=== PATIENT | male | born 1960 | race Caucasian/White ===

== ENCOUNTER → 2018-03-19 | Outpatient (REF) | payer OTHER ==
[2018-03-22 00:07] LABS: CYCLIC CITRULLINATED PEPTIDE > 250 units (0-19)
== END ==
LOC: M LAB REF 17:20
DX: J90 Pleural effusion, not elsewhere classified (principal)

== ENCOUNTER → 2018-04-17 | Outpatient (CLI) | payer BC | LOC: M SMT 13:36 | DX: J90 Pleural effusion, not elsewhere classified (principal); M05.1 Rheumatoid lung disease with rheumatoid arthritis | CPT/HCPCS: 71046 ==

== ENCOUNTER → 2018-04-18 | Outpatient (CLI) | payer BC | LOC: M RAD 10:51 | DX: M79.662 Pain in left lower leg (principal); M79.661 Pain in right lower leg; R60.0 Localized edema | CPT/HCPCS: 93970 ==

== ENCOUNTER → 2018-06-17 | Outpatient (CLI) | payer BC | LOC: M LRY 12:26 | DX: M05.79 Rheumatoid arthritis with rheumatoid factor of multiple sites without organ or systems involvement (principal) | CPT/HCPCS: 73070 ==

== ENCOUNTER → 2018-06-17 | Outpatient (REF) | payer BC ==
[2018-06-17 17:24] LABS: ALBUMIN 3.4 GM/DL (3.2-5.2); ALKALINE PHOSPHATASE 56 U/L (45-117); ALT/SGPT 37 U/L (12-78); ANION GAP 10 MEQ/L (8-16); AST/SGOT 17 U/L (7-37); BILIRUBIN,TOTAL 0.7 MG/DL (0.2-1.0); BLOOD UREA NITROGEN 20 MG/DL (7-18); C REACTIVE PROTEIN QUANTITATIV 3.04 MG/DL (0.00-0.30); CALCIUM LEVEL 8.9 MG/DL (8.5-10.1); CARBON DIOXIDE LEVEL 25 MEQ/L (21-32); CHLORIDE LEVEL 103 MEQ/L (98-107); CREATININE FOR GFR 0.92 MG/DL (0.70-1.30); GLOMERULAR FILTRATION RATE > 60.0 (>56); GLUCOSE, FASTING 96 MG/DL (70-100); POTASSIUM SERUM 4.6 MEQ/L (3.5-5.1); SODIUM LEVEL 138 MEQ/L (136-145); TOTAL PROTEIN 6.8 GM/DL (6.4-8.2); URIC ACID 5.5 MG/DL (3.5-7.2)
[2018-06-17 17:27] LABS: TOTAL 25(OH) VITAMIN D 21.4 NG/ML (30.0-100.0)
[2018-06-17 17:39] LABS: BASO % 0.3 % (0.0-1.0); EOS % 0.3 % (0.0-3.0); HEMATOCRIT 45.7 % (42.0-52.0); HEMOGLOBIN 15.1 g/dl (13.5-17.5); IMMATURE GRANULOCYTE % 0.7 % (0-3.0); LYMPH # 0.5 10^3/uL (1.5-4.5); LYMPH % 5.3 % (24.0-44.0); MEAN CORPUSCULAR HEMOGLOBIN 32.3 pg (27.0-33.0); MEAN CORPUSCULAR VOLUME 97.9 fl (80.0-96.0); MONO # 0.3 10^3/uL (0.0-0.8); MONO % 3.4 % (0.0-5.0); NEUTROPHILS # 8.7 10^3/uL (1.8-7.7); PLATELET COUNT, AUTOMATED 139 10^3/uL (150-450); RED BLOOD COUNT 4.67 10^6/uL (4.30-6.10); RED CELL DISTRIBUTION WIDTH 16.6 % (11.5-14.5); WHITE BLOOD COUNT 9.6 10^3/uL (4.0-10.0)
[2018-06-17 19:23] LABS: ERYTHROCYTE SEDIMENTATION RATE 32 mm/hr (0-20)
[2018-06-18 09:58] LABS: HEPATITIS B SURFACE ANTIBODY NEGATIVE (POSITIVE)
[2018-06-18 10:09] LABS: HEPATITIS B SURFACE ANTIGEN NEGATIVE (NEGATIVE)
[2018-06-18 10:37] LABS: HEPATITIS C VIRUS ABY INDEX 0.1 INDEX (<0.8)
[2018-06-21 00:29] LABS: ANA (HEP2) Negative (.); ANTI DOUBLE STRAND-DNA AB 1 IU/mL (0-9); G6PD2 4.58 x10E6/uL (4.14-5.80); G6PD3 295 (146-376); HEPATITIS B CORE ANTIBODY IGG Negative (Negative); QuantiFERON-TB Gold Plus Negative (Negative); RNP ANTIBODY < 0.2 AI (0.0-0.9); SMITHS ANTIBODY < 0.2 AI (0.0-0.9); SSA SJOGRENS A <0.2 AI (0.0-0.9); SSB SJOGRENS B <0.2 AI (0.0-0.9)
== END ==
LOC: M SFHCLERA 12:05
DX: M05.79 Rheumatoid arthritis with rheumatoid factor of multiple sites without organ or systems involvement (principal)
CPT/HCPCS: 84550

== ENCOUNTER → 2018-07-22 | Outpatient (REF) | payer BC ==
[2018-07-22 13:19] LABS: BASO % 0.2 % (0.0-1.0); EOS # 0.1 10^3/uL (0.0-0.50); EOS % 1.5 % (0.0-3.0); HEMATOCRIT 40.7 % (42.0-52.0); HEMOGLOBIN 13.5 g/dl (13.5-17.5); LYMPH # 0.9 10^3/uL (1.5-4.5); LYMPH % 9.8 % (24.0-44.0); MEAN CORPUSCULAR HEMOGLOBIN 32.8 pg (27.0-33.0); MEAN CORPUSCULAR HGB CONC 33.2 g/dl (32.0-36.5); MEAN CORPUSCULAR VOLUME 98.8 fl (80.0-96.0); MONO # 0.7 10^3/uL (0.0-0.8); NEUTROPHILS # 7.3 10^3/uL (1.8-7.7); NEUTROPHILS % 80.1 % (36.0-66.0); PLATELET COUNT, AUTOMATED 181 10^3/uL (150-450); RED BLOOD COUNT 4.12 10^6/uL (4.30-6.10); WHITE BLOOD COUNT 9.1 10^3/uL (4.0-10.0)
[2018-07-22 14:02] LABS: ALBUMIN 3.4 GM/DL (3.2-5.2); ALT/SGPT 24 U/L (12-78); BILIRUBIN,TOTAL 0.5 MG/DL (0.2-1.0); BLOOD UREA NITROGEN 20 MG/DL (7-18); CALCIUM LEVEL 8.5 MG/DL (8.5-10.1); CARBON DIOXIDE LEVEL 30 MEQ/L (21-32); CHLORIDE LEVEL 104 MEQ/L (98-107); GLOMERULAR FILTRATION RATE > 60.0 (>56); GLUCOSE, FASTING 101 MG/DL (70-100); POTASSIUM SERUM 4.2 MEQ/L (3.5-5.1); SODIUM LEVEL 140 MEQ/L (136-145); TOTAL PROTEIN 6.5 GM/DL (6.4-8.2); URIC ACID 6.3 MG/DL (3.5-7.2)
[2018-07-22 14:05] LABS: ERYTHROCYTE SEDIMENTATION RATE 51 mm/hr (0-20)
== END ==
LOC: M SFHCPLAZ 11:44
PROVIDERS: ATTEND Internal Medicine Rheumatology
DX: M05.79 Rheumatoid arthritis with rheumatoid factor of multiple sites without organ or systems involvement (principal)

== ENCOUNTER → 2018-08-26 | Outpatient (REF) | payer BC ==
[2018-08-26 18:27] LABS: ALBUMIN 3.6 GM/DL (3.2-5.2); ALT/SGPT 44 U/L (12-78); BILIRUBIN,TOTAL 0.3 MG/DL (0.2-1.0); BLOOD UREA NITROGEN 17 MG/DL (7-18); C REACTIVE PROTEIN QUANTITATIV < 0.30 MG/DL (0.00-0.30); CALCIUM LEVEL 9.1 MG/DL (8.5-10.1); CARBON DIOXIDE LEVEL 29 MEQ/L (21-32); CHLORIDE LEVEL 103 MEQ/L (98-107); GLOMERULAR FILTRATION RATE > 60.0 (>56); GLUCOSE, FASTING 85 MG/DL (70-100); POTASSIUM SERUM 5.1 MEQ/L (3.5-5.1); SODIUM LEVEL 138 MEQ/L (136-145); TOTAL PROTEIN 6.8 GM/DL (6.4-8.2)
[2018-08-26 18:40] LABS: BASO % 0.2 % (0.0-1.0); EOS # 0.1 10^3/uL (0.0-0.50); EOS % 1.1 % (0.0-3.0); HEMATOCRIT 44.7 % (42.0-52.0); HEMOGLOBIN 14.8 g/dl (13.5-17.5); LYMPH # 1.7 10^3/uL (1.5-4.5); LYMPH % 17.8 % (24.0-44.0); MEAN CORPUSCULAR HEMOGLOBIN 34.4 pg (27.0-33.0); MEAN CORPUSCULAR HGB CONC 33.1 g/dl (32.0-36.5); MONO # 0.9 10^3/uL (0.0-0.8); NEUTROPHILS # 6.6 10^3/uL (1.8-7.7); NEUTROPHILS % 70.2 % (36.0-66.0); PLATELET COUNT, AUTOMATED 197 10^3/uL (150-450); WHITE BLOOD COUNT 9.4 10^3/uL (4.0-10.0)
[2018-08-26 19:20] LABS: ERYTHROCYTE SEDIMENTATION RATE 10 mm/hr (0-20)
== END ==
LOC: M SFHCPLAZ 14:29
PROVIDERS: ATTEND Internal Medicine Rheumatology
DX: M05.10 Rheumatoid lung disease with rheumatoid arthritis of unspecified site (principal)

== ENCOUNTER → 2018-09-26 | Outpatient (REF) | payer BC ==
[2018-09-26 14:22] LABS: BASO % 0.2 % (0.0-1.0); EOS # 0.1 10^3/uL (0.0-0.50); EOS % 1.5 % (0.0-3.0); HEMATOCRIT 45.6 % (42.0-52.0); HEMOGLOBIN 15.1 g/dl (13.5-17.5); LYMPH # 0.9 10^3/uL (1.5-4.5); LYMPH % 10.3 % (24.0-44.0); MEAN CORPUSCULAR HEMOGLOBIN 34.1 pg (27.0-33.0); MEAN CORPUSCULAR HGB CONC 33.1 g/dl (32.0-36.5); MEAN CORPUSCULAR VOLUME 102.9 fl (80.0-96.0); MONO # 0.7 10^3/uL (0.0-0.8); NEUTROPHILS # 7.3 10^3/uL (1.8-7.7); NEUTROPHILS % 79.7 % (36.0-66.0); PLATELET COUNT, AUTOMATED 201 10^3/uL (150-450); RED BLOOD COUNT 4.43 10^6/uL (4.30-6.10); WHITE BLOOD COUNT 9.1 10^3/uL (4.0-10.0)
[2018-09-26 14:41] LABS: ALBUMIN 3.8 GM/DL (3.2-5.2); ALT/SGPT 26 U/L (12-78); BILIRUBIN,TOTAL 0.6 MG/DL (0.2-1.0); BLOOD UREA NITROGEN 12 MG/DL (7-18); C REACTIVE PROTEIN QUANTITATIV 0.57 MG/DL (0.00-0.30); CALCIUM LEVEL 8.5 MG/DL (8.5-10.1); CARBON DIOXIDE LEVEL 28 MEQ/L (21-32); CHLORIDE LEVEL 102 MEQ/L (98-107); CREATININE FOR GFR 0.88 MG/DL (0.70-1.30); GLOMERULAR FILTRATION RATE > 60.0 (>56); GLUCOSE, FASTING 77 MG/DL (70-100); NT-PRO BNP 105 PG/ML (<125); POTASSIUM SERUM 4.7 MEQ/L (3.5-5.1); SODIUM LEVEL 138 MEQ/L (136-145); URIC ACID 5.1 MG/DL (3.5-7.2)
[2018-09-26 14:47] LABS: ERYTHROCYTE SEDIMENTATION RATE 16 mm/hr (0-20)
== END ==
LOC: M SFHCPLAZ 11:17
PROVIDERS: ATTEND Internal Medicine Rheumatology
DX: M05.79 Rheumatoid arthritis with rheumatoid factor of multiple sites without organ or systems involvement (principal); M05.10 Rheumatoid lung disease with rheumatoid arthritis of unspecified site

== ENCOUNTER → 2018-10-13 | Outpatient (CLI) | payer BC ==
--- NOTE | 2018-10-14 20:36 | ECHO ---
DATE OF PROCEDURE: 10/13/2018 Date of : 1960 REFERRING PHYSICIAN: Dr. Sloane Arias INDICATION: Dyspnea. Hypertension. MEASUREMENTS: 2D measurements: RV: 4.1 cm LV: 4.4 cm Septum: 1.1 cm Posterior wall: 1.1 cm Aortic root: 3.3 cm LA: 3.2 cm LVEF: 65% Doppler measurements: AV: 1.3 m/s LVOT: 1.2 m/s LVOT diameter: 2.2 cm MV-E: 54, A: 66, EA ratio: 0.8 Early mitral deceleration time: 225 ms E prime: 7.2, A prime: 9.8, E/E prime ratio: 7.6 PV: 0.8 m/s Pulmonary artery acceleration time: 127 ms RVSP: 32 mmHg IVC: 1.7 cm COMMENTS: Normal sinus rhythm without intraventricular conduction disturbance. M-mode and two-dimensional echocardiography was performed with pulsed, continuous wave, color flow and tissue Doppler studies. Normal left ventricular size, wall thickness and wall motion. Normal left atrial size with Doppler evidence of an impairment of left ventricular (LV) diastolic function, yet currently normal estimated mean left atrial pressure. Right heart chamber sizes were upper limits of normal with normal wall motion and Doppler evidence of borderline pulmonary hypertension. Normal inferior vena cava (IVC) size and collapse against an elevated central venous pressure. Normal appearing and functioning valvular structures. Normal aortic root size. No apparent intracardiac mass or pericardial effusion.
== END ==
LOC: M CARPUL 10:08
PROVIDERS: ATTEND Internal Medicine Pulmonary Disease
DX: R06.00 Dyspnea, unspecified (principal)

== ENCOUNTER → 2018-10-13 | Outpatient (CLI) | payer BC ==
[~2018-10-13] MED LIST: ISOVUE-370 76% 100ML VIAL (Q9967) As Ordered ONE
--- NOTE | 2018-10-13 09:19 | REP ---
CT CHEST WITHOUT AND WITH CONTRAST: 10/13/2018 CLINICAL HISTORY: 2 cm low density nodule anterior-superior mediastinum. Patient with rheumatoid arthritis. COMPARISON: Noncontrast CT 08/12/[address] [facility]. TECHNIQUE: Noncontrast scanning through the chest followed by a bolus of 75 mL Isovue 370 with rescanning through the chest in both coronal and sagittal reconstructions provided. FINDINGS: The anterior-superior mediastinum again shows a 2.2 x 2 x 1.9 cm low density lesion is well-circumscribed. It has CT attenuation values on precontrast images in the low to mid teens and on postcontrast images in the range of 6-8 international units. This implies a low-density or fluid-containing lesion. There is a partially fatty lesion. There is certainly no enhancement with contrast. Within the mediastinum, there are no enlarged mediastinal nodes. An 8.5 mm node in the AP window is noted and there are smaller nodes in the prevascular space, AP window, precarinal, right paratracheal and subcarinal regions. I do not see any pathologic sized hilar adenopathy. The aorta is without aneurysm or dissection and has some calcifications at the arch. The main, right and left pulmonary arteries are without a filling defect. Tracheal airway is grossly intact. I see no evidence of cylindrical bronchiectasis. There is no pleural thickening, pleural effusion, calcified pleural plaque, pleural-based mass, parenchymal mass nor any significant pulmonary nodules visible. I do not see any significant interstitial lung disease, blebs, ground-glass opacities, infiltrates or other acute findings. Sternum, manubrium, clavicles, AC joints, visualized portions of the humeral heads, scapulae and ribs are without fracture or destructive lesion. There is some minor degenerative changes at the shoulders. The spine shows small marginal osteophytes but no destructive lesion or compression deformity. That portion of the liver and spleen included are unremarkable. Gallbladder without calcified stone. Pancreas, adrenal glands and upper poles of kidneys unremarkable. Visualized bowel loops intact. I do not see a hiatal hernia. IMPRESSION: 1. There is a 2.2 x 2 x 1.9 cm low density lesion anterior superior mediastinum with fairly sharply lobulated margins and without calcification. It showed no enhancement and was a low attenuation and near fluid density. This may reflect a thymic cyst or other similar nonaggressive finding. A followup CT in 4-6 months may be helpful. 2. There is no pathologic sized mediastinal or hilar adenopathy. 3. I do not see any interstitial lung disease, pulmonary nodules, cylindrical bronchiectasis or other acute finding. Electronically Signed by Chevy Bull MD 10/13/2018 07:38 P
== END ==
LOC: M RAD 07:51
PROVIDERS: ATTEND Internal Medicine Pulmonary Disease
DX: M05.1 Rheumatoid lung disease with rheumatoid arthritis (principal); D15.2 Benign neoplasm of mediastinum
CPT/HCPCS: 71270; Q9967

== ENCOUNTER → 2018-11-03 | Outpatient (REF) | payer BC ==
[2018-11-03 16:34] LABS: BASO % 0.9 % (0.0-1.0); EOS # 0.2 10^3/uL (0.0-0.50); EOS % 3.8 % (0.0-3.0); HEMATOCRIT 43.3 % (42.0-52.0); HEMOGLOBIN 14.2 g/dl (13.5-17.5); LYMPH # 0.7 10^3/uL (1.5-4.5); LYMPH % 16.7 % (24.0-44.0); MEAN CORPUSCULAR HEMOGLOBIN 33.6 pg (27.0-33.0); MEAN CORPUSCULAR HGB CONC 32.8 g/dl (32.0-36.5); MEAN CORPUSCULAR VOLUME 102.4 fl (80.0-96.0); MONO # 0.7 10^3/uL (0.0-0.8); MONO % 16.5 % (0.0-5.0); NEUTROPHILS # 2.7 10^3/uL (1.8-7.7); NEUTROPHILS % 61.9 % (36.0-66.0); PLATELET COUNT, AUTOMATED 210 10^3/uL (150-450); RED BLOOD COUNT 4.23 10^6/uL (4.30-6.10); WHITE BLOOD COUNT 4.4 10^3/uL (4.0-10.0)
[2018-11-03 16:41] LABS: ALBUMIN 3.3 GM/DL (3.2-5.2); ALT/SGPT 31 U/L (12-78); BILIRUBIN,TOTAL 0.5 MG/DL (0.2-1.0); BLOOD UREA NITROGEN 15 MG/DL (7-18); C REACTIVE PROTEIN QUANTITATIV 2.44 MG/DL (0.00-0.30); CALCIUM LEVEL 8.5 MG/DL (8.5-10.1); CARBON DIOXIDE LEVEL 29 MEQ/L (21-32); CHLORIDE LEVEL 101 MEQ/L (98-107); CREATININE FOR GFR 1.08 MG/DL (0.70-1.30); GLOMERULAR FILTRATION RATE > 60.0 (>56); GLUCOSE, FASTING 105 MG/DL (70-100); POTASSIUM SERUM 4.2 MEQ/L (3.5-5.1); SODIUM LEVEL 136 MEQ/L (136-145); TOTAL PROTEIN 6.6 GM/DL (6.4-8.2)
[2018-11-03 18:05] LABS: ERYTHROCYTE SEDIMENTATION RATE 43 mm/hr (0-20)
== END ==
LOC: M SFHCPLAZ 14:05
PROVIDERS: ATTEND Internal Medicine Rheumatology
DX: M05.79 Rheumatoid arthritis with rheumatoid factor of multiple sites without organ or systems involvement (principal)

== ENCOUNTER → 2018-12-08 | Outpatient (CLI) | payer BC ==
--- NOTE | 2018-12-09 06:54 | REP ---
Clinical: Rheumatoid lung disease Technique: Axial noncontrast images from the thoracic inlet to the upper abdomen with coronal and sagittal re-formations. Comparison: 10/13/2018, 08/22/2018, 03/25/2018 . Findings: Current examination demonstrates moderate scattered small patchy ground-glass opacities primarily noted in the left and right upper lobe is along with scattered mild elements of interstitial prominence and mild perihilar bronchiectasis. Small areas of consolidation in the right middle lobe measure up to 2.1 cm diameter. Associated mild reactive mediastinal and hilar adenopathy is appreciated with pretracheal lymph nodes measuring up to 15 mm. No effusion. No pneumothorax. Further evaluation of the mediastinum demonstrates stable relatively normal appearance of the vasculature and heart/pericardium including mild atherosclerotic changes to the thoracic aorta and coronary arteries. Anterior mediastinal lesion measuring approximately 2.3 cm maximal diameter remains unchanged and may represent residual thymic tissue or thymic cyst. Musculoskeletal structures demonstrate age-related degenerative changes which remain stable. Limited upper abdomen is grossly unremarkable. Impression: 1. Patchy scattered bilateral lesions acute ground-glass infiltrates and small areas of suspected consolidation in the right middle lobe along with mild bronchiectasis and interstitial prominence suggest acute on chronic pneumonitis possibly related to rheumatoid lung disease. 2. Reactive mediastinal and hilar adenopathy. 3. Somewhat triangular shaped low density lesion within the anterior mediastinum remains stable. Differential diagnosis includes but is not limited to thymic cyst and residual thymic tissue. Electronically Signed by Adam Tejada MD 12/09/2018 06:45 A
== END ==
LOC: M RAD 14:41
PROVIDERS: ATTEND Internal Medicine Pulmonary Disease
DX: M05.1 Rheumatoid lung disease with rheumatoid arthritis (principal)

== ENCOUNTER → 2018-12-16 | Outpatient (REF) | payer BC | LOC: M LAB REF 17:21 | PROVIDERS: ATTEND Internal Medicine Pulmonary Disease | DX: M05.1 Rheumatoid lung disease with rheumatoid arthritis (principal) ==

== ENCOUNTER → 2019-01-05 | Outpatient (REF) | payer BC ==
[2019-01-05 15:58] LABS: BASO % 0.7 % (0.0-1.0); EOS # 0.3 10^3/uL (0.0-0.50); EOS % 5.2 % (0.0-3.0); HEMATOCRIT 44.5 % (42.0-52.0); HEMOGLOBIN 14.9 g/dl (13.5-17.5); LYMPH # 1.4 10^3/uL (1.5-4.5); LYMPH % 25.2 % (24.0-44.0); MEAN CORPUSCULAR HEMOGLOBIN 34.3 pg (27.0-33.0); MEAN CORPUSCULAR HGB CONC 33.5 g/dl (32.0-36.5); MEAN CORPUSCULAR VOLUME 102.3 fl (80.0-96.0); MONO # 0.8 10^3/uL (0.0-0.8); MONO % 13.5 % (0.0-5.0); NEUTROPHILS % 54.9 % (36.0-66.0); PLATELET COUNT, AUTOMATED 301 10^3/uL (150-450); RED BLOOD COUNT 4.35 10^6/uL (4.30-6.10); WHITE BLOOD COUNT 5.6 10^3/uL (4.0-10.0)
[2019-01-05 16:24] LABS: ALBUMIN 3.1 GM/DL (3.2-5.2); ALT/SGPT 51 U/L (12-78); BILIRUBIN,TOTAL 0.4 MG/DL (0.2-1.0); BLOOD UREA NITROGEN 17 MG/DL (7-18); CALCIUM LEVEL 8.7 MG/DL (8.5-10.1); CARBON DIOXIDE LEVEL 31 MEQ/L (21-32); CHLORIDE LEVEL 101 MEQ/L (98-107); CREATININE FOR GFR 1.08 MG/DL (0.70-1.30); GLOMERULAR FILTRATION RATE > 60.0 (>56); GLUCOSE, FASTING 96 MG/DL (70-100); POTASSIUM SERUM 4.5 MEQ/L (3.5-5.1); SODIUM LEVEL 138 MEQ/L (136-145); TOTAL PROTEIN 6.8 GM/DL (6.4-8.2)
[2019-01-05 18:31] LABS: ERYTHROCYTE SEDIMENTATION RATE 20 mm/hr (0-20)
== END ==
LOC: M SFHCPLAZ 14:23
PROVIDERS: ATTEND Internal Medicine Rheumatology
DX: M05.79 Rheumatoid arthritis with rheumatoid factor of multiple sites without organ or systems involvement (principal)

== ENCOUNTER → 2019-01-21 | Outpatient (REF) | payer BC ==
[2019-01-21 15:46] LABS: ALBUMIN 3.5 GM/DL (3.2-5.2); ALT/SGPT 52 U/L (12-78); BILIRUBIN,TOTAL 0.3 MG/DL (0.2-1.0); BLOOD UREA NITROGEN 17 MG/DL (7-18); CALCIUM LEVEL 9.2 MG/DL (8.5-10.1); CARBON DIOXIDE LEVEL 31 MEQ/L (21-32); CHLORIDE LEVEL 104 MEQ/L (98-107); CREATININE FOR GFR 1.07 MG/DL (0.70-1.30); GLOMERULAR FILTRATION RATE > 60.0 (>56); GLUCOSE, FASTING 89 MG/DL (70-100); POTASSIUM SERUM 4.1 MEQ/L (3.5-5.1); SODIUM LEVEL 139 MEQ/L (136-145); TOTAL PROTEIN 7.2 GM/DL (6.4-8.2)
[2019-01-21 15:48] LABS: BASO % 0.2 % (0.0-1.0); EOS # 0.3 10^3/uL (0.0-0.50); EOS % 3.7 % (0.0-3.0); HEMATOCRIT 45.2 % (42.0-52.0); HEMOGLOBIN 15.2 g/dl (13.5-17.5); LYMPH # 1.3 10^3/uL (1.5-4.5); LYMPH % 15.5 % (24.0-44.0); MEAN CORPUSCULAR HEMOGLOBIN 34.2 pg (27.0-33.0); MEAN CORPUSCULAR HGB CONC 33.6 g/dl (32.0-36.5); MEAN CORPUSCULAR VOLUME 101.8 fl (80.0-96.0); MONO # 0.9 10^3/uL (0.0-0.8); MONO % 11.2 % (0.0-5.0); NEUTROPHILS # 5.8 10^3/uL (1.8-7.7); NEUTROPHILS % 69.2 % (36.0-66.0); PLATELET COUNT, AUTOMATED 295 10^3/uL (150-450); RED BLOOD COUNT 4.44 10^6/uL (4.30-6.10); WHITE BLOOD COUNT 8.3 10^3/uL (4.0-10.0)
[2019-01-21 17:36] LABS: ERYTHROCYTE SEDIMENTATION RATE 19 mm/hr (0-20)
== END ==
LOC: M SFHCPLAZ 14:14
PROVIDERS: ATTEND Internal Medicine Rheumatology
DX: M05.10 Rheumatoid lung disease with rheumatoid arthritis of unspecified site (principal)

== ENCOUNTER → 2019-02-02 | Outpatient (CLI) | payer BC ==
--- NOTE | 2019-02-02 14:20 | REP ---
REASON: History of rheumatoid lung disease. COMPARISON: Multiple, the latest 12/08/2018. The lack of intravenous contrast decreases the sensitivity of the examination. There is anterior mediastinal lymphadenopathy status quo. Small and borderline sized left hilar lymph nodes are also noted status quo. There are no pleural or pericardial effusions. There is no change in the imaged upper abdomen or imaged osseous structures. Evaluation of the lung fernandez shows previously present scattered ground glass opacities to have significantly improved. A few areas have completely resolved. There are no new abnormal nodules, masses, or opacities. IMPRESSION: 1. Improved lung field findings as described above. 2. Other findings as described above. Electronically Signed by Eriberto Armenta DO 02/02/2019 03:28 P
== END ==
LOC: M RAD 13:49
PROVIDERS: ATTEND Internal Medicine Pulmonary Disease
DX: M05.1 Rheumatoid lung disease with rheumatoid arthritis (principal); R59.1 Generalized enlarged lymph nodes; R91.8 Other nonspecific abnormal finding of lung field

== ENCOUNTER → 2019-04-08 | Outpatient (CLI) | payer BC ==
[2019-04-08 13:25] LABS: BASO % 0.4 % (0.0-1.0); EOS # 0.3 10^3/uL (0.0-0.5); EOS % 5.6 % (0.0-3.0); HEMATOCRIT 47.6 % (42.0-52.0); HEMOGLOBIN 15.7 g/dl (13.5-17.5); LYMPH # 1.6 10^3/uL (1.5-5.0); LYMPH % 32.5 % (24.0-44.0); MEAN CORPUSCULAR HEMOGLOBIN 32.4 pg (27.0-33.0); MEAN CORPUSCULAR VOLUME 98.1 fl (80.0-96.0); MONO # 0.7 10^3/uL (0.0-0.8); MONO % 12.9 % (0.0-5.0); NEUTROPHILS # 2.4 10^3/uL (1.5-8.5); NEUTROPHILS % 48.4 % (36.0-66.0); PLATELET COUNT, AUTOMATED 183 10^3/uL (150-450); RED BLOOD COUNT 4.85 10^6/uL (4.30-6.10)
[2019-04-08 13:41] LABS: ALBUMIN 3.5 GM/DL (3.2-5.2); ALT/SGPT 39 U/L (12-78); BILIRUBIN,TOTAL 0.3 MG/DL (0.2-1.0); BLOOD UREA NITROGEN 17 MG/DL (7-18); C REACTIVE PROTEIN QUANTITATIV < 0.30 MG/DL (0.00-0.30); CALCIUM LEVEL 9.6 MG/DL (8.5-10.1); CARBON DIOXIDE LEVEL 28 MEQ/L (21-32); CHLORIDE LEVEL 107 MEQ/L (98-107); CREATININE FOR GFR 0.84 MG/DL (0.70-1.30); GLOMERULAR FILTRATION RATE > 60.0 (>56); GLUCOSE, FASTING 98 MG/DL (70-100); POTASSIUM SERUM 4.4 MEQ/L (3.5-5.1); SODIUM LEVEL 140 MEQ/L (136-145); TOTAL PROTEIN 6.8 GM/DL (6.4-8.2)
[2019-04-08 14:50] LABS: ERYTHROCYTE SEDIMENTATION RATE 6 mm/hr (0-20)
== END ==
LOC: M LAB 11:54
PROVIDERS: ATTEND Internal Medicine Rheumatology
DX: M05.79 Rheumatoid arthritis with rheumatoid factor of multiple sites without organ or systems involvement (principal)

== ENCOUNTER → 2019-04-26 | Outpatient (CLI) | payer BC ==
--- NOTE | 2019-04-29 14:03 | SLEEPCENT ---
DATE OF PROCEDURE: 04/26/2019 ORDERED BY: Dr. Arias Nocturnal polysomnography was performed for the titration of pressure therapy in this patient with obstructive sleep apnea syndrome. For testing a ResVeeker AirFit F20 full-face mask of medium size was used; 5 cm of water pressure was applied to the circuit and the lights were extinguished. 7 hours and 27 minutes of data were reviewed. There were 338 minutes of sleep identified. Sleep latency was short at 7.5 minutes. Rapid eye movement (REM) latency was short at 46 minutes. Sleep architecture was good with 4 REM cycles appreciated. Overall sleep efficiency was 76.4%. The patient's electrocardiogram showed a sinus rhythm with an average heart rate of 65 beats per minute. Electroencephalogram (EEG) showed normal waveforms for awake and sleep. Respiratory events were best palliated with CPAP at a pressure of +9. Remaining measures of sleep physiology were reasonably normal. IMPRESSION: Obstructive sleep apnea syndrome (G47.33). RECOMMENDATIONS: Nightly use of pressure therapy 9 cm of water.
== END ==
LOC: M SLEEP 20:00
PROVIDERS: ATTEND Internal Medicine Pulmonary Disease
DX: G47.33 Obstructive sleep apnea (adult) (pediatric) (principal)

== ENCOUNTER → 2019-08-19 | Outpatient (CLI) | payer BC ==
--- NOTE | 2019-08-20 04:31 | REP ---
Clinical: Rheumatoid lung disease. Comparison: 02/02/2019, 12/08/2018 Technique: Axial noncontrast images from the thoracic inlet to the upper abdomen with coronal and sagittal re-formations. Findings: The bilateral lung fernandez are well-aerated, relatively symmetric and essentially clear. Previously noted scattered non solid ground-glass opacities have resolved. Only minimal scarring is identified in the right middle lobe and right base. No acute consolidation, nodule or mass lesion. No pleural effusion. No pneumothorax. Mediastinal and hilar lymph nodes are nonspecific and stable. Impression: 1. Improved aeration with essentially complete resolution to the previously noted opacities. Stable nonspecific mediastinal lymph nodes. 2. No acute mediastinal or pleuroparenchymal process. Electronically Signed by Adam Tejada MD 08/20/2019 04:22 A
== END ==
LOC: M RAD 13:43
PROVIDERS: ATTEND Internal Medicine Pulmonary Disease
DX: M05.1 Rheumatoid lung disease with rheumatoid arthritis (principal)

== ENCOUNTER → 2019-10-16 | Outpatient (REF) | payer BC ==
[2019-10-16 16:57] LABS: BASO % 0.3 % (0.0-1.0); EOS # 0.4 10^3/uL (0.0-0.5); EOS % 5.8 % (0.0-3.0); HEMOGLOBIN 16.3 g/dl (13.5-17.5); LYMPH % 32.6 % (24.0-44.0); MEAN CORPUSCULAR HEMOGLOBIN 33.7 pg (27.0-33.0); MEAN CORPUSCULAR HGB CONC 34.7 g/dl (32.0-36.5); MEAN CORPUSCULAR VOLUME 97.1 fl (80.0-96.0); MONO # 0.7 10^3/uL (0.0-0.8); MONO % 11.4 % (0.0-5.0); NEUTROPHILS # 3.1 10^3/uL (1.5-8.5); NEUTROPHILS % 49.6 % (36.0-66.0); PLATELET COUNT, AUTOMATED 175 10^3/uL (150-450); RED BLOOD COUNT 4.84 10^6/uL (4.30-6.10); WHITE BLOOD COUNT 6.2 10^3/uL (4.0-10.0)
[2019-10-16 17:05] LABS: ALBUMIN 3.8 GM/DL (3.2-5.2); ALT/SGPT 33 U/L (12-78); BILIRUBIN,TOTAL 0.5 MG/DL (0.2-1.0); BLOOD UREA NITROGEN 19 MG/DL (7-18); C REACTIVE PROTEIN QUANTITATIV < 0.30 MG/DL (0.00-0.30); CALCIUM LEVEL 9.1 MG/DL (8.5-10.1); CARBON DIOXIDE LEVEL 28 MEQ/L (21-32); CHLORIDE LEVEL 107 MEQ/L (98-107); CREATININE FOR GFR 0.82 MG/DL (0.70-1.30); GLOMERULAR FILTRATION RATE > 60.0 (>56); GLUCOSE, FASTING 91 MG/DL (70-100); POTASSIUM SERUM 4.1 MEQ/L (3.5-5.1); SODIUM LEVEL 139 MEQ/L (136-145); TOTAL PROTEIN 7.2 GM/DL (6.4-8.2)
[2019-10-16 18:41] LABS: ERYTHROCYTE SEDIMENTATION RATE 5 mm/hr (0-20)
== END ==
LOC: M SFHCRHEU 15:19
PROVIDERS: ATTEND Internal Medicine
DX: M05.79 Rheumatoid arthritis with rheumatoid factor of multiple sites without organ or systems involvement (principal)

== ENCOUNTER → 2020-02-18 | Outpatient (REF) | payer BC ==
[~2020-02-18] MED LIST changes: +CELL250C PO; +CELL500T PO; +CLOB5CR TOP; +COZA50TA PO; +CYCL1CAP4 PO; +CYCL1CAP5 PO; +CYCL25CA PO; +CYCL25CA5 PO; +DIPHCR TOP; +DOXY100C; +DOXY100T PO; +HYDR-3363 PO; +HYDR-643; +HYDR-643 PO; -ISOVUE-370 76% 100ML VIAL (Q9967) As Ordered ONE; +LOSA50TA88; +LOSA50TA88 PO; +MAG400TA PO; +MYCO500T PO; +PANT40TA29 PO; +PRED10TA2 PO; +PRED20TA; +PRED20TA PO; +SENN-52 PO; +SILD50TA8 PO; +TRIA1CR80; +TRIA1CR80 TOP; +VALA1TAB5; +VALA1TAB5 PO; +VITMTA PO; +[UNRECOGNIZED DRUG - CODE] PO
== END ==
LOC: M LAB REF 09:16
PROVIDERS: ATTEND Dermatology
DX: R21 Rash and other nonspecific skin eruption (principal)

== ENCOUNTER → 2020-04-20 | Outpatient (CLI) | payer BC ==
[2020-04-20 12:44] LABS: BASO % 0.4 % (0.0-1.0); EOS % 12.6 % (0.0-3.0); HEMATOCRIT 48.3 % (42.0-52.0); HEMOGLOBIN 15.9 g/dl (13.5-17.5); LYMPH # 1.3 10^3/uL (1.5-5.0); LYMPH % 16.2 % (24.0-44.0); MEAN CORPUSCULAR HEMOGLOBIN 33.3 pg (27.0-33.0); MEAN CORPUSCULAR HGB CONC 32.9 g/dl (32.0-36.5); MONO # 1.1 10^3/uL (0.0-0.8); MONO % 14.3 % (0.0-5.0); NEUTROPHILS # 4.4 10^3/uL (1.5-8.5); NEUTROPHILS % 55.6 % (36.0-66.0); PLATELET COUNT, AUTOMATED 291 10^3/uL (150-450); RED BLOOD COUNT 4.78 10^6/uL (4.30-6.10); WHITE BLOOD COUNT 7.8 10^3/uL (4.0-10.0)
[2020-04-20 13:08] LABS: ALBUMIN 3.5 GM/DL (3.2-5.2); ALT/SGPT 52 U/L (12-78); BILIRUBIN,TOTAL 0.3 MG/DL (0.2-1.0); BLOOD UREA NITROGEN 20 MG/DL (7-18); CALCIUM LEVEL 10.3 MG/DL (8.5-10.1); CARBON DIOXIDE LEVEL 31 MEQ/L (21-32); CHLORIDE LEVEL 106 MEQ/L (98-107); CREATININE FOR GFR 0.95 MG/DL (0.70-1.30); ERYTHROCYTE SEDIMENTATION RATE 7 mm/hr (0-20); GLOMERULAR FILTRATION RATE > 60.0 (>56); GLUCOSE, FASTING 85 MG/DL (70-100); POTASSIUM SERUM 4.5 MEQ/L (3.5-5.1); SODIUM LEVEL 139 MEQ/L (136-145); TOTAL PROTEIN 7.1 GM/DL (6.4-8.2)
== END ==
LOC: M LAB 12:02
PROVIDERS: ATTEND Internal Medicine
DX: M05.79 Rheumatoid arthritis with rheumatoid factor of multiple sites without organ or systems involvement (principal)

== ENCOUNTER → 2020-04-20 | Outpatient (REF) | payer BC | LOC: M LAB REF 17:32 | PROVIDERS: ATTEND Dermatology | DX: L30.9 Dermatitis, unspecified (principal) ==

== ENCOUNTER → 2020-04-20 | Outpatient (CLI) | payer BC ==
[2020-04-20 12:43] LABS: BASO % 0.4 % (0.0-1.0); EOS % 12.8 % (0.0-3.0); HEMATOCRIT 43.1 % (42.0-52.0); HEMOGLOBIN 14.3 g/dl (13.5-17.5); LYMPH # 1.3 10^3/uL (1.5-5.0); LYMPH % 16.9 % (24.0-44.0); MEAN CORPUSCULAR HEMOGLOBIN 33.6 pg (27.0-33.0); MEAN CORPUSCULAR HGB CONC 33.2 g/dl (32.0-36.5); MEAN CORPUSCULAR VOLUME 101.2 fl (80.0-96.0); MONO # 1.1 10^3/uL (0.0-0.8); MONO % 13.7 % (0.0-5.0); NEUTROPHILS # 4.4 10^3/uL (1.5-8.5); NEUTROPHILS % 55.7 % (36.0-66.0); PLATELET COUNT, AUTOMATED 256 10^3/uL (150-450); RED BLOOD COUNT 4.26 10^6/uL (4.30-6.10); WHITE BLOOD COUNT 7.8 10^3/uL (4.0-10.0)
[2020-04-20 12:49] LABS: APPEARANCE, URINE HAZY (CLEAR); BACTERIA, URINE AUTO NEGATIVE (NEGATIVE); BILIRUBIN, URINE AUTO NEGATIVE (NEGATIVE); BLOOD, URINE BLOOD NEGATIVE (NEGATIVE); COLOR, URINE YELLOW (YELLOW); GLUCOSE, URINE (UA) AUTO NEGATIVE (NEGATIVE); KETONE, URINE AUTO NEGATIVE (NEGATIVE); LEUKOCYTE ESTERASE, URINE AUTO NEGATIVE (NEGATIVE); MUCUS, URINE SMALL (NEGATIVE); NITRITE, URINE AUTO NEGATIVE (NEGATIVE); PROTEIN, URINE AUTO NEGATIVE (NEGATIVE); RBC, URINE AUTO 2 /HPF (0-3); SPECIFIC GRAVITY URINE AUTO 1.023 (1.002-1.035); SQUAMOUS EPITHELIAL CELL UR AU 0 /HPF (0-6); UROBILINOGEN, URINE AUTO 0.2 mg/dL (0.0-2.0); WBC, URINE AUTO 1 /HPF (0-3)
[2020-04-20 13:09] LABS: ALBUMIN 3.5 GM/DL (3.2-5.2); BILIRUBIN,DIRECT 0.1 MG/DL (0.0-0.2); BILIRUBIN,TOTAL 0.3 MG/DL (0.2-1.0); TOTAL PROTEIN 6.8 GM/DL (6.4-8.2)
== END ==
LOC: M LAB 12:06
PROVIDERS: ATTEND Dermatology
DX: L30.9 Dermatitis, unspecified (principal)

== ENCOUNTER → 2020-04-22 | Outpatient (CLI) | payer BC | LOC: M LAB 16:19 | PROVIDERS: ATTEND Dermatology | DX: L13.9 Bullous disorder, unspecified (principal) ==

== ENCOUNTER 2020-04-26 19:17 | Inpatient (IN) | payer BC ==
[~2020-04-26] VITALS: Ht 170.2 cm; Wt 95.1 kg
[2020-04-26] MEDS ORDERED: LOSA50TA88 (19:33)
[2020-04-26] MEDS ORDERED: HYDR-643 (19:33)
[2020-04-26] MEDS ORDERED: DOXY100C (19:33)
[2020-04-26] MEDS ORDERED: TRIA1CR80 (19:33)
[2020-04-26] MEDS ORDERED: PRED20TA (19:33)
[2020-04-26] MEDS ORDERED: VALA1TAB5 (19:33)
[2020-04-26] MEDS ORDERED: diphenhydrAMINE 50MG/ML VIAL (J1200) IV ONE (20:30)
[2020-04-26 21:13] LABS: BASO % 0.3 % (0.0-1.0); EOS # 1.2 10^3/uL (0.0-0.5); EOS % 11.3 % (0.0-3.0); HEMATOCRIT 46.6 % (42.0-52.0); HEMOGLOBIN 15.2 g/dl (13.5-17.5); LYMPH # 1.4 10^3/uL (1.5-5.0); LYMPH % 12.9 % (24.0-44.0); MEAN CORPUSCULAR HEMOGLOBIN 33.5 pg (27.0-33.0); MEAN CORPUSCULAR HGB CONC 32.6 g/dl (32.0-36.5); MEAN CORPUSCULAR VOLUME 102.6 fl (80.0-96.0); MONO # 1.1 10^3/uL (0.0-0.8); MONO % 10.1 % (0.0-5.0); NEUTROPHILS % 63.9 % (36.0-66.0); PLATELET COUNT, AUTOMATED 300 10^3/uL (150-450); RED BLOOD COUNT 4.54 10^6/uL (4.30-6.10); WHITE BLOOD COUNT 10.9 10^3/uL (4.0-10.0)
[2020-04-26 21:24] LABS: INR 1.02; PROTHROMBIN TIME 13.6 SECONDS (12.5-14.3)
[2020-04-26 21:25] LABS: PARTIAL THROMBOPLASTIN TIME 21.1 SECONDS (24.2-38.5)
[2020-04-26 21:33] LABS: ALBUMIN 3.3 GM/DL (3.2-5.2); ALT/SGPT 67 U/L (12-78); BILIRUBIN,DIRECT < 0.1 MG/DL (0.0-0.2); BILIRUBIN,TOTAL 0.2 MG/DL (0.2-1.0); BLOOD UREA NITROGEN 32 MG/DL (7-18); CALCIUM LEVEL 9.2 MG/DL (8.5-10.1); CARBON DIOXIDE LEVEL 28 MEQ/L (21-32); CHLORIDE LEVEL 106 MEQ/L (98-107); CK-MB VALUE MASS 2.7 NG/ML (<3.6); CPK CREATINE PHOSPHOKINASE 84 U/L (39-308); CREATININE FOR GFR 0.99 MG/DL (0.70-1.30); ERYTHROCYTE SEDIMENTATION RATE 3 mm/hr (0-20); GLOMERULAR FILTRATION RATE > 60.0 (>56); GLUCOSE, FASTING 143 MG/DL (70-100); MB/CK RELATIVE INDEX 3.21 (< OR =4); NT-PRO BNP 38 PG/ML (<125); POTASSIUM SERUM 4.2 MEQ/L (3.5-5.1); SODIUM LEVEL 139 MEQ/L (136-145); TOTAL PROTEIN 6.8 GM/DL (6.4-8.2); TROPONIN I < 0.02 NG/ML (< 0.10)
[2020-04-26] MEDS ORDERED: CLINDAMYCIN 300 MG in IV 1 EA IV ONE (21:45)
[2020-04-26] MEDS ORDERED: FUROSEMIDE 40MG/4ML VIAL (J1940) IV ONE (22:00)
[2020-04-26] MEDS ORDERED: VITMTA PO (22:51)
[2020-04-26] MEDS ORDERED: VALA1TAB5 PO (22:51)
[2020-04-26] MEDS ORDERED: TRIA1CR80 TOP (22:51)
[2020-04-26] MEDS ORDERED: LOSA50TA88 PO (22:51)
[2020-04-26] MEDS ORDERED: DOXY100T PO (22:51)
[2020-04-26] MEDS ORDERED: SILD50TA8 PO (22:51)
[2020-04-26] MEDS ORDERED: PRED20TA PO (22:51)
--- NOTE | 2020-04-26 22:52 | HPEPDOC ---
[facility] Medical History & Physical Date of Admission Apr 26, 2020 Date of Service: Apr 26, 2020 Other Provider Kandice Mahajan Attending Physician: MEAGAN GENAO MD History and Physical TIME OF SERVICE 1120PM CHIEF COMPLAINT: rash HISTORY OF PRESENT ILLNESS: This 59 yr old M reports being under a lot of stress over the last 5 years; shortly after his divorce was finalized in October he noticed that the skin on his abdomen and thighs was itchy and he subsequently developed a rash. Prior to occurrence of the rash he denied having new medications added to his regimen, denied changing his laundry detergent, denied using new skin care products and denied eating any new foods. In January he was started on hydroxyzine and benadryl by his PCP?. In February he was referred to who performed a biopsy and prescribed betamethasone, fluconazole, & terbinafine; the results of the biopsy are pending. Despite discontinuing Humira and MTX discontinued, over the last few weeks the rash has spread to cover his arms, chest, abdomen, back and groin area; in some areas (upper arms) the rash is raised and flat in other areas (upper arms, groin area) the rash is red and covered with weeping blisters. Today he was sent by to the ER for further evaluation. In addition to the rash he reports having shortness of breath, occasional chest pain, and diffuse swelling all over his body and especially his knees. As a result of the knee swelling he has difficulties bending his knees. He denies having oral ulcers, fevers, chills or weight loss. He has gained 10 lbs over the last 3 days. He was started on IV Clindamycin in the ER for possible skin/soft tissue infection. 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 HOME MEDICATIONS: Please see below. PHYSICAL EXAMINATION: Vital Signs Date Time Temp Pulse Resp B/P (MAP) Pulse Ox O2 Delivery O2 Flow Rate FiO2 04/26/20 19:18 97.7 104 18 167/91 (116) 97 Room Air GENERAL APPEARANCE: well nourished/ well developed / NAD HEENT: no conjunctival injection, no mucosal erythema or ulcers. CARDIOVASCULAR: RRR/NMRG LUNGS: CTBA on RA ABDOMEN: distended MUSCULOSKELETAL: ROM limited by swelling at the knees EXTREMITIES: flat raised diffuse coalescing erythematous macules on lower arms, neck, chest back and abdomen / vesicles and bullae on posterior part of upper arms, lower abdomen and mid upper thighs, NEUROLOGICAL: CN 2-12 intact / speech not dysarthric PSYCHIATRIC: A&Ox 3 /able to understand and follow all commands LABORATORY DATA: 04/26/20 20:50 04/26/20 20:28: Lactic Acid Level 1.1 04/26/20 20:50: Immature Granulocyte % (Auto) 1.5, Neutrophils (%) (Auto) 63.9, Lymphocytes (%) (Auto) 12.9L, Monocytes (%) (Auto) 10.1H, Eosinophils (%) (Auto) 11.3H, Basoph ils (%) (Auto) 0.3, Neutrophils # (Auto) 7.0, Lymphocytes # (Auto) 1.4L, Monocytes # (Auto) 1.1H, Eosinophils # (Auto) 1.2H, Basophils # (Auto) 0.0, Nucleated Red Blood Cells % (auto) 0.0, Erythrocyte Sedimentation Rate 3, Prothrombin Time 13.6, Prothromb Time International Ratio 1.02, Activated Par tial Thromboplast Time 21.1L, Urine Color YELLOW, Urine Appearance CLEAR, Urine pH 5.0, Urine Specific [place] 1.032, Urine Protein NEGATIVE, Urine Glucose (UA) NEGATIVE, Urine Ketones NEGATIVE, Urine Blood NEGATIVE, Urine Nitrite NEGATIVE, Urine Bilirubin NEGATIVE, Urine Urobilinogen 0.2, Urine Leukocyte Esterase NEGATIVE, Urine WBC (Auto) 1, Urine RBC (Auto) 3, Urine Hyaline Casts (Auto) 0, Urine Bacteria (Auto) NEGATIVE, Urine Squamous Epithelial Cells 0, Urine Calcium Oxalate Cryst (Auto) SMALL, Urine Mucus (Auto) SMALL, Urine Sperm (Auto) , Anion Gap 5L, Glomerular Filtration Rate > 60.0, Calcium Level 9.2, Total Bilirubin 0.2, Direct Bilirubin < 0.1, Aspartate Amino Transf (AST/SGOT) 23, Alanine Aminotransferase (ALT/SGPT) 67, Alkaline Phosphatase 59, Total Creatine Kinase 84, Creatine Kinase MB 2.7, Creatine Kinase MB Relative Index 3.21, Troponin I < 0.02, C-Reactive Protein, Quantitative 0.30, RC-Baj-A-Type Natriuretic Peptide 38, Total Protein 6.8, Albumin 3.3, Albumin/Globulin Ratio 0.9 MICROBIOLOGY: 04/26/20 Blood Culture, Received Pending 04/26/20 Blood Culture, Received Pending ASSESSMENT: Mr. Nava is a 59 yr old M w a hx of RA complicated by RA lung dz, Chronic HTN, LISA and Obesity who will be admitted for evaluation of a rash of unclear cause. PLAN: 1 Diffuse Rash SJS/TENs like rash vs Other cause TBD He has leukocytosis with eosinophilia but doesnt meet SIRS criteria. His ESR and CRP are wnl. Plan: admit to medical floor / f/u ZAHRA, TSH, Hep B, C, C3,C4, C1q/ will hold home meds & ask the day time team to f/u w prior to resuming meds & f/u w Path on the biopsy results / the day time team may consider discussing HIV testing with the patient 2 Possible Skin/Soft Tissue Infection Plan: will ask day time team to follow up with Derm prior to resuming abx 3 Bilateral Knee Swelling Plan: f/u xrays to r/o effusion 4 RA Plan: Prednisone 40mg PO daily 5 Chronic HTN Plan: hold home meds for now 6 Obesity w BMI of 33.4 complicates care Plan: f/u A1C DVT Px w SCDS Dispo: home after more than 2 midnights stay Home Medications Scheduled Doxycycline Hyclate (Doxycycline Hyclate) 100 Mg Tablet, 100 MG PO BID STARTED 04/22/2020 Losartan Potassium (Losartan Potassium) 50 Mg Tablet, 50 MG PO DAILY Multivitamins (Thera M Plus Tablet) 1 Each Tablet, 1 TAB PO DAILY Prednisone (Prednisone) 20 Mg Tablet, 80 MG PO DAILY WAS TAKING 60MG FOR A WEEK BUT WAS UPPED TO 80MG TODAY STARTING THE DOSE FOR 04/27/2020 Triamcinolone Acet (Triamcinolone Acetonide 0.1% Crm) 80 Gm Cream..g., 1 DOSE TOP BID APPLIES TO ENTIRE BODY Valacyclovir HCl (Valacyclovir) 1,000 Mg Tablet, 1 GM PO Q8H STARTED 04/22/2020: 0700, 1500, 2300 Scheduled PRN Sildenafil Citrate (Sildenafil Citrate) 50 Mg Tablet, 50 MG PO ASDIRECTED PRN for ERECTILE DYSFUNCTION Allergies Coded Allergies: No Known Allergies (Unverified , 04/26/20) A-FIB/CHADSVASC A-FIB History Current/History of A-Fib/PAF?: No Current PO Anticoag Therapy: No MEAGAN GENAO MD Apr 26, 2020 22:52
--- NOTE | 2020-04-26 23:21 | ECGEPIP ---
[facility] - ED Test Date: 2020-04-26 Pat Name: KATHRYN CASTILLO Department: Room: - Gender: Male Clerk Carrier: AUDRA : 1960 Requested By: SERENE PIEDRA PA-C Order Number: [id number] Reading MD: Polo Myles Measurements Intervals [place] Rate: 83 P: 58 LA: 187 QRS: 27 QRSD: 97 T: 30 QT: 342 QTc: 404 Interpretive Statements SINUS RHYTHM NO PRIORS FOR COMPARISON Electronically Signed on 04-26-2020 23:21:07 EDT by Polo Myles
[2020-04-26 23:40] VITALS: BP 167/89
[2020-04-27] MEDS: ACETAMINOPHEN TAB 650MG DOSE (2X325MG) PO PRN ×2 (00:23→05:07)
[2020-04-27 06:00] VITALS: BP 162/89
[2020-04-27 06:39] LABS: HEMOGLOBIN 15.1 g/dl (13.5-17.5); MEAN CORPUSCULAR HEMOGLOBIN 33.6 pg (27.0-33.0); MEAN CORPUSCULAR HGB CONC 32.8 g/dl (32.0-36.5); MEAN CORPUSCULAR VOLUME 102.2 fl (80.0-96.0); PLATELET COUNT, AUTOMATED 319 10^3/uL (150-450); WHITE BLOOD COUNT 11.8 10^3/uL (4.0-10.0)
[2020-04-27 07:07] LABS: HEMOGLOBIN A1c 5.7 %
[2020-04-27 07:10] LABS: BLOOD UREA NITROGEN 30 MG/DL (7-18); CALCIUM LEVEL 8.8 MG/DL (8.5-10.1); CARBON DIOXIDE LEVEL 25 MEQ/L (21-32); CHLORIDE LEVEL 109 MEQ/L (98-107); CREATININE FOR GFR 1.01 MG/DL (0.70-1.30); GLOMERULAR FILTRATION RATE > 60.0 (>56); GLUCOSE, FASTING 96 MG/DL (70-100); POTASSIUM SERUM 4.1 MEQ/L (3.5-5.1); SODIUM LEVEL 138 MEQ/L (136-145)
[2020-04-27 07:14] LABS: COMPLEMENT C3 108 MG/DL (90-180); COMPLEMENT C4 19 MG/DL (10-40)
[2020-04-27] MEDS ORDERED: predniSONE 20 MG TAB PO SCH (09:00)
[2020-04-27] MEDS ORDERED: methylPREDNISolone 40MG 1ML VIAL IV ONE (09:15)
[2020-04-27 09:29] LABS: HEPATITIS B SURFACE ANTIGEN NEGATIVE (NEGATIVE)
[2020-04-27 09:57] LABS: HEPATITIS B CORE ANTIBODY IGM NEGATIVE (NEGATIVE); HEPATITIS C VIRUS ABY INDEX 0.1 INDEX (<0.8)
--- NOTE | 2020-04-27 09:57 | REPVR ---
PROCEDURE INFORMATION: Exam: CT Chest Without Contrast Exam date and time: 04/27/2020 9:30 AM Age: 59 years old Clinical indication: Shortness of breath; Additional info: SOB, R/O progression of ra lung TECHNIQUE: Imaging protocol: Computed tomography of the chest without contrast. 3D rendering (Not supervised by radiologist): MIP and/or 3D reconstructed images were created by the technologist. Radiation optimization: All CT scans at this facility use at least one of these dose optimization techniques: automated exposure control; mA and/or kV adjustment per patient size (includes targeted exams where dose is matched to clinical indication); or iterative reconstruction. COMPARISON: CT Chest without contrast 08/19/2019 1:59 PM FINDINGS: Lungs: Lateral segment right middle lobe mild pulmonary subsegmental atelectasis/scarring, stable. Pleural space: No pneumothorax. No pleural effusion. Heart: Proximal LAD coronary artery calcifications. Aorta: Mild aortic arch, branch, and descending thoracic aortic atherosclerotic calcification without ectasia. Lymph nodes: No enlarged lymph nodes. Gallbladder and bile ducts: The gallbladder is partially contracted. Bones/joints: Thoracic spine vertebral body marginal osteophytes are noted at multiple levels. Degenerative disk disease is present at a mid-thoracic spine disk level. Soft tissues: Unremarkable. IMPRESSION: 1. No specific findings pulmonary interstitial disease at the current time. 2. Coronary atherosclerosis. Electronically signed by: Sid Quinones On 04/27/2020 09:56:46 AM
[2020-04-27 09:59] LABS: HEPATITIS A ANTIBODY IGM NEGATIVE (NEGATIVE)
[2020-04-27] MEDS: methylPREDNISolone 40MG 1ML VIAL IV SCH ×3 (09:59→21:43)
[2020-04-27] MEDS: DOXYCYCLINE HYCLATE 100 MG in D5W MINI-BAG PLUS 100 ML IV SCH ×2 (10:00→21:43)
[2020-04-27] MEDS: PERCOCET 5MG/325MG TAB PO PRN ×3 (10:36→21:44)
[2020-04-27] MEDS: diphenhydrAMINE 50MG/ML VIAL (J1200) IV PRN ×2 (11:50→21:43)
[2020-04-27] MEDS: ACYCLOVIR 1,000 MG in D5W 250 ML IV SCH ×2 (11:51→17:55)
--- NOTE | 2020-04-27 12:40 | CR.PDOC ---
General Date of Consultation: Apr 27, 2020 Consultation CHIEF COMPLAINT: rash HISTORY OF PRESENT ILLNESS: Patient is a 59yo male with rheumatoid disease (followed by rheumatology-Dr Bermudez) previously managed on methotrexate and Humira-both meds were discontinued 04/22/20 due to dermatitis ?secondary to treatment. He was transitioned to Prednisone 1mg/kg (80mg). Previous biopsy showed spongiosis. 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 Bacterial (+for staph aureus, responsive to tetracyclines) and viral cultures (pending) were obtained. Repeat H&E and DIF punch biopsies performed-results are pending. BPAG 1&2 pending. In the dermatology clinic, patient noted increased work breathing and a 9lb weight gain in one week with extensive fluid on his legs. He was sent to the ER for consideration of rheumatologic lung dise ase (which he has had previously) and possible pericarditis. It was recommended he be placed on IV steroids as there is concern he may not be absorbing the PO Prednisone due to gut swelling. He was given Doxycycline (+culture, sensitive to TCN) and Valtrex (to minimize risk of kaposi's varicelliform eruption). He was started on IV Clindamycin last night in the ER for possible skin/soft tissue infection, before being admitted to the floor. Patient is currently on IV solumedrol (started this am), IV acyclovir, and PO Doxycycline. CT scan of the lungs shows no evidence of interstitial disease, echocardiogram is pending. 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 HOME MEDICATIONS: Please see below. PHYSICAL EXAMINATION: Vital Signs Date Time Temp Pulse Resp B/P (MAP) Pulse Ox O2 Delivery O2 Flow Rate FiO2 04/26/20 19:18 97.7 104 18 167/91 (116) 97 Room Air GENERAL APPEARANCE: well nourished/ well developed / NAD HEENT: no conjunctival injection, no mucosal erythema or ulcers. ABDOMEN: distended MUSCULOSKELETAL: ROM limited by swelling at the knees EXTREMITIES: erythematous edematous coalescing papules, tense bullae and edema noted on the chest, abdomen, back, arms, and legs. PSYCHIATRIC: A&Ox 3 /able to understand and follow all commands LABORATORY DATA: 04/26/20 20:50 04/26/20 20:28: Lactic Acid Level 1.1 04/26/20 20:50: Immature Granulocyte % (Auto) 1.5, Neutrophils (%) (Auto) 63.9, Lymphocytes (%) (Auto) 12.9L, Monocytes (%) (Auto) 10.1H, Eosinophils (%) (Auto) 11.3H, Basophils (%) (Auto) 0.3, Neutrophils # (Auto) 7.0, Lymphocytes # (Auto) 1.4L, Monocytes # (Auto) 1.1H, Eosinophils # (Auto) 1.2H, Basophils # (Auto) 0.0, Nucleated Red Blood Cells % (auto) 0.0, Erythrocyte Sedimentation Rate 3, Prothrombin Time 13.6, Prothromb Time International Ratio 1.02, Activated Partial Thromboplast Time 21.1L, Urine Color YELLOW, Urine Appearance CLEAR, Urine pH 5.0, Urine Specific [place] 1.032, Urine Protein NEGATIVE, Urine Glucose (UA) NEGATIVE, Urine Ketones NEGATIVE, Urine Blood NEGATIVE, Urine Nitrite NEGATIVE, Urine Bilirubin NEGATIVE, Urine Urobilinogen 0.2, Urine Leukocyte Esterase NEGATIVE, Urine WBC (Auto) 1, Urine RBC (Auto) 3, Urine Hyaline Casts (Auto) 0, Urine Bacteria (Auto) NEGATIVE, Urine Squamous Epithelial Cells 0, Urine Calcium Oxalate Cryst (Auto) SMALL, Urine Mucus (Auto) SMALL, Urine Sperm (Auto) , Anion Gap 5L, Glomerular Filtration Rate > 60.0, Calcium Level 9.2, Total Bilirubin 0.2, Direct Bilirubin < 0.1, Aspartate Amino Transf (AST/SGOT) 23, Alanine Aminotransferase (ALT/SGPT) 67, Alkaline Phosphatase 59, Total Creatine Kinase 84, Creatine Kinase MB 2.7, Creatine Kinase MB Relative Index 3.21, Troponin I < 0.02, C-Reactive Protein, Quantitative 0.30, BO-Uiw-B-Type Natriuretic Peptide 38, Total Protein 6.8, Albumin 3.3, Albumin/Globulin Ratio 0.9 ASSESSMENT: Mr. Nava is a 59 yr old M w a hx of RA complicated by RA lung dz presenting with a bullous rash of uncertain etiology, awaiting pathology results. PLAN: 1 Diffuse Bullous Dermatitis Continue IV solumedrol Continue IV Acyclovir Awaiting pathology (H&E and DIF) results 2 Possible Skin/Soft Tissue Infection Continue Doxycycline Home Medications Scheduled Doxycycline Hyclate (Doxycycline Hyclate) 100 Mg Tablet, 100 MG PO BID STARTED 04/22/2020 Losartan Potassium (Losartan Potassium) 50 Mg Tablet, 50 MG PO DAILY Multivitamins (Thera M Plus Tablet) 1 Each Tablet, 1 TAB PO DAILY Prednisone (Prednisone) 20 Mg Tablet, 80 MG PO DAILY WAS TAKING 60MG FOR A WEEK BUT WAS UPPED TO 80MG TODAY STARTING THE DOSE FOR 04/27/2020 Triamcinolone Acet (Triamcinolone Acetonide 0.1% Crm) 80 Gm Cream..g., 1 DOSE TOP BID APPLIES TO ENTIRE BODY Valacyclovir HCl (Valacyclovir) 1,000 Mg Tablet, 1 GM PO Q8H STARTED 04/22/2020: 0700, 1500, 2300 Scheduled PRN Sildenafil Citrate (Sildenafil Citrate) 50 Mg Tablet, 50 MG PO ASDIRECTED PRN for ERECTILE DYSFUNCTION Allergies Coded Allergies: No Known Allergies (Unverified , 04/26/20) Vital Signs/I&O Vital Signs Date Time Temp Pulse Resp B/P (MAP) Pulse Ox O2 Delivery O2 Flow Rate FiO2 04/27/20 11:58 18 Room Air 04/27/20 06:00 97.5 74 162/89 (113) 99 I&O- Last 24 Hours up to 6 AM 04/27/20 06:00 Intake Total 400 ml Output Total 200 ml Balance 200 ml Laboratory Data Labs 24H Laboratory Tests 2 04/26/20 20:28: Lactic Acid Level 1.1 04/26/20 20:50: Immature Granulocyte % (Auto) 1.5, Neutrophils (%) (Auto) 63.9, Lymphocytes (%) (Auto) 12.9L, Monocytes (%) (Auto) 10.1H, Eosinophils (%) (Auto) 11.3H, Basophils (%) (Auto) 0.3, Neutrophils # (Auto) 7.0, Lymphocytes # (Auto) 1.4L, Monocytes # (Auto) 1.1H, Eosinophils # (Auto) 1.2H, Basophils # (Auto) 0.0, Nucleated Red Blood Cells % (auto) 0.0, Erythrocyte Sedimentation Rate 3, Prothrombin Time 13.6, Prothromb Time International Ratio 1.02, Activated Partial Thromboplast Time 21.1L, Urine Color YELLOW, Urine Appearance CLEAR, Urine pH 5.0, Urine Specific Belden 1.032, Urine Protein NEGATIVE, Urine Glucose (UA) NEGATIVE, Urine Ketones NEGATIVE, Urine Blood NEGATIVE, Urine Nitrite NEGATIVE, Urine Bilirubin NEGATIVE, Urine Urobilinogen 0.2, Urine Leukocyte Esterase NEGATIVE, Urine WBC (Auto) 1, Urine RBC (Auto) 3, Urine Hyaline Casts (Auto) 0, Urine Bacteria (Auto) NEGATIVE, Urine Squamous Epithelial Cells 0, Urine Calcium Oxalate Cryst (Auto) SMALL, Urine Mucus (Auto) SMALL, Urine Sperm (Auto) , Anion Gap 5L, Glomerular Filtration Rate > 60.0, Calcium Level 9.2, Total Bilirubin 0.2, Direct Bilirubin < 0.1, Aspartate Amino Transf (AST/SGOT) 23, Alanine Aminotransferase (ALT/SGPT) 67, Alkaline Phosphatase 59, Total Creatine Kinase 84, Creatine Kinase MB 2.7, Creatine Kinase MB Relative Index 3.21, Troponin I < 0.02, C-Reactive Protein, Quantitative 0.30, JA-Nok-R-Type Natriuretic Peptide 38, Total Protein 6.8, Albumin 3.3, Albumin/Globulin Ratio 0.9 04/27/20 06:11: Nucleated Red Blood Cells % (auto) 0.0, Anion Gap 4L, Glomerular Filtration Rate > 60.0, Calcium Level 8.8, Estimated Mean Plasma Glucose 117H, Hemoglobin A1c 5.7, Thyroid Stimulating Hormone (TSH) 2.670, Complement C3 108, Complement C4 1 9, Hepatitis A IgM Antibody NEGATIVE, Hepatitis B Surface Antigen NEGATIVE, Hepatitis B Core IgM Antibody NEGATIVE, Hepatitis C Antibody Index 0.1 CBC/BMP Laboratory Tests 04/26/20 20:50 04/27/20 06:11 Microbiology Microbiology 04/26/20 Blood Culture, Received Pending 04/26/20 Blood Culture, Received Pending Allergies Coded Allergies: No Known Allergies (Unverified , 04/26/20) Home Medications Scheduled Doxycycline Hyclate (Doxycycline Hyclate) 100 Mg Tablet, 100 MG PO BID for 14 Days, (Reported) STARTED 04/22/2020 Losartan Potassium (Losartan Potassium) 50 Mg Tablet, 50 MG PO DAILY, (Reported) Multivitamins (Thera M Plus Tablet) 1 Each Tablet, 1 TAB PO DAILY, (Reported) Prednisone (Prednisone) 20 Mg Tablet, 80 MG PO DAILY, (Reported) WAS TAKING 60MG FOR A WEEK BUT WAS UPPED TO 80MG TODAY STARTING THE DOSE FOR 04/27/2020 Triamcinolone Acet (Triamcinolone Acetonide 0.1% Crm) 80 Gm Cream..g., 1 DOSE TOP BID, (Reported) APPLIES TO ENTIRE BODY Valacyclovir HCl (Valacyclovir) 1,000 Mg Tablet, 1 GM PO Q8H for 14 Days, (Reported) STARTED 04/22/2020: 0700, 1500, 2300 Scheduled PRN Sildenafil Citrate (Sildenafil Citrate) 50 Mg Tablet, 50 MG PO ASDIRECTED PRN for ERECTILE DYSFUNCTION, (Reported) Carolin Riggs PA-C Apr 27, 2020 12:40
[2020-04-27 14:00] VITALS: BP 190/91
[2020-04-27 14:27] VITALS: BP 160/78
--- NOTE | 2020-04-27 15:13 | IPNPDOC ---
Date Seen The patient was seen on 04/27/20. Progress Note SUBJECTIVE: Complains of occasional SOB with activity, CT chest neg for acute findings. Rash, per patient, is much more extensive even from last evening with blisterin/bullae appearing in the underarms, anterior abdomen. Discussed case with dermatology and changes in medications made. Patient has lower ext swelling, so with history of RA, echocardiogram ordered. Patient has pain that is not controlled, pain regimen added. Given total of 80 mg IV methylprednisolone this AM. He denies chest pain, n/v/d, abdominal pain, lightheadedness, dizziness. OBJECTIVE: VITAL SIGNS: Please see below PHYSICAL EXAM: GENERAL APPEARANCE: NAD resting in bed. HEENT: no conjunctival injection, no mucosal erythema or ulcers. CARDIOVASCULAR: RRR/NMRG LUNGS: CTBA on RA, no W/R/R ABDOMEN: obese, soft, nondistended, BS + in 4 quadrant MUSCULOSKELETAL: ROM limited by swelling at the knees EXTREMITIES: +1 pitting edema in b/l lower ext, warm to touch, pulses + in all extremities, no cyanosis INTEGUMENTARY: diffuse flat raised diffuse coalescing erythematous macules/papules on lower arms, legs, neck, chest, back and abdomen. blistering/bullae on posterior part of upper arms, lower abdomen and mid upper thighs, tender to touch in some places. Edema noted in all areas mentioned above NEUROLOGICAL: CN 2-12 intact, no focal deficits PSYCHIATRIC: mood and affect appropriate MICROBIOLOGY/PATHOLOGY: 04/26/20 Blood Culture- pending 04/26/20 Blood Culture- pending 04/20/20 Wound culture from left thigh wound: Staph aureus, staph coag negative. 04/20/20 Viral culture from left thigh wound: Pending H&E and DIF results from recent punch biopsy pending/awaiting results ASSESSMENT: Patient is a 59 yr old M with PMH of RA complicated by RA lung dz, Chronic HTN, LISA and Obesity who was evaluated for worsening rash possibly 2/2 to diffuse bullous dermatitis with secondary Staphylococcus skin/soft tissue infection. PLAN: 1. Diffuse bullous dermatitis possibly medication induced ? (Humira, methotrexate-discontinued 04/12/20). Also cannot r/o bullous pemphigoid, other cause -Extensive and worsened since admission according to patient -S/p 80 mg methylprednisolone this AM -Started on 40 mg IV Q6H methylprednisolone, valtrex prophylactically to prevent kaposi's varicelliform eruption per derm -F/u punch biopsy results, BPAG 1&2. Previous biopsy showed spongiosis -Pain control with tramadol, oxycodone-acetaminophen. Benadryl for itching. - Dr. Villa (dermatology) knows this patient well, follows him as o/p and is consulted 2. Secondary Staphylococcus (Staph Aureus, Staph coag neg) Skin/Soft Tissue Infection -Culture of left groin wound above, sensitivities in system -Area of culture still appears slightly purulent, no fouls smell -Started on IV doxycycline BID per derm 3. Lower extremities edema, r/o cardiac involvement of RA, pericarditis -No new murmur or rubbing on exam, + 9 lb wt gain o/p reported by dermatology -F/u echocardiogram, BNP -No pulmonary vascular congestion on CT chest -Consider diuretic, low dose 4. Bilateral Knee Swelling - F/u official results of xrays to r/o effusion 5. Rheumatoid arthritis with history of involvement of lung -Followed by rheumatology (Dr Bermudez) -CT chest: No acute concerns -Previously managed on methotrexate and Humira-both meds were discontinued 04/22/20 due to dermatitis ?secondary to treatment. -C/w methylprednisolone 6. Chronic HTN -BP systolic as high as 190's systolic -Restarted ARB 7. Obesity -BMI 33.4 8. LISA -STable 9. DVT -SCDs DISPOSITION: Admitted as acute inpatient. Plan is discharge home when medically improved. VS, I&O, 24H, [place] Vital Signs/I&O Vital Signs Date Time Temp Pulse Resp B/P (MAP) Pulse Ox O2 Delivery O2 Flow Rate FiO2 04/27/20 14:27 160/78 (105) 04/27/20 14:00 98.0 106 18 97 Room Air I&O- Last 24 Hours up to 6 AM 04/27/20 06:00 Intake Total 400 ml Output Total 200 ml Balance 200 ml Laboratory Data 24H LABS Laboratory Tests 2 04/26/20 20:28: Lactic Acid Level 1.1 04/26/20 20:50: Immature Granulocyte % (Auto) 1.5, Neutrophils (%) (Auto) 63.9, Lymphocytes (%) (Auto) 12.9L, Monocytes (%) (Auto) 10.1H, Eosinophils (%) (Auto) 11.3H, Basophils (%) (Auto) 0.3, Neutrophils # (Auto) 7.0, Lymphocytes # (Auto) 1.4L, Monocytes # (Auto) 1.1H, Eosinophils # (Auto) 1.2H, Basophils # (Auto) 0.0, Nucleated Red Blood Cells % (auto) 0.0, Erythrocyte Sedimentation Rate 3, Prothrombin Time 13.6, Prothromb Time International Ratio 1.02, Activated Partia l Thromboplast Time 21.1L, Urine Color YELLOW, Urine Appearance CLEAR, Urine pH 5.0, Urine Specific Roby 1.032, Urine Protein NEGATIVE, Urine Glucose (UA) NEGATIVE, Urine Ketones NEGATIVE, Urine Blood NEGATIVE, Urine Nitrite NEGATIVE, Urine Bilirubin NEGATIVE, Urine Urobilinogen 0.2, Urine Leukocyte Esterase NEGATIVE, Urine WBC (Auto) 1, Urine RBC (Auto) 3, Urine Hyaline Casts (Auto) 0, Urine Bacteria (Auto) NEGATIVE, Urine Squamous Epithelial Cells 0, Urine Calcium Oxalate Cryst (Auto) SMALL, Urine Mucus (Auto) SMALL, Urine Sperm (Auto) , Anion Gap 5L, Glomerular Filtration Rate > 60.0, Calcium Level 9.2, Total Bilirubin 0.2, Direct Bilirubin < 0.1, Aspartate Amino Transf (AST/SGOT) 23, Alanine Aminotransferase (ALT/SGPT) 67, Alkaline Phosphatase 59, Total Creatine Kinase 84, Creatine Kinase MB 2.7, Creatine Kinase MB Relative Index 3.21, Troponin I < 0.02, C-Reactive Protein, Quantitative 0.30, DC-Hyr-H-Type Natriuretic Peptide 38, Total Protein 6.8, Albumin 3.3, Albumin/Globulin Ratio 0.9 04/27/20 06:11: Nucleated Red Blood Cells % (auto) 0.0, Anion Gap 4L, Glomerular Filtration Rate > 60.0, Calcium Level 8.8, Estimated Mean Plasma Glucose 117H, Hemoglobin A1c 5.7, Thyroid Stimulating Hormone (TSH) 2.670, Complement C3 108, Complement C4 19, Hepatitis A IgM Antibody NEGATIVE, Hepatitis B Surface Antigen NEGATIVE, Hepatitis B Core IgM Antibody NEGATIVE, Hepatitis C Antibody Index 0.1 CBC/BMP Laboratory Tests 04/26/20 20:50 04/27/20 06:11 Microbiology Microbiology 04/26/20 Blood Culture, Received Pending 04/26/20 Blood Culture, Received Pending Current Medications Current Medications Medications (Trade) Dose Ordered Sig/Clarke Route PRN Reason Start Time Stop Time Status Last Admin Dose Admin Acetaminophen (Tylenol Tab) 650 mg Q4H PRN PO PAIN OR FEVER 04/26/20 22:00 04/27/20 05:07 Acyclovir 1000 mg/ Dextrose 270 ml @ 270 mls/hr Q8H IV 04/27/20 11:00 04/27/20 11:51 Diphenhydramine HCl (Benadryl) 25 mg Q8HP PRN IV ITCHING 04/27/20 09:15 04/27/20 11:50 Doxycycline Hyclate 100 mg/ Dextrose 100 ml @ 100 mls/hr Q12H IV 04/27/20 09:00 04/27/20 10:00 Home Med (Med Rec Complete!) ASDIRECTED XX 04/26/20 23:00 04/26/20 22:54 DC Methylprednisolone (SOLU medrol) 40 mg Q6H IV 04/27/20 09:00 04/27/20 09:59 Oxycodone/ Acetaminophen (Percocet 5mg/ 325mg Tablet) 1 tab Q4HP PRN PO SEVERE PAIN (PS 8-10) 04/27/20 09:15 04/27/20 10:36 Prednisone (Deltasone) 40 mg DAILY PO 04/27/20 09:00 04/27/20 08:27 DC Tramadol HCl (Ultram) 50 mg Q6HP PRN PO MODERATE PAIN (PS 5-7) 04/27/20 09:15 Allergies Coded Allergies: No Known Allergies (Unverified , 04/26/20) Anayeli Woods MD Apr 27, 2020 15:13
[2020-04-27] MEDS: LOSARTAN 50MG TABLET PO SCH (16:14)
[2020-04-27 22:00] VITALS: BP 115/75
[2020-04-28] MEDS: ACYCLOVIR 1,000 MG in D5W 250 ML IV SCH ×3 (03:39→17:55)
[2020-04-28] MEDS: methylPREDNISolone 40MG 1ML VIAL IV SCH ×4 (03:39→20:47)
[2020-04-28 06:00] VITALS: BP 125/81
[2020-04-28] MEDS ORDERED: FUROSEMIDE 40MG/4ML VIAL (J1940) IV SCH (09:00)
[2020-04-28] MEDS: LOSARTAN 50MG TABLET PO SCH (09:49)
[2020-04-28] MEDS: MULTIVITAMINS/MINERALS THERAP 1 TAB PO SCH (09:49)
[2020-04-28] MEDS: DOXYCYCLINE HYCLATE 100 MG in D5W MINI-BAG PLUS 100 ML IV SCH ×2 (09:50→20:47)
[2020-04-28 14:00] VITALS: BP 125/76
--- NOTE | 2020-04-28 15:33 | ECHO ---
DATE OF PROCEDURE: 04/27/2020 Age: 59 Gender: Male Height: 67 inches Weight: 211 pounds Body surface area: 2.07 m2 PATIENT LOCATION: Inpatient [address] [place] [address], Room 5143. REFERRING PHYSICIAN: Anayeli Woods MD. INDICATION: Edema. MEASUREMENTS: 2D Measurements: RV 2.9 cm LV 4.9 cm Septum 1.1 cm Posterior wall 1.1 cm Aortic Root 3.2 cm LA 3.6 cm LVEF 65% Doppler Measurements: AV 1.39 m/s LVOT 0.94 m/s LVOT diameter 1.9 cm MV-E 71, A 85, E/A ratio 0.8 Early mitral deceleration time 190 m/s E prime medial 6.9, A prime medial 9.8, E prime lateral 8.4 Average E/E prime ratio 9.3/PCWP 13.4 mmHg PV 0.89 m/s Pulmonary artery acceleration time 122 m/s RVSP 28 mmHg IVC 1.5 cm COMMENTS: Normal sinus rhythm without intraventricular conduction disturbance. Somewhat technically challenging study in light of the patients body habitus; however, useful diagnostic information was still obtained. Normal left ventricular size, wall thickness, and wall motion. Normal left atrial size with grade 1 left ventricular (LV) diastolic dysfunction, but currently normal estimated mean left atrial pressure. Normal right heart chamber sizes and wall motion and estimated pulmonary arterial pressure. Normal inferior vena cava (IVC) size and collapse against an elevated central venous pressure. Normal aortic dimensions. Normal appearing and functioning aortic valve. Normal appearing and functioning mitral valve. Normal appearing and functioning tricuspid valve. No apparent intracardiac mass or pericardial effusion. MTDD
[2020-04-28] MEDS: traMADol 50 MG TAB PO PRN (16:19)
--- NOTE | 2020-04-28 18:37 | IPNPDOC ---
Date Seen The patient was seen on 04/28/20. Progress Note SUBJECTIVE: Increased lower ext swelling, started lasix daily. Echo results normal, see below . Increased amount of bullae on abdomen, increased oozing of blisters/bullae on bilateral anterior thighs. Pain still present. He denies chest pain, n/v/d, abdominal pain, lightheadedness, dizziness. OBJECTIVE: VITAL SIGNS: Please see below PHYSICAL EXAM: GENERAL APPEARANCE: NAD resting in bed. HEENT: no conjunctival injection, no mucosal erythema or ulcers. CARDIOVASCULAR: RRR/NMRG LUNGS: CTBA on RA, no W/R/R ABDOMEN: obese, soft, nondistended, BS + in 4 quadrant MUSCULOSKELETAL: ROM limited by swelling at the knees EXTREMITIES: +1-2 pitting edema in b/l lower ext- slightly worsened, warm to touch, pulses + in all extremities, no cyanosis INTEGUMENTARY: diffuse flat raised diffuse coalescing erythematous macules/papules on lower arms, legs, neck, chest, back and abdomen. increased blistering/bullae on anterior abdomen, anterior thighs, under arms. tender to touch in some places. Edema noted in all areas mentioned above NEUROLOGICAL: CN 2-12 intact, no focal deficits PSYCHIATRIC: mood and affect appropriate MICROBIOLOGY/PATHOLOGY: 04/26/20 Blood Culture- NG 04/26/20 Blood Culture- NG 04/20/20 Wound culture from left thigh wound: Staph aureus, staph coag negative. 04/20/20 Viral culture from left thigh wound: Pending H&E and DIF results from recent punch biopsy pending/awaiting results IMAGING: Echocardiogram: Normal sinus rhythm without intraventricular conduction disturbance. Somewhat technically challenging study in light of the patients body habitus; however, useful diagnostic information was still obtained. Normal left ventricular size, wall thickness, and wall motion. Normal left atrial size with grade 1 left ventricular (LV) diastolic dysfunction, but currently normal estimated mean left atrial pressure. Normal right heart chamber sizes and wall motion and estimated pulmonary arterial pressure. Normal inferior vena cava (IVC) size and collapse against an elevated central venous pressure. Normal aortic dimensions. Normal appearing and functioning aortic valve. Normal appearing and functioning mitral valve. Normal appearing and functioning tricuspid valve. No apparent intracardiac mass or pericardial effusion. ASSESSMENT: Patient is a 59 yr old M with PMH of RA complicated by RA lung dz, Chronic HTN, LISA and Obesity who was evaluated for worsening rash possibly 2/2 to diffuse bullous dermatitis with secondary Staphylococcus skin/soft tissue infection. PLAN: 1. Diffuse bullous dermatitis possibly medication induced ? (Humira, methotrexate-discontinued 04/12/20). Also cannot r/o bullous pemphigoid, other cause -Extensive and bullae, weeping on abd/thighs/under arms worsened since admission slightly -C/w 40 mg IV Q6H methylprednisolone, valtrex prophylactically to prevent kaposi's varicelliform eruption per derm -F/u punch biopsy results, BPAG 1&2. Previous biopsy showed spongiosis -Pain control with tramadol, oxycodone-acetaminophen. Benadryl for itching. - Dr. Villa (dermatology) following 2. Lower extremities edema, unlikely cardiac in etiology, possibly lymphedema? -+ 9 lb wt gain o/p reported by dermatology, slightly worsened compared to 04/27/20 -BNP and echo normal, No pulmonary vascular congestion on CT chest -Started on 60 mg IV lasix daily, monitor daily wt 3. Secondary Staphylococcus (Staph Aureus, Staph coag neg) Skin/Soft Tissue Infection -Culture of left groin wound above, sensitivities in system -Area of culture still appears slightly purulent, no fouls smell -C/w IV doxycycline BID per derm 4. Rheumatoid arthritis with history of involvement of lung -Followed by rheumatology (Dr Bermudez) -CT chest: No acute concerns -Previously managed on methotrexate and Humira-both meds were discontinued 04/22/20 due to dermatitis ?secondary to treatment. -C/w methylprednisolone for now 5. Chronic HTN -BP systolic as high as 190's systolic -Restarted ARB 6. Obesity -BMI 33.4 7. LISA -STable 8. DVT -SCDs DISPOSITION: Admitted as acute inpatient. Plan is discharge home when medically improved. VS, I&O, 24H, [place] Vital Signs/I&O Vital Signs Date Time Temp Pulse Resp B/P (MAP) Pulse Ox O2 Delivery O2 Flow Rate FiO2 04/28/20 17:00 18 Room Air 04/28/20 14:00 97.6 107 125/76 (92) 100 I&O- Last 24 Hours up to 6 AM 04/28/20 06:00 Intake Total 2780 ml Output Total 1125 ml Balance 1655 ml Laboratory Data Microbiology Microbiology 04/26/20 Blood Culture - Preliminary, Resulted No growth after 24 hours . All specim... 04/26/20 Blood Culture - Preliminary, Resulted No growth after 24 hours . All specim... Current Medications Current Medications Medications (Trade) Dose Ordered Sig/Clarke Route PRN Reason Start Time Stop Time Status Last Admin Dose Admin Acetaminophen (Tylenol Tab) 650 mg Q4H PRN PO PAIN OR FEVER 04/26/20 22:00 04/27/20 05:07 Acyclovir 1000 mg/ Dextrose 270 ml @ 270 mls/hr Q8H IV 04/27/20 11:00 04/28/20 17:55 Diphenhydramine HCl (Benadryl) 25 mg Q8HP PRN IV ITCHING 04/27/20 09:15 04/27/20 21:43 Doxycycline Hyclate 100 mg/ Dextrose 100 ml @ 100 mls/hr Q12H IV 04/27/20 09:00 04/28/20 09:50 Furosemide (LASIX injection) 40 mg DAILY IV 04/28/20 09:00 04/28/20 09:48 Home Med (Med Rec Complete!) ASDIRECTED XX 04/26/20 23:00 04/26/20 22:54 DC Losartan Potassium (Cozaar) 50 mg DAILY PO 04/27/20 16:00 04/28/20 09:49 Methylprednisolone (SOLU medrol) 40 mg Q6H IV 04/27/20 09:00 04/28/20 16:17 Multivitamins (Theragram-M) 1 tab DAILY PO 04/28/20 09:00 04/28/20 09:49 Oxycodone/ Acetaminophen (Percocet 5mg/ 325mg Tablet) 1 tab Q4HP PRN PO SEVERE PAIN (PS 8-10) 04/27/20 09:15 04/27/20 21:44 Prednisone (Deltasone) 40 mg DAILY PO 04/27/20 09:00 04/27/20 08:27 DC Tramadol HCl (Ultram) 50 mg Q6HP PRN PO MODERATE PAIN (PS 5-7) 04/27/20 09:15 04/28/20 16:19 Allergies Coded Allergies: No Known Allergies (Unverified , 04/26/20) Anayeli Woods MD Apr 28, 2020 18:37
[2020-04-28] MEDS: diphenhydrAMINE 50MG/ML VIAL (J1200) IV PRN (20:48)
[2020-04-28] MEDS: PERCOCET 5MG/325MG TAB PO PRN (20:48)
[2020-04-28 22:00] VITALS: BP 138/79
[2020-04-29] MEDS: ACYCLOVIR 1,000 MG in D5W 250 ML IV SCH ×3 (02:37→18:10)
[2020-04-29] MEDS: hydrOXYzine 25 MG TAB PO SCH ×4 (02:37→18:10)
[2020-04-29] MEDS: diphenhydrAMINE CREAM 30GM TOP PRN ×2 (02:37→20:43)
[2020-04-29] MEDS: methylPREDNISolone 40MG 1ML VIAL IV SCH ×4 (02:37→20:25)
[2020-04-29 05:10] VITALS: BP 138/91
[2020-04-29 08:19] LABS: HEMATOCRIT 42.8 % (42.0-52.0); HEMOGLOBIN 14.3 g/dl (13.5-17.5); MEAN CORPUSCULAR HEMOGLOBIN 33.6 pg (27.0-33.0); MEAN CORPUSCULAR HGB CONC 33.4 g/dl (32.0-36.5); MEAN CORPUSCULAR VOLUME 100.7 fl (80.0-96.0); PLATELET COUNT, AUTOMATED 304 10^3/uL (150-450); RED BLOOD COUNT 4.25 10^6/uL (4.30-6.10); WHITE BLOOD COUNT 14.7 10^3/uL (4.0-10.0)
[2020-04-29 08:49] LABS: ALBUMIN 2.9 GM/DL (3.2-5.2); ALT/SGPT 57 U/L (12-78); BILIRUBIN,TOTAL 0.4 MG/DL (0.2-1.0); BLOOD UREA NITROGEN 34 MG/DL (7-18); CALCIUM LEVEL 9.1 MG/DL (8.5-10.1); CARBON DIOXIDE LEVEL 27 MEQ/L (21-32); CHLORIDE LEVEL 105 MEQ/L (98-107); CREATININE FOR GFR 1.01 MG/DL (0.70-1.30); GLOMERULAR FILTRATION RATE > 60.0 (>56); GLUCOSE, FASTING 117 MG/DL (70-100); POTASSIUM SERUM 4.5 MEQ/L (3.5-5.1); SODIUM LEVEL 140 MEQ/L (136-145); TOTAL PROTEIN 5.9 GM/DL (6.4-8.2)
[2020-04-29] MEDS ORDERED: FUROSEMIDE 40MG/4ML VIAL (J1940) IV SCH (09:00)
[2020-04-29] MEDS: FUROSEMIDE 40MG/4ML VIAL (J1940) IV SCH ×2 (09:59→20:26)
[2020-04-29] MEDS: MULTIVITAMINS/MINERALS THERAP 1 TAB PO SCH (09:59)
[2020-04-29] MEDS: DOXYCYCLINE HYCLATE 100 MG in D5W MINI-BAG PLUS 100 ML IV SCH ×2 (10:00→20:25)
[2020-04-29] MEDS: LOSARTAN 50MG TABLET PO SCH (10:02)
[2020-04-29] MEDS: diphenhydrAMINE 50MG/ML VIAL (J1200) IV PRN ×2 (10:26→20:26)
[2020-04-29] MEDS: PERCOCET 5MG/325MG TAB PO PRN (10:27)
--- NOTE | 2020-04-29 12:02 | IPNPDOC ---
Date Seen The patient was seen on 04/29/20. Progress Note SUBJECTIVE: Lower ext swelling persists, incr lasix to BID. Small increase in amount of bullae on abdomen. Itching/pain still present. He denies chest pain, n/v/d, abdominal pain, lightheadedness, dizziness. OBJECTIVE: VITAL SIGNS: Please see below PHYSICAL EXAM: VS: please see below GENERAL APPEARANCE: NAD resting in bed. HEENT: no conjunctival injection, no mucosal erythema or ulcers. CARDIOVASCULAR: RRR/NMRG LUNGS: CTBA on RA, no W/R/R ABDOMEN: obese, soft, nondistended, BS + in 4 quadrant MUSCULOSKELETAL: ROM limited by swelling at the knees EXTREMITIES: +2 pitting edema in b/l lower ext, warm to touch, pulses + in all extremities, no cyanosis INTEGUMENTARY: diffuse flat raised diffuse coalescing erythematous macules/papules on lower arms, legs, neck, chest, back and abdomen. increased blistering/bullae on anterior abdomen, anterior thighs, under arms. tender to touch in some places. Edema noted in all areas mentioned above NEUROLOGICAL: CN 2-12 intact, no focal deficits PSYCHIATRIC: mood and affect appropriate MICROBIOLOGY/PATHOLOGY: 04/26/20 Blood Culture- NG 04/26/20 Blood Culture- NG 04/20/20 Wound culture from left thigh wound: Staph aureus, staph coag negative with sensitivities known . 04/20/20 Viral culture from left thigh wound: Pending H&E and DIF results from recent punch biopsy pending/awaiting results- sent to [facility] Dermpathology lab BPAG 1&2 (testing for bullous pemphigoid) still pending IMAGING: Echocardiogram: Normal sinus rhythm without intraventricular conduction disturbance. Somewhat technically challenging study in light of the patients body habitus; however, useful diagnostic information was still obtained. Normal left ventricular size, wall thickness, and wall motion. Normal left atrial size with grade 1 left ventricular (LV) diastolic dysfunction, but currently normal estimated mean left atrial pressure. Normal right heart chamber sizes and wall motion and estimated pulmonary arterial pressure. Normal inferior vena cava (IVC) size and collapse against an elevated central venous pressure. Normal aortic dimensions. Normal appearing and functioning aortic valve. Normal appearing and functioning mitral valve. Normal appearing and functioning tricuspid valve. No apparent intracardiac mass or pericardial effusion. ASSESSMENT: Patient is a 59 yr old M with PMH of RA complicated by RA lung dz, Chronic HTN, LISA and Obesity who was evaluated for worsening rash possibly 2/2 to diffuse bullous dermatitis with secondary Staphylococcus skin/soft tissue infection. PLAN: 1. Diffuse bullous dermatitis possibly medication induced ? (Humira, methotrexate-discontinued 04/12/20). Also cannot r/o bullous pemphigoid, other cause -Extensive and bullae, weeping on abd/thighs/under arms- some mild increase in blistering/bullae formation on flanks b/l, abd and under arms -C/w 40 mg IV Q6H methylprednisolone, valtrex prophylactically to prevent kaposi's varicelliform eruption per derm -F/u punch biopsy results, BPAG 1&2. Previous biopsy showed spongiosis -Pain control with tramadol, oxycodone-acetaminophen. Benadryl for itching. - Dr. Villa (dermatology) following 2. Lower extremities edema, unlikely cardiac in etiology, possibly lymphedema? -+ 3 lb wt gain since admission -BNP and echo normal, no pulmonary vascular congestion on CT chest -Mildly neg fluid balance over 24 hours. -Increased lasix to 40 mg IV BID, fluid restriction 1800 cc/24 hr, monitor daily wt and daily labs 3. Secondary Staphylococcus (Staph Aureus, Staph coag neg) Skin/Soft Tissue Infection -Culture of left groin wound above, sensitivities in system -Area of culture still appears slightly purulent, no fouls smell -C/w IV doxycycline BID per derm (Day 3) 4. Rheumatoid arthritis with history of involvement of lung -Followed by rheumatology (Dr Bermudez) -CT chest: No acute concerns -Previously managed on methotrexate and Humira-both meds were discontinued 04/22/20 due to dermatitis ?secondary to treatment. -C/w methylprednisolone for now 5. Chronic HTN -BP controlled. -C/w ARB, lasix BID 6. Obesity -BMI 33.4 7. LISA -STable 8. DVT -SCDs DISPOSITION: Admitted as acute inpatient. Plan is discharge home when medically improved. Would appreciate dermatology following while inpatient to offer further suggestions. VS, I&O, 24H, Fishbone Vital Signs/I&O Vital Signs Date Time Temp Pulse Resp B/P (MAP) Pulse Ox O2 Delivery O2 Flow Rate FiO2 04/29/20 11:20 18 04/29/20 10:02 143/91 04/29/20 05:10 97.7 96 98 Room Air I&O- Last 24 Hours up to 6 AM 04/29/20 06:00 Intake Total 2660 ml Output Total 2650 ml Balance 10 ml Laboratory Data 24H LABS Laboratory Tests 2 04/29/20 07:56: Nucleated Red Blood Cells % (auto) 0.0, Anion Gap 8, Glomerular Filtration Rate > 60.0, Calcium Level 9.1, Total Bilirubin 0.4#, Aspartate Amino Transf (AST/SGOT) 18, Alanine Aminotransferase (ALT/SGPT) 57, Alkaline Phosphatase 45, Total Protein 5.9L, Albumin 2.9L, Albumin/Globulin Ratio 1.0 CBC/BMP Laboratory Tests 04/29/20 07:56 Microbiology Microbiology 04/26/20 Blood Culture - Preliminary, Resulted No Growth after 48 hours. All Specime... 04/26/20 Blood Culture - Preliminary, Resulted No Growth after 48 hours. All Specime... Current Medications Current Medications Medications (Trade) Dose Ordered Sig/Clarke Route PRN Reason Start Time Stop Time Status Last Admin Dose Admin Acetaminophen (Tylenol Tab) 650 mg Q4H PRN PO PAIN OR FEVER 04/26/20 22:00 04/27/20 05:07 Acyclovir 1000 mg/ Dextrose 270 ml @ 270 mls/hr Q8H IV 04/27/20 11:00 04/29/20 02:37 Diphenhydramine HCl (Benadryl Cream) APPLY TO AFFECTED AREAS TIDP PRN TOP ITCHING 04/29/20 01:45 04/29/20 02:37 Diphenhydramine HCl (Benadryl) 25 mg Q8HP PRN IV ITCHING 04/27/20 09:15 04/29/20 10:26 Doxycycline Hyclate 100 mg/ Dextrose 100 ml @ 100 mls/hr Q12H IV 04/27/20 09:00 04/29/20 10:00 Furosemide (LASIX injection) 40 mg BID IV 04/29/20 09:00 04/29/20 09:59 Furosemide (LASIX injection) 40 mg DAILY IV 04/28/20 09:00 04/28/20 18:35 DC 04/28/20 09:48 Furosemide (LASIX injection) 60 mg DAILY IV 04/29/20 09:00 04/29/20 08:32 DC Home Med (Med Rec Complete!) ASDIRECTED XX 04/26/20 23:00 04/26/20 22:54 DC Hydroxyzine HCl (Atarax) 25 mg Q6H PO 04/29/20 00:00 04/29/20 11:37 Losartan Potassium (Cozaar) 50 mg DAILY PO 04/27/20 16:00 04/29/20 10:02 Methylprednisolone (SOLU medrol) 40 mg Q6H IV 04/27/20 09:00 04/29/20 09:59 Multivitamins (Theragram-M) 1 tab DAILY PO 04/28/20 09:00 04/29/20 09:59 Oxycodone/ Acetaminophen (Percocet 5mg/ 325mg Tablet) 1 tab Q4HP PRN PO SEVERE PAIN (PS 8-10) 04/27/20 09:15 04/29/20 10:27 Prednisone (Deltasone) 40 mg DAILY PO 04/27/20 09:00 04/27/20 08:27 DC Tramadol HCl (Ultram) 50 mg Q6HP PRN PO MODERATE PAIN (PS 5-7) 04/27/20 09:15 04/28/20 16:19 Allergies Coded Allergies: No Known Allergies (Unverified , 04/26/20) Anayeli Woods MD Apr 29, 2020 12:02
--- NOTE | 2020-04-29 12:12 | CR.PDOC ---
General Date of Consultation: Apr 29, 2020 Consultation S: Patient is a 59yo male with rheumatoid disease (followed by rheumatology-Dr Bermudez) previously managed on methotrexate and Humira-both meds were discontinued 04/22/20 due to dermatitis ?secondary to treatment. He was transitioned to Prednisone 1mg/kg (80mg). Previous biopsy showed spongiosis. 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 Bacterial (+for staph aureus, responsive to tetracyclines) and viral cultures (pending) were obtained. Repeat H&E and DIF punch biopsies performed-results are pending. BPAG 1&2 pending. In the dermatology clinic, patient noted increased work breathing and a 9lb weight gain in one week with extensive fluid on his legs. He was sent to the ER for consideration of rheumatologic lung disease (which he has had previously) and possible pericarditis. It was recommended he be placed on IV steroids as there is concern he may not be absorb ing the PO Prednisone due to gut swelling. He was given Doxycycline (+culture, sensitive to TCN) and Valtrex (to minimize risk of kaposi's varicelliform eruption). He was started on IV Clindamycin last night in the ER for possible skin/soft tissue infection, before being admitted to the floor. Patient is currently on IV solumedrol (started this am), IV acyclovir, and PO Doxycycline. CT scan of the lungs shows no evidence of interstitial disease, echocardiogram was negative for cardiac disease. He notes that he has not seen any improvement with the IV solumedrol. O: Skin exam reveals coalescing erythematous papules on the arms, legs, chest, abdomen and back, tense bullae most prominently on the abdomen, axillae, popliteal, and 3+ pitting edema on the lower extremities. A: Bullous Dermatitis, nonresponsive to IV solumedrol P: Recommend the addition of CYCLOSPORINE 2.5mg/kg (125mg twice daily), check blood pressure and kidney function daily-if creatinine increases, decrease cycl osporin dose by 50%. Add Magnesium 400mg PO once daily. Add topical Triamcinolone 0.1% cream twice daily to all areas of rash. As his skin symptoms have been recalcitrant to treatment, consider CT of the abdomen and pelvis to rule out a paraneoplastic process. The addition of Remicade infusion may be considered if rheumatology is in agreement. Vital Signs/I&O Vital Signs Date Time Temp Pulse Resp B/P (MAP) Pulse Ox O2 Delivery O2 Flow Rate FiO2 04/29/20 11:20 18 04/29/20 10:02 143/91 04/29/20 05:10 97.7 96 98 Room Air I&O- Last 24 Hours up to 6 AM 04/29/20 06:00 Intake Total 2660 ml Output Total 2650 ml Balance 10 ml Laboratory Data Labs 24H Laboratory Tests 2 04/29/20 07:56: Nucleated Red Blood Cells % (auto) 0.0, Anion Gap 8, Glomerular Filtration Rate > 60.0, Calcium Level 9.1, Total Bilirubin 0.4#, Aspartate Amino Transf (AST/SGOT) 18, Alanine Aminotransferase (ALT/SGPT) 57, Alkaline Phosphatase 45, Total Protein 5.9L, Albumin 2.9L, Albumin/Globulin Ratio 1.0 CBC/BMP Laboratory Tests 04/29/20 07:56 Microbiology Microbiology 04/26/20 Blood Culture - Preliminary, Resulted No Growth after 48 hours. All Specime... 04/26/20 Blood Culture - Preliminary, Resulted No Growth after 48 hours. All Specime... Allergies Coded Allergies: No Known Allergies (Unverified , 04/26/20) Home Medications Scheduled Doxycycline Hyclate (Doxycycline Hyclate) 100 Mg Tablet, 100 MG PO BID for 14 Days, (Reported) STARTED 04/22/2020 Losartan Potassium (Losartan Potassium) 50 Mg Tablet, 50 MG PO DAILY, (Reported) Multivitamins (Thera M Plus Tablet) 1 Each Tablet, 1 TAB PO DAILY, (Reported) Prednisone (Prednisone) 20 Mg Tablet, 80 MG PO DAILY, (Reported) WAS TAKING 60MG FOR A WEEK BUT WAS UPPED TO 80MG TODAY STARTING THE DOSE FOR 04/27/2020 Triamcinolone Acet (Triamcinolone Acetonide 0.1% Crm) 80 Gm Cream..g., 1 DOSE TOP BID, (Reported) APPLIES TO ENTIRE BODY Valacyclovir HCl (Valacyclovir) 1,000 Mg Tablet, 1 GM PO Q8H for 14 Days, (Reported) STARTED 04/22/2020: 0700, 1500, 2300 Scheduled PRN Sildenafil Citrate (Sildenafil Citrate) 50 Mg Tablet, 50 MG PO ASDIRECTED PRN for ERECTILE DYSFUNCTION, (Reported) Carolin Riggs PA-C Apr 29, 2020 12:11
[2020-04-29 14:00] VITALS: BP 141/88
[2020-04-29 22:00] VITALS: BP 164/83
[2020-04-29 23:00] VITALS: BP 136/77
[2020-04-30] MEDS: hydrOXYzine 25 MG TAB PO SCH ×4 (00:02→18:37)
[2020-04-30] MEDS: PERCOCET 5MG/325MG TAB PO PRN (00:02)
[2020-04-30] MEDS: ACYCLOVIR 1,000 MG in D5W 250 ML IV SCH ×3 (03:00→18:37)
[2020-04-30] MEDS: methylPREDNISolone 40MG 1ML VIAL IV SCH ×4 (03:01→20:40)
[2020-04-30 06:00] VITALS: BP 154/88
[2020-04-30 06:22] LABS: HEMATOCRIT 40.4 % (42.0-52.0); HEMOGLOBIN 13.3 g/dl (13.5-17.5); MEAN CORPUSCULAR HEMOGLOBIN 33.7 pg (27.0-33.0); MEAN CORPUSCULAR HGB CONC 32.9 g/dl (32.0-36.5); MEAN CORPUSCULAR VOLUME 102.3 fl (80.0-96.0); PLATELET COUNT, AUTOMATED 274 10^3/uL (150-450); RED BLOOD COUNT 3.95 10^6/uL (4.30-6.10); WHITE BLOOD COUNT 12.1 10^3/uL (4.0-10.0)
[2020-04-30 06:51] LABS: ALBUMIN 2.6 GM/DL (3.2-5.2); ALT/SGPT 50 U/L (12-78); BILIRUBIN,TOTAL 0.2 MG/DL (0.2-1.0); BLOOD UREA NITROGEN 41 MG/DL (7-18); CALCIUM LEVEL 8.7 MG/DL (8.5-10.1); CARBON DIOXIDE LEVEL 31 MEQ/L (21-32); CHLORIDE LEVEL 105 MEQ/L (98-107); CREATININE FOR GFR 1.07 MG/DL (0.70-1.30); GLOMERULAR FILTRATION RATE > 60.0 (>56); GLUCOSE, FASTING 133 MG/DL (70-100); POTASSIUM SERUM 4.2 MEQ/L (3.5-5.1); SODIUM LEVEL 140 MEQ/L (136-145); TOTAL PROTEIN 5.7 GM/DL (6.4-8.2)
[2020-04-30] MEDS: FUROSEMIDE 40MG/4ML VIAL (J1940) IV SCH ×2 (09:08→20:40)
[2020-04-30] MEDS: MAGNESIUM OXIDE 400 MG TAB (MAG-OX) PO SCH (09:08)
[2020-04-30] MEDS: MULTIVITAMINS/MINERALS THERAP 1 TAB PO SCH (09:08)
[2020-04-30] MEDS: DOXYCYCLINE HYCLATE 100 MG in D5W MINI-BAG PLUS 100 ML IV SCH ×2 (09:08→20:41)
[2020-04-30] MEDS: LOSARTAN 50MG TABLET PO SCH (09:20)
[2020-04-30] MEDS: SandIMMUNE 100 MG CAP (J7502) PO SCH ×2 (10:41→20:40)
[2020-04-30] MEDS: SandIMMUNE 25 MG CAP (cycloSPORINE) (J7515) PO SCH ×2 (10:41→20:40)
[2020-04-30] MEDS: diphenhydrAMINE CREAM 30GM TOP PRN (12:25)
[2020-04-30] MEDS: diphenhydrAMINE 50MG/ML VIAL (J1200) IV PRN ×2 (12:41→20:44)
[2020-04-30 14:00] VITALS: BP 179/85
[2020-04-30 14:05] VITALS: BP 142/92
[2020-04-30] MEDS: traMADol 50 MG TAB PO PRN (14:23)
--- NOTE | 2020-04-30 15:47 | IPNPDOC ---
Date Seen The patient was seen on 04/30/20. Progress Note SUBJECTIVE: NEg 1.6 L/24 hrs, lower ext swelling persists but not worsened. Blistering/bullae appear ruptured and drying out a good bit. No new areas of concern or extension of prior rash. Cyclosporin added per dermatology's recommendation. Itching/pain still present. He denies chest pain, n/v/d, abdominal pain, lightheadedness, dizziness. OBJECTIVE: VITAL SIGNS: Please see below PHYSICAL EXAM: VS: please see below GENERAL APPEARANCE: NAD resting in bed. HEENT: no conjunctival injection, no mucosal erythema or ulcers. CARDIOVASCULAR: RRR/NMRG LUNGS: CTBA on RA, no W/R/R ABDOMEN: obese, soft, nondistended, BS + in 4 quadrant MUSCULOSKELETAL: ROM limited by swelling at the knees EXTREMITIES: +2 pitting edema in b/l lower ext, warm to touch, pulses + in all extremities, no cyanosis INTEGUMENTARY: diffuse flat raised diffuse coalescing erythematous macules/papules on lower arms, legs, neck, chest, back and abdomen. blistering/bullae on anterior abdomen, anterior thighs, under arms seem to be rupturing/drying out. Tender to touch in some places. Edema noted in all areas m entioned above NEUROLOGICAL: CN 2-12 intact, no focal deficits PSYCHIATRIC: mood and affect appropriate MICROBIOLOGY/PATHOLOGY: 04/26/20 Blood Culture- NG 04/26/20 Blood Culture- NG 04/20/20 Wound culture from left thigh wound: Staph aureus, staph coag negative with sensitivities known . 04/20/20 Viral culture from left thigh wound: Pending H&E and DIF results from recent punch biopsy pending/awaiting results- sent to [facility] Dermpathology lab BPAG 1&2 (testing for bullous pemphigoid) still pending IMAGING: Echocardiogram: Normal sinus rhythm without intraventricular conduction disturbance. Somewhat technically challenging study in light of the patients body habitus; however, useful diagnostic information was still obtained. Normal left ventricular size, wall thickness, and wall motion. Normal left atrial size with grade 1 left ventricular (LV) diastolic dysfunction, but currently normal estimated mean left atrial pressure. Normal right heart chamber sizes and wall motion and estimated pulmonary arterial pressure. Normal inferior vena cava (IVC) size and collapse against an elevated central venous pressure. Normal aortic dimensions. Normal appearing and functioning aortic valve. Normal appearing and functioning mitral valve. Normal appearing and functioning tricuspid valve. No apparent intracardiac mass or pericardial effusion. ASSESSMENT: Patient is a 59 yr old M with PMH of RA complicated by RA lung dz, Chronic HTN, LISA and Obesity who was evaluated for worsening rash possibly 2/2 to diffuse bullous dermatitis with secondary Staphylococcus skin/soft tissue infection. PLAN: 1. Diffuse bullous dermatitis possibly medication induced ? (Humira, methotr exate-discontinued 04/12/20). Also cannot r/o bullous pemphigoid, other cause -Extensive and bullae, weeping on abd/thighs/under arms- improving in some places, drying out with less formation. -Added cyclosporine, magnesium per dermatology -C/w 40 mg IV Q6H methylprednisolone, valtrex prophylactically to prevent kaposi's varicelliform eruption per derm -F/u punch biopsy results, BPAG 1&2. -Pain control with tramadol, oxycodone-acetaminophen. Benadryl for itching. -Dr. Villa (dermatology) following and has been in close contact with Rheumatology. If Cyclosporine and IV steroid do not help, plan is to consider mycophenolate mofetil (cellCept). 2. Lower extremities edema possibly 2/2 to spongiosis (identified on previous biopsy) 2/2 to dermatitis described above -Neg fluid balance with lasix, slightly less tense, less edema -BNP and echo normal, no pulmonary vascular congestion on CT chest -C/w lasix to 40 mg IV BID, fluid restriction 1800 cc/24 hr, monitor daily wt and daily labs -Note: Caution with lasix BID and high dose cyclosporine BID treatment. Monitoring daily CMP 3. Secondary Staphylococcus (Staph Aureus, Staph coag neg) Skin/Soft Tissue Infection -Culture of left groin wound above, sensitivities in system -Area of culture still appears slightly purulent, no fouls smell -C/w IV doxycycline BID per derm (Day 3) - to complete 7 total days 4. Rheumatoid arthritis with history of involvement of lung -Followed by rheumatology (Dr Bermudez) -CT chest: No acute concerns -Previously managed on methotrexate and Humira-both meds were discontinued 04/22/20 due to dermatitis ?secondary to treatment. -C/w methylprednisolone for now 5. Chronic HTN -BP controlled. -C/w ARB, lasix BID 6. Obesity -BMI 33.4 7. LISA -STable 8. DVT -SCDs DISPOSITION: Admitted as acute inpatient. Plan is discharge home when medically improved. Dermatology (Dr. Villa) following closely- they are in close consultation with rheumatology (Dr. Bermudez) o/p. VS, I&O, 24H, Fishbone Vital Signs/I&O Vital Signs Date Time Temp Pulse Resp B/P (MAP) Pulse Ox O2 Delivery O2 Flow Rate FiO2 04/30/20 14:23 18 04/30/20 14:05 142/92 (109) 04/30/20 14:00 97.2 128 95 Room Air I&O- Last 24 Hours up to 6 AM 04/30/20 06:00 Intake Total 1930 ml Output Total 4025 ml Balance -2095 ml Laboratory Data 24H LABS Laboratory Tests 2 04/30/20 06:07: Nucleated Red Blood Cells % (auto) 0.0, Anion Gap 4L, Glomerular Filtration Rate > 60.0, Calcium Level 8.7, Total Bilirubin 0.2, Aspartate Amino Transf (AST/SGOT ) 15, Alanine Aminotransferase (ALT/SGPT) 50, Alkaline Phosphatase 41L, Total Protein 5.7L, Albumin 2.6L, Albumin/Globulin Ratio 0.8 CBC/BMP Laboratory Tests 04/30/20 06:07 Microbiology Microbiology 04/26/20 Blood Culture - Preliminary, Resulted No Growth after 72 hours. All specime... 04/26/20 Blood Culture - Preliminary, Resulted No Growth after 72 hours. All specime... Current Medications Current Medications Medications (Trade) Dose Ordered Sig/Clarke Route PRN Reason Start Time Stop Time Status Last Admin Dose Admin Acetaminophen (Tylenol Tab) 650 mg Q4H PRN PO PAIN OR FEVER 04/26/20 22:00 04/27/20 05:07 Acyclovir 1000 mg/ Dextrose 270 ml @ 270 mls/hr Q8H IV 04/27/20 11:00 04/30/20 10:39 Cyclosporine (SandIMMUNE) 25 mg BID PO 04/30/20 09:00 04/30/20 10:41 Cyclosporine (SandIMMUNE) 100 mg BID PO 04/30/20 09:00 04/30/20 10:41 Diphenhydramine HCl (Benadryl Cream) APPLY TO AFFECTED AREAS TIDP PRN TOP ITCHING 04/29/20 01:45 04/30/20 12:25 Diphenhydramine HCl (Benadryl) 25 mg Q8HP PRN IV ITCHING 04/27/20 09:15 04/30/20 12:41 Doxycycline Hyclate 100 mg/ Dextrose 100 ml @ 100 mls/hr Q12H IV 04/27/20 09:00 04/30/20 09:08 Furosemide (LASIX injection) 40 mg BID IV 04/29/20 09:00 04/30/20 09:08 Furosemide (LASIX injection) 40 mg DAILY IV 04/28/20 09:00 04/28/20 18:35 DC 04/28/20 09:48 Furosemide (LASIX injection) 60 mg DAILY IV 04/29/20 09:00 04/29/20 08:32 DC Home Med (Med Rec Complete!) ASDIRECTED XX 04/26/20 23:00 04/26/20 22:54 DC Hydroxyzine HCl (Atarax) 25 mg Q6H PO 04/29/20 00:00 04/30/20 12:24 Losartan Potassium (Cozaar) 50 mg DAILY PO 04/27/20 16:00 04/30/20 09:20 Magnesium Oxide (Mag-Ox) 400 mg DAILY PO 04/30/20 09:00 04/30/20 09:08 Methylprednisolone (SOLU medrol) 40 mg Q6H IV 04/27/20 09:00 04/30/20 14:22 Multivitamins (Theragram-M) 1 tab DAILY PO 04/28/20 09:00 04/30/20 09:08 Oxycodone/ Acetaminophen (Percocet 5mg/ 325mg Tablet) 1 tab Q4HP PRN PO SEVERE PAIN (PS 8-10) 04/27/20 09:15 04/30/20 00:02 Prednisone (Deltasone) 40 mg DAILY PO 04/27/20 09:00 04/27/20 08:27 DC Tramadol HCl (Ultram) 50 mg Q6HP PRN PO MODERATE PAIN (PS 5-7) 04/27/20 09:15 04/30/20 14:23 Allergies Coded Allergies: No Known Allergies (Unverified , 04/26/20) Anayeli Woods MD Apr 30, 2020 15:47
[2020-04-30] MEDS: TRIAMCINOLONE ACET 0.1% CREAM 15 GM TOP SCH (20:41)
[2020-04-30 22:00] VITALS: BP 157/85
[2020-05-01] MEDS: hydrOXYzine 25 MG TAB PO SCH ×4 (00:39→17:26)
[2020-05-01] MEDS: PERCOCET 5MG/325MG TAB PO PRN (00:39)
[2020-05-01] MEDS: methylPREDNISolone 40MG 1ML VIAL IV SCH ×4 (04:14→21:04)
[2020-05-01] MEDS: ACYCLOVIR 1,000 MG in D5W 250 ML IV SCH ×3 (04:14→18:03)
[2020-05-01 06:00] VITALS: BP 161/88
[2020-05-01 07:00] LABS: HEMATOCRIT 41.5 % (42.0-52.0); HEMOGLOBIN 13.5 g/dl (13.5-17.5); MEAN CORPUSCULAR HEMOGLOBIN 33.3 pg (27.0-33.0); MEAN CORPUSCULAR HGB CONC 32.5 g/dl (32.0-36.5); MEAN CORPUSCULAR VOLUME 102.2 fl (80.0-96.0); PLATELET COUNT, AUTOMATED 289 10^3/uL (150-450); RED BLOOD COUNT 4.06 10^6/uL (4.30-6.10); WHITE BLOOD COUNT 11.2 10^3/uL (4.0-10.0)
[2020-05-01 07:19] LABS: ALBUMIN 2.7 GM/DL (3.2-5.2); ALT/SGPT 47 U/L (12-78); BILIRUBIN,TOTAL 0.3 MG/DL (0.2-1.0); BLOOD UREA NITROGEN 45 MG/DL (7-18); CALCIUM LEVEL 8.7 MG/DL (8.5-10.1); CARBON DIOXIDE LEVEL 35 MEQ/L (21-32); CHLORIDE LEVEL 103 MEQ/L (98-107); CREATININE FOR GFR 1.14 MG/DL (0.70-1.30); GLOMERULAR FILTRATION RATE > 60.0 (>56); GLUCOSE, FASTING 137 MG/DL (70-100); POTASSIUM SERUM 4.2 MEQ/L (3.5-5.1); SODIUM LEVEL 140 MEQ/L (136-145)
[2020-05-01] MEDS: FUROSEMIDE 40MG/4ML VIAL (J1940) IV SCH (09:24)
[2020-05-01] MEDS: SandIMMUNE 25 MG CAP (cycloSPORINE) (J7515) PO SCH ×2 (09:25→21:05)
[2020-05-01] MEDS: SandIMMUNE 100 MG CAP (J7502) PO SCH ×2 (09:25→21:05)
[2020-05-01] MEDS: MAGNESIUM OXIDE 400 MG TAB (MAG-OX) PO SCH (09:25)
[2020-05-01] MEDS: DOXYCYCLINE HYCLATE 100 MG in D5W MINI-BAG PLUS 100 ML IV SCH ×2 (09:26→21:04)
[2020-05-01] MEDS: LOSARTAN 50MG TABLET PO SCH (09:26)
[2020-05-01] MEDS: MULTIVITAMINS/MINERALS THERAP 1 TAB PO SCH (09:26)
[2020-05-01] MEDS: TRIAMCINOLONE ACET 0.1% CREAM 15 GM TOP SCH ×2 (09:27→21:05)
[2020-05-01] MEDS: diphenhydrAMINE 50MG/ML VIAL (J1200) IV PRN ×2 (09:42→22:32)
--- NOTE | 2020-05-01 13:47 | IPNPDOC ---
Date Seen The patient was seen on 05/01/20. Progress Note SUBJECTIVE: Neg 3.3 lbs since admission, Neg 1.8 L/24 hrs. Lower ext swelling persists but improving. Blistering/bullae appear healing, drying out with no new bullae or blistering seen. Diffuse redness markedly improved even over 24 hours, s/p 2 doses of Cyclosporin thus far. Mild incr in Cr so decreased frequency of lasix. He denies chest pain, n/v/d, abdominal pain, lightheadedness, dizziness. OBJECTIVE: VITAL SIGNS: Please see below PHYSICAL EXAM: VS: please see below GENERAL APPEARANCE: NAD resting in bed. HEENT: no conjunctival injection, no mucosal erythema or ulcers. CARDIOVASCULAR: RRR, No M/R/G LUNGS: CTAB on RA, no W/R/R ABDOMEN: obese, soft, nondistended, BS + in 4 quadrant MUSCULOSKELETAL: ROM wnl, no atrophy EXTREMITIES: +2 pitting edema in b/l lower ext persists, pulses + in all extremities, no cyanosis INTEGUMENTARY: diffuse flat raised diffuse coalescing erythematous macules/papules on lower arms, legs, neck, chest, back and abdomen appear paler in color in some places, less raised. blistering/bullae on anterior abdomen, anterior thighs, under arms seem to be rupturing/drying out further today. Tender to touch in some places. Edema diffusely decreasing. NEUROLOGICAL: CN 2-12 intact, no focal deficits PSYCHIATRIC: mood and affect appropriate MICROBIOLOGY/PATHOLOGY: 04/26/20 Blood Culture- NG 04/26/20 Blood Culture- NG 04/20/20 Wound culture from left thigh wound: Staph aureus, staph coag negative with sensitivities known . 04/20/20 Viral culture from left thigh wound: Pending H&E and DIF results from recent punch biopsy pending/awaiting results- sent to [facility] Dermpathology lab BPAG 1&2 (testing for bullous pemphigoid) still pending IMAGING: Echocardiogram: Normal sinus rhythm without intraventricular conduction disturbance. Somewhat technically challenging study in light of the patients body habitus; however, useful diagnostic information was still obtained. Normal left ventricular size, wall thickness, and wall motion. Normal left atrial size with grade 1 left ventricular (LV) diastolic dysfunction, but currently normal estimated mean left atrial pressure. Normal right heart chamber sizes and wall motion and estimated pulmonary arterial pressure. Normal inferior vena cava (IVC) size and collapse against an elevated central venous pressure. Normal aortic dimensions. Normal appearing and functioning aortic valve. Normal appearing and functioning mitral valve. Normal appearing and functioning tricuspid valve. No apparent intracardiac mass or pericardial effusion. ASSESSMENT: Patient is a 59 yr old M with PMH of RA complicated by RA lung dz, Chronic HTN, LISA and Obesity who was evaluated for worsening rash possibly 2/2 to diffuse bullous dermatitis with secondary Staphylococcus skin/soft tissue infection. PLAN: 1. Diffuse bullous dermatitis possibly medication induced ? (Humira, methotrexate-discontinued 04/12/20). Also cannot r/o bullous pemphigoid, other cause -Extensive and bullae, weeping on abd/thighs/under arms- improving in some places, drying out with less formation. -C/w cyclosporine BID, magnesium, 40 mg IV Q6H methylprednisolone, valtrex prophylactically to prevent kaposi's varicelliform eruption per derm -F/u punch biopsy results, BPAG 1&2. -Pain control with tramadol, oxycodone-acetaminophen. Benadryl for itching. -Dr. Villa (dermatology) following and has been in close contact with Rheumatology. If Cyclosporine and IV steroid do not help, plan is to consider mycophenolate mofetil (cellCept). 2. 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 Monitoring daily CMP 3. Secondary Staphylococcus (Staph Aureus, Staph coag neg) Skin/Soft Tissue Infection -Culture of left groin wound above, sensitivities in system -Area of culture still appears slightly purulent, no foul smell -Doxycycline BID started by derm 04/22/20, wanted patient to be on 14 day course (stop date 05/06/20) -Doxy BID IV due to concerns about absorption PO 4. Rheumatoid arthritis with history of involvement of lung -Followed by rheumatology (Dr Bermudez) -CT chest: No acute concerns -Previously managed on methotrexate and Humira-both meds were discontinued 04/22/20 due to dermatitis ?secondary to treatment. -C/w methylprednisolone 5. Chronic HTN -BP controlled. -C/w ARB, lasix BID 6. Obesity -BMI 33.4 7. LISA -STable 8. DVT -SCDs DISPOSITION: Admitted as acute inpatient. Plan is discharge home when medically improved. Dermatology (Dr. Villa) following closely- they are in close consultation with rheumatology (Dr. Bermudez) o/p. VS, I&O, 24H, [place] Vital Signs/I&O Vital Signs Date Time Temp Pulse Resp B/P (MAP) Pulse Ox O2 Delivery O2 Flow Rate FiO2 05/01/20 09:26 156/97 05/01/20 06:00 97.7 75 18 95 Room Air I&O- Last 24 Hours up to 6 AM 05/01/20 06:00 Intake Total 1410 ml Output Total 3925 ml Balance -2515 ml Laboratory Data 24H LABS Laboratory Tests 2 05/01/20 06:31: Nucleated Red Blood Cells % (auto) 0.0, Anion Gap 2L, Glomerular Filtration Rate > 60.0, Calcium Level 8.7, Total Bilirubin 0.3, Aspartate Amino Transf (AST/SGOT) 17, Alanine Aminotransferase (ALT/SGPT) 47, Alkaline Phosphatase 43L, Total Protein 6.0L, Albumin 2.7L, Albumin/Globulin Ratio 0.8 CBC/BMP Laboratory Tests 05/01/20 06:31 Microbiology Microbiology 04/26/20 Blood Culture - Preliminary, Resulted No Growth after 72 hours. All specime... 04/26/20 Blood Culture - Preliminary, Resulted No Growth after 72 hours. All specime... Current Medications Current Medications Medications (Trade) Dose Ordered Sig/Clarke Route PRN Reason Start Time Stop Time Status Last Admin Dose Admin Acetaminophen (Tylenol Tab) 650 mg Q4H PRN PO PAIN OR FEVER 04/26/20 22:00 04/27/20 05:07 Acyclovir 1000 mg/ Dextrose 270 ml @ 270 mls/hr Q8H IV 04/27/20 11:00 05/01/20 11:06 Cyclosporine (SandIMMUNE) 25 mg BID PO 04/30/20 09:00 05/01/20 09:25 Cyclosporine (SandIMMUNE) 100 mg BID PO 04/30/20 09:00 05/01/20 09:25 Diphenhydramine HCl (Benadryl Cream) APPLY TO AFFECTED AREAS TIDP PRN TOP ITCHING 04/29/20 01:45 04/30/20 12:25 Diphenhydramine HCl (Benadryl) 25 mg Q8HP PRN IV ITCHING 04/27/20 09:15 05/01/20 09:42 Doxycycline Hyclate 100 mg/ Dextrose 100 ml @ 100 mls/hr Q12H IV 04/27/20 09:00 05/01/20 09:26 Furosemide (LASIX injection) 40 mg BID IV 04/29/20 09:00 05/01/20 08:19 DC 04/30/20 20:40 Furosemide (LASIX injection) 40 mg DAILY IV 04/28/20 09:00 04/28/20 18:35 DC 04/28/20 09:48 Furosemide (LASIX injection) 60 mg DAILY IV 04/29/20 09:00 04/29/20 08:32 DC Furosemide (LASIX injection) 60 mg DAILY IV 05/01/20 09:00 05/01/20 09:24 Home Med (Med Rec Complete!) ASDIRECTED XX 04/26/20 23:00 04/26/20 22:54 DC Hydroxyzine HCl (Atarax) 25 mg Q6H PO 04/29/20 00:00 05/01/20 11:06 Losartan Potassium (Cozaar) 50 mg DAILY PO 04/27/20 16:00 05/01/20 09:26 Magnesium Oxide (Mag-Ox) 400 mg DAILY PO 04/30/20 09:00 05/01/20 09:25 Methylprednisolone (SOLU medrol) 40 mg Q6H IV 04/27/20 09:00 05/01/20 09:23 Multivitamins (Theragram-M) 1 tab DAILY PO 04/28/20 09:00 05/01/20 09:26 Oxycodone/ Acetaminophen (Percocet 5mg/ 325mg Tablet) 1 tab Q4HP PRN PO SEVERE PAIN (PS 8-10) 04/27/20 09:15 05/01/20 00:39 Prednisone (Deltasone) 40 mg DAILY PO 04/27/20 09:00 04/27/20 08:27 DC Tramadol HCl (Ultram) 50 mg Q6HP PRN PO MODERATE PAIN (PS 5-7) 04/27/20 09:15 04/30/20 14:23 Triamcinolone Acetonide (Kenalog 0.1% Cream) 1 dose BID TOP 04/30/20 21:00 05/01/20 09:27 Allergies Coded Allergies: No Known Allergies (Unverified , 04/26/20) Anayeli Woods MD May 01, 2020 13:47
[2020-05-01 14:00] VITALS: BP 134/95
[2020-05-01] MEDS: traMADol 50 MG TAB PO PRN (14:59)
[2020-05-01 22:00] VITALS: BP 143/87
[2020-05-02] MEDS: hydrOXYzine 25 MG TAB PO SCH ×4 (00:57→18:19)
[2020-05-02] MEDS: methylPREDNISolone 40MG 1ML VIAL IV SCH ×3 (03:36→20:21)
[2020-05-02] MEDS: ACYCLOVIR 1,000 MG in D5W 250 ML IV SCH ×2 (03:36→12:20)
[2020-05-02 06:00] VITALS: BP 153/82
--- NOTE | 2020-05-02 07:12 | CR.PDOC ---
General Date of Consultation: May 02, 2020 Consultation S: Patient is a 59yo male with rheumatoid disease (followed by rheumatology-Dr Bermudez) previously managed on methotrexate and Humira-both meds were discontinued 04/22/20 due to dermatitis ?secondary to treatment. He was transitioned to Prednisone 1mg/kg (80mg). Previous biopsy showed spongiosis. 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 Bacterial (+for staph aureus, responsive to tetracyclines) and viral cultures (pending) were obtained. Repeat H&E and DIF punch biopsies performed-results are pending. BPAG 1&2 pending. In the dermatology clinic, patient noted increased work breathing and a 9lb weight gain in one week with extensive fluid on his legs. He was sent to the ER for consideration of rheumatologic lung disease (which he has had previously) and possible pericarditis. It was recommended he be placed on IV steroids as there is concern he may not be absorb ing the PO Prednisone due to gut swelling. He was given Doxycycline (+culture, sensitive to TCN) and Valtrex (to minimize risk of kaposi's varicelliform eruption). He was started on IV Clindamycin last night in the ER for possible skin/soft tissue infection, before being admitted to the floor. Patient is currently on IV solumedrol (started this am), IV acyclovir, and PO Doxycycline. CT scan of the lungs shows no evidence of interstitial disease, echocardiogram was negative for cardiac disease. He did not show response to IV solumedrol and cyclosporine 150mg BID PO was added on 04/30/20. His creatinine and GFR have remained within normal limits, his BP is elevated at 153/82. He is showing significant improvement today-decreased swelling, no active bullae, and decreased erythema. He notes he was given triamcinolone 0.1 cream to use, but the tubes are very small so he is using sparingly. He is not using any other topicals at this time. O: skin exam reveals decreased erythema and edema, no active bullae, areas of denuded skin, 1+ pitting edema of the bilateral feet. Sutures on the R upper back are intact with no evidence of infection. A: Bullous dermatitis, improved on Cyclopsorine P: continue Cyclosporine, ADD CeraVe moisturizing cream twice daily to all skin. Suture removal planned for tomorrow, still waiting on H&E and DIF results. Vital Signs/I&O Vital Signs Date Time Temp Pulse Resp B/P (MAP) Pulse Ox O2 Delivery O2 Flow Rate FiO2 05/02/20 06:00 97.5 78 18 153/82 (105) 96 Room Air I&O- Last 24 Hours up to 6 AM 05/02/20 06:00 Intake Total 1986 ml Output Total 2825 ml Balance -839 ml Laboratory Data Labs 24H Laboratory Tests 2 05/01/20 06:31: Nucleated Red Blood Cells % (auto) 0.0, Anion Gap 2L, Glomerular Filtration Rate > 60.0, Calcium Level 8.7, Total Bilirubin 0.3, Aspartate Amino Transf (AST/SGOT) 17, Alanine Aminotransferase (ALT/SGPT) 47, Alkaline Phosphatase 43L, Total Protein 6.0L, Albumin 2.7L, Albumin/Globulin Ratio 0.8 CBC/BMP Laboratory Tests 05/01/20 06:31 Microbiology Microbiology 04/26/20 Blood Culture - Final, Complete NO GROWTH AFTER 5 DAYS 04/26/20 Blood Culture - Final, Complete NO GROWTH AFTER 5 DAYS Allergies Coded Allergies: No Known Allergies (Unverified , 04/26/20) Home Medications Scheduled Doxycycline Hyclate (Doxycycline Hyclate) 100 Mg Tablet, 100 MG PO BID for 14 Days, (Reported) STARTED 04/22/2020 Losartan Potassium (Losartan Potassium) 50 Mg Tablet, 50 MG PO DAILY, (Reported) Multivitamins (Thera M Plus Tablet) 1 Each Tablet, 1 TAB PO DAILY, (Reported) Prednisone (Prednisone) 20 Mg Tablet, 80 MG PO DAILY, (Reported) WAS TAKING 60MG FOR A WEEK BUT WAS UPPED TO 80MG TODAY STARTING THE DOSE FOR 04/27/2020 Triamcinolone Acet (Triamcinolone Acetonide 0.1% Crm) 80 Gm Cream..g., 1 DOSE TO P BID, (Reported) APPLIES TO ENTIRE BODY Valacyclovir HCl (Valacyclovir) 1,000 Mg Tablet, 1 GM PO Q8H for 14 Days, (Reported) STARTED 04/22/2020: 0700, 1500, 2300 Scheduled PRN Sildenafil Citrate (Sildenafil Citrate) 50 Mg Tablet, 50 MG PO ASDIRECTED PRN for ERECTILE DYSFUNCTION, (Reported) Carolin Riggs PA-C May 02, 2020 07:13
[2020-05-02 07:19] LABS: HEMATOCRIT 42.2 % (42.0-52.0); HEMOGLOBIN 13.7 g/dl (13.5-17.5); MEAN CORPUSCULAR HEMOGLOBIN 33.4 pg (27.0-33.0); MEAN CORPUSCULAR HGB CONC 32.5 g/dl (32.0-36.5); MEAN CORPUSCULAR VOLUME 102.9 fl (80.0-96.0); PLATELET COUNT, AUTOMATED 289 10^3/uL (150-450); WHITE BLOOD COUNT 11.6 10^3/uL (4.0-10.0)
[2020-05-02 07:40] LABS: ALBUMIN 2.7 GM/DL (3.2-5.2); ALT/SGPT 47 U/L (12-78); BILIRUBIN,TOTAL 0.4 MG/DL (0.2-1.0); BLOOD UREA NITROGEN 44 MG/DL (7-18); CALCIUM LEVEL 8.8 MG/DL (8.5-10.1); CARBON DIOXIDE LEVEL 32 MEQ/L (21-32); CHLORIDE LEVEL 104 MEQ/L (98-107); GLOMERULAR FILTRATION RATE > 60.0 (>56); GLUCOSE, FASTING 136 MG/DL (70-100); POTASSIUM SERUM 4.6 MEQ/L (3.5-5.1); SODIUM LEVEL 139 MEQ/L (136-145); TOTAL PROTEIN 5.7 GM/DL (6.4-8.2)
[2020-05-02] MEDS: DOXYCYCLINE HYCLATE 100 MG in D5W MINI-BAG PLUS 100 ML IV SCH (09:07)
[2020-05-02] MEDS: SandIMMUNE 25 MG CAP (cycloSPORINE) (J7515) PO SCH ×2 (09:08→20:20)
[2020-05-02] MEDS: FUROSEMIDE 40MG/4ML VIAL (J1940) IV SCH (09:08)
[2020-05-02] MEDS: MAGNESIUM OXIDE 400 MG TAB (MAG-OX) PO SCH (09:08)
[2020-05-02] MEDS: SandIMMUNE 100 MG CAP (J7502) PO SCH ×2 (09:08→20:20)
[2020-05-02] MEDS: LOSARTAN 50MG TABLET PO SCH (09:09)
[2020-05-02] MEDS: MULTIVITAMINS/MINERALS THERAP 1 TAB PO SCH (09:09)
[2020-05-02] MEDS: TRIAMCINOLONE ACET 0.1% CREAM 15 GM TOP SCH ×2 (09:10→20:22)
[2020-05-02 14:00] VITALS: BP 135/94
--- NOTE | 2020-05-02 15:18 | IPNPDOC ---
Date Seen The patient was seen on 05/02/20. Progress Note SUBJECTIVE: Neg fluid balance over 24 hours, decreased lower ext swelling even more than 05/01/20. Cr stable. Transitioning to PO for valtrex, doxycycline. Decreasing to 40 mg BID IV methylprednisone, c/w lasix 60 mg IV. Discussed plan further with dermatology who is considering CellCept. Patient denies chest pain, n/v/d, abdominal pain, lightheadedness, dizziness. OBJECTIVE: VITAL SIGNS: Please see below PHYSICAL EXAM: VS: please see below GENERAL APPEARANCE: NAD resting in bed. HEENT: no conjunctival injection, no mucosal erythema or ulcers. CARDIOVASCULAR: RRR, No M/R/G LUNGS: CTAB on RA, no W/R/R ABDOMEN: obese, soft, nondistended, BS + in 4 quadrant MUSCULOSKELETAL: ROM wnl, no atrophy EXTREMITIES: +2 pitting edema in b/l lower ext persists, pulses + in all extremities, no cyanosis INTEGUMENTARY: diffuse flat raised diffuse coalescing erythematous macules/papules on lower arms, legs, neck, chest, back and abdomen appear paler in color in some places, less raised. blistering/bullae on anterior abdomen, anterior thighs, under arms seem to be rupturing/drying out further today. Tender to touch in some places. Edema diffusely decreasing. NEUROLOGICAL: CN 2-12 intact, no focal deficits PSYCHIATRIC: mood and affect appropriate MICROBIOLOGY/PATHOLOGY: 04/26/20 Blood Culture- NG 04/26/20 Blood Culture- NG 04/20/20 Wound culture from left thigh wound: Staph aureus, staph coag negative with sensitivities known . 04/20/20 Viral culture from left thigh wound: Pending H&E and DIF results from recent punch biopsy pending/awaiting results- sent to [facility] Dermpathology lab BPAG 1&2 (testing for bullous pemphigoid) still pending IMAGING: Echocardiogram: Normal sinus rhythm without intraventricular conduction disturbance. Somewhat technically challenging study in light of the patients body habitus; however, useful diagnostic information was still obtained. Normal left ventricular size, wall thickness, and wall motion. Normal left atrial size with grade 1 left ventricular (LV) diastolic dysfunction, but currently normal estimated mean left atrial pressure. Normal right heart chamber sizes and wall motion and estimated pulmonary arterial pressure. Normal inferior vena cava (IVC) size and collapse against an elevated central venous pressure. Normal aortic dimensions. Normal appearing and functioning aortic valve. Normal appearing and functioning mitral valve. Normal appearing and functioning tricuspid valve. No apparent intracardiac mass or pericardial effusion. ASSESSMENT: Patient is a 59 yr old M with PMH of RA complicated by RA lung dz, Chronic HTN, LISA and Obesity who was evaluated for worsening rash possibly 2/2 to diffuse bul lous dermatitis with secondary Staphylococcus skin/soft tissue infection. PLAN: 1. Diffuse bullous dermatitis possibly medication induced ? (Humira, methotrexate-discontinued 04/12/20). Also cannot r/o bullous pemphigoid, other cause -Extensive and bullae, weeping on abd/thighs/under arms- further improved, drying out with no new areas of formation. -C/w cyclosporine BID, magnesium, 40 mg IV BID methylprednisolone, valtrex prophylactically to prevent kaposi's varicelliform eruption per derm -F/u punch biopsy results, BPAG 1&2. -Pain control with tramadol, oxycodone-acetaminophen. Benadryl for itching. -Dr. Villa (dermatology) following and has been in close contact with Rheumatology. Plan is possible introduction of mycophenolate mofetil (cellCept). Discussed with Carolin Riggs PA-C. 2. 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 Monitoring daily CMP 3. Secondary Staphylococcus (Staph Aureus, Staph coag neg) Skin/Soft Tissue Infection -Culture of left groin wound above, sensitivities in system -Area of culture still appears improved with no purulence, no foul smell -Doxycycline PO BID started by derm 04/22/20, wanted patient to be on 14 day course (stop date 05/06/20) 4. Rheumatoid arthritis with history of involvement of lung -Followed by rheumatology (Dr Bermudez) -CT chest: No acute concerns -Previously managed on methotrexate and Humira-both meds were discontinued 04/22/20 due to dermatitis -C/w methylprednisolone 5. Chronic HTN -BP controlled. -C/w ARB, lasix daily 6. Obesity -BMI 33.4 7. LISA -STable 8. DVT -SCDs DISPOSITION: Admitted as acute inpatient. Plan is discharge home when medically improved- possibly in next 24-48 hours. Dermatology (Dr. Villa) following closely- they are in close consultation with rheumatology (Dr. Bermudez) o/p. VS, I&O, 24H, [place] Vital Signs/I&O Vital Signs Date Time Temp Pulse Resp B/P (MAP) Pulse Ox O2 Delivery O2 Flow Rate FiO2 05/02/20 06:00 97.5 78 18 153/82 (105) 96 Room Air I&O- Last 24 Hours up to 6 AM 05/02/20 06:00 Intake Total 1986 ml Output Total 2825 ml Balance -839 ml Laboratory Data 24H LABS Laboratory Tests 2 05/02/20 06:33: Nucleated Red Blood Cells % (auto) 0.2H, Anion Gap 3L, Glomerular Filtration Rate > 60.0, Calcium Level 8.8, Total Bilirubin 0.4, Aspartate Amino Transf (AST/SGOT) 15, Alanine Aminotransferase (ALT/SGPT) 47, Alkaline Phosphatase 45, Total Protein 5.7L, Albumin 2.7L, Albumin/Globulin Ratio 0.9 CBC/BMP Laboratory Tests 05/02/20 06:33 Microbiology Microbiology 04/26/20 Blood Culture - Final, Complete NO GROWTH AFTER 5 DAYS 04/26/20 Blood Culture - Final, Complete NO GROWTH AFTER 5 DAYS Current Medications Current Medications Medications (Trade) Dose Ordered Sig/Clarke Route PRN Reason Start Time Stop Time Status Last Admin Dose Admin Acetaminophen (Tylenol Tab) 650 mg Q4H PRN PO PAIN OR FEVER 04/26/20 22:00 04/27/20 05:07 Acyclovir 1000 mg/ Dextrose 270 ml @ 270 mls/hr Q8H IV 04/27/20 11:00 05/02/20 12:20 Cyclosporine (SandIMMUNE) 25 mg BID PO 04/30/20 09:00 05/02/20 09:08 Cyclosporine (SandIMMUNE) 100 mg BID PO 04/30/20 09:00 05/02/20 09:08 Diphenhydramine HCl (Benadryl Cream) APPLY TO AFFECTED AREAS TIDP PRN TOP ITCHING 04/29/20 01:45 04/30/20 12:25 Diphenhydramine HCl (Benadryl) 25 mg Q8HP PRN IV ITCHING 04/27/20 09:15 05/01/20 22:32 Doxycycline Hyclate 100 mg/ Dextrose 100 ml @ 100 mls/hr Q12H IV 04/27/20 09:00 05/02/20 09:07 Furosemide (LASIX injection) 40 mg BID IV 04/29/20 09:00 05/01/20 08:19 DC 04/30/20 20:40 Furosemide (LASIX injection) 40 mg DAILY IV 04/28/20 09:00 04/28/20 18:35 DC 04/28/20 09:48 Furosemide (LASIX injection) 60 mg DAILY IV 04/29/20 09:00 04/29/20 08:32 DC Furosemide (LASIX injection) 60 mg DAILY IV 05/01/20 09:00 05/02/20 09:08 Home Med (Med Rec Complete!) ASDIRECTED XX 04/26/20 23:00 04/26/20 22:54 DC Hydroxyzine HCl (Atarax) 25 mg Q6H PO 04/29/20 00:00 05/02/20 11:56 Losartan Potassium (Cozaar) 50 mg DAILY PO 04/27/20 16:00 05/02/20 09:09 Magnesium Oxide (Mag-Ox) 400 mg DAILY PO 04/30/20 09:00 05/02/20 09:08 Methylprednisolone (SOLU medrol) 40 mg Q6H IV 04/27/20 09:00 05/02/20 09:07 Multivitamins (Theragram-M) 1 tab DAILY PO 04/28/20 09:00 05/02/20 09:09 Oxycodone/ Acetaminophen (Percocet 5mg/ 325mg Tablet) 1 tab Q4HP PRN PO SEVERE PAIN (PS 8-10) 04/27/20 09:15 05/01/20 00:39 Prednisone (Deltasone) 40 mg DAILY PO 04/27/20 09:00 04/27/20 08:27 DC Tramadol HCl (Ultram) 50 mg Q6HP PRN PO MODERATE PAIN (PS 5-7) 04/27/20 09:15 05/01/20 14:59 Triamcinolone Acetonide (Kenalog 0.1% Cream) 1 dose BID TOP 04/30/20 21:00 05/02/20 09:10 Allergies Coded Allergies: No Known Allergies (Unverified , 04/26/20) Anayeli Woods MD May 02, 2020 15:18
[2020-05-02] MEDS: DOXYCYCLINE HYCLATE 100MG TABLET PO SCH (20:20)
[2020-05-02] MEDS: diphenhydrAMINE CREAM 30GM TOP PRN (20:21)
[2020-05-02 22:00] VITALS: BP 140/95
[2020-05-02] MEDS: valACYclovir HCL 500 MG TAB PO SCH (22:39)
[2020-05-03] MEDS: hydrOXYzine 25 MG TAB PO SCH ×5 (00:53→23:27)
[2020-05-03 05:56] LABS: HEMATOCRIT 42.8 % (42.0-52.0); HEMOGLOBIN 13.9 g/dl (13.5-17.5); MEAN CORPUSCULAR HEMOGLOBIN 33.3 pg (27.0-33.0); MEAN CORPUSCULAR HGB CONC 32.5 g/dl (32.0-36.5); MEAN CORPUSCULAR VOLUME 102.6 fl (80.0-96.0); PLATELET COUNT, AUTOMATED 271 10^3/uL (150-450); RED BLOOD COUNT 4.17 10^6/uL (4.30-6.10); WHITE BLOOD COUNT 12.4 10^3/uL (4.0-10.0)
[2020-05-03 06:00] VITALS: BP 147/98
[2020-05-03 06:18] LABS: ALBUMIN 2.5 GM/DL (3.2-5.2); ALT/SGPT 52 U/L (12-78); BILIRUBIN,TOTAL 0.4 MG/DL (0.2-1.0); BLOOD UREA NITROGEN 39 MG/DL (7-18); CALCIUM LEVEL 8.8 MG/DL (8.5-10.1); CARBON DIOXIDE LEVEL 30 MEQ/L (21-32); CHLORIDE LEVEL 106 MEQ/L (98-107); CREATININE FOR GFR 0.88 MG/DL (0.70-1.30); GLOMERULAR FILTRATION RATE > 60.0 (>56); GLUCOSE, FASTING 131 MG/DL (70-100); POTASSIUM SERUM 4.8 MEQ/L (3.5-5.1); SODIUM LEVEL 142 MEQ/L (136-145); TOTAL PROTEIN 5.5 GM/DL (6.4-8.2)
[2020-05-03] MEDS: valACYclovir HCL 500 MG TAB PO SCH ×3 (06:22→21:05)
[2020-05-03 08:21] LABS: FERRITIN 99 NG/ML (26-388); IRON (FE) 147 UG/DL (65-175); PERCENT SATURATION 42.6 % (19.7-50.0); TOTAL IRON BINDING CAPACITY 345 UG/DL (250-450)
[2020-05-03] MEDS: LOSARTAN 50MG TABLET PO SCH (08:36)
[2020-05-03] MEDS: MULTIVITAMINS/MINERALS THERAP 1 TAB PO SCH (08:36)
[2020-05-03] MEDS: methylPREDNISolone 40MG 1ML VIAL IV SCH ×2 (08:36→21:05)
[2020-05-03] MEDS: MAGNESIUM OXIDE 400 MG TAB (MAG-OX) PO SCH (08:36)
[2020-05-03] MEDS: SandIMMUNE 25 MG CAP (cycloSPORINE) (J7515) PO SCH ×2 (08:37→21:05)
[2020-05-03] MEDS: FUROSEMIDE 20 MG TAB PO SCH (08:37)
[2020-05-03] MEDS: SandIMMUNE 100 MG CAP (J7502) PO SCH ×2 (08:37→21:05)
[2020-05-03] MEDS: DOXYCYCLINE HYCLATE 100MG TABLET PO SCH ×2 (08:37→21:05)
[2020-05-03] MEDS ORDERED: FOLIC ACID 1 MG TAB PO SCH (09:00)
[2020-05-03] MEDS: TRIAMCINOLONE ACET 0.1% CREAM 15 GM TOP SCH (10:16)
--- NOTE | 2020-05-03 10:51 | IPNPDOC ---
Text Note Date of Service The patient was seen on 05/03/20. NOTE SUBJECTIVE: No acute events overnight OBJECTIVE: VITAL SIGNS: Please see below GENERAL APPEARANCE: NAD HEENT: no conjunctival injection, no mucosal erythema or ulcers. CARDIOVASCULAR: RRR, No M/R/G LUNGS: CTAB on RA, no W/R/R ABDOMEN: obese, soft, nondistended, BS + in 4 quadrant MUSCULOSKELETAL: ROM wnl, no atrophy EXTREMITIES: +2 pitting edema in b/l lower ext, pulses 2+ in all extremities, no cyanosis INTEGUMENTARY: diffuse raised diffuse coalescing erythematous papules. Crusted over bullae on anterior abdomen, anterior thighs, under arms. NEUROLOGICAL: CN 2-12 intact, no focal deficits PSYCHIATRIC: mood and affect appropriate MICROBIOLOGY/PATHOLOGY: 04/26/20 Blood Culture- NG 04/26/20 Blood Culture- NG 04/20/20 Wound culture from left thigh wound: Staph aureus, staph coag negative with sensitivities known . 04/20/20 Viral culture from left thigh wound: Pending H&E and DIF results from recent punch biopsy pending/awaiting results- sent to [facility] Dermpathology lab BPAG 1&2 (testing for bullous pemphigoid) still pending IMAGING: Echocardiogram: Normal sinus rhythm without intraventricular conduction disturbance. Somewhat technically challenging study in light of the patients body habitus; however, useful diagnostic information was still obtained. Normal left ventricular size, wall thickness, and wall motion. Normal left atrial size with grade 1 left ventricular (LV) diastolic dysfunction, but currently normal estimated mean left atrial pressure. Normal right heart chamber sizes and wall motion and estimated pulmonary arterial pressure. Normal inferior vena cava (IVC) size and collapse against an elevated central venous pressure. Normal aortic dimensions. Normal appearing and functioning aortic valve. Normal appearing and functioning mitral valve. Normal appearing and functioning tricuspid valve. No apparent intracardiac mass or pericardial effusion. ASSESSMENT: Patient is a 59 yr old M with PMH of RA complicated by RA lung dz, Chronic HTN, LISA and Obesity who was evaluated for worsening rash possibly 2/2 to diffuse bullous dermatitis with secondary Staphylococcus skin/soft tissue infection. PLAN: 1. Diffuse bullous dermatitis possibly medication induced (Humira, methotrexate- discontinued 04/12/20) -Extensive and bullae, weeping on abd/thighs/under arms - improving. No new lesions noted -C/w cyclosporine BID, magnesium, 40 mg IV BID methylprednisolone, valtrex 1gQ8H -F/u punch biopsy results, BPAG 1&2. -Pain control with tramadol, oxycodone-acetaminophen. Benadryl for itching. -Dr. Villa (dermatology) following and has been in close contact with Rheumatology. -Plan is possible introduction of mycophenolate mofetil (cellCept) 2. 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 Secondary Staphylococcus (Staph Aureus, Staph coag neg) Skin/Soft Tissue Inf ection -Culture of left groin wound above -Area of culture appears improved with no purulence -Doxycycline PO BID started by derm 04/22/20, wanted patient to be on 14 day course (stop date 05/06/20) 4. Rheumatoid arthritis with history of involvement of lung -Followed by rheumatology (Dr Bermudez) -CT chest: No acute concerns -Previously managed on methotrexate and Humira-both meds were discontinued 04/22/20 due to dermatitis -C/w methylprednisolone 5. Chronic HTN -BP controlled. -C/w ARB, lasix daily 6. Obesity -BMI 33.4 7. LISA -STable 8. DVT -SCDs 9. Macrocytic anemia, likely 2/2 folate deficiency having recently been on methotrexate -will check folate, B12, iron, ferritin and retic count -in the mean time, will place on folate DISPOSITION: Admitted as acute inpatient. Plan is discharge home when medically improved. Dermatology (Dr. Villa) following closely- they are in close consultation with rheumatology (Dr. Bermudez) o/p. VS,Fishbone, I+O VS, Fishbone, I+O Laboratory Tests 05/03/20 05:38 Vital Signs Date Time Temp Pulse Resp B/P (MAP) Pulse Ox O2 Delivery O2 Flow Rate FiO2 05/03/20 06:00 97.4 71 18 147/98 (114) 96 Room Air I&O- Last 24 Hours up to 6 AM 05/03/20 06:00 Intake Total 2080 ml Output Total 3150 ml Balance -1070 ml KUPAKUWANA-VICKY,ELENA V. MD May 03, 2020 07:59
[2020-05-03 12:54] LABS: FOLATE 11.9 NG/ML (>5.4)
--- NOTE | 2020-05-03 13:31 | CR.PDOC ---
General Date of Consultation: May 03, 2020 Consultation S: Patient is a 59yo male with rheumatoid disease (followed by rheumatology-Dr Bermudez) previously managed on methotrexate and Humira-both meds were discontinued 04/22/20 due to dermatitis ?secondary to treatment. He was transitioned to Prednisone 1mg/kg (80mg). Previous biopsy showed spongiosis. 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 Bacterial (+for staph aureus, responsive to tetracyclines) and viral cultures (pending) were obtained. Repeat H&E and DIF punch biopsies performed-results are pending. BPAG 1&2 pending. In the dermatology clinic, patient noted increased work breathing and a 9lb weight gain in one week with extensive fluid on his legs. He was sent to the ER for consideration of rheumatologic lung disease (which he has had previously) and possible pericarditis. It was recommended he be placed on IV steroids as there is concern he may not be absorb ing the PO Prednisone due to gut swelling. He was given Doxycycline (+culture, sensitive to TCN) and Valtrex (to minimize risk of kaposi's varicelliform eruption). He was started on IV Clindamycin last night in the ER for possible skin/soft tissue infection, before being admitted to the floor. Patient is currently on IV solumedrol (started this am), IV acyclovir, and PO Doxycycline. CT scan of the lungs shows no evidence of interstitial disease, echocardiogram was negative for cardiac disease. He did not show response to IV solumedrol and cyclosporine 150mg BID PO was added on 04/30/20. His creatinine and GFR have remained within normal limits, his BP is elevated at 147/98. Patient continues to improve with no active bullae and decreased erythema and scale. Lower extremity edema remains stable from yesterday. He continues to apply triamcinolone 0.1% cream sparingly (due to small tube sizes) twice daily. No other topicals are being used at this time. O: Skin exam reveals decreased erythema and scale, and no active bullae. +2 pitting edema of the right foot and +1 pitting edema noted on the left foot. Sutures on the right upper back are intact with no evidence of infection. A: Bullous dermatitis, improving P: -Sutures removed from the two biopsy sites on right upper back without difficulty. Areas healing well, no signs of infection. White petrolatum and bandages applied, which may be removed prior to next shower. -[facility] dermatopathology was contacted today, results are pending. -D/C valacyclovir, and finish course of doxycycline (05/06/20) -Continue with cyclosporine 150mg BID (Monitor renal function and blood pressure) -Add Cellcept 500mg BID (Monitor for GI upset, diarrhea, CBC daily, CMP daily) -If doing well (no lab abnormalities, no issues with addition of Cellcept), will consider discharge with follow up in the Dermatology Clinic Saturday with Dr. Douglass at 14:00. Vital Signs/I&O Vital Signs Date Time Temp Pulse Resp B/P (MAP) Pulse Ox O2 Delivery O2 Flow Rate FiO2 05/03/20 08:36 147/98 05/03/20 06:00 97.4 71 18 96 Room Air I&O- Last 24 Hours up to 6 AM 05/03/20 06:00 Intake Total 2080 ml Output Total 3150 ml Balance -1070 ml Laboratory Data Labs 24H Laboratory Tests 2 05/03/20 05:38: Reticulocyte # (auto) 69.0, Nucleated Red Blood Cells % (auto) 0.2H, Percent Reticulocyte Count 1.7H, Reticulocyte Hemoglobin Equivalent 41.0H, Anion Gap 6L, Glomerular Filtration Rate > 60.0, Calcium Level 8.8, Iron Level 147, Total Iron Binding Capacity 345, Transferrin % Saturation 42.6, Ferritin 99, Total Bilirubin 0.4, Aspartate Amino Transf (AST/SGOT) 18, Alanine Aminotransferase (ALT/SGPT) 52, Alkaline Phosphatase 41L, Total Protein 5.5L, Albumin 2.5L, Albumin/Globulin Ratio 0.8, Folate 11.9 CBC/BMP Laboratory Tests 05/03/20 05:38 Microbiology Microbiology 04/26/20 Blood Culture - Final, Complete NO GROWTH AFTER 5 DAYS 04/26/20 Blood Culture - Final, Complete NO GROWTH AFTER 5 DAYS Allergies Coded Allergies: No Known Allergies (Unverified , 04/26/20) Home Medications Scheduled Doxycycline Hyclate (Doxycycline Hyclate) 100 Mg Tablet, 100 MG PO BID for 14 Days, (Reported) STARTED 04/22/2020 Losartan Potassium (Losartan Potassium) 50 Mg Tablet, 50 MG PO DAILY, (Reported) Multivitamins (Thera M Plus Tablet) 1 Each Tablet, 1 TAB PO DAILY, (Reported) Prednisone (Prednisone) 20 Mg Tablet, 80 MG PO DAILY, (Reported) WAS TAKING 60MG FOR A WEEK BUT WAS UPPED TO 80MG TODAY STARTING THE DOSE FOR 04/27/2020 Triamcinolone Acet (Triamcinolone Acetonide 0.1% Crm) 80 Gm Cream..g., 1 DOSE TOP BID, (Reported) APPLIES TO ENTIRE BODY Valacyclovir HCl (Valacyclovir) 1,000 Mg Tablet, 1 GM PO Q8H for 14 Days, (Reported) STARTED 04/22/2020: 0700, 1500, 2300 Scheduled PRN Sildenafil Citrate (Sildenafil Citrate) 50 Mg Tablet, 50 MG PO ASDIRECTED PRN for ERECTILE DYSFUNCTION, (Reported) Iris Khan PA-C May 03, 2020 13:01
[2020-05-03 14:00] VITALS: BP 137/83
[2020-05-03 17:07] LABS: ANTINUCLEAR ANTIBODIES DIRECT Negative (Negative); C1q BINDING IMMUNE COMPLEX 10.9 ug Eq/mL (.)
[2020-05-03] MEDS ORDERED: TRIAMCINOLONE ACET 0.1% OINTMENT 80 GM TOP SCH (21:00)
[2020-05-03] MEDS: TRIAMCINOLONE ACET 0.1% CREAM 80 GM TOP SCH (21:05)
[2020-05-03 22:00] VITALS: BP 135/85
[2020-05-04] MEDS: hydrOXYzine 25 MG TAB PO SCH ×3 (05:44→17:46)
[2020-05-04] MEDS: valACYclovir HCL 500 MG TAB PO SCH (05:45)
[2020-05-04 06:00] VITALS: BP 144/90
[2020-05-04 07:05] LABS: HEMATOCRIT 43.6 % (42.0-52.0); MEAN CORPUSCULAR HGB CONC 32.1 g/dl (32.0-36.5); MEAN CORPUSCULAR VOLUME 102.8 fl (80.0-96.0); PLATELET COUNT, AUTOMATED 281 10^3/uL (150-450); RED BLOOD COUNT 4.24 10^6/uL (4.30-6.10); WHITE BLOOD COUNT 10.3 10^3/uL (4.0-10.0)
[2020-05-04 07:30] LABS: ALBUMIN 2.5 GM/DL (3.2-5.2); ALT/SGPT 53 U/L (12-78); BILIRUBIN,TOTAL 0.4 MG/DL (0.2-1.0); BLOOD UREA NITROGEN 38 MG/DL (7-18); CALCIUM LEVEL 8.7 MG/DL (8.5-10.1); CARBON DIOXIDE LEVEL 30 MEQ/L (21-32); CHLORIDE LEVEL 105 MEQ/L (98-107); CREATININE FOR GFR 0.93 MG/DL (0.70-1.30); GLOMERULAR FILTRATION RATE > 60.0 (>56); GLUCOSE, FASTING 123 MG/DL (70-100); POTASSIUM SERUM 4.9 MEQ/L (3.5-5.1); SODIUM LEVEL 138 MEQ/L (136-145); TOTAL PROTEIN 5.6 GM/DL (6.4-8.2)
[2020-05-04] MEDS: methylPREDNISolone 40MG 1ML VIAL IV SCH ×2 (11:02→20:24)
[2020-05-04] MEDS: SandIMMUNE 25 MG CAP (cycloSPORINE) (J7515) PO SCH ×2 (11:03→20:26)
[2020-05-04] MEDS: SandIMMUNE 100 MG CAP (J7502) PO SCH ×2 (11:05→20:57)
[2020-05-04] MEDS: MAGNESIUM OXIDE 400 MG TAB (MAG-OX) PO SCH (11:05)
[2020-05-04] MEDS: MYCOPHENOLATE MOFETIL 250 MG CAP (J7517) PO SCH ×2 (11:06→20:27)
[2020-05-04] MEDS: FUROSEMIDE 20 MG TAB PO SCH (11:07)
[2020-05-04] MEDS: DOXYCYCLINE HYCLATE 100MG TABLET PO SCH ×2 (11:07→20:26)
[2020-05-04] MEDS: MULTIVITAMINS/MINERALS THERAP 1 TAB PO SCH (11:07)
[2020-05-04] MEDS: TRIAMCINOLONE ACET 0.1% CREAM 80 GM TOP SCH ×2 (11:08→20:26)
[2020-05-04] MEDS: LOSARTAN 50MG TABLET PO SCH (11:15)
--- NOTE | 2020-05-04 11:35 | IPNPDOC ---
Text Note Date of Service The patient was seen on 05/04/20. NOTE SUBJECTIVE: No acute events overnight OBJECTIVE: VITAL SIGNS: Please see below GENERAL: NAD HEENT: no conjunctival injection, no mucosal erythema or ulcers. CARDIOVASCULAR: RRR, No M/R/G LUNGS: CTAB on RA, no W/R/R ABDOMEN: obese, soft, nondistended, BS + in 4 quadrant MUSCULOSKELETAL: ROM wnl, no atrophy EXTREMITIES: +2 pitting edema in b/l lower ext, pulses 2+ in all extremities, no cyanosis INTEGUMENTARY: diffuse raised diffuse coalescing erythematous papules. Crusted over resolving bullae on anterior abdomen, anterior thighs, under arms. NEUROLOGICAL: CN 2-12 intact, no focal deficits PSYCHIATRIC: mood and affect appropriate MICROBIOLOGY/PATHOLOGY: 04/26/20 Blood Culture- NG 04/26/20 Blood Culture- NG 04/20/20 Wound culture from left thigh wound: Staph aureus, staph coag negative with sensitivities known . 04/20/20 Viral culture from left thigh wound: Pending H&E and DIF results from recent punch biopsy pending/awaiting results- sent to [facility] Dermpathology lab BPAG 1&2 (testing for bullous pemphigoid) still pending IMAGING: Echocardiogram: Normal sinus rhythm without intraventricular conduction disturbance. Somewhat technically challenging study in light of the patients body habitus; however, useful diagnostic information was still obtained. Normal left ventricular size, wall thickness, and wall motion. Normal left atrial size with grade 1 left ventricular (LV) diastolic dysfunction, but currently normal estimated mean left atrial pressure. Normal right heart chamber sizes and wall motion and estimated pulmonary arterial pressure. Normal inferior vena cava (IVC) size and collapse against an elevated central venous pressure. Normal aortic dimensions. Normal appearing and functioning aortic valve. Normal appearing and functioning mitral valve. Normal appearing and functioning tricuspid valve. No apparent intracardiac mass or pericardial effusion. ASSESSMENT: Patient is a 59 yr old M with PMH of RA complicated by RA lung dz, Chronic HTN, LISA and Obesity who was evaluated for worsening rash possibly 2/2 to diffuse bullous dermatitis with secondary Staphylococcus skin/soft tissue infection. PLAN: 1. Diffuse bullous dermatitis possibly medication induced (Humira, methotrexate- discontinued 04/12/20) -Extensive papular rash with weeping bullae, now crusted and resolving -C/w cyclosporine 150mg BID, 40 mg IV BID methylprednisolone, discontinue empiric valtrex 1gQ8H, and start cellcept 500mg BID --> per recommendation of dermatology -F/u punch biopsy results, BPAG 1&2. -Pain control with tramadol, oxycodone-acetaminophen. Benadryl for itching. -Dr. Villa (dermatology) following and has been in close contact with Rheumatology. 2. 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 Secondary Staphylococcus (Staph Aureus, Staph coag neg) Skin/Soft Tissue Infection -Culture of left groin wound above -Area of culture appears improved with no purulence -Doxycycline PO BID started by derm 04/22/20, wanted patient to be on 14 day course (stop date 05/06/20) 4. Rheumatoid arthritis with history of involvement of lung -Followed by rheumatology (Dr Bermudez) -CT chest: No acute concerns -Previously managed on methotrexate and Humira-both meds were discontinued 04/22/20 due to dermatitis -C/w methylprednisolone 5. Chronic HTN -BP controlled. -C/w ARB, lasix daily 6. Obesity -BMI 33.4 7. LISA -Stable 8. DVT -SCDs 9. Macrocytic anemia -f/u B12 -Folate, iron, ferritin were wnl -d/c folate replacement DISPOSITION: Admitted as acute inpatient. Plan is discharge home when medically improved, possibly saturday if tolerating new meds per derm with stable labs. Dermatology (Dr. Villa) following closely- they are in close consultation with rheumatology (Dr. Bermudez) o/p. VS,Fishbone, I+O VS, Fishbone, I+O Laboratory Tests 05/04/20 06:31 Vital Signs Date Time Temp Pulse Resp B/P (MAP) Pulse Ox O2 Delivery O2 Flow Rate FiO2 05/04/20 06:00 97.6 70 18 144/90 (108) 96 Room Air I&O- Last 24 Hours up to 6 AM 05/04/20 06:00 Intake Total 1020 ml Output Total 3125 ml Balance -2105 ml ELENA TORRES V. MD May 04, 2020 08:20
[2020-05-04] MEDS: diphenhydrAMINE CREAM 30GM TOP PRN (12:20)
[2020-05-04 14:00] VITALS: BP 154/108
[2020-05-04 22:00] VITALS: BP 149/98
[2020-05-05] MEDS: hydrOXYzine 25 MG TAB PO SCH ×3 (00:16→12:14)
[2020-05-05 06:00] VITALS: BP 154/98
--- NOTE | 2020-05-05 07:31 | CR.PDOC ---
General Date of Consultation: May 05, 2020 Consultation S: Patient is a 59yo male with rheumatoid disease (followed by rheumatology-Dr Bermudez) previously managed on methotrexate and Humira-both meds were discontinued 04/22/20 due to dermatitis ?secondary to treatment. He was transitioned to Prednisone 1mg/kg (80mg). Previous biopsy showed spongiosis. 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 Bacterial (+for staph aureus, responsive to tetracyclines) and viral cultures (p ending) were obtained. Repeat H&E and DIF punch biopsies performed-results are pending. BPAG 1&2 pending. In the dermatology clinic, patient noted increased work breathing and a 9lb weight gain in one week with extensive fluid on his legs. He was sent to the ER for consideration of rheumatologic lung disease (which he has had previously) and possible pericarditis. It was recommended he be placed on IV steroids as there is concern he may not be absorbing the PO Prednisone due to gut swelling. He was given Doxycycline (+culture, sensitive to TCN) and Valtrex (to minimize risk of kaposi's varicelliform eruption). He was started on IV Clindamycin in the ER for possible skin/soft tissue infection, before being admitted to the floor. Patient is currently on IV methylprednisolone , PO Doxycycline, PO cyclosporine, and PO Cellcept. Patient denies any side effects with the addition of Cellcept (including GI upset or diarrhea). Patient received a larger tube of triamcinolone and is applying it generously to all active areas. His condition continues to improve with significant reduction in erythema and scale. No active bullae, and crusting from previous bullae is resolving. Lower extremity edema also has continued to improve. O: Skin exam reveals decreased erythema and scale. No active bullae, and crusting from previous bullae is resolving. Generalized desquamation has also significantly improved. 1+ pitting edema bilaterally. A: Bullous dermatitis, improved with cyclosporine and cellcept. P: -Pathology pending -Continue cyclosporine at 150mg BID -Continue cellcept 500mg BID -Finish course of Doxycycline (which ends tomorrow 05/06) -If medically cleared patient may be discharged today. He has been scheduled an appointment with Dr. Douglass on Saturday05/06/20 at 1:45pm Vital Signs/I&O Vital Signs Date Time Temp Pulse Resp B/P (MAP) Pulse Ox O2 Delivery O2 Flow Rate FiO2 05/05/20 06:00 98.6 76 17 154/98 (116) 97 Room Air I&O- Last 24 Hours up to 6 AM 05/05/20 05:59 Intake Total 1020 ml Output Total 4075 ml Balance -3055 ml Laboratory Data Microbiology Microbiology 04/26/20 Blood Culture - Final, Complete NO GROWTH AFTER 5 DAYS 04/26/20 Blood Culture - Final, Complete NO GROWTH AFTER 5 DAYS Allergies Coded Allergies: No Known Allergies (Unverified , 04/26/20) Home Medications Scheduled Doxycycline Hyclate (Doxycycline Hyclate) 100 Mg Tablet, 100 MG PO BID for 14 Days, (Reported) STARTED 04/22/2020 Losartan Potassium (Losartan Potassium) 50 Mg Tablet, 50 MG PO DAILY, (Reported) Multivitamins (Thera M Plus Tablet) 1 Each Tablet, 1 TAB PO DAILY, (Reported) Prednisone (Prednisone) 20 Mg Tablet, 80 MG PO DAILY, (Reported) WAS TAKING 60MG FOR A WEEK BUT WAS UPPED TO 80MG TODAY STARTING THE DOSE FOR 04/27/2020 Triamcinolone Acet (Triamcinolone Acetonide 0.1% Crm) 80 Gm Cream..g., 1 DOSE TOP BID, (Reported) APPLIES TO ENTIRE BODY Valacyclovir HCl (Valacyclovir) 1,000 Mg Tablet, 1 GM PO Q8H for 14 Days, (Reported) STARTED 04/22/2020: 0700, 1500, 2300 Scheduled PRN Sildenafil Citrate (Sildenafil Citrate) 50 Mg Tablet, 50 MG PO ASDIRECTED PRN for ERECTILE DYSFUNCTION, (Reported) Iris Khan PA-C May 05, 2020 07:31
[2020-05-05 08:27] LABS: HEMATOCRIT 45.4 % (42.0-52.0); HEMOGLOBIN 15.1 g/dl (13.5-17.5); MEAN CORPUSCULAR HEMOGLOBIN 33.7 pg (27.0-33.0); MEAN CORPUSCULAR HGB CONC 33.3 g/dl (32.0-36.5); MEAN CORPUSCULAR VOLUME 101.3 fl (80.0-96.0); PLATELET COUNT, AUTOMATED 286 10^3/uL (150-450); RED BLOOD COUNT 4.48 10^6/uL (4.30-6.10); WHITE BLOOD COUNT 13.7 10^3/uL (4.0-10.0)
[2020-05-05] MEDS ORDERED: DIPHCR TOP (08:31)
[2020-05-05] MEDS ORDERED: CELL250C PO (08:31)
[2020-05-05] MEDS ORDERED: PRED20TA PO (08:31)
[2020-05-05] MEDS ORDERED: HYDR-3363 PO (08:31)
[2020-05-05] MEDS ORDERED: [UNRECOGNIZED DRUG - CODE] PO (08:31)
[2020-05-05] MEDS ORDERED: DOXY100T PO (08:31)
[2020-05-05] MEDS ORDERED: CYCL25CA PO (08:31)
[2020-05-05 08:50] LABS: ALBUMIN 2.7 GM/DL (3.2-5.2); ALT/SGPT 66 U/L (12-78); BILIRUBIN,TOTAL 0.5 MG/DL (0.2-1.0); BLOOD UREA NITROGEN 39 MG/DL (7-18); CALCIUM LEVEL 9.3 MG/DL (8.5-10.1); CARBON DIOXIDE LEVEL 31 MEQ/L (21-32); CHLORIDE LEVEL 105 MEQ/L (98-107); GLOMERULAR FILTRATION RATE > 60.0 (>56); GLUCOSE, FASTING 107 MG/DL (70-100); POTASSIUM SERUM 4.7 MEQ/L (3.5-5.1); SODIUM LEVEL 141 MEQ/L (136-145)
[2020-05-05] MEDS: FUROSEMIDE 20 MG TAB PO SCH (09:30)
[2020-05-05] MEDS: SandIMMUNE 100 MG CAP (J7502) PO SCH (09:30)
[2020-05-05] MEDS: MAGNESIUM OXIDE 400 MG TAB (MAG-OX) PO SCH (09:31)
[2020-05-05] MEDS: DOXYCYCLINE HYCLATE 100MG TABLET PO SCH (09:31)
[2020-05-05] MEDS: methylPREDNISolone 40MG 1ML VIAL IV SCH (09:31)
[2020-05-05] MEDS: SandIMMUNE 25 MG CAP (cycloSPORINE) (J7515) PO SCH (09:31)
[2020-05-05] MEDS: MYCOPHENOLATE MOFETIL 250 MG CAP (J7517) PO SCH (09:31)
[2020-05-05] MEDS: MULTIVITAMINS/MINERALS THERAP 1 TAB PO SCH (09:31)
[2020-05-05 09:32] VITALS: BP 148/83
[2020-05-05] MEDS: diphenhydrAMINE CREAM 30GM TOP PRN (09:32)
[2020-05-05] MEDS: LOSARTAN 50MG TABLET PO SCH (09:32)
[2020-05-05] MEDS: TRIAMCINOLONE ACET 0.1% CREAM 80 GM TOP SCH (09:39)
--- NOTE | 2020-05-05 10:12 | DS.PDOC ---
Discharge Summary General Date of Admission Apr 26, 2020 at 21:51 Date of Discharge 05/05/2020 Attending Physician: ELENA TORRES MD Discharge Summary PROCEDURES PERFORMED DURING STAY: None ADMITTING DIAGNOSES: 1. Rash And Nonspecific Skin Eruption. DISCHARGE DIAGNOSES: Diffuse bullous dermatitis secondary to medication RF + RA complicated by RA lung dz Chronic HTN Obesity COMPLICATIONS/CHIEF COMPLAINT: Rash And Nonspecific Skin Eruption. HISTORY OF PRESENT ILLNESS: 59yo M with rheumatoid disease (followed by rheumatology-Dr Bermudez) previously managed on methotrexate and adalimumab that were discontinued on 04/22/20 due to dermatitis secondary to treatment and he was transitioned to Prednisone 1mg/kg (80mg) in the outpatient setting, with a prior punch biopsy that showed spongiosis. He presented to dermatology clinic on 04/26/20 where he was noted to have extensive blistering/tense bullae, thought 2/2 extensive spongiosis and cultures showed staph aureus, responsive to tetracyclines and was begun on dox ycycline. At that time he had a repeat H&E and DIF punch biopsies performed and BPAG 1&2. However, while in the dermatology clinic, he was noted to have increased work of breathing and also had a 9lb weight gain in one week with extensive fluid on his legs and was recommended to present to the ED for evaluation with c/f rheumatologic lung disease and possible pericarditis with a recommendation for IV steroids as there was concern he may have not been absorbing the PO Prednisone due to gut swelling. HOSPITAL COURSE: In the ED, He was given clindamycin, started on IV solumedrol and dermatology was consulted. Ultimately dermatology recommended switching him to doxycycline for a course to be completed on 05/06/2020 and empiric valcyclovir while viral culture was pending to minimize risk of kaposi's varicelliform eruption. Dermatology eventually recommended PO cyclosporine, and PO Cellcept with a very slow prednisone taper. He was also placed on lasix for the peripheral edema that was deemed not cardiac with an unremarkable TTE and no history of heart failure. The edema improved, bullae crusted over and lesions started to resolve while the confluent papular erythematous rash also started to improve. He is now being discharged home on prednisone 80mg QD with slow taper that I defer final optimization to dermatology at this time as he has an appointment with Dr. Douglass on 05/06/2020 who will longitudinally follow his course, cyclosporine, cellcept BID, 1 more day of doxycycline and topical triamcinolone cream. DISCHARGE MEDICATIONS: Please see below. ALLERGIES: Please see below. PHYSICAL EXAMINATION ON DISCHARGE: VITAL SIGNS: Please see below. GENERAL: NAD HEENT: no conjunctival injection, no mucosal erythema or ulcers. CARDIOVASCULAR: RRR, No M/R/G LUNGS: CTAB on RA, no W/R/R ABDOMEN: obese, soft, nondistended, BS + in 4 quadrant MUSCULOSKELETAL: ROM wnl, no atrophy EXTREMITIES: +2 pitting edema in b/l lower ext, pulses 2+ in all extremities, no cyanosis INTEGUMENTARY: diffuse raised diffuse coalescing erythematous papules much improved. Crusted over resolving bullae on anterior abdomen, anterior thighs, under arms. NEUROLOGICAL: CN 2-12 intact, no focal deficits PSYCHIATRIC: mood and affect appropriate LABORATORY DATA: Please see below. IMAGING: TTE: Normal sinus rhythm without intraventricular conduction disturbance. Somewhat technically challenging study in light of the patients body habitus; however, useful diagnostic information was still obtained. Normal left ventricular size, wall thickness, and wall motion. Normal left atrial size with grade 1 left ventricular (LV) diastolic dysfunction, but currently normal estimated mean left atrial pressure. Normal right heart chamber sizes and wall motion and estimated pulmonary arterial pressure. Normal inferior vena cava (IVC) size and collapse against an elevated central venous pressure. Normal aortic dimensions. Normal appearing and functioning aortic valve. Normal appearing and functioning mitral valve. Normal appearing and functioning tricuspid valve. No apparent intracardiac mass or pericardial effusion. PROGNOSIS: Good ACTIVITY: As tolerated DIET: 2g sodium DISCHARGE PLAN: Home with 1 more day of doxycycline, prednisone 40 BID, cyclosporine, cellcept with dermatology appt on 05/06 DISPOSITION: home DISCHARGE INSTRUCTIONS: 1. Home with 1 more day of doxycycline, prednisone 40 BID, cyclosporine, cellcept with dermatology appt on 05/06 ITEMS TO FOLLOWUP ON ON OUTPATIENT: 1. Rash and skin eruption DISCHARGE CONDITION: Stable TIME SPENT ON DISCHARGE: 53 minutes. Vital Signs/I&Os Vital Signs Date Time Temp Pulse Resp B/P (MAP) Pulse Ox O2 Delivery O2 Flow Rate FiO2 05/05/20 06:00 98.6 76 17 154/98 (116) 97 Room Air I&O- Last 24 Hours up to 6 AM 05/05/20 06:00 Intake Total 1020 ml Output Total 4325 ml Balance -3305 ml Microbiology Microbiology 04/26/20 Blood Culture - Final, Complete NO GROWTH AFTER 5 DAYS 04/26/20 Blood Culture - Final, Complete NO GROWTH AFTER 5 DAYS Discharge Medications Scheduled Cyclosporine (Sandimmune) 25 Mg Capsule, 50 MG PO BID Cyclosporine (Sandimmune) 100 Mg Capsule, 100 MG PO BID Doxycycline Hyclate (Doxycycline Hyclate) 100 Mg Tablet, 100 MG PO BID STARTED 04/22/2020 Hydroxyzine HCl (Hydroxyzine HCl) 25 Mg Tablet, 25 MG PO Q6H Losartan Potassium (Losartan Potassium) 50 Mg Tablet, 50 MG PO DAILY, (Reported) Multivitamins (Thera M Plus Tablet) 1 Each Tablet, 1 TAB PO DAILY, (Reported) Mycophenolate Mofetil (Cellcept) 250 Mg Capsule, 500 MG PO BID Prednisone (Prednisone) 20 Mg Tablet, 80 MG PO DAILY 4 tabs daily for 7d. Then 3tabs daily for 7d. Then 2tabs daily for 7d. Then 1 tab daily for 7d. Then 1/2 tab daily for 7d. Triamcinolone Acet (Triamcinolone Acetonide 0.1% Crm) 80 Gm Cream..g., 1 DOSE TOP BID, (Reported) APPLIES TO ENTIRE BODY Scheduled PRN Diphenhydramine HCl (Itch Relief Cream) 28 Gm Cream..g., 1 DOSE TOP TIDP PRN for ITCHING Sildenafil Citrate (Sildenafil Citrate) 50 Mg Tablet, 50 MG PO ASDIRECTED PRN for ERECTILE DYSFUNCTION, (Reported) Allergies Coded Allergies: No Known Allergies (Unverified , 04/26/20) ELENA TORRES MD May 05, 2020 08:11
--- NOTE | 2020-05-06 10:05 | REP ---
AP VIEW BOTH KNEES: SINGLE VIEW HISTORY: Knee swelling. FINDINGS: Standing AP view of both knees is presented. Joint spaces are preserved. Alignment is normal. Periarticular soft tissues are unremarkable. IMPRESSION: No abnormality noted. MTDD
== END 2020-05-05 13:35 | disposition home or self-care (01) | DRG 381 ==
LOC: M ED 19:17 → M ED INP 21:51 → M MS5PR 23:41
PROVIDERS: ADMIT Internal Medicine; ATTEND Internal Medicine
DX: L13.8 Other specified bullous disorders (principal); L08.9 Local infection of the skin and subcutaneous tissue, unspecified; E66.9 Obesity, unspecified; Z68.33 Body mass index [BMI] 33.0-33.9, adult; M05.10 Rheumatoid lung disease with rheumatoid arthritis of unspecified site; I10 Essential (primary) hypertension; Z79.899 Other long term (current) drug therapy; B95.61 Methicillin susceptible Staphylococcus aureus infection as the cause of diseases classified elsewhere; G47.33 Obstructive sleep apnea (adult) (pediatric)

== ENCOUNTER → 2020-04-26 | Outpatient (CLI) | payer BC ==
--- NOTE | 2020-05-06 10:04 | REP ---
CHEST X-RAY COMPARISON: 04/17/2018 CLINICAL: Rheumatoid lung disease. TECHNIQUE: PA and lateral. FINDINGS: Mediastinum and cardiac silhouette are normal/stable. Large left-sided pericardial fat pad is again noted. The lung fernandez are clear and without consolidation, effusion, or pneumothorax. No obvious fibrosis or interstitial changes are appreciated. Skeletal structures are intact. IMPRESSION: Normal stable chest x-ray. No acute cardiopulmonary process or focal consolidation. MTDD
== END ==
LOC: M RAD 14:36
PROVIDERS: ATTEND Dermatology
DX: R06.09 Other forms of dyspnea (principal); M79.89 Other specified soft tissue disorders

== ENCOUNTER → 2020-04-26 | Outpatient (REF) | payer BC | LOC: M LAB REF 18:40 | PROVIDERS: ATTEND Dermatology | DX: L30.9 Dermatitis, unspecified (principal) ==

== ENCOUNTER → 2020-05-19 | Outpatient (REF) | payer BC ==
[2020-05-19 18:49] LABS: HEPATITIS B SURFACE ANTIGEN NEGATIVE (NEGATIVE); HEPATITIS C VIRUS ABY INDEX 0.1 INDEX (<0.8)
== END ==
LOC: M SFHCRHEU 14:38
PROVIDERS: ATTEND Internal Medicine
DX: M05.79 Rheumatoid arthritis with rheumatoid factor of multiple sites without organ or systems involvement (principal)

== ENCOUNTER 2020-05-24 06:41 | Outpatient (CLI) | payer BC ==
[2020-05-24] VITALS (9 sets, daily range): BP systolic 116–166; BP diastolic 55–92
[~2020-05-24] VITALS: Ht 170.2 cm; Wt 95.1 kg
[~2020-05-24 06:41] MED LIST changes: -CELL500T PO; -CLOB5CR TOP; -COZA50TA PO; -CYCL1CAP4 PO; -CYCL1CAP5 PO; -CYCL25CA5 PO; -HYDR-643 PO; -MAG400TA PO; -MYCO500T PO; -PANT40TA29 PO; -PRED10TA2 PO; -SENN-52 PO
[2020-05-24] MEDS ORDERED: diphenhydrAMINE 50MG/ML VIAL (J1200) IV PRN (07:00)
[2020-05-24] MEDS ORDERED: methylPREDNISolone 125MG 2ML VIAL IV PRN (07:00)
[2020-05-24] MEDS ORDERED: diphenhydrAMINE 25 MG IV IV ONE (07:00)
[2020-05-24] MEDS ORDERED: ACETAMINOPHEN TAB 650MG DOSE (2X325MG) As Ordered ONE (07:00)
[2020-05-24] MEDS ORDERED: EPINEPHrine INJ 1 MG/ML 1ML AMP IM PRN (07:00)
[2020-05-24] MEDS ORDERED: ONDANSETRON 4MG/2ML VIAL IV ONE (07:00)
[2020-05-24] MEDS ORDERED: ALBUTEROL SULFATE 2.5 MG/0.5 ML INH NEB SOLN INH PRN (07:00)
[2020-05-24] MEDS ORDERED: diphenhydrAMINE 50MG/ML VIAL (J1200) As Ordered ONE (07:01)
[2020-05-24] MEDS ORDERED: methylPREDNISolone 125MG 2ML VIAL As Ordered ONE (07:02)
[2020-05-24] MEDS ORDERED: ONDANSETRON 4MG/2ML VIAL As Ordered ONE (07:02)
[2020-05-24] MEDS ORDERED: ACETAMINOPHEN TAB 650MG DOSE (2X325MG) PO ONE (07:15)
[2020-05-24] MEDS ORDERED: methylPREDNISolone 125MG 2ML VIAL IV ONE (07:15)
[2020-05-24] MEDS ORDERED: ACETAMINOPHEN 325 MG TAB PO ONE (07:15)
[2020-05-24] MEDS ORDERED: riTUXimab (INITIAL INFUSION) IV ONE ×2 (07:30)
== END 2020-05-24 13:10 | disposition home or self-care (01) ==
LOC: M INFU 06:41
PROVIDERS: ATTEND Internal Medicine
DX: M05.79 Rheumatoid arthritis with rheumatoid factor of multiple sites without organ or systems involvement (principal)
CPT/HCPCS: 36592; 86480; 96375; 96413; 96415; J1200; J2405; J2930; J9312

== ENCOUNTER 2020-05-28 13:39 | Inpatient (IN) | payer BC ==
[~2020-05-28] VITALS: Ht 170.2 cm; Wt 97.4 kg
[2020-05-28] MEDS ORDERED: diphenhydrAMINE 50MG/ML VIAL (J1200) IV STA (14:31)
[2020-05-28] MEDS ORDERED: VANCOMYCIN HCL 1,000 MG, VIAL MATE ADAPTER 1 EACH in D5W 250 ML IV ONE (14:45)
[2020-05-28] MEDS ORDERED: dexameTHASONE 20MG/5ML VIAL (J1100 PER 1MG) IV ONE (14:45)
[2020-05-28 15:04] LABS: BASO % 0.3 % (0.0-1.0); EOS # 0.3 10^3/uL (0.0-0.5); EOS % 2.7 % (0.0-3.0); HEMATOCRIT 43.3 % (42.0-52.0); HEMOGLOBIN 14.1 g/dl (13.5-17.5); LYMPH # 0.4 10^3/uL (1.5-5.0); LYMPH % 2.9 % (24.0-44.0); MEAN CORPUSCULAR HEMOGLOBIN 32.9 pg (27.0-33.0); MEAN CORPUSCULAR HGB CONC 32.6 g/dl (32.0-36.5); MEAN CORPUSCULAR VOLUME 100.9 fl (80.0-96.0); MONO # 1.4 10^3/uL (0.0-0.8); MONO % 10.9 % (0.0-5.0); NEUTROPHILS # 10.2 10^3/uL (1.5-8.5); NEUTROPHILS % 82.1 % (36.0-66.0); PLATELET COUNT, AUTOMATED 212 10^3/uL (150-450); RED BLOOD COUNT 4.29 10^6/uL (4.30-6.10); WHITE BLOOD COUNT 12.4 10^3/uL (4.0-10.0)
[2020-05-28 15:26] LABS: ERYTHROCYTE SEDIMENTATION RATE 11 mm/hr (0-20)
[2020-05-28] MEDS ORDERED: CELL500T PO (15:37)
[2020-05-28] MEDS ORDERED: PRED20TA PO (15:37)
[2020-05-28] MEDS ORDERED: DIPHCR TOP (15:37)
[2020-05-28 15:41] LABS: ALBUMIN 2.8 GM/DL (3.2-5.2); ALT/SGPT 42 U/L (12-78); BILIRUBIN,TOTAL 0.7 MG/DL (0.2-1.0); BLOOD UREA NITROGEN 23 MG/DL (7-18); C REACTIVE PROTEIN QUANTITATIV 7.86 MG/DL (0.00-0.30); CALCIUM LEVEL 8.1 MG/DL (8.5-10.1); CARBON DIOXIDE LEVEL 27 MEQ/L (21-32); CHLORIDE LEVEL 103 MEQ/L (98-107); CREATININE FOR GFR 1.04 MG/DL (0.70-1.30); GLOMERULAR FILTRATION RATE > 60.0 (>56); GLUCOSE, FASTING 156 MG/DL (70-100); POTASSIUM SERUM 4.4 MEQ/L (3.5-5.1); SODIUM LEVEL 135 MEQ/L (136-145); TOTAL PROTEIN 5.7 GM/DL (6.4-8.2)
[2020-05-28 17:45] VITALS: BP 137/84
--- NOTE | 2020-05-28 17:52 | HPEPDOC ---
General Date of Admission May 28, 2020 at 16:37 Date of Service: May 28, 2020 Chief Complaint The patient is a 59-year-old male admitted with a reason for visit of Acute Skin Eruption Of Discolortion,Elevations,Bli. Source: Patient, RN/MD History of Present Illness 59-year-old male diagnosed with seropositive rheumatoid arthritis in 2018 has been battling with a skin rash from earlier part of this year was in the hospital from April 26 to May 06 for the skin rash which at that time was diagnosed at as a spongiotic dermatitis. 3 weeks ago final biopsy results came back from [facility] pathology as Bullous pemphigoid. Patient was started on rituximab on the May 24, which would cover both his RA and as well as Bullous pemphigoid. He went for a follow-up with his compensation analyst, Dr. Frey on May 26 then a few blisters were noted to be appearing on his overall erythematous maculupapular skin rash and his prednisone was bumped up from 60-80 mg again. He was continued on his CellCept. His cyclosporine was discontinued earlier in the month. He notes since last night he has noticed increased blisters and this morning the blisters were appearing over his abdomen outer aspect of arms, sole of the left foot, dorsum of feet, thighs and some of this blisters were filled with whitish pus like material, so he called his compensation analyst and he was instructed to come back to the ED for a evaluation and admission. Some areas of the rash are itchy. It involves the whole body except the palms and face. Home Medications Scheduled Losartan Potassium (Losartan Potassium) 50 Mg Tablet, 50 MG PO DAILY, (Reported) Multivitamins (Thera M Plus Tablet) 1 Each Tablet, 1 TAB PO DAILY, (Reported) Mycophenolate Mofetil (Cellcept) 500 Mg Tablet, 500 MG PO BID, (Reported) Prednisone (Prednisone) 20 Mg Tablet, 80 MG PO DAILY, (Reported) Triamcinolone Acet (Triamcinolone Acetonide 0.1% Crm) 80 Gm Cream..g., 1 DOSE TOP BID, (Reported) APPLIES TO ENTIRE BODY Scheduled PRN Diphenhydramine HCl (Itch Relief Cream) 28 Gm Cream..g., 1 APPLIC TOP BID PRN fo r ITCHING, (Reported) APPLY TO AFFECTED AREAS Sildenafil Citrate (Sildenafil Citrate) 50 Mg Tablet, 50 MG PO ASDIRECTED PRN for ERECTILE DYSFUNCTION, (Reported) Allergies Coded Allergies: No Known Allergies (Unverified , 05/28/20) Past Medical History Medical History RHEUMATOID ARTHRITIS INVOLVING MULTIPLE SITES WITH POSITIVE RHEUMATOID FACTOR since 2018 On going skin rash now diagnosed as Bullous pemphigoid Obesity LISA on CPAP Hypertension tinea pedis. ED Surgical History none Family History Significant Family History: Other (RA in mother) Social History * Smoker: Denies Alcohol: occationally Drugs: denies A-FIB/CHADSVASC A-FIB History Current/History of A-Fib/PAF?: No Review of Systems Constitutional: Denies: Chills, Fever, Night Sweats Eyes: Denies: Pain, Vision change ENT: Denies: Head Aches, Ear Pain, Dysphagia Skin: Reports: Rash, Lesions, Itching, Dry Pulmonary: Denies: Dyspnea, Cough Cardiovascular: Denies: Chest Pain, Palpitations, Orthopnea Gastrointestinal: Denies: Nausea, Vomiting, Abdominal Pain, Diarrhea Genitourinary: Denies: Dysuria, Frequency, Incontinence, Retention Hematologic: Denies: Bruising, Bleeding Excessively Musculoskeletal: Reports: Joint Pain (both knees and foot) Physical Examination General Exam: Positive: Alert, Cooperative, No Acute Distress Eye Exam: Positive: PERRLA, Conjunctiva & lids normal, EOMI; Negative: Sclera icteric ENT Exam: Positive: Atraumatic, Mucous membr. moist/pink, Pharynx Normal Neck Exam: Positive: Supple; Negative: JVD, thyromegaly Chest Exam: Positive: Clear to auscultation, Normal air movement Heart Exam: Positive: Rate Normal, Regular Rhythm, Normal S1, Normal S2; Negative: Murmurs, Rubs Abdomen Exam: Positive: Normal bowel sounds, Soft; Negative: Tenderness, Hepatospenomegaly Extremity Exam: Positive: Edema (bilateral trace edema. ), Normal pulses; Negative: Clubbing, Cyanosis Skin Exam: Positive: Rash (erythematous maculo papular confluent rash on the torso with blistering, erythematous discrete maculo palular rash on the legs with blisters) Neuro Exam: Positive: Normal Speech, Strength at 5/5 X4 ext, Normal Tone, C ranial Nerves 3-12 NL, Reflexes 2+ Vital Signs Vital Signs Date Time Temp Pulse Resp B/P (MAP) Pulse Ox O2 Delivery O2 Flow Rate FiO2 05/28/20 14:00 05/28/20 13:40 97.9 122 26 97 Room Air Laboratory Data Labs 24H Laboratory Tests 2 05/28/20 14:51: Immature Granulocyte % (Auto) 1.1, Neutrophils (%) (Auto) 82.1H, Lymphocytes (%) (Auto) 2.9L, Monocytes (%) (Auto) 10.9H, Eosinophils (%) (Auto) 2.7, Basophils (%) (Auto) 0.3, Neutrophils # (Auto) 10.2H, Lymphocytes # (Auto) 0.4L, Monocytes # (Auto) 1.4H, Eosinophils # (Auto) 0.3, Basophils # (Auto) 0.0, Nucleated Red Blood Cells % (auto) 0.0, Erythrocyte Sedimentation Rate 11, Anion Gap 5L, Glomerular Filtration Rate > 60.0, Calcium Level 8.1L, Total Bilirubin 0.7, Aspartate Amino Transf (AST/SGOT) 17, Alanine Aminotransferase (ALT/SGPT) 42, Alkaline Phosphatase 52, C-Reactive Protein, Quantitative 7.86H, Total Protein 5.7L, Albumin 2.8L, Albumin/Globulin Ratio 1.0 CBC/BMP Laboratory Tests 05/28/20 14:51 Microbiology Microbiology 05/28/20 Wound Culture, Received Pending 05/28/20 Blood Culture, Received Pending 05/28/20 Blood Culture, Received Pending Assessment/Plan 59-year-old male diagnosed with seropositive rheumatoid arthritis in 2018 has been battling with a skin rash from earlier part of this year was in the hospital from April 26 to May 06 for the skin rash which at that time was diagnosed at as a spongiotic dermatitis. 3 weeks ago final biopsy results came back from [facility] pathology as Bullous pemphigoid. Patient was started on rituximab on the May 24, which would cover both his RA and as well as Bullous pemphigoid. He noticed new blisters appearing over his abdomen outer aspect of arms, sole of the left foot, dorsum of feet, thighs and some of this blisters were filled with whitish pus like material, so he called his compensation analyst and he was instructed to come back to the ED for a evaluation and admission. Blistering dermatosis. Biopsy from 04/26 initial Path from Right back and Upper back, punch biopsies shows Interface and Spongiotic dermatitis, consistent with a drug reaction as per [facility] pathology 2 weeks ago it was confirmed to be Bulbous pemphigoid. started on rituximab. will give methyl pred, cyclosporine and cellcept. benadryl prn. Seropositive RA diagnosed in 2017 started on Rituximab on 05/24/20 Obesity with LISA continue own CPAP. Hypertension losartan Plan / VTE VTE Prophylaxis Ordered?: Yes ANDREEA MURPHY MD May 28, 2020 17:52
[2020-05-28] MEDS ORDERED: FUROSEMIDE 40 MG TAB PO ONE (18:30)
[2020-05-28] MEDS: HEPARIN SOD (PORCINE) 5000UNITS/ML 1ML VIAL/SYRINGE SC SCH (21:03)
[2020-05-28] MEDS: methylPREDNISolone 40MG 1ML VIAL IV SCH (21:03)
[2020-05-28] MEDS: SandIMMUNE 25 MG CAP (cycloSPORINE) (J7515) PO SCH (21:04)
[2020-05-28] MEDS: TRIAMCINOLONE ACET 0.1% CREAM 80 GM TOP SCH (21:04)
[2020-05-28] MEDS: MYCOPHENOLATE MOFETIL 250 MG CAP (J7517) PO SCH (21:04)
[2020-05-28] MEDS: SandIMMUNE 100 MG CAP (J7502) PO SCH (21:04)
[2020-05-28 22:00] VITALS: BP 128/67
[2020-05-29] MEDS: ACETAMINOPHEN TAB 650MG DOSE (2X325MG) PO PRN ×2 (00:55→20:37)
[2020-05-29 05:48] LABS: HEMATOCRIT 42.5 % (42.0-52.0); HEMOGLOBIN 13.6 g/dl (13.5-17.5); MEAN CORPUSCULAR HEMOGLOBIN 32.6 pg (27.0-33.0); MEAN CORPUSCULAR VOLUME 101.9 fl (80.0-96.0); PLATELET COUNT, AUTOMATED 192 10^3/uL (150-450); RED BLOOD COUNT 4.17 10^6/uL (4.30-6.10); WHITE BLOOD COUNT 14.3 10^3/uL (4.0-10.0)
[2020-05-29 06:00] VITALS: BP 154/82
[2020-05-29 06:06] LABS: BLOOD UREA NITROGEN 30 MG/DL (7-18); CALCIUM LEVEL 8.2 MG/DL (8.5-10.1); CARBON DIOXIDE LEVEL 23 MEQ/L (21-32); CHLORIDE LEVEL 106 MEQ/L (98-107); CREATININE FOR GFR 1.01 MG/DL (0.70-1.30); GLOMERULAR FILTRATION RATE > 60.0 (>56); GLUCOSE, FASTING 152 MG/DL (70-100); POTASSIUM SERUM 4.5 MEQ/L (3.5-5.1); SODIUM LEVEL 135 MEQ/L (136-145)
[2020-05-29 06:20] LABS: ATYPICAL LYMPH 1 % (0-5); LYMPHOCYTES 4 % (16-44); MONOCYTES 5 % (0-5); NEUTROPHILS 79 % (28-66)
[2020-05-29 06:21] LABS: PLATELET ESTIMATE NORMAL (NORMAL)
[2020-05-29] MEDS ORDERED: FUROSEMIDE 40 MG TAB PO SCH (09:00)
[2020-05-29] MEDS ORDERED: LOSARTAN 50MG TABLET PO SCH (09:00)
[2020-05-29] MEDS: MYCOPHENOLATE MOFETIL 250 MG CAP (J7517) PO SCH ×2 (10:42→20:36)
[2020-05-29] MEDS: methylPREDNISolone 40MG 1ML VIAL IV SCH ×2 (10:42→20:35)
[2020-05-29] MEDS: SandIMMUNE 25 MG CAP (cycloSPORINE) (J7515) PO SCH ×2 (10:43→20:36)
[2020-05-29] MEDS: SandIMMUNE 100 MG CAP (J7502) PO SCH ×2 (10:43→20:36)
[2020-05-29] MEDS: HEPARIN SOD (PORCINE) 5000UNITS/ML 1ML VIAL/SYRINGE SC SCH ×2 (10:43→20:36)
[2020-05-29] MEDS: MULTIVITAMINS/MINERALS THERAP 1 TAB PO SCH (10:44)
[2020-05-29] MEDS: PANTOPRAZOLE 40MG TAB (PROTONIX) PO SCH (10:44)
[2020-05-29] MEDS: DOXYCYCLINE HYCLATE 100MG TABLET PO SCH ×2 (10:44→20:35)
[2020-05-29] MEDS: TRIAMCINOLONE ACET 0.1% CREAM 80 GM TOP SCH ×2 (10:48→20:36)
--- NOTE | 2020-05-29 11:24 | IPNPDOC ---
Text Note Date of Service The patient was seen on 05/29/20. NOTE Subjective: More prominent and larger blisters on the right arm. No involvement of face or oral cavities. Physical Exam: Vitals: As below General Exam: Positive: Alert, Cooperative, No Acute Distress Eye Exam: Positive: PERRLA, Conjunctiva & lids normal, EOMI; Negative: Sclera icteric ENT Exam: Positive: Atraumatic, Mucous membr. moist/pink, Pharynx Normal Neck Exam: Positive: Supple; Negative: JVD, thyromegaly Chest Exam: Positive: Clear to auscultation, Normal air movement Heart Exam: Positive: Rate Normal, Regular Rhythm, Normal S1, Normal S2; Negative: Murmurs, Rubs Abdomen Exam: Positive: Normal bowel sounds, Soft; Negative: Tenderness, Hepatospenomegaly Extremity Exam: Positive: Edema (bilateral trace edema. ), Normal pulses; Negative: Clubbing, Cyanosis Skin Exam: Positive: Rash (erythematous maculo papular confluent rash on the torso with blistering, erythematous discrete maculo palular rash on the legs with blisters) Neuro Exam: Positive: Normal Speech, Strength at 5/5 X4 ext, Normal Tone, Cranial Nerves 3-12 NL, Reflexes 2+ Labs and Radiology: reviewed Assessment and Plan: 59-year-old male diagnosed with seropositive rheumatoid arthritis in 2018 has been battling with a skin rash from earlier part of this year was in the hospital from April 26 to May 06 for the skin rash which at that time was diagnosed at as a spongiotic dermatitis. 3 weeks ago final biopsy results came back from [facility] pathology as Bullous pemphigoid. Patient was started on rituximab on the May 24, which would cover both his RA and as well as Bullous pemphigoid. He noticed new blisters appearing over his abdomen outer aspect of arms, sole of the left foot, dorsum of feet, thighs and some of this blisters were filled with whitish pus like material, so he called his survey research professor and he was instructed to come back to the ED for a evaluation and admission. Blistering dermatosis. Biopsy from 04/26 initial Path from Right back and Upper back, punch biopsies showed Interface and Spongiotic dermatitis, consistent with a drug reaction as per [facility] pathology 3 weeks ago it was confirmed by to be Bulbous pemphigoid. started on rituximab. Cultures were sent from some of the blisters growing staph. will give doxycycline based on previous cultures. will give methyl pred, cyclosporine and cellcept. benadryl prn. IgA level normal. Will get CT abd and pelvis with contrast as there is a posibility of underlying malignancy with recurrent bullous pemphigus. He never had a colonoscopy. CT chest last month was OK. Seropositive RA diagnosed in 2018 started on Rituximab on 05/24/20 Obesity with LISA continue own CPAP. Hypertension losartan VS,Fishbone, I+O VS, Fishbone, I+O Laboratory Tests 05/28/20 14:51 05/29/20 05:25 Vital Signs Date Time Temp Pulse Resp B/P (MAP) Pulse Ox O2 Delivery O2 Flow Rate FiO2 05/29/20 06:00 96.7 90 20 154/82 (106) 96 Room Air I&O- Last 24 Hours up to 6 AM 05/29/20 06:00 Intake Total 690 ml Output Total 800 ml Balance -110 ml ANDREEA MURPHY MD May 29, 2020 08:27
--- NOTE | 2020-05-29 12:41 | CR.PDOC ---
General Date of Consultation: May 29, 2020 Consultation REASON FOR CONSULTATION/CHIEF COMPLAINT: Bullous Dermatosis HISTORY OF PRESENT ILLNESS: 59-year-old male with Rheumatoid Arthritis (followed by Dr. 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 Dermatopathology from [facility]: Interface and spongiotic dermatitis, with negative DIF History leading up to his most recent flare: 05/06/20: Discharged from the hospital 05/20: Cyclosporine was discontinued 05/21 & 05/22: Patient went without Cellcept due to pharmacy error 05/24: Received first Rituximab infusion (which was started to cover RA + dermatitis) 05/26: First bullae developed on abdomen. Prednisone was increased back to 80mg QD 05/27: Patient reports feeling well, having gone for a walk, as well as, having climbed a flight of stairs without difficulty 05/30: Pruritic eruption appeared on trunk and extremities as well as experiencing some SOB on exertion. Patient presented to the ER and was subsequently admitted after receiving IV steroid and Benadryl. Since being admitted patient was continued on the Cellcept 500mg BID and IV steroids. He was restarted on cyclosporine 150mg BID. Bacterial culture obtained while in the ER is pending, doxycycline was started based on previous cultures. Patient has an 80 gram tube of Triamcinolone 0.1% cream that he is applying BID (with some improvement in lower extremities). Patient notes that eruption on trunk and upper extremities has worsened overnight, but he has only had two doses of the cyclosporine thus far. IgA level drawn this morning was WNL. Physical Exam: Patient alert and in good spirits. Erythematous scaly plaques involving trunk and extremities with tense vesicles and bullae noted on predominately upper arms and feet (one large bulla on left plantar foot). A few scattered erosions from previous bullae noted on abdomen and legs. No conjunctival or mucosal involvement. Trace bilateral lower extremity edema. A/P: Bullous Dermatosis/ Bullous Pemphigoid -Cellcept, IV steroids, and cyclosporine (monitoring BP and renal function) (Note: Patient is up to date with his inactivated Shingrix and influenza vaccines) -doxycycline pending bacterial culture (which may also be helpful with BP) -Discussed screening for possible occult malignancy (Patient had negative chest CT during last hospitalization. CT with contrast of the abdomen and pelvis is ordered for tomorrow. Discussed with attending and patient having a colonoscopy following discharge, as patient has not had one to date.) Vital Signs/I&O Vital Signs Date Time Temp Pulse Resp B/P (MAP) Pulse Ox O2 Delivery O2 Flow Rate FiO2 05/29/20 10:47 159/98 05/29/20 06:00 96.7 90 20 96 Room Air I&O- Last 24 Hours up to 6 AM 05/29/20 06:00 Intake Total 690 ml Output Total 800 ml Balance -110 ml Laboratory Data Labs 24H Laboratory Tests 2 05/28/20 14:51: Immature Granulocyte % (Auto) 1.1, Neutrophils (%) (Auto) 82.1H, Lymphocytes (%) (Auto) 2.9L, Monocytes (%) (Auto) 10.9H, Eosinophils (%) (Auto) 2.7, Basophils (%) (Auto) 0.3, Neutrophils # (Auto) 10.2H, Lymphocytes # (Auto) 0.4L, Monocytes # (Auto) 1.4H, Eosinophils # (Auto) 0.3, Basophils # (Auto) 0.0, Nucleated Red Blood Cells % (auto) 0.0, Erythrocyte Sedimentation Rate 11, Anion Gap 5L, Glomerular Filtration Rate > 60.0, Calcium Level 8.1L, Total Bilirubin 0.7, Aspartate Amino Transf (AST/SGOT) 17, Alanine Aminotransferase (ALT/SGPT) 42, Alkaline Phosphatase 52, C-Reactive Protein, Quantitative 7.86H, Total Protein 5.7L, Albumin 2.8L, Albumin/Globulin Ratio 1.0 05/29/20 05:25: Neutrophils (%) (Auto) , Nucleated Red Blood Cells % (auto) 0.0, Anion Gap 6L, Glomerular Filtration Rate > 60.0, Calcium Level 8.2L, Neutrophils 79H, Band Neutrophils 11, Lymphocytes (Manual) 4L, Monocytes (Manual) 5, Atypical Lymphocytes 1, Macrocytosis 1+, Platelet Estimate NORMAL, Immunoglobulin A 188.0 CBC/BMP Laboratory Tests 05/28/20 14:51 05/29/20 05:25 Microbiology Microbiology 05/28/20 Wound Culture - Preliminary, Resulted Staphylococcus Aureus 05/28/20 Blood Culture, Received Pending 05/28/20 Blood Culture, Received Pending Allergies Coded Allergies: No Known Allergies (Unverified , 05/28/20) Home Medications Scheduled Losartan Potassium (Losartan Potassium) 50 Mg Tablet, 50 MG PO DAILY, (Reported) Multivitamins (Thera M Plus Tablet) 1 Each Tablet, 1 TAB PO DAILY, (Reported) Mycophenolate Mofetil (Cellcept) 500 Mg Tablet, 500 MG PO BID, (Reported) Prednisone (Prednisone) 20 Mg Tablet, 80 MG PO DAILY, (Reported) Triamcinolone Acet (Triamcinolone Acetonide 0.1% Crm) 80 Gm Cream..g., 1 DOSE TOP BID, (Reported) APPLIES TO ENTIRE BODY Scheduled PRN Diphenhydramine HCl (Itch Relief Cream) 28 Gm Cream..g., 1 APPLIC TOP BID PRN for ITCHING, (Reported) APPLY TO AFFECTED AREAS Sildenafil Citrate (Sildenafil Citrate) 50 Mg Tablet, 50 MG PO ASDIRECTED PRN for ERECTILE DYSFUNCTION, (Reported) Iris Khan PA-C May 29, 2020 12:38
[2020-05-29 14:30] VITALS: BP 150/92
[2020-05-29] MEDS ORDERED: MORPHINE 2 MG/ML 1ML VIAL (J2270) IV ONE (21:45)
--- NOTE | 2020-05-29 21:48 | IPNPDOC ---
Text Note Date of Service The patient was seen on 05/29/20. NOTE Asked by nurse to evaluate the patient for left groin discomfort Patient complaining of some itching for which we will try Atarax. Complaining of insomnia for which he takes Benadryl will help. Patient also complaining of left groin swelling which he thinks might be an inguinal hernia. I suggested we get an ultrasound however patient informed me that he'll be getting a CT of his abdomen and pelvis tomorrow and I agree that it does not look urgent and we can wait for the CT results tomorrow. On exam his left groin does have some mild swelling that is mildly tender to touch. I informed him to let his nurse know should this swelling increases or get more painful overnight. VS,Fishbone, I+O VS, Fishbone, I+O Laboratory Tests 05/29/20 05:25 Vital Signs Date Time Temp Pulse Resp B/P (MAP) Pulse Ox O2 Delivery O2 Flow Rate FiO2 05/29/20 14:30 97.7 105 16 150/92 (111) 96 Room Air I&O- Last 24 Hours up to 6 AM 05/29/20 06:00 Intake Total 690 ml Output Total 800 ml Balance -110 ml TOMAS YOUNGBLOOD MD May 29, 2020 21:48
[2020-05-29 22:00] VITALS: BP 155/84
[2020-05-29] MEDS: diphenhydrAMINE 25MG CAP PO PRN (22:11)
[2020-05-30 06:00] VITALS: BP 161/79
[2020-05-30 07:00] LABS: BASO % 0.1 % (0.0-1.0); EOS % 0.1 % (0.0-3.0); HEMATOCRIT 39.1 % (42.0-52.0); HEMOGLOBIN 12.9 g/dl (13.5-17.5); LYMPH # 0.7 10^3/uL (1.5-5.0); LYMPH % 4.3 % (24.0-44.0); MEAN CORPUSCULAR HEMOGLOBIN 33.2 pg (27.0-33.0); MEAN CORPUSCULAR VOLUME 100.8 fl (80.0-96.0); MONO # 1.4 10^3/uL (0.0-0.8); NEUTROPHILS # 12.9 10^3/uL (1.5-8.5); NEUTROPHILS % 84.5 % (36.0-66.0); PLATELET COUNT, AUTOMATED 246 10^3/uL (150-450); RED BLOOD COUNT 3.88 10^6/uL (4.30-6.10); WHITE BLOOD COUNT 15.3 10^3/uL (4.0-10.0)
[2020-05-30 07:32] LABS: BLOOD UREA NITROGEN 33 MG/DL (7-18); CALCIUM LEVEL 8.5 MG/DL (8.5-10.1); CARBON DIOXIDE LEVEL 27 MEQ/L (21-32); CHLORIDE LEVEL 109 MEQ/L (98-107); CREATININE FOR GFR 0.85 MG/DL (0.70-1.30); GLOMERULAR FILTRATION RATE > 60.0 (>56); GLUCOSE, FASTING 142 MG/DL (70-100); POTASSIUM SERUM 4.4 MEQ/L (3.5-5.1); SODIUM LEVEL 142 MEQ/L (136-145)
[2020-05-30 08:55] VITALS: BP 174/89
[2020-05-30 09:51] LABS: C REACTIVE PROTEIN QUANTITATIV 9.27 MG/DL (0.00-0.30)
[2020-05-30] MEDS: FUROSEMIDE 40MG/4ML VIAL (J1940) IV SCH (11:06)
[2020-05-30] MEDS: DOXYCYCLINE HYCLATE 100MG TABLET PO SCH ×2 (11:06→21:13)
[2020-05-30] MEDS: PANTOPRAZOLE 40MG TAB (PROTONIX) PO SCH (11:06)
[2020-05-30] MEDS: MULTIVITAMINS/MINERALS THERAP 1 TAB PO SCH (11:08)
[2020-05-30] MEDS: LOSARTAN 50MG TABLET PO SCH ×2 (11:08→21:13)
[2020-05-30] MEDS: methylPREDNISolone 40MG 1ML VIAL IV SCH ×2 (11:09→21:14)
[2020-05-30] MEDS: HEPARIN SOD (PORCINE) 5000UNITS/ML 1ML VIAL/SYRINGE SC SCH ×2 (11:10→21:15)
[2020-05-30] MEDS: MYCOPHENOLATE MOFETIL 250 MG CAP (J7517) PO SCH ×2 (11:10→21:12)
[2020-05-30] MEDS: SandIMMUNE 100 MG CAP (J7502) PO SCH ×2 (11:11→21:28)
[2020-05-30] MEDS: SandIMMUNE 25 MG CAP (cycloSPORINE) (J7515) PO SCH ×2 (11:11→21:12)
[2020-05-30] MEDS: TRIAMCINOLONE ACET 0.1% CREAM 80 GM TOP SCH ×2 (11:17→21:12)
[2020-05-30] MEDS: GASTROGRAFIN SOLUTION 30ML PO SCH ×2 (11:29→11:36)
[2020-05-30] MEDS: SENOKOT S TAB PO SCH ×2 (12:00→21:00)
--- NOTE | 2020-05-30 12:07 | IPNPDOC ---
Text Note Date of Service The patient was seen on 05/30/20. NOTE Subjective: Patient has been complaining of suprapubic pain since yesterday afternoon. He reports that he felt something pop when he was sitting up in the sofa yesterday. The pain is superficial and seems like he has a developing subcutaneous induration. I feel he is probably developing a suprapubic subcutaneous abscess. He is scheduled for a CT scan today if this does not cook supervisor anything will get an ultrasound. Physical Exam: Vitals: As below General Exam: Positive: Alert, Cooperative, No Acute Distress Eye Exam: Positive: PERRLA, Conjunctiva & lids normal, EOMI; Negative: Sclera icteric ENT Exam: Positive: Atraumatic, Mucous membr. moist/pink, Pharynx Normal Neck Exam: Positive: Supple; Negative: JVD, thyromegaly Chest Exam: Positive: Clear to auscultation, Normal air movement Heart Exam: Positive: Rate Normal, Regular Rhythm, Normal S1, Normal S2; Negative: Murmurs, Rubs Abdomen Exam: Positive: Normal bowel sounds, obese. Tenderness in the supr apubic area with deep induration to palpation. No new skin eruptions seen there. Negative: Tenderness, Hepatosplenomegaly Extremity Exam: Positive: Edema (bilateral trace edema. ), Normal pulses; Negative: Clubbing, Cyanosis Skin Exam: Positive: Rash (erythematous maculo papular confluent rash on the torso with blistering, erythematous discrete maculo palular rash on the legs with blisters) Blisters on both the arms. Neuro Exam: Positive: Normal Speech, Strength at 5/5 X4 ext, Normal Tone, Cranial Nerves 3-12 NL, Reflexes 2+ Labs and Radiology: reviewed Assessment and Plan: 59-year-old male diagnosed with seropositive rheumatoid arthritis in 2018 has been battling with a skin rash from earlier part of this year was in the hospital from April 26 to May 06 for the skin rash which at that time was diagnosed at as a spongiotic dermatitis. 3 weeks ago final biopsy results came back from [facility] pathology as Bullous pemphigoid. Patient was started on rituximab on the May 24, which would cover both his RA and as well as Bullous pemphigoid. He noticed new blisters appearing over his abdomen outer aspect of arms, sole of the left foot, dorsum of feet, thighs and some of this blisters were filled with whitish pus like material, so he called his rn transitional care and he was instructed to come back to the ED for a evaluation and admission. Bullous Pemphigoid started on rituximab. Cultures were sent from some of the blisters growing staph. doxycycline based on previous cultures. will give methyl pred, cyclosporine and cellcept. benadryl prn. IgA level normal. Will get CT abd and pelvis with contrast as there is a possibility of underlying malignancy with recurrent bullous pemphigoid He never had a colonoscopy. CT chest last month was OK. Supra pubic pain with deep induration. probably developing a subcutaneous abscess in the mon pubis area. due for a CT abd/ pelvis today. On doxycycline Seropositive RA diagnosed in 2018 started on Rituximab on 05/24/20 Obesity with LISA continue own CPAP. Hypertension losartan VS,Fishbone, I+O VS, Fishbone, I+O Laboratory Tests 05/30/20 06:35 Vital Signs Date Time Temp Pulse Resp B/P (MAP) Pulse Ox O2 Delivery O2 Flow Rate FiO2 05/30/20 11:08 170/90 05/30/20 08:55 97.4 85 12 97 Room Air I&O- Last 24 Hours up to 6 AM 05/30/20 06:00 Intake Total 1620 ml Output Total 1900 ml Balance -280 ml ANDREEA MURPHY MD May 30, 2020 12:07
[2020-05-30] MEDS ORDERED: MIRALAX *UNIT DOSE* 17GM PACKET PO PRN (12:15)
[2020-05-30] MEDS ORDERED: ISOVUE-370 76% 100ML VIAL As Ordered ONE (12:45)
--- NOTE | 2020-05-30 12:55 | CR.PDOC ---
General Date of Consultation: May 30, 2020 Consultation (S) 59-year-old male with Rheumatoid Arthritis (followed by Dr. 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 Dermatopathology from [facility]: Interface and spongiotic dermatitis, with negative DIF History leading up to his most recent flare: 05/06/20: Discharged from the hospital 05/20: Cyclosporine was discontinued 05/21 & 05/22: Patient went without Cellcept due to pharmacy error 05/24: Received first Rituximab infusion (which was started to cover RA + dermatitis) 05/26: First bullae developed on abdomen. Prednisone was increased back to 80mg QD 05/27: Patient reports feeling well, having gone for a walk, as well as, having climbed a flight of stairs without difficulty 05/30: Pruritic eruption appeared on trunk and extremities as well as experiencing some SOB on exertion. Patient presented to the ER and was subsequently admitted after receiving IV steroid and Benadryl. Since being admitted patient was continued on the Cellcept 500mg BID and IV steroids. He was restarted on cyclosporine 150mg BID. Bacterial culture obtained while in the ER is pending, doxycycline was started based on previous cultures. Patient has an 80 gram tube of Triamcinolone 0.1% cream that he is applying BID (with some improvement in lower extremities). This morning, pt noted a "pop and pain" in his L lower abdomen/suprapubic area. Notes area is tender to touch. (O) L suprapubic with indurated plaque, tender on palpation, tense bullae bilateral upper arms and lower legs and feet, abdomen and back with erythematous crusted papules, no oral lesions noted on exam. (A) Bullous dermatitis in pt with hx of Rheumatoid arthritis, ?abscess L lower abdomen (P) Pt has CT set up for this afternoon of the abdomen and pelvis. Recommend he continue treatment as previous with the addition of Magnesium 400mg PO QD (to help protect kidney function) and Calcium with Vit D (while on corticosteroids). Vital Signs/I&O Vital Signs Date Time Temp Pulse Resp B/P (MAP) Pulse Ox O2 Delivery O2 Flow Rate FiO2 05/30/20 11:08 170/90 05/30/20 08:55 97.4 85 12 97 Room Air I&O- Last 24 Hours up to 6 AM 05/30/20 05:59 Intake Total 1440 ml Output Total 1950 ml Balance -510 ml Laboratory Data Labs 24H Laboratory Tests 2 05/30/20 06:35: Immature Granulocyte % (Auto) 2.0, Neutrophils (%) (Auto) 84.5H, Lymphocytes (%) (Auto) 4.3L, Monocytes (%) (Auto) 9.0H, Eosinophils (%) (Auto) 0.1, Basophils (%) (Auto) 0.1, Neutrophils # (Auto) 12.9H, Lymphocytes # (Auto) 0.7L, Monocytes # (Auto) 1.4H, Eosinophils # (Auto) 0.0, Basophils # (Auto) 0.0, Nucleated Red Blood Cells % (auto) 0.0, Anion Gap 6L, Glomerular Filtration Rate > 60.0, Ca lcium Level 8.5, C-Reactive Protein, Quantitative 9.27H CBC/BMP Laboratory Tests 05/30/20 06:35 Microbiology Microbiology 05/28/20 Wound Culture - Final, Complete Staphylococcus Aureus 05/28/20 Blood Culture - Preliminary, Resulted No growth after 24 hours . All specim... 05/28/20 Blood Culture - Preliminary, Resulted No growth after 24 hours . All specim... Allergies Coded Allergies: No Known Allergies (Unverified , 05/28/20) Home Medications Scheduled Losartan Potassium (Losartan Potassium) 50 Mg Tablet, 50 MG PO DAILY, (Reported) Multivitamins (Thera M Plus Tablet) 1 Each Tablet, 1 TAB PO DAILY, (Reported) Mycophenolate Mofetil (Cellcept) 500 Mg Tablet, 500 MG PO BID, (Reported) Prednisone (Prednisone) 20 Mg Tablet, 80 MG PO DAILY, (Reported) Triamcinolone Acet (Triamcinolone Acetonide 0.1% Crm) 80 Gm Cream..g., 1 DOSE TOP BID, (Reported) APPLIES TO ENTIRE BODY Scheduled PRN Diphenhydramine HCl (Itch Relief Cream) 28 Gm Cream..g., 1 APPLIC TOP BID PRN for ITCHING, (Reported) APPLY TO AFFECTED AREAS Sildenafil Citrate (Sildenafil Citrate) 50 Mg Tablet, 50 MG PO ASDIRECTED PRN for ERECTILE DYSFUNCTION, (Reported) Werchinski,Carolin L. PA-C May 30, 2020 12:55
[2020-05-30 14:24] VITALS: BP 163/93
[2020-05-30] MEDS: NORCO, ANEXSIA 5/325MG TABLET (HYDROcodone/ACETAMINOPHEN) PO PRN ×2 (14:24→21:14)
--- NOTE | 2020-05-30 17:36 | REP ---
INDICATION: Lower Abdominal pain. COMPARISON: No comparison study. TECHNIQUE: Helical scanning is acquired. 3 mm axial images re-formatted. Coronal and sagittal MPR images were generated. 100 mL of intravenous Isovue 370 is administered. Oral contrast was also administered. FINDINGS: Digital preliminary photographer radiograph demonstrates an unremarkable bowel gas pattern. The lung bases are clear on axial CT images. The liver shows mild diffuse fatty infiltration. Liver and spleen are normal in size and homogeneous in texture. No adrenal abnormality is seen on either side. No abnormality is noted in the gallbladder or within the pancreas. 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 No stenosis is appreciated. No other visceral arterial aneurysm is appreciated. Kidneys enhance symmetrically. The appear morphologically intact. No intrarenal calculus is seen. No hydronephrosis noted. No ureteral stone is seen. Prostate contains some dystrophic calcifications but is not enlarged. Seminal vesicles and urinary bladder are unremarkable. There is mild left colonic diverticulosis without CT evidence of diverticulitis. There is no evidence of obstruction or free intraperitoneal air. No abnormal fluid collection is seen. No abdominal wall defect is seen. There is subcutaneous edema and dermal thickening pattern in the suprapubic soft tissues to the left of midline anteriorly. Question cellulitis. No adenopathy or fluid collection seen. Normal caliber aorta. Bone window settings show degenerative spondylosis changes. No bony destructive lesion is seen. 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 Mild fatty infiltration of the liver. Mild left colonic diverticulosis. Cellulitis pattern in the left suprapubic soft tissues of the anterior abdominal wall. Correlate clinically. <Electronically signed by Maverick Cronin > 05/30/20 [id number]
[2020-05-30] MEDS: diphenhydrAMINE 25MG CAP PO PRN (21:13)
[2020-05-30 22:00] VITALS: BP 145/81
[2020-05-31 06:00] VITALS: BP 182/92
[2020-05-31 07:21] LABS: BASO # 0.1 10^3/uL (0.0-0.2); BASO % 0.6 % (0.0-1.0); EOS % 0.1 % (0.0-3.0); HEMATOCRIT 40.2 % (42.0-52.0); HEMOGLOBIN 12.9 g/dl (13.5-17.5); LYMPH # 0.8 10^3/uL (1.5-5.0); LYMPH % 5.7 % (24.0-44.0); MEAN CORPUSCULAR HEMOGLOBIN 32.6 pg (27.0-33.0); MEAN CORPUSCULAR HGB CONC 32.1 g/dl (32.0-36.5); MEAN CORPUSCULAR VOLUME 101.5 fl (80.0-96.0); MONO # 1.1 10^3/uL (0.0-0.8); MONO % 7.3 % (0.0-5.0); PLATELET COUNT, AUTOMATED 279 10^3/uL (150-450); RED BLOOD COUNT 3.96 10^6/uL (4.30-6.10); WHITE BLOOD COUNT 14.5 10^3/uL (4.0-10.0)
[2020-05-31 07:43] LABS: BLOOD UREA NITROGEN 32 MG/DL (7-18); CALCIUM LEVEL 8.8 MG/DL (8.5-10.1); CARBON DIOXIDE LEVEL 28 MEQ/L (21-32); CHLORIDE LEVEL 107 MEQ/L (98-107); CREATININE FOR GFR 0.85 MG/DL (0.70-1.30); GLOMERULAR FILTRATION RATE > 60.0 (>56); GLUCOSE, FASTING 145 MG/DL (70-100); POTASSIUM SERUM 4.2 MEQ/L (3.5-5.1); SODIUM LEVEL 141 MEQ/L (136-145)
[2020-05-31] MEDS: methylPREDNISolone 40MG 1ML VIAL IV SCH ×2 (08:03→20:50)
[2020-05-31] MEDS: TRIAMCINOLONE ACET 0.1% CREAM 80 GM TOP SCH ×2 (08:03→20:52)
[2020-05-31] MEDS: FUROSEMIDE 40MG/4ML VIAL (J1940) IV SCH (08:03)
[2020-05-31] MEDS: SandIMMUNE 100 MG CAP (J7502) PO SCH ×2 (08:04→20:51)
[2020-05-31] MEDS: MULTIVITAMINS/MINERALS THERAP 1 TAB PO SCH (08:04)
[2020-05-31] MEDS: SandIMMUNE 25 MG CAP (cycloSPORINE) (J7515) PO SCH ×2 (08:04→20:51)
[2020-05-31] MEDS: HEPARIN SOD (PORCINE) 5000UNITS/ML 1ML VIAL/SYRINGE SC SCH ×2 (08:04→20:50)
[2020-05-31] MEDS: DOXYCYCLINE HYCLATE 100MG TABLET PO SCH (08:05)
[2020-05-31] MEDS: LOSARTAN 50MG TABLET PO SCH ×2 (08:05→20:48)
[2020-05-31] MEDS: PANTOPRAZOLE 40MG TAB (PROTONIX) PO SCH (08:05)
[2020-05-31] MEDS: MYCOPHENOLATE MOFETIL 250 MG CAP (J7517) PO SCH ×2 (08:05→20:50)
[2020-05-31] MEDS: SENOKOT S TAB PO SCH ×2 (08:06→20:52)
[2020-05-31] MEDS ORDERED: VANCOMYCIN HCL 1,000 MG, VIAL MATE ADAPTER 1 EACH in D5W 250 ML IV SCH (10:45)
--- NOTE | 2020-05-31 11:26 | IPNPDOC ---
Text Note Date of Service The patient was seen on 05/31/20. NOTE Subjective: Rash is clearing up. In the abdomen i can see clear skin in between the rashes. Forearms are also clearing up. still has blisters in both the arms. Stil with suprapubic pain with mild swelling and induration. No fever or chills. Physical Exam: Vitals: As below General Exam: Positive: Alert, Cooperative, No Acute Distress Eye Exam: Positive: PERRLA, Conjunctiva & lids normal, EOMI; Negative: Sclera icteric ENT Exam: Positive: Atraumatic, Mucous membr. moist/pink, Pharynx Normal Neck Exam: Positive: Supple; Negative: JVD, thyromegaly Chest Exam: Positive: Clear to auscultation, Normal air movement Heart Exam: Positive: Rate Normal, Regular Rhythm, Normal S1, Normal S2; Negative: Murmurs, Rubs Abdomen Exam: Positive: Normal bowel sounds, obese. Tenderness in the suprapubic area with deep induration to palpation. No new skin eruptions seen t here. Negative: Tenderness, Hepatosplenomegaly Extremity Exam: Positive: Bilateral Edema Normal pulses; Negative: Clubbing, Cyanosis Skin Exam: Positive: Rash (erythematous maculo papular confluent rash on the torso with blistering, erythematous discrete maculo palular rash on the legs with blisters) Blisters on both the arms. Neuro Exam: Positive: Normal Speech, Strength at 5/5 X4 ext, Normal Tone, Cranial Nerves 3-12 NL, Reflexes 2+ Labs and Radiology: reviewed Assessment and Plan: 59-year-old male diagnosed with seropositive rheumatoid arthritis in 2018 has been battling with a skin rash from earlier part of this year was in the hospital from April 26 to May 06 for the skin rash which at that time was diagnosed at as a spongiotic dermatitis. 3 weeks ago final biopsy results came back from [facility] pathology as Bullous pemphigoid. Patient was started on rituximab on the May 24, which would cover both his RA and as well as Bullous pemphigoid. He noticed new blisters appearing over his abdomen outer aspect of arms, sole of the left foot, dorsum of feet, thighs and some of this blisters were filled with whitish pus like material, so he called his pipe setter and he was instructed to come back to the ED for a evaluation and admission. Bullous Pemphigoid started on rituximab. Cultures were sent from some of the blisters growing staph. doxycycline based on previous cultures. will give methyl pred, cyclosporine and cellcept. benadryl prn. IgA level normal. 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 Mild fatty infiltration of the liver. Mild left colonic diverticulosis. Cellulitis pattern in the left suprapubic soft tissues of the anterior abdominal wall. He never had a colonoscopy. CT chest last month was OK. Supra pubic Cellulitis/ developing abscess. Has been on doxycycline for 3 days with no improvement Pus culture form blister MSSA. will give Ancef. Seropositive RA diagnosed in 2018 started on Rituximab on 05/24/20 Obesity with LISA continue own CPAP. Hypertension losartan dose increased, Lasix. DVT prophylaxis in place. VS,Fishbone, I+O VS, Fishbone, I+O Laboratory Tests 05/31/20 06:59 Vital Signs Date Time Temp Pulse Resp B/P (MAP) Pulse Ox O2 Delivery O2 Flow Rate FiO2 05/31/20 08:05 182/92 05/31/20 06:00 98.2 82 16 97 Room Air I&O- Last 24 Hours up to 6 AM 05/31/20 06:00 Intake Total 1900 ml Output Total 2225 ml Balance -325 ml ANDREEA MURPHY MD May 31, 2020 11:07
--- NOTE | 2020-05-31 12:23 | CR.PDOC ---
General Date of Consultation: May 31, 2020 Consultation S:59-year-old male with Rheumatoid Arthritis (followed by Dr. 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 Dermatopathology from [facility]: Interface and spongiotic dermatitis, with negative DIF History leading up to his most recent flare: 05/06/20: Discharged from the hospital 05/20: Cyclosporine was discontinued 05/21 & 05/22: Patient went without Cellcept due to pharmacy error 05/24: Received first Rituximab infusion (which was started to cover RA + dermatitis) 05/26: First bullae developed on abdomen. Prednisone was increased back to 80mg QD 05/27: Patient reports feeling well, having gone for a walk, as well as, having climbed a flight of stairs without difficulty 05/30: Pruritic eruption appeared on trunk and extremities as well as experiencing some SOB on exertion. Patient presented to the ER and was subsequently admitted after receiving IV steroid and Benadryl. Since being admitted patient was continued on the Cellcept 500mg BID, cyclosporine 150mg BID, IV steroids and doxycycline. Blood culture obtained while in the ER (no growth after 48 hours). Bacterial culture from left ankle grew Staph Aureus. Patient has an 80 gram tube of Triamcinolone 0.1% cream that he is applying BID (with some improvement in lower extremities). Yesterday morning, pt noted a "pop and pain" in his L lower abdomen/suprapubic area. Notes area is tender to touch. 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 Mild fatty infiltration of the liver. Mild left colonic diverticulosis. Cellulitis Pattern in the left suprapubic soft tissues of the anterior abdominal wall. O: Left suprapubic area with indurated plaque, tender on palpation. Tense bullae bilateral upper arms and lower legs and feet, abdomen and back with erythematous crusted papules. No conjunctival or mucosal involvement. Trace bilateral lower extremity edema. A/P: Bullous Dermatosis/Bullous Pemphigoid + RA -Continue current medication regimen, including: cellcept, cyclosporine, IV steroids, and doxycycline. Monitoring BP and renal function. With calcium, magnesium, and vitamin D supplementation Recommend continued screening for a paraneoplastic process. Previous CT of the chest was normal. Incidental findings on CT of the abdomen and pelvis. Suggest CT of the head and neck, as well as, colonoscopy. Vital Signs/I&O Vital Signs Date Time Temp Pulse Resp B/P (MAP) Pulse Ox O2 Delivery O2 Flow Rate FiO2 05/31/20 06:00 98.2 82 16 182/92 (122) 97 Room Air I&O- Last 24 Hours up to 6 AM 05/31/20 06:00 Intake Total 1900 ml Output Total 2225 ml Balance -325 ml Laboratory Data Labs 24H Laboratory Tests 2 05/31/20 06:59: Immature Granulocyte % (Auto) 3.3H, Neutrophils (%) (Auto) 83.0H, Lymphocytes (%) (Auto) 5.7L, Monocytes (%) (Auto) 7.3H, Eosinophils (%) (Auto) 0.1, Basophils (%) (Auto) 0.6, Neutrophils # (Auto) 12.0H, Lymphocytes # (Auto) 0.8L, Monocytes # (Auto) 1.1H, Eosinophils # (Auto) 0.0, Basophils # (Auto) 0.1, Nucleated Red Blood Cells % (auto) 0.0 CBC/BMP Laboratory Tests 05/31/20 06:59 Microbiology Microbiology 05/28/20 Wound Culture - Final, Complete Staphylococcus Aureus 05/28/20 Blood Culture - Preliminary, Resulted No Growth after 48 hours. All Specime... 05/28/20 Blood Culture - Preliminary, Resulted No Growth after 48 hours. All Specime... Allergies Coded Allergies: No Known Allergies (Unverified , 05/28/20) Home Medications Scheduled Losartan Potassium (Losartan Potassium) 50 Mg Tablet, 50 MG PO DAILY, (Reported) Multivitamins (Thera M Plus Tablet) 1 Each Tablet, 1 TAB PO DAILY, (Reported) Mycophenolate Mofetil (Cellcept) 500 Mg Tablet, 500 MG PO BID, (Reported) Prednisone (Prednisone) 20 Mg Tablet, 80 MG PO DAILY, (Reported) Triamcinolone Acet (Triamcinolone Acetonide 0.1% Crm) 80 Gm Cream..g., 1 DOSE TOP BID, (Reported) APPLIES TO ENTIRE BODY Scheduled PRN Diphenhydramine HCl (Itch Relief Cream) 28 Gm Cream..g., 1 APPLIC TOP BID PRN fo r ITCHING, (Reported) APPLY TO AFFECTED AREAS Sildenafil Citrate (Sildenafil Citrate) 50 Mg Tablet, 50 MG PO ASDIRECTED PRN for ERECTILE DYSFUNCTION, (Reported) Iris Khan PA-C May 31, 2020 07:37
[2020-05-31] MEDS: ceFAZolin SOD 1 GM in D5W MINI-BAG PLUS 50 ML IV SCH ×2 (12:54→20:41)
[2020-05-31] MEDS: NORCO, ANEXSIA 5/325MG TABLET (HYDROcodone/ACETAMINOPHEN) PO PRN ×2 (13:50→20:52)
[2020-05-31 14:00] VITALS: BP 166/85
[2020-05-31] MEDS: diphenhydrAMINE 25MG CAP PO PRN (20:52)
[2020-05-31 20:53] VITALS: BP 148/99
[2020-06-01] MEDS: ceFAZolin SOD 1 GM in D5W MINI-BAG PLUS 50 ML IV SCH ×3 (04:01→20:12)
[2020-06-01 05:40] LABS: BASO # 0.1 10^3/uL (0.0-0.2); BASO % 0.9 % (0.0-1.0); EOS % 0.2 % (0.0-3.0); HEMATOCRIT 42.6 % (42.0-52.0); HEMOGLOBIN 13.7 g/dl (13.5-17.5); LYMPH # 0.9 10^3/uL (1.5-5.0); LYMPH % 7.3 % (24.0-44.0); MEAN CORPUSCULAR HEMOGLOBIN 33.1 pg (27.0-33.0); MEAN CORPUSCULAR HGB CONC 32.2 g/dl (32.0-36.5); MEAN CORPUSCULAR VOLUME 102.9 fl (80.0-96.0); MONO # 1.1 10^3/uL (0.0-0.8); MONO % 8.4 % (0.0-5.0); NEUTROPHILS % 78.2 % (36.0-66.0); PLATELET COUNT, AUTOMATED 270 10^3/uL (150-450); RED BLOOD COUNT 4.14 10^6/uL (4.30-6.10); WHITE BLOOD COUNT 12.8 10^3/uL (4.0-10.0)
[2020-06-01] MEDS: NORCO, ANEXSIA 5/325MG TABLET (HYDROcodone/ACETAMINOPHEN) PO PRN ×2 (05:44→21:56)
[2020-06-01 05:55] LABS: BLOOD UREA NITROGEN 35 MG/DL (7-18); CALCIUM LEVEL 8.7 MG/DL (8.5-10.1); CARBON DIOXIDE LEVEL 25 MEQ/L (21-32); CHLORIDE LEVEL 110 MEQ/L (98-107); GLOMERULAR FILTRATION RATE > 60.0 (>56); GLUCOSE, FASTING 155 MG/DL (70-100); POTASSIUM SERUM 4.6 MEQ/L (3.5-5.1); SODIUM LEVEL 140 MEQ/L (136-145)
[2020-06-01 06:00] VITALS: BP 150/102
[2020-06-01 09:43] LABS: C REACTIVE PROTEIN QUANTITATIV 2.15 MG/DL (0.00-0.30)
[2020-06-01] MEDS: FUROSEMIDE 40MG/4ML VIAL (J1940) IV SCH (09:50)
[2020-06-01] MEDS: HEPARIN SOD (PORCINE) 5000UNITS/ML 1ML VIAL/SYRINGE SC SCH ×2 (09:50→20:12)
[2020-06-01] MEDS: methylPREDNISolone 40MG 1ML VIAL IV SCH ×2 (09:50→20:12)
[2020-06-01] MEDS: LOSARTAN 50MG TABLET PO SCH ×2 (09:51→20:13)
[2020-06-01] MEDS: PANTOPRAZOLE 40MG TAB (PROTONIX) PO SCH (09:51)
[2020-06-01] MEDS: SENOKOT S TAB PO SCH ×2 (09:52→20:13)
[2020-06-01] MEDS: MULTIVITAMINS/MINERALS THERAP 1 TAB PO SCH (09:52)
[2020-06-01] MEDS: SandIMMUNE 25 MG CAP (cycloSPORINE) (J7515) PO SCH ×2 (09:53→20:14)
[2020-06-01] MEDS: MYCOPHENOLATE MOFETIL 250 MG CAP (J7517) PO SCH ×2 (09:53→20:14)
[2020-06-01] MEDS: SandIMMUNE 100 MG CAP (J7502) PO SCH ×2 (09:53→20:13)
[2020-06-01] MEDS: TRIAMCINOLONE ACET 0.1% CREAM 80 GM TOP SCH ×2 (09:54→20:12)
--- NOTE | 2020-06-01 11:13 | IPNPDOC ---
Text Note Date of Service The patient was seen on 06/01/20. NOTE Subjective: Rash is clearing up. In the abdomen i can see clear skin in between the rashes. Forearms are also clearing up. still has blisters in both the arms. Still with suprapubic pain with mild swelling and induration. No fever or chills. Physical Exam: Vitals: As below General Exam: Positive: Alert, Cooperative, No Acute Distress Eye Exam: Positive: PERRLA, Conjunctiva & lids normal, EOMI; Negative: Sclera icteric ENT Exam: Positive: Atraumatic, Mucous membr. moist/pink, Pharynx Normal Neck Exam: Positive: Supple; Negative: JVD, thyromegaly Chest Exam: Positive: Clear to auscultation, Normal air movement Heart Exam: Positive: Rate Normal, Regular Rhythm, Normal S1, Normal S2; Negative: Murmurs, Rubs Abdomen Exam: Positive: Normal bowel sounds, obese. Tenderness in the suprapubic area with deep induration to palpation. No new skin eruptions seen there. Negative: Tenderness, Hepatosplenomegaly Extremity Exam: Positive: Bilateral Edema Normal pulses; Negative: Clubbing, Cyanosis Skin Exam: Positive: Rash (erythematous maculo papular confluent rash on the torso with blistering, erythematous discrete maculo palular rash on the legs with blisters) Blisters on both the arms. Suprapubic area 5cm x 4 cm deep induration in the subcutaneous tissue. Neuro Exam: Positive: Normal Speech, Strength at 5/5 X4 ext, Normal Tone, Cranial Nerves 3-12 NL, Reflexes 2+ Labs and Radiology: reviewed Assessment and Plan: 59-year-old male diagnosed with seropositive rheumatoid arthritis in 2018 has been battling with a skin rash from earlier part of this year was in the hospital from April 26 to May 06 for the skin rash which at that time was diagnosed at as a spongiotic dermatitis. 3 weeks ago final biopsy results came back from [facility] pathology as Bullous pemphigoid. Patient was started on rituximab on the May 24, which would cover both his RA and as well as Bullous pemphigoid. He noticed new blisters appearing over his abdomen outer aspect of arms, sole of the left foot, dorsum of feet, thighs and some of this blisters were filled with whitish pus like material, so he called his business continuity consultant and he was instructed to come back to the ED for a evaluation and admission. Bullous Pemphigoid started on rituximab. Cultures were sent from some of the blisters growing staph. doxycycline based on previous cultures. will give methyl pred, cyclosporine and cellcept. benadryl prn. IgA level normal. 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 Mild fatty infiltration of the liver. Mild left colonic diverticulosis. Cellulitis pattern in the left suprapubic soft tissues of the anterior abdominal wall. He never had a colonoscopy. CT chest last month was OK. Supra pubic Cellulitis/ developing abscess. Has been on doxycycline for 3 days with no improvement Pus culture form blister MSSA. will give Ancef. CRP improving. Seropositive RA diagnosed in 2018 started on Rituximab on 05/24/20 Obesity with LISA continue own CPAP. Hypertension losartan dose increased, Lasix. DVT prophylaxis in place. VS,Fishbone, I+O VS, Fishbone, I+O Laboratory Tests 06/01/20 05:27 Vital Signs Date Time Temp Pulse Resp B/P (MAP) Pulse Ox O2 Delivery O2 Flow Rate FiO2 06/01/20 09:51 162/86 06/01/20 06:14 18 06/01/20 06:00 98.1 81 99 Room Air I&O- Last 24 Hours up to 6 AM 06/01/20 05:59 Intake Total 1400 ml Output Total 1150 ml Balance 250 ml ANDREEA MURPHY MD Jun 01, 2020 11:13
--- NOTE | 2020-06-01 12:37 | CR.PDOC ---
General Date of Consultation: Jun 01, 2020 Consultation S) 59-year-old male with Rheumatoid Arthritis (followed by Dr. 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 Dermatopathology from [facility]: Interface and spongiotic dermatitis, with negative DIF History leading up to his most recent flare: 05/06/20: Discharged from the hospital 05/20: Cyclosporine was discontinued 05/21 & 05/22: Patient went without Cellcept due to pharmacy error 05/24: Received first Rituximab infusion (which was started to cover RA + dermatitis) 05/26: First bullae developed on abdomen. Prednisone was increased back to 80mg QD 05/27: Patient reports feeling well, having gone for a walk, as well as, having climbed a flight of stairs without difficulty 05/30: Pruritic eruption appeared on trunk and extremities as well as experiencing some SOB on exertion. Patient presented to the ER and was subsequently admitted after receiving IV steroid and Benadryl. Since being admitted patient was continued on the Cellcept 500mg BID, cyclosporine 150mg BID, IV steroids and doxycycline. Blood culture obtained while in the ER (no growth after 48 hours). Bacterial culture from left ankle grew Staph Aureus. Patient has an 80 gram tube of Triamcinolone 0.1% cream that he is applying BID (with some improvement in lower extremities). Two days ago, pt noted a "pop and pain" in his L lower abdomen/suprapubic area. Notes area is less tender to touch today. CT scan showed a soft tissue cellulitis-pt was started on Vancomycin and Ancef. 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 Today, pt reports minimal improvement in skin symptoms, notes upper arm bullae are starting to crust over. 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 Strongly recommend imaging of the head and neck to rule out occult malignancy as BP can be associated with underlying neoplasm. Vital Signs/I&O Vital Signs Date Time Temp Pulse Resp B/P (MAP) Pulse Ox O2 Delivery O2 Flow Rate FiO2 06/01/20 09:51 162/86 06/01/20 06:14 18 06/01/20 06:00 98.1 81 99 Room Air I&O- Last 24 Hours up to 6 AM 06/01/20 06:00 Intake Total 1250 ml Output Total 1350 ml Balance -100 ml Laboratory Data Labs 24H Laboratory Tests 2 06/01/20 05:27: Immature Granulocyte % (Auto) 5.0H, Neutrophils (%) (Auto) 78.2H, Lymphocytes (%) (Auto) 7.3L, Monocytes (%) (Auto) 8.4H, Eosinophils (%) (Auto) 0.2, Basophils (%) (Auto) 0.9, Neutrophils # (Auto) 10.0H, Lymphocytes # (Auto) 0.9L, Monocytes # (Auto) 1.1H, Eosinophils # (Auto) 0.0, Basophils # (Auto) 0.1, Nucleated Red Blood Cells % (auto) 0.0, Anion Gap 5L, Glomerular Filtration Rate > 60.0, Calcium Level 8.7, C-Reactive Protein, Quantitative 2.15H CBC/BMP Laboratory Tests 06/01/20 05:27 Microbiology Microbiology 05/28/20 Wound Culture - Final, Complete Staphylococcus Aureus 05/28/20 Blood Culture - Preliminary, Resulted No Growth after 72 hours. All specime... 05/28/20 Blood Culture - Preliminary, Resulted No Growth after 72 hours. All specime... Allergies Coded Allergies: No Known Allergies (Unverified , 05/28/20) Home Medications Scheduled Losartan Potassium (Losartan Potassium) 50 Mg Tablet, 50 MG PO DAILY, (Reported) Multivitamins (Thera M Plus Tablet) 1 Each Tablet, 1 TAB PO DAILY, (Reported) Mycophenolate Mofetil (Cellcept) 500 Mg Tablet, 500 MG PO BID, (Reported) Prednisone (Prednisone) 20 Mg Tablet, 80 MG PO DAILY, (Reported) Triamcinolone Acet (Triamcinolone Acetonide 0.1% Crm) 80 Gm Cream..g., 1 DOSE TOP BID, (Reported) APPLIES TO ENTIRE BODY Scheduled PRN Diphenhydramine HCl (Itch Relief Cream) 28 Gm Cream..g., 1 APPLIC TOP BID PRN for ITCHING, (Reported) APPLY TO AFFECTED AREAS Sildenafil Citrate (Sildenafil Citrate) 50 Mg Tablet, 50 MG PO ASDIRECTED PRN for ERECTILE DYSFUNCTION, (Reported) Carolin Riggs PA-C Jun 01, 2020 12:37
[2020-06-01 14:00] VITALS: BP 140/87
[2020-06-01 22:00] VITALS: BP 145/87
[2020-06-02] MEDS: ceFAZolin SOD 1 GM in D5W MINI-BAG PLUS 50 ML IV SCH ×3 (03:28→20:04)
[2020-06-02 06:00] VITALS: BP 168/102
[2020-06-02 06:06] LABS: HEMATOCRIT 41.3 % (42.0-52.0); HEMOGLOBIN 13.1 g/dl (13.5-17.5); MEAN CORPUSCULAR HEMOGLOBIN 32.3 pg (27.0-33.0); MEAN CORPUSCULAR HGB CONC 31.7 g/dl (32.0-36.5); MEAN CORPUSCULAR VOLUME 101.7 fl (80.0-96.0); PLATELET COUNT, AUTOMATED 305 10^3/uL (150-450); RED BLOOD COUNT 4.06 10^6/uL (4.30-6.10); WHITE BLOOD COUNT 12.2 10^3/uL (4.0-10.0)
[2020-06-02 06:24] LABS: BLOOD UREA NITROGEN 36 MG/DL (7-18); CALCIUM LEVEL 8.7 MG/DL (8.5-10.1); CARBON DIOXIDE LEVEL 29 MEQ/L (21-32); CHLORIDE LEVEL 108 MEQ/L (98-107); CREATININE FOR GFR 0.73 MG/DL (0.70-1.30); GLOMERULAR FILTRATION RATE > 60.0 (>56); GLUCOSE, FASTING 155 MG/DL (70-100); POTASSIUM SERUM 4.6 MEQ/L (3.5-5.1); SODIUM LEVEL 143 MEQ/L (136-145)
[2020-06-02 06:31] LABS: LYMPHOCYTES 13 % (16-44); MONOCYTES 5 % (0-5); NEUTROPHILS 81 % (28-66)
[2020-06-02 06:32] LABS: PLATELET ESTIMATE NORMAL (NORMAL)
[2020-06-02] MEDS: NORCO, ANEXSIA 5/325MG TABLET (HYDROcodone/ACETAMINOPHEN) PO PRN (06:38)
[2020-06-02] MEDS: LOSARTAN 50MG TABLET PO SCH ×2 (06:38→20:11)
[2020-06-02] MEDS: FUROSEMIDE 40MG/4ML VIAL (J1940) IV SCH (09:22)
[2020-06-02] MEDS: methylPREDNISolone 40MG 1ML VIAL IV SCH ×2 (09:22→20:07)
[2020-06-02] MEDS: HEPARIN SOD (PORCINE) 5000UNITS/ML 1ML VIAL/SYRINGE SC SCH ×2 (09:23→20:06)
[2020-06-02] MEDS: TRIAMCINOLONE ACET 0.1% CREAM 80 GM TOP SCH ×2 (09:23→20:13)
[2020-06-02] MEDS: MYCOPHENOLATE MOFETIL 250 MG CAP (J7517) PO SCH ×2 (09:24→20:11)
[2020-06-02] MEDS: SENOKOT S TAB PO SCH ×2 (09:24→20:05)
[2020-06-02] MEDS: SandIMMUNE 25 MG CAP (cycloSPORINE) (J7515) PO SCH ×2 (09:25→20:11)
[2020-06-02] MEDS: SandIMMUNE 100 MG CAP (J7502) PO SCH ×2 (09:25→20:05)
[2020-06-02] MEDS: PANTOPRAZOLE 40MG TAB (PROTONIX) PO SCH (09:25)
[2020-06-02] MEDS: MULTIVITAMINS/MINERALS THERAP 1 TAB PO SCH (09:26)
--- NOTE | 2020-06-02 11:46 | IPNPDOC ---
Text Note Date of Service The patient was seen on 06/02/20. NOTE Subjective: Rash is clearing up. In the abdomen i can see clear skin in between the rashes. Forearms are also clearing up. Arm blisters have shrunken. Still with suprapubic pain with mild swelling and induration but seems better. No fever or chills. Physical Exam: Vitals: As below General Exam: Positive: Alert, Cooperative, No Acute Distress Eye Exam: Positive: PERRLA, Conjunctiva & lids normal, EOMI; Negative: Sclera icteric ENT Exam: Positive: Atraumatic, Mucous membr. moist/pink, Pharynx Normal Neck Exam: Positive: Supple; Negative: JVD, thyromegaly Chest Exam: Positive: Clear to auscultation, Normal air movement Heart Exam: Positive: Rate Normal, Regular Rhythm, Normal S1, Normal S2; Negative: Murmurs, Rubs Abdomen Exam: Positive: Normal bowel sounds, obese. Tenderness in the suprapubic area with deep induration to palpation. No new skin eruptions seen there. Negative: Tenderness, Hepatosplenomegaly Extremity Exam: Positive: Bilateral Edema Normal pulses; Negative: Clubbing, Cyanosis Skin Exam: Positive: Rash (erythematous maculo papular confluent rash on the torso with blistering, erythematous discrete maculo palular rash on the legs with blisters) Blisters on both the arms. Suprapubic area 5cm x 4 cm deep induration in the subcutaneous tissue. Neuro Exam: Positive: Normal Speech, Strength at 5/5 X4 ext, Normal Tone, Cranial Nerves 3-12 NL, Reflexes 2+ Labs and Radiology: reviewed Assessment and Plan: 59-year-old male diagnosed with seropositive rheumatoid arthritis in 2018 has been battling with a skin rash from earlier part of this year was in the hospital from April 26 to May 06 for the skin rash which at that time was diagnosed at as a spongiotic dermatitis. 3 weeks ago final biopsy results came back from [facility] pathology as Bullous pemphigoid. Patient was started on rituximab on the May 24, which would cover both his RA and as well as Bullous pemphigoid. He noticed new blisters appearing over his abdomen outer aspect of arms, sole of the left foot, dorsum of feet, thighs and some of this blisters were filled with whitish pus like material, so he called his busser and he was instructed to come back to the ED for a evaluation and admission. Bullous Pemphigoid started on rituximab as outpatient . Got 1 dose just before admission. Cultures were sent from some of the blisters MSSA on Ancef. Continue methyl pred, cyclosporine and cellcept. will add magnesium benadryl prn. IgA level normal. 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 Mild fatty infiltration of the liver. Mild left colonic diverticulosis. Cellulitis pattern in the left suprapubic soft tissues of the anterior abdominal wall. He never had a colonoscopy. CT chest last month was OK. Derm reccomended CT head and neck as often malignancy there is associated with recurrent BP. Supra pubic Cellulitis/ developing abscess. Pus culture form blister MSSA. Ancef. CRP improving. Seropositive RA diagnosed in 2018 started on Rituximab on 05/24/20 Obesity with LISA continue own CPAP. Hypertension losartan dose increased, Lasix. DVT prophylaxis in place. VS,Fishbone, I+O VS, Fishbone, I+O Laboratory Tests 06/02/20 05:42 Vital Signs Date Time Temp Pulse Resp B/P (MAP) Pulse Ox O2 Delivery O2 Flow Rate FiO2 06/02/20 07:08 18 Room Air 06/02/20 06:38 180/102 06/02/20 06:00 97.7 64 98 9.0 I&O- Last 24 Hours up to 6 AM 06/02/20 06:00 Intake Total 1710 ml Output Total 3025 ml Balance -1315 ml ANDREEA MURPHY MD Jun 02, 2020 11:46
[2020-06-02] MEDS: MAGNESIUM OXIDE 400 MG TAB (MAG-OX) PO SCH ×2 (12:14→20:05)
[2020-06-02 14:38] VITALS: BP 135/94
[2020-06-02 20:00] VITALS: BP 156/98
[2020-06-03] MEDS: ceFAZolin SOD 1 GM in D5W MINI-BAG PLUS 50 ML IV SCH ×3 (04:10→21:20)
[2020-06-03 05:39] LABS: HEMATOCRIT 44.2 % (42.0-52.0); HEMOGLOBIN 14.3 g/dl (13.5-17.5); MEAN CORPUSCULAR HEMOGLOBIN 32.2 pg (27.0-33.0); MEAN CORPUSCULAR HGB CONC 32.4 g/dl (32.0-36.5); MEAN CORPUSCULAR VOLUME 99.5 fl (80.0-96.0); PLATELET COUNT, AUTOMATED 385 10^3/uL (150-450); RED BLOOD COUNT 4.44 10^6/uL (4.30-6.10); WHITE BLOOD COUNT 14.4 10^3/uL (4.0-10.0)
[2020-06-03 06:00] LABS: BLOOD UREA NITROGEN 42 MG/DL (7-18); CALCIUM LEVEL 9.5 MG/DL (8.5-10.1); CARBON DIOXIDE LEVEL 27 MEQ/L (21-32); CHLORIDE LEVEL 105 MEQ/L (98-107); CREATININE FOR GFR 1.02 MG/DL (0.70-1.30); GLOMERULAR FILTRATION RATE > 60.0 (>56); GLUCOSE, FASTING 145 MG/DL (70-100); MAGNESIUM LEVEL 2.1 MG/DL (1.8-2.4); POTASSIUM SERUM 4.8 MEQ/L (3.5-5.1); SODIUM LEVEL 139 MEQ/L (136-145)
[2020-06-03 06:14] LABS: LYMPHOCYTES 9 % (16-44); METAMYELOCYTES 1 % (0-0); MONOCYTES 5 % (0-5); NEUTROPHILS 84 % (28-66); PLATELET ESTIMATE NORMAL (NORMAL)
[2020-06-03 06:17] VITALS: BP 150/98
[2020-06-03] MEDS: methylPREDNISolone 40MG 1ML VIAL IV SCH (08:50)
[2020-06-03] MEDS: SENOKOT S TAB PO SCH ×2 (08:51→21:22)
[2020-06-03] MEDS: SandIMMUNE 100 MG CAP (J7502) PO SCH (08:51)
[2020-06-03] MEDS: PANTOPRAZOLE 40MG TAB (PROTONIX) PO SCH (08:51)
[2020-06-03] MEDS: MYCOPHENOLATE MOFETIL 250 MG CAP (J7517) PO SCH ×2 (08:51→21:22)
[2020-06-03] MEDS: MULTIVITAMINS/MINERALS THERAP 1 TAB PO SCH (08:51)
[2020-06-03] MEDS: SandIMMUNE 25 MG CAP (cycloSPORINE) (J7515) PO SCH ×2 (08:52→21:22)
[2020-06-03] MEDS: MAGNESIUM OXIDE 400 MG TAB (MAG-OX) PO SCH ×2 (08:52→21:22)
[2020-06-03] MEDS: HEPARIN SOD (PORCINE) 5000UNITS/ML 1ML VIAL/SYRINGE SC SCH ×2 (08:52→21:20)
[2020-06-03] MEDS: FUROSEMIDE 40MG/4ML VIAL (J1940) IV SCH (08:54)
[2020-06-03] MEDS: LOSARTAN 50MG TABLET PO SCH ×2 (08:56→21:23)
[2020-06-03] MEDS: TRIAMCINOLONE ACET 0.1% CREAM 80 GM TOP SCH ×2 (09:00→21:24)
[2020-06-03] MEDS ORDERED: ISOVUE-370 76% 100ML VIAL As Ordered ONE (11:59)
--- NOTE | 2020-06-03 13:31 | IPNPDOC ---
Text Note Date of Service The patient was seen on 06/03/20. NOTE Hospitalist Progress Note Subjective: Rash continues to show improvement, most areas are now crusted over, and clear skin is beginning to be seen. He still does have some blisters present, particularly on the left hand, and the dorsum of his feet. None are purulent at this time. The induration in the left suprapubic area seems to be improving as well, the patient reports swelling is going down, but it is still significantly tender upon palpation. Objective: General: Awake, alert, oriented 3. HEENT: Head normocephalic, atraumatic, sclera are nonicteric. Hearing is grossly intact to conversation. Respiratory: Clear to auscultation bilaterally with no wheezes, rales, or rhonchi. Cardiovascular: Regular rate and rhythm, with no rubs, gallops, or murmur. Abdomen: Soft, no hepatosplenomegaly appreciated. Bowel sounds present. Left suprapubic induration is approximately 2-3 cm in long diameter by 1 cm wide. Still extremely tender. Extremities: 2+ pulses in the radial and dorsalis pedis bilaterally. No evidence of clubbing or cyanosis. Skin: Vast majority of his body continues to have erythematous maculopapular confluent rash, most particularly on his abdomen, torso, and proximal lower extremities, but he also has significant rash on his shoulders, and there is nowhere that seems to be entirely spared. Assessment/Plan: -Bullous pemphigoid skin rash Started on rituximab as outpatient. Continue with cyclosporine, CellCept, Benadryl, hydroxyzine. Will switch from IV methylprednisolone over to oral prednisone. Due to concern for the association between bullous pemphigoid headache and malignancy CT of the chest had been performed previously, CT of the abdomen and pelvis was performed during his stay here, no malignancy identified in either scan; CT scan of the head and neck was recommended by dermatology, this has been ordered today. -MSSA cellulitis of the left suprapubic region Continue with Ancef, still indurated and tender -Seropositive rheumatoid arthritis Also treated with rituximab -Obesity with LISA Patient has his own CPAP which he is using while inpatient -Hypertension Continue with losartan and Lasix -DVT prophylaxis Heparin VS,Fishbone, I+O VS, Fishbone, I+O Laboratory Tests 06/03/20 05:24 Vital Signs Date Time Temp Pulse Resp B/P (MAP) Pulse Ox O2 Delivery O2 Flow Rate FiO2 06/03/20 08:56 152/92 06/03/20 06:17 99.0 71 18 99 Room Air 06/02/20 06:00 9.0 I&O- Last 24 Hours up to 6 AM 06/03/20 06:00 Intake Total 1240 ml Output Total 2150 ml Balance -910 ml SANDRA ACOSTA DO Jun 03, 2020 13:31
[2020-06-03 14:00] VITALS: BP 143/89
--- NOTE | 2020-06-03 15:24 | REP ---
INDICATION: Screening for malignancy. COMPARISON: No comparison brain imaging.. TECHNIQUE: CT contrast dose: 100 ml as Isovue 370 as administered intravenously. Pre and post contrast helical scanning is included. FINDINGS: Bone windows settings demonstrate intact bony calvarium. There is no evidence of skull fracture or bony destructive lesion. The visualized paranasal sinuses are clear. No intraorbital abnormality is seen. On soft tissue window settings, devries-white differentiation pattern is seen to be normal above and below the tentorium. Lateral, third, and fourth ventricles are normal in size and position. There is no evidence of intracranial hemorrhage. No mass, extra-axial fluid collection or infarction is seen. Contrast enhanced study shows enhancement of normal vessels. No abnormal contrast enhancement is appreciated. IMPRESSION: Normal brain CT without and with IV contrast. <Electronically signed by Maverick Cronin > 06/03/20 [id number]
--- NOTE | 2020-06-03 15:27 | REP ---
INDICATION: Screening for malignancy. CT head. COMPARISON: None. TECHNIQUE: Helical scanning is acquired and 3 mm axial images are generated. Coronal and sagittal MPR images are generated. CT contrast enhancement dose is 100 mL of intravenous Isovue 370. FINDINGS: Preliminary digital mechanic view is unremarkable. There is no CT evidence of paranasal sinus inflammatory disease. No intraorbital abnormality is appreciated. No bony calvarial pole mandibular or cervical spine destructive lesion is seen. There is degenerative spondylosis in the cervical spine multiple levels. Degenerative disc disease is most pronounced at C4-5 and C5-6. Discogenic spurring and disc space narrowing are noted at C6-7 and C7-T1 as well. There is slight straightening. Thyroid lobes are normal and symmetric. Submandibular glands and parotid glands are unremarkable bilaterally. Tonsillar and peritonsillar soft tissues are intact and unremarkable. Nasal airway nasopharynx and hypopharynx are unremarkable. Epiglottis is normal in appearance. No glottic or subglottic airway lesion is seen. The lung apices are clear. There is no mediastinal adenopathy visualized in the upper mediastinum. IMPRESSION: No mass or adenopathy seen. Degenerative spondylosis changes in the cervical spine. <Electronically signed by Maverick Cronin > 06/03/20 [id number]
[2020-06-03 20:00] VITALS: BP 141/90
[2020-06-03] MEDS: predniSONE 20 MG TAB PO SCH (21:23)
[2020-06-04] MEDS: ceFAZolin SOD 1 GM in D5W MINI-BAG PLUS 50 ML IV SCH ×2 (03:59→12:17)
[2020-06-04 06:14] VITALS: BP 139/96
[2020-06-04 07:04] LABS: HEMATOCRIT 42.3 % (42.0-52.0); HEMOGLOBIN 13.8 g/dl (13.5-17.5); MEAN CORPUSCULAR HEMOGLOBIN 32.9 pg (27.0-33.0); MEAN CORPUSCULAR HGB CONC 32.6 g/dl (32.0-36.5); MEAN CORPUSCULAR VOLUME 100.7 fl (80.0-96.0); PLATELET COUNT, AUTOMATED 352 10^3/uL (150-450); WHITE BLOOD COUNT 12.9 10^3/uL (4.0-10.0)
[2020-06-04 07:28] LABS: BLOOD UREA NITROGEN 35 MG/DL (7-18); CALCIUM LEVEL 9.1 MG/DL (8.5-10.1); CARBON DIOXIDE LEVEL 29 MEQ/L (21-32); CHLORIDE LEVEL 106 MEQ/L (98-107); GLOMERULAR FILTRATION RATE > 60.0 (>56); GLUCOSE, FASTING 165 MG/DL (70-100); POTASSIUM SERUM 4.5 MEQ/L (3.5-5.1); SODIUM LEVEL 139 MEQ/L (136-145)
[2020-06-04 08:11] LABS: ATYPICAL LYMPH 1 % (0-5); LYMPHOCYTES 10 % (16-44); METAMYELOCYTES 1 % (0-0); MONOCYTES 6 % (0-5); MYELOCYTES 4 % (0-0); NEUTROPHILS 76 % (28-66)
[2020-06-04 08:12] LABS: PLATELET ESTIMATE NORMAL (NORMAL)
[2020-06-04 08:13] LABS: ANISOCYTOSIS 1+
[2020-06-04] MEDS: SENOKOT S TAB PO SCH ×2 (08:47→21:16)
[2020-06-04] MEDS: MAGNESIUM OXIDE 400 MG TAB (MAG-OX) PO SCH ×2 (08:48→21:16)
[2020-06-04] MEDS: MULTIVITAMINS/MINERALS THERAP 1 TAB PO SCH (08:50)
[2020-06-04] MEDS: PANTOPRAZOLE 40MG TAB (PROTONIX) PO SCH (08:50)
[2020-06-04] MEDS: predniSONE 20 MG TAB PO SCH ×2 (08:50→21:16)
[2020-06-04] MEDS: SandIMMUNE 25 MG CAP (cycloSPORINE) (J7515) PO SCH ×2 (08:50→21:16)
[2020-06-04] MEDS: LOSARTAN 50MG TABLET PO SCH (08:50)
[2020-06-04] MEDS: MYCOPHENOLATE MOFETIL 250 MG CAP (J7517) PO SCH ×2 (08:51→21:16)
[2020-06-04] MEDS: HEPARIN SOD (PORCINE) 5000UNITS/ML 1ML VIAL/SYRINGE SC SCH ×2 (08:51→21:15)
[2020-06-04] MEDS: FUROSEMIDE 40MG/4ML VIAL (J1940) IV SCH (08:53)
[2020-06-04] MEDS: TRIAMCINOLONE ACET 0.1% CREAM 80 GM TOP SCH ×2 (08:53→21:17)
--- NOTE | 2020-06-04 13:21 | IPNPDOC ---
Text Note Date of Service The patient was seen on 06/04/20. NOTE Hospitalist Progress Note Subjective: He did have a large blister on his right foot break this morning, and he still has a few scattered blisters across his feet, abdomen, and hands. Otherwise, the remainder of his blisters seem to be crusting over and have dried out. His major complaint today is that of a dry skin and pruritus. Objective: General: Awake, alert, oriented 3. Not in any acute distress. HEENT: Head normocephalic, atraumatic, sclera are nonicteric. Hearing is grossly intact to conversation. Respiratory: Clear to auscultation bilaterally with no wheezes, rales, or rhonchi. Cardiovascular: Regular rate and rhythm, with no rubs, gallops, or murmur. Abdomen: Soft, nontender, nondistended, no hepatosplenomegaly appreciated. Bowel sounds present. Only minimal improvement is noted in the cellulitis of the left suprapubic region, induration is approximately the same size, perhaps 3-4 cm long, 1 cm wide, it is head filter press tender to palpation Extremities: 2+ pulses in the radial and dorsalis pedis bilaterally. No evidence of clubbing or cyanosis. Skin: Best majority of his body continues to be covered an erythematous maculopapular confluent rash. Most of his blistering lesions have now crusted over, he only has a few scattered areas with blisters or open areas as described above Assessment: -Bullous pemphigoid skin rash Started on rituximab as outpatient. Continue with cyclosporine, CellCept, Benadryl, hydroxyzine. Continue with oral steroids CT scan of the head and neck were negative for malignancy, CT scans of the ches t, abdomen, and pelvis previously ordered and were also negative for malignancy. -MSSA cellulitis of the left suprapubic region Will switch him from IV Ancef over to PO doxycycline today -Seropositive rheumatoid arthritis Also treated with rituximab -Obesity with LISA Patient has his own CPAP which he is using while inpatient -Hypertension Continue losartan, discontinue Lasix -DVT prophylaxis Heparin VS,Fishbone, I+O VS, Fishbone, I+O Laboratory Tests 06/04/20 06:21 Vital Signs Date Time Temp Pulse Resp B/P (MAP) Pulse Ox O2 Delivery O2 Flow Rate FiO2 10/31/20 08:50 160/95 06/04/20 06:14 98.3 85 18 96 Room Air 06/02/20 06:00 9.0 I&O- Last 24 Hours up to 6 AM 06/04/20 06:00 Intake Total 2120 ml Output Total 2400 ml Balance -280 ml SANDRA ACOSTA DO Jun 04, 2020 13:21
[2020-06-04 14:30] VITALS: BP 146/95
[2020-06-04] MEDS: DOXYCYCLINE HYCLATE 100MG TABLET PO SCH (17:23)
[2020-06-04] MEDS ORDERED: LOSARTAN 50MG TABLET PO ONE (21:00)
[2020-06-04 22:00] VITALS: BP 132/82
[2020-06-05] MEDS: NORCO, ANEXSIA 5/325MG TABLET (HYDROcodone/ACETAMINOPHEN) PO PRN (03:47)
[2020-06-05 06:00] VITALS: BP 127/81
[2020-06-05] MEDS: DOXYCYCLINE HYCLATE 100MG TABLET PO SCH ×2 (06:28→17:49)
[2020-06-05] MEDS: HEPARIN SOD (PORCINE) 5000UNITS/ML 1ML VIAL/SYRINGE SC SCH ×2 (09:18→20:52)
[2020-06-05] MEDS: MULTIVITAMINS/MINERALS THERAP 1 TAB PO SCH (09:18)
[2020-06-05] MEDS: MYCOPHENOLATE MOFETIL 250 MG CAP (J7517) PO SCH ×2 (09:18→20:54)
[2020-06-05] MEDS: predniSONE 20 MG TAB PO SCH ×2 (09:18→20:53)
[2020-06-05] MEDS: MAGNESIUM OXIDE 400 MG TAB (MAG-OX) PO SCH ×2 (09:18→20:53)
[2020-06-05] MEDS: SENOKOT S TAB PO SCH ×2 (09:18→20:53)
[2020-06-05] MEDS: TRIAMCINOLONE ACET 0.1% CREAM 80 GM TOP SCH ×2 (09:19→20:52)
[2020-06-05] MEDS: LOSARTAN 50MG TABLET PO SCH (09:30)
[2020-06-05] MEDS: SandIMMUNE 25 MG CAP (cycloSPORINE) (J7515) PO SCH ×2 (11:48→20:54)
[2020-06-05 14:15] VITALS: BP 150/82
--- NOTE | 2020-06-05 16:14 | IPNPDOC ---
Text Note Date of Service The patient was seen on 06/05/20. NOTE Hospitalist Progress Note Subjective: The blister on his right foot is still draining some serosanguineous drainage and a foam dressing, but otherwise appears to be clean with no surrounding erythema. He reports that he also had a blister pop on his left back/posterior flank, and he still has a flaccid blister underneath the left large toe which makes it painful for him to walk. He reports that the cellulitis in the left suprapubic region seems to be improving, and the area of induration continues to get smaller. All of this is good news given that he was switched over to oral antibiotics yesterday. Otherwise, the remainder of his review of systems negative. Objective: General: Awake, alert, oriented 3. Not in any acute distress. HEENT: Head normocephalic, atraumatic, sclera are nonicteric. Hearing is grossly intact to conversation. Respiratory: Clear to auscultation bilaterally with no wheezes, rales, or rhonchi. Cardiovascular: Regular rate and rhythm, with no rubs, gallops, or murmur. Abdomen: Indurated area of cellulitis in the left suprapubic area region shows considerable improvement today, now it is only approximately 2 cm x 1cm, and the patient reports that while it is lens fabricating machine tender, his pain is much improved. Extremities: 2+ pulses in the radial and dorsalis pedis bilaterally. No evidence of clubbing or cyanosis. Skin: The vast majority of his body continues to be covered an erythematous maculopapular confluent rash. Most of his blistering lesions have now crusted over and are in various stages of healing, he only has a few scattered blisters or open areas as described above. Assessment: -Bullous pemphigoid skin rash Second episode, likely cause of the resurgence is because he was unable to get his CellCept for a few days from the pharmacy. Started on rituximab as outpatient. Continue with cyclosporine, CellCept, Benadryl, hydroxyzine. Continue with oral steroids No change in his regimen today. CT scan of the head and neck were negative for malignancy, CT scans of the chest, abdomen, and pelvis previously ordered and were also negative for malignancy. -MSSA cellulitis of the left suprapubic region Continues to show improvement on PO doxycycline. This will be continued on d ischarge. -Seropositive rheumatoid arthritis Also treated with rituximab -Obesity with LISA Patient has his own CPAP which he is using while inpatient -Hypertension Typically the patient is on 50 mg of losartan daily at home, because of uncontrolled blood pressures this was increased to 100 mg daily yesterday, and his pressures have been much improved. Will continue with the 100 mg daily. -DVT prophylaxis Heparin VS,Fishbone, I+O VS, Fishbone, I+O Vital Signs Date Time Temp Pulse Resp B/P (MAP) Pulse Ox O2 Delivery O2 Flow Rate FiO2 06/05/20 09:30 153/90 06/05/20 06:00 97.3 68 18 96 Room Air 06/02/20 06:00 9.0 I&O- Last 24 Hours up to 6 AM 06/05/20 06:00 Intake Total 660 ml Output Total 2050 ml Balance -1390 ml SANDRA ACOSTA DO Jun 05, 2020 16:14
[2020-06-05] MEDS: hydrOXYzine 10 MG TAB PO PRN (20:53)
[2020-06-05] MEDS: ACETAMINOPHEN 650MG ER TAB (TYLENOL ARTHRITIS) PO PRN (21:03)
[2020-06-05 22:00] VITALS: BP 152/96
[2020-06-06] MEDS: hydrOXYzine 10 MG TAB PO PRN (05:34)
[2020-06-06] MEDS: ACETAMINOPHEN 650MG ER TAB (TYLENOL ARTHRITIS) PO PRN ×2 (05:34→20:45)
[2020-06-06] MEDS: DOXYCYCLINE HYCLATE 100MG TABLET PO SCH ×2 (05:34→17:18)
[2020-06-06 06:00] VITALS: BP 143/79
--- NOTE | 2020-06-06 07:28 | CR.PDOC ---
General Date of Consultation: Jun 06, 2020 Consultation S)59-year-old male with Rheumatoid Arthritis (followed by Dr. 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 Dermatopathology from [facility]: Interface and spongiotic dermatitis, with negative DIF History leading up to his most recent flare: 05/06/20: Discharged from the hospital 05/20: Cyclosporine was discontinued 05/21 & 05/22: Patient went without Cellcept due to pharmacy error 05/24: Received first Rituximab infusion (which was started to cover RA + dermatitis) 05/26: First bullae developed on abdomen. Prednisone was increased back to 80mg QD 05/27: Patient reports feeling well, having gone for a walk, as well as, having climbed a flight of stairs without difficulty 05/30: Pruritic eruption appeared on trunk and extremities as well as experiencing some SOB on exertion. Patient presented to the ER and was subsequently admitted after receiving IV steroid and Benadryl. Since being admitted patient was continued on the Cellcept 500mg BID, cyclospo rine 150mg BID, IV steroids and doxycycline. Blood culture obtained while in the ER (no growth after 48 hours). Bacterial culture from left ankle grew Staph Aureus. Patient has an 80 gram tube of Triamcinolone 0.1% cream that he is applying BID (with some improvement in lower extremities). CT of the abdomen and pelvis 05/30/20: mild colonic diverticulosis, mild aneurysmal dilation of celiac axis artery (14mm), fatty infiltration of the liver, and cellulitis pattern in L suprapubic soft tissue- started on Ancef, switched over to PO Doxycycline 2 days ago-pt reports area is much improved. CT of head and neck negative for any malignancy. Pt reports this morning that his blisters are healing, but his rash persists. Blister on the R plantar is draining and less tender. O) Skin exam reveals erythematous confluent papules, scale on the abdomen, chest, posterior thighs, back and upper arms, crusted lesions on the upper arms, no active bullae but still with significant rash. L suprapubic with area of induration c/w localized cellulitis. A) Bullous dermatosis P) As pt still has significant skin symptoms, recommend increasing Cellcept to 500mg QAM and 1000mg QHS, increased risk for GI upset with increase in dosage. Also recommend adding Niacinamide/Nicotinamide 500mg BID and increase topical corticosteroid to Clobetasol cream twice daily to all areas of active rash. c/w cyclosporine, magnesium, prednisone, doxycycline as previous. Vital Signs/I&O Vital Signs Date Time Temp Pulse Resp B/P (MAP) Pulse Ox O2 Delivery O2 Flow Rate FiO2 06/06/20 06:00 97.4 71 18 143/79 (100) 96 Room Air 06/02/20 06:00 9.0 I&O- Last 24 Hours up to 6 AM 06/06/20 06:00 Intake Total 3262 ml Output Total 3125 ml Balance 137 ml Laboratory Data Microbiology Microbiology 05/28/20 Wound Culture - Final, Complete Staphylococcus Aureus 05/28/20 Blood Culture - Final, Complete NO GROWTH AFTER 5 DAYS 05/28/20 Blood Culture - Final, Complete NO GROWTH AFTER 5 DAYS Allergies Coded Allergies: No Known Allergies (Unverified , 05/28/20) Home Medications Scheduled Losartan Potassium (Losartan Potassium) 50 Mg Tablet, 50 MG PO DAILY, (Reported) Multivitamins (Thera M Plus Tablet) 1 Each Tablet, 1 TAB PO DAILY, (Reported) Mycophenolate Mofetil (Cellcept) 500 Mg Tablet, 500 MG PO BID, (Reported) Prednisone (Prednisone) 20 Mg Tablet, 80 MG PO DAILY, (Reported) Triamcinolone Acet (Triamcinolone Acetonide 0.1% Crm) 80 Gm Cream..g., 1 DOSE TOP BID, (Reported) APPLIES TO ENTIRE BODY Scheduled PRN Diphenhydramine HCl (Itch Relief Cream) 28 Gm Cream..g., 1 APPLIC TOP BID PRN for ITCHING, (Reported) APPLY TO AFFECTED AREAS Sildenafil Citrate (Sildenafil Citrate) 50 Mg Tablet, 50 MG PO ASDIRECTED PRN for ERECTILE DYSFUNCTION, (Reported) Carolin Riggs PA-C Jun 06, 2020 07:28
[2020-06-06] MEDS: MAGNESIUM OXIDE 400 MG TAB (MAG-OX) PO SCH ×2 (08:26→20:46)
[2020-06-06] MEDS: MYCOPHENOLATE MOFETIL 250 MG CAP (J7517) PO SCH ×2 (08:26→20:47)
[2020-06-06] MEDS: MULTIVITAMINS/MINERALS THERAP 1 TAB PO SCH (08:26)
[2020-06-06] MEDS: SandIMMUNE 25 MG CAP (cycloSPORINE) (J7515) PO SCH ×2 (08:26→20:47)
[2020-06-06] MEDS: SENOKOT S TAB PO SCH ×2 (08:27→20:46)
[2020-06-06] MEDS: HEPARIN SOD (PORCINE) 5000UNITS/ML 1ML VIAL/SYRINGE SC SCH ×2 (08:27→20:47)
[2020-06-06] MEDS: predniSONE 20 MG TAB PO SCH ×2 (08:28→20:46)
[2020-06-06] MEDS: LOSARTAN 50MG TABLET PO SCH (08:28)
[2020-06-06] MEDS: TRIAMCINOLONE ACET 0.1% CREAM 80 GM TOP SCH (08:28)
[2020-06-06] MEDS: PANTOPRAZOLE 40MG TAB (PROTONIX) PO SCH (13:40)
[2020-06-06 14:00] VITALS: BP 133/76
--- NOTE | 2020-06-06 16:45 | IPNPDOC ---
Text Note Date of Service The patient was seen on 06/06/20. NOTE Hospitalist Progress Note Subjective: Patient is in good spirits as usual. He was hopeful to be elevated going home today, but is agreeable to staying until it isn't deemed safe by dermatology. He reports that his skin is healing well, he has less itching, and quite a bit of his skin is no longer crusted over, but actually has new intact pink skin, especially on his back. Objective: General: Awake, alert, oriented 3. Not in any acute distress. HEENT: Head normocephalic, atraumatic, sclera are nonicteric. Hearing is grossly intact to conversation. Respiratory: Clear to auscultation bilaterally with no wheezes, rales, or rhonchi. Cardiovascular: Regular rate and rhythm, with no rubs, gallops, or murmur. Abdomen: Soft, nontender, nondistended, no hepatosplenomegaly appreciated. Bowel sounds present. Still has small area of induration in the left suprapubic region (cellulitis), approximately 2 x 1 cm, less tender than previously. Extremities: 2+ pulses in the radial and dorsalis pedis bilaterally. No evidence of clubbing or cyanosis. Skin: The skin on his back seems to be healing up quite nice, he still does have some crusted over areas on his shoulders, abdomen, and proximal legs. Overall, continues to show improvement on a daily basis. Assessment/Plan: -Bullous pemphigoid skin rash Second episode, likely cause of the resurgence is because he was unable to get his CellCept for a few days from the pharmacy. Started on rituximab as outpatient. Continue with cyclosporine, CellCept, Benadryl, hydroxyzine. CellCept will be increased per recommendations from dermatology. Will resume Protonix due to increased risk for GI upset. Continue with same dose oral steroids (prednisone) Will discontinue triamcinolone cream, and start clobetasol cream twice daily to all areas of active rash recommendations from dermatology. -CT scan of the head and neck were negative for malignancy, CT scans of the chest, abdomen, and pelvis previously ordered and were also negative for malignancy. -MSSA cellulitis of the left suprapubic region Continues to show improvement on PO doxycycline. This will be continued on discharge. -Seropositive rheumatoid arthritis Also treated with rituximab, apparently he is scheduled to have his next dose on 06/10/2020 in the infusion unit at [facility]. It is hoped that he will be discharged prior to this time. -Obesity with LISA Patient has his own CPAP which he is using while inpatient -Hypertension Continue with increased dose of losartan (100 mg daily). -DVT prophylaxis Heparin VS,Fishbone, I+O VS, Fishbone, I+O Vital Signs Date Time Temp Pulse Resp B/P (MAP) Pulse Ox O2 Delivery O2 Flow Rate FiO2 06/06/20 08:28 140/76 06/06/20 06:00 97.4 71 18 96 Room Air 06/02/20 06:00 9.0 I&O- Last 24 Hours up to 6 AM 06/06/20 06:00 Intake Total 3262 ml Output Total 3125 ml Balance 137 ml SANDRA ACOSTA DO Jun 06, 2020 16:45
[2020-06-06] MEDS: diphenhydrAMINE 25MG CAP PO PRN (20:45)
[2020-06-06] MEDS: CLOBETASOL PROPIONATE EMOLLIENT 0.05% CR 60 GM TOP SCH (20:46)
[2020-06-06 22:00] VITALS: BP 167/93
[2020-06-07] MEDS: hydrOXYzine 10 MG TAB PO PRN ×2 (04:23→17:56)
[2020-06-07 06:00] VITALS: BP 149/89
[2020-06-07] MEDS: DOXYCYCLINE HYCLATE 100MG TABLET PO SCH ×2 (06:53→17:47)
[2020-06-07] MEDS: ACETAMINOPHEN 650MG ER TAB (TYLENOL ARTHRITIS) PO PRN ×2 (06:53→17:56)
[2020-06-07 07:46] LABS: HEMATOCRIT 41.3 % (42.0-52.0); HEMOGLOBIN 13.2 g/dl (13.5-17.5); MEAN CORPUSCULAR HEMOGLOBIN 32.8 pg (27.0-33.0); MEAN CORPUSCULAR VOLUME 102.5 fl (80.0-96.0); PLATELET COUNT, AUTOMATED 324 10^3/uL (150-450); RED BLOOD COUNT 4.03 10^6/uL (4.30-6.10); WHITE BLOOD COUNT 17.2 10^3/uL (4.0-10.0)
[2020-06-07 08:06] LABS: BLOOD UREA NITROGEN 28 MG/DL (7-18); CALCIUM LEVEL 8.4 MG/DL (8.5-10.1); CARBON DIOXIDE LEVEL 31 MEQ/L (21-32); CHLORIDE LEVEL 105 MEQ/L (98-107); CREATININE FOR GFR 0.78 MG/DL (0.70-1.30); GLOMERULAR FILTRATION RATE > 60.0 (>56); GLUCOSE, FASTING 139 MG/DL (70-100); MAGNESIUM LEVEL 2.1 MG/DL (1.8-2.4); POTASSIUM SERUM 4.7 MEQ/L (3.5-5.1); SODIUM LEVEL 140 MEQ/L (136-145)
[2020-06-07 08:17] LABS: LYMPHOCYTES 5 % (16-44); METAMYELOCYTES 2 % (0-0); MONOCYTES 6 % (0-5); NEUTROPHILS 85 % (28-66); PLATELET ESTIMATE NORMAL (NORMAL)
[2020-06-07] MEDS: MULTIVITAMINS/MINERALS THERAP 1 TAB PO SCH (09:13)
[2020-06-07] MEDS: predniSONE 20 MG TAB PO SCH ×2 (09:13→20:56)
[2020-06-07] MEDS: PANTOPRAZOLE 40MG TAB (PROTONIX) PO SCH (09:13)
[2020-06-07] MEDS: MAGNESIUM OXIDE 400 MG TAB (MAG-OX) PO SCH ×2 (09:14→20:55)
[2020-06-07] MEDS: SENOKOT S TAB PO SCH ×2 (09:14→20:56)
[2020-06-07] MEDS: LOSARTAN 50MG TABLET PO SCH (09:14)
[2020-06-07] MEDS: MYCOPHENOLATE MOFETIL 250 MG CAP (J7517) PO SCH ×2 (09:15→20:58)
[2020-06-07] MEDS: SandIMMUNE 25 MG CAP (cycloSPORINE) (J7515) PO SCH ×2 (09:15→20:57)
[2020-06-07] MEDS: HEPARIN SOD (PORCINE) 5000UNITS/ML 1ML VIAL/SYRINGE SC SCH ×2 (09:16→20:58)
[2020-06-07] MEDS: CLOBETASOL PROPIONATE EMOLLIENT 0.05% CR 60 GM TOP SCH ×2 (09:17→20:55)
[2020-06-07 09:59] LABS: C REACTIVE PROTEIN QUANTITATIV < 0.30 MG/DL (0.00-0.30)
--- NOTE | 2020-06-07 13:31 | IPNPDOC ---
Text Note Date of Service The patient was seen on 06/07/20. 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 Patient recently had hospitalization 04/26-05/06 for spongiotic dermatitis; his biopsy subsequently resulted with bullous pemphigoid. Patient had outpatient follow-up with Dr. Frey on 05/26 and was found to have increasing blisters and his dose of prednisone was increased from 60 to 80 mg. Patient was admitted to hospital service on 05/28. Dermatology was called on consultation for possible discharge from his blisters. Patient was seen and examined at the bedside. Patient reports that his skin lesions have improved significantly. He denies any chest pain, shortness breath, palpitations, nausea, vomiting, abdominal pain or diarrhea. Objective: Vitals (See below) General: Lying in bed, appears comfortable, AAOx3 HEENT: NC, AT CVS: RRR, +S1S2 Lungs: Fair air entry b/l, appreciable wheezing, rhonchi or rales Abdomen: Soft, ND, NT Extremities: No evidence of edema, - Calf tenderness Skin: Erythema with multiple areas of crusting over involving insensitive parts of his body, arms, legs, abdomen, back and chest - patient reports significant improvement compared to prior; does not spare souls of hands or feet Assessment and plan: Bullous pemphigoid skin rash - Clinically patient has had significant improvement of his skin lesions - Hemodynamically stable and afebrile - c/w Cyclosporine, Mycophenolate, Benadryl, Hydroxyzine, - Patient is scheduled for infusion of rituximab on Saturday - Anticipate discharge on for outpatient Rituxan infusion on Saturday - Dermatology on consultation; discussed case with Dr. Rosenthal today MSSA cellulitis of the left suprapubic region - c/w Doxycycline Seropositive rheumatoid arthritis - c/w Rituximab; next infusion scheduled for 06/10 Obesity with LISA - c/w CPAP while inpatient Hypertension - c/w adjusted dose of losartan GI prophylaxis - c/w Protonix DVT prophylaxis - c/w Heparin Disposition: - Discussed with Dermatology; anticipate DC on 06/09 VS,Gabriela, I+O VS, Gabriela, I+O Laboratory Tests 06/07/20 07:23 Vital Signs Date Time Temp Pulse Resp B/P (MAP) Pulse Ox O2 Delivery O2 Flow Rate FiO2 06/07/20 09:14 149/89 06/07/20 06:00 98.0 89 20 95 Room Air 06/02/20 06:00 9.0 I&O- Last 24 Hours up to 6 AM 06/07/20 06:00 Intake Total 900 ml Output Total 1725 ml Balance -825 ml GUILLERMO BRIGGS MD Jun 07, 2020 13:31
[2020-06-07 14:00] VITALS: BP 165/100
[2020-06-07 15:46] VITALS: BP 152/90
[2020-06-07] MEDS: diphenhydrAMINE 25MG CAP PO PRN (21:08)
[2020-06-07 22:00] VITALS: BP 173/109
[2020-06-08] MEDS: hydrOXYzine 10 MG TAB PO PRN ×3 (00:10→18:41)
[2020-06-08] MEDS: DOXYCYCLINE HYCLATE 100MG TABLET PO SCH ×2 (05:46→17:34)
[2020-06-08 06:00] VITALS: BP 132/88
[2020-06-08 06:27] LABS: HEMOGLOBIN 13.9 g/dl (13.5-17.5); MEAN CORPUSCULAR HEMOGLOBIN 33.3 pg (27.0-33.0); MEAN CORPUSCULAR HGB CONC 33.1 g/dl (32.0-36.5); MEAN CORPUSCULAR VOLUME 100.7 fl (80.0-96.0); PLATELET COUNT, AUTOMATED 327 10^3/uL (150-450); RED BLOOD COUNT 4.17 10^6/uL (4.30-6.10); WHITE BLOOD COUNT 19.4 10^3/uL (4.0-10.0)
[2020-06-08 06:57] LABS: BLOOD UREA NITROGEN 30 MG/DL (7-18); CALCIUM LEVEL 8.9 MG/DL (8.5-10.1); CARBON DIOXIDE LEVEL 26 MEQ/L (21-32); CHLORIDE LEVEL 104 MEQ/L (98-107); CREATININE FOR GFR 0.83 MG/DL (0.70-1.30); GLOMERULAR FILTRATION RATE > 60.0 (>56); GLUCOSE, FASTING 193 MG/DL (70-100); POTASSIUM SERUM 4.8 MEQ/L (3.5-5.1); SODIUM LEVEL 136 MEQ/L (136-145)
[2020-06-08 07:01] LABS: LYMPHOCYTES 6 % (16-44); METAMYELOCYTES 2 % (0-0); MONOCYTES 1 % (0-5); NEUTROPHILS 87 % (28-66); PLATELET ESTIMATE NORMAL (NORMAL)
--- NOTE | 2020-06-08 08:57 | IPNPDOC ---
Text Note Date of Service The patient was seen on 06/08/20. 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 Patient recently had hospitalization 04/26-05/06 for spongiotic dermatitis; his biopsy subsequently resulted with bullous pemphigoid. Patient had outpatient follow-up with Dr. Frey on 05/26 and was found to have increasing blisters and his dose of prednisone was increased from 60 to 80 mg. Patient was admitted to hospital service on 05/28. Dermatology was called on consultation for possible discharge from his blisters. Patient was seen and examined at the bedside. Clinically patient has reported significant improvement of his blisters. Denies any chest pain, shortness of breath or palpitations. Has not experience any nausea, vomiting, abdominal pain or diarrhea. Objective: Vitals (See below) General: Lying in bed, remains comfortable, AAOx3 HEENT: NC, AT CVS: +S1S2 Lungs: Fair air entry b/l, there is no appreciable wheezing, crackles or rhonchi Abdomen: Soft, nondistended and nontender Extremities: No evidence of LE edema, - Calf tenderness Skin: Erythema with few areas of crusting over involving extensive parts of his body, arms, legs, abdomen, back and chest; area of induration at left inguinal area has improved significantly Assessment and plan: Bullous pemphigoid skin rash - Significant improvement of his skin lesions is noted - Hemodynamically stable and afebrile - Patient is scheduled for infusion of rituximab on Saturday (06/10) - Anticipate DC tomorrow (06/09) - c/w Cyclosporine, Mycophenolate, Benadryl, Hydroxyzine, - Dermatology on consultation; appreciate their input MSSA cellulitis of the left suprapubic region - c/w Doxycycline Seropositive rheumatoid arthritis - c/w Rituximab; next infusion scheduled for 06/10 Obesity with LISA - c/w CPAP while inpatient Hypertension - c/w adjusted dose of losartan GI prophylaxis - c/w Protonix DVT prophylaxis - c/w Heparin Disposition: - Anticipate DC tomorrow (06/09) and outpatient Rituxan infusion on Saturday (06/10) VSGabriela, I+O VS, Gabriela, I+O Laboratory Tests 06/08/20 06:02 Vital Signs Date Time Temp Pulse Resp B/P (MAP) Pulse Ox O2 Delivery O2 Flow Rate FiO2 06/08/20 06:00 98.1 86 20 132/88 (103) 96 Room Air 06/02/20 06:00 9.0 I&O- Last 24 Hours up to 6 AM 06/08/20 05:59 Intake Total 900 ml Output Total 350 ml Balance 550 ml GUILLERMO BRIGGS MD Jun 08, 2020 08:56
[2020-06-08] MEDS: SENOKOT S TAB PO SCH ×2 (11:20→21:00)
[2020-06-08] MEDS: MYCOPHENOLATE MOFETIL 250 MG CAP (J7517) PO SCH ×2 (11:20→22:23)
[2020-06-08] MEDS: MULTIVITAMINS/MINERALS THERAP 1 TAB PO SCH (11:20)
[2020-06-08] MEDS: PANTOPRAZOLE 40MG TAB (PROTONIX) PO SCH (11:21)
[2020-06-08] MEDS: SandIMMUNE 25 MG CAP (cycloSPORINE) (J7515) PO SCH ×2 (11:21→22:24)
[2020-06-08] MEDS: MAGNESIUM OXIDE 400 MG TAB (MAG-OX) PO SCH ×2 (11:21→22:25)
[2020-06-08] MEDS: predniSONE 20 MG TAB PO SCH ×2 (11:22→22:22)
[2020-06-08] MEDS: LOSARTAN 50MG TABLET PO SCH (11:24)
[2020-06-08] MEDS: CLOBETASOL PROPIONATE EMOLLIENT 0.05% CR 60 GM TOP SCH ×2 (11:24→18:41)
[2020-06-08] MEDS: HEPARIN SOD (PORCINE) 5000UNITS/ML 1ML VIAL/SYRINGE SC SCH ×2 (11:25→22:25)
[2020-06-08] MEDS: ACETAMINOPHEN 650MG ER TAB (TYLENOL ARTHRITIS) PO PRN ×2 (11:32→22:25)
[2020-06-08 17:28] VITALS: BP 143/92
[2020-06-08 22:00] VITALS: BP 139/89
[2020-06-08] MEDS: diphenhydrAMINE 25MG CAP PO PRN (22:23)
[2020-06-09 06:35] VITALS: BP 132/77
[2020-06-09] MEDS: ACETAMINOPHEN 650MG ER TAB (TYLENOL ARTHRITIS) PO PRN (06:40)
[2020-06-09] MEDS: DOXYCYCLINE HYCLATE 100MG TABLET PO SCH (06:40)
[2020-06-09] MEDS: hydrOXYzine 10 MG TAB PO PRN (06:40)
[2020-06-09 07:17] LABS: HEMATOCRIT 40.4 % (42.0-52.0); HEMOGLOBIN 13.3 g/dl (13.5-17.5); MEAN CORPUSCULAR HEMOGLOBIN 33.3 pg (27.0-33.0); MEAN CORPUSCULAR HGB CONC 32.9 g/dl (32.0-36.5); PLATELET COUNT, AUTOMATED 322 10^3/uL (150-450); WHITE BLOOD COUNT 18.9 10^3/uL (4.0-10.0)
[2020-06-09 07:44] LABS: BLOOD UREA NITROGEN 32 MG/DL (7-18); CALCIUM LEVEL 8.7 MG/DL (8.5-10.1); CARBON DIOXIDE LEVEL 28 MEQ/L (21-32); CHLORIDE LEVEL 104 MEQ/L (98-107); CREATININE FOR GFR 0.94 MG/DL (0.70-1.30); GLOMERULAR FILTRATION RATE > 60.0 (>56); GLUCOSE, FASTING 192 MG/DL (70-100); MAGNESIUM LEVEL 2.1 MG/DL (1.8-2.4); POTASSIUM SERUM 4.9 MEQ/L (3.5-5.1); SODIUM LEVEL 137 MEQ/L (136-145)
[2020-06-09 07:58] LABS: ATYPICAL LYMPH 2 % (0-5); LYMPHOCYTES 7 % (16-44); METAMYELOCYTES 1 % (0-0); MONOCYTES 3 % (0-5); MYELOCYTES 2 % (0-0); NEUTROPHILS 83 % (28-66)
[2020-06-09 07:59] LABS: ANISOCYTOSIS 1+; PLATELET ESTIMATE NORMAL (NORMAL)
--- NOTE | 2020-06-09 08:18 | IPNPDOC ---
Text Note Date of Service The patient was seen on 06/07/20. NOTE Subjective: 59-year-old male with current diagnosis of BPAG-2 positive bullous pemphigoid, RA, lung disease 2/2 RA, HTN, LISA on CPAP, obesity, who presented to the hospital with complaints of multiple acute skin eruptions. Patient recently had hospitalization 04/26-05/06 for spongiotic dermatitis. Being treated with doxy for MSSA cellulitis of left suprapubic region. Patient had outpatient follow-up with Dr. Frey on 05/26 and was found to have increasing blisters and his dose of prednisone was increased from 60 to 80 mg. Patient was admitted to hospital service on 05/28. Dermatology was called on consultation for possible discharge from his blisters. Patient was seen and examined at the bedside. Clinically patient has reported significant improvement of his blisters and overall improvement of rash but not resolution of rash. Denies any chest pain, shortness of breath or palpitations. Has not experience any nausea, vomiting, abdominal pain or diarrhea. Mg level ok, blood pressure being monitored on CSA. Rituxan infusion will be done on Saturday. Needs more topical medication, does not have enough for his body. Objective: Vitals (See below) General: Lying in bed, remains comfortable, AAOx3 Abdomen: Soft, nondistended and nontender Extremities: No evidence of LE edema Skin: Erythematous scaly macules and patches coalescing especially over flexural areas with higher sweat producing glands with few areas of crusting over involving extensive parts of his body, arms, legs, abdomen, back and chest; area of induration at left inguinal area has improved significantly; several crusted papules present as well Assessment and plan: Bullous pemphigoid skin rash - Significant improvement of his skin lesions is noted compared to admission - Hemodynamically stable and afebrile - Patient is scheduled for infusion of rituximab on Saturday (06/10) - which is for his RA but should help with the BPAG-2 positive skin inflammation - Anticipate DC 06/09 - c/w Cyclosporine, Mycophenolate, Benadryl, Hydroxyzine, Prednisone 40 mg PO BID - CellCept should be 500 mg AM and 1000 mg PM by mouth, GI side effects may develop at increased dosage - Continue lab monitoring, patient aware, continue blood pressure monitoring on cyclosporine - Continue PPI, would have patient take vitamin D and calcium as well - Continue magnesium at current dose while on cyclosporine - Will see patient in clinic next week after Rituxan infusion, patient aware - Continue clobetasol cream 0.05% BID to areas on body with rash, I would put one tube of clobetasol cream into a tub of CeraVe and use that to apply to the less involved areas BID whereas he can use straight clobetasol to the worse areas BID, patient is aware, please ensure patient is given 3 clobetasol cream 0.05% 60 g tubes prior to leaving the hospital - Upon discharge, please have patient start nicotinamide 500 mg PO BID - OTC - I did discuss with patient, it must specifically be this and not niacin or anything else MSSA cellulitis of the left suprapubic region - c/w Doxycycline Disposition: - Anticipate DC 06/09 and outpatient Rituxan infusion on Saturday (06/10) VS,Gabriela, I+O VS, Gabriela, I+O Laboratory Tests 06/09/20 06:56 Vital Signs Date Time Temp Pulse Resp B/P (MAP) Pulse Ox O2 Delivery O2 Flow Rate FiO2 06/09/20 06:35 97.4 80 18 132/77 (95) 98 Room Air I&O- Last 24 Hours up to 6 AM 06/09/20 06:00 Intake Total 2880 ml Output Total 2925 ml Balance -45 ml ROMULO JACKSON MD Jun 09, 2020 08:17
--- NOTE | 2020-06-09 08:36 | IPNPDOC ---
Text Note Date of Service The patient was seen on 06/09/20. NOTE Subjective: 59-year-old male with current diagnosis of BPAG-2 positive bullous pemphigoid, RA, lung disease 2/2 RA, HTN, LISA on CPAP, obesity, who presented to the hospital with complaints of multiple acute skin eruptions. Patient recently had hospitalization 04/26-05/06 for spongiotic dermatitis. Being treated with doxy for MSSA cellulitis of left suprapubic region. Patient had outpatient follow-up with Dr. Frey on 05/26 and was found to have increasing blisters and his dose of prednisone was increased from 60 to 80 mg. Patient was admitted to hospital service on 05/28. Dermatology was called on consultation for possible discharge from his blisters. Patient was seen and examined at the bedside. Clinically patient has reported significant improvement of his blisters and overall improvement of rash but not resolution of rash. Denies any chest pain, shortness of breath or palpitations. Has not experience any nausea, vomiting, abdominal pain or diarrhea. Mg level ok, blood pressure being monitored on CSA. Rituxan infusion will be done on Saturday. Needs more topical medication, does not have enough for his body - has not received more topical medication and patient needs more. Doing well on increased dosage of CellCept, no GI side effects, no diarrhea, no abdominal pain. Objective: Vitals (See below) General: Lying in bed, remains comfortable, AAOx3 Abdomen: Soft, nondistended and nontender Extremities: No evidence of LE edema Skin: Erythematous scaly macules and patches coalescing especially over flexural areas with higher sweat producing glands with few areas of crusting over involving extensive parts of his body, arms, legs, abdomen, back and chest; area of induration at left inguinal area has improved significantly; several crusted papules present as well - overall 75-80% better than admission, no blisters currently Assessment and plan: Bullous pemphigoid skin rash - Significant improvement of his skin lesions is noted compared to admission - CT scans negative for malignancy - Patient does need a colonoscopy, EGD outpatient - Ensure that patient has a UA completed to look for any blood - Hemodynamically stable and afebrile - Patient is scheduled for infusion of rituximab on Saturday (06/10) - which is for his RA but should help with the BPAG-2 positive skin inflammation - Anticipate DC 06/09 - c/w Cyclosporine, Mycophenolate, Benadryl, Hydroxyzine, Prednisone 40 mg PO BID - CellCept should be 500 mg AM and 1000 mg PM by mouth, GI side effects may develop at increased dosage - Continue lab monitoring, patient aware, continue blood pressure monitoring on cyclosporine - Continue PPI, would have patient take vitamin D and calcium as well - Continue magnesium at current dose while on cyclosporine - Will see patient in clinic next week after Rituxan infusion, patient aware - Continue clobetasol cream 0.05% BID to areas on body with rash, I would put one tube of clobetasol cream into a tub of CeraVe and use that to apply to the less involved areas BID whereas he can use straight clobetasol to the worse areas BID, patient is aware, please ensure patient is given 3 clobetasol cream 0.05% 60 g tubes prior to leaving the hospital - Upon discharge, please have patient start nicotinamide 500 mg PO BID - OTC - I did discuss with patient, it must specifically be this and not niacin or anything else - Prednisone will need to be continued when he goes outpatient with plan for outpatient taper - For outpatient, recommend patient do bleach baths three times a week, take 1/4 cup regular strength bleach into regular sized tube and soak for 10-15 minutes at home - Other considerations for treatment in the future would be Xolair or Dupixent MSSA cellulitis of the left suprapubic region - c/w Doxycycline Disposition: - Anticipate DC 06/09 and outpatient Rituxan infusion on Saturday (06/10) VS,Gabriela, I+O VS, Gabriela, I+O Laboratory Tests 06/09/20 06:56 Vital Signs Date Time Temp Pulse Resp B/P (MAP) Pulse Ox O2 Delivery O2 Flow Rate FiO2 06/09/20 06:35 97.4 80 18 132/77 (95) 98 Room Air I&O- Last 24 Hours up to 6 AM 06/09/20 06:00 Intake Total 2880 ml Output Total 2925 ml Balance -45 ml ROMULO JACKSON MD Jun 09, 2020 08:36
[2020-06-09] MEDS: SENOKOT S TAB PO SCH (09:00)
[2020-06-09] MEDS: HEPARIN SOD (PORCINE) 5000UNITS/ML 1ML VIAL/SYRINGE SC SCH (09:00)
[2020-06-09] MEDS: MULTIVITAMINS/MINERALS THERAP 1 TAB PO SCH (09:02)
[2020-06-09] MEDS: SandIMMUNE 25 MG CAP (cycloSPORINE) (J7515) PO SCH (09:02)
[2020-06-09] MEDS: MYCOPHENOLATE MOFETIL 250 MG CAP (J7517) PO SCH (09:02)
[2020-06-09 09:03] VITALS: BP 132/77
[2020-06-09] MEDS: PANTOPRAZOLE 40MG TAB (PROTONIX) PO SCH (09:03)
[2020-06-09] MEDS: LOSARTAN 50MG TABLET PO SCH (09:03)
[2020-06-09] MEDS: predniSONE 20 MG TAB PO SCH (09:03)
[2020-06-09] MEDS: CLOBETASOL PROPIONATE EMOLLIENT 0.05% CR 60 GM TOP SCH (09:04)
[2020-06-09] MEDS: MAGNESIUM OXIDE 400 MG TAB (MAG-OX) PO SCH (09:05)
[2020-06-09] MEDS ORDERED: HYDR-643 PO (09:39)
[2020-06-09] MEDS ORDERED: CYCL1CAP4 PO (09:39)
[2020-06-09] MEDS ORDERED: PANT40TA29 PO (09:39)
[2020-06-09] MEDS ORDERED: CLOB5CR TOP (09:39)
[2020-06-09] MEDS ORDERED: DOXY100T PO (09:39)
[2020-06-09] MEDS ORDERED: PRED10TA2 PO (09:39)
[2020-06-09] MEDS ORDERED: MYCO500T PO (09:39)
[2020-06-09] MEDS ORDERED: CYCL1CAP5 PO (09:39)
[2020-06-09] MEDS ORDERED: COZA50TA PO (09:39)
[2020-06-09] MEDS ORDERED: SENN-52 PO (09:39)
[2020-06-09] MEDS ORDERED: MAG400TA PO (09:39)
[2020-06-09] MEDS ORDERED: CYCL25CA5 PO (12:28)
--- NOTE | 2020-06-09 13:15 | DS.PDOC ---
Discharge Summary General Date of Admission May 28, 2020 at 16:37 Date of Discharge 06/09/2020 Discharge Summary PROCEDURES PERFORMED DURING STAY: [None]. ADMITTING DIAGNOSES / DISCHARGE DIAGNOSES: Bullous pemphigoid skin rash MSSA cellulitis of the left suprapubic region Seropositive rheumatoid arthritis Obesity with LISA Hypertension GI prophylaxis DVT prophylaxis COMPLICATIONS/CHIEF COMPLAINT: Acute Skin Eruption Of Discoloration HISTORY OF PRESENT ILLNESS: Patient is a 59-year-old male with a PMHx of Bullous pemphigoid, RA, Lung disease 2/2 RA, HTN, LISA on CPAP, Obesity, who presented to the hospital with complaints of multiple acute skin eruptions. Patient recently had hospitalization 04/26-05/06 for spongiotic dermatitis; his biopsy subsequently resulted with bullous pemphigoid. Patient had outpatient follow-up with Dr. Frey on 05/26 and was found to have increasing blisters and his dose of prednisone was increased from 60 to 80 mg. Patient was admitted to hospital service on 05/28. Dermatology was called on consultation for possible discharge from his blisters. HOSPITAL COURSE: Bullous pemphigoid skin rash - Continued improvement of his erythema - Remains hemodynamically stable and afebrile - c/w Cyclosporine, Mycophenolate, Benadryl, Hydroxyzine, - Dermatology on consultation; appreciate their input - Will have patient discharged today with outpatient infusion of Rituxan tomorrow - Patient has been cleared by dermatology for discharge home. We'll continue with current regimen as an outpatient - Outpatient follow-up with dermatology and rheumatology within the next 7 days MSSA cellulitis of the left suprapubic region - c/w Doxycycline; will continue with antibiotics as an outpatient for completion of course Seropositive rheumatoid arthritis - c/w Rituximab; next infusion scheduled for 06/10 Obesity with LISA - c/w CPAP while inpatient Hypertension - c/w adjusted dose of losartan GI prophylaxis - c/w Protonix DVT prophylaxis - c/w Heparin DISCHARGE MEDICATIONS: Please see below. ALLERGIES: Please see below. PHYSICAL EXAMINATION ON DISCHARGE: Vitals (See below) General: Lying in bed, continues to remain comfortable and in no acute distress, AAOx3 HEENT: NC, AT CVS: +S1S2 Lungs: Air entry is fair bilaterally without any evidence of rhonchi, crackles or wheezing Abdomen: Soft, nondistended and nontender Extremities: No edema appreciated at lower extremities, - Calf tenderness Skin: Improvement of erythema; scant amount of crusting; extensive involvement of arms, legs, abdomen, back and chest - Indurated area of at left inguinal area continues to decrease in size LABORATORY DATA: Please see below. ACTIVITY: [As tolerated]. DISCHARGE PLAN: Follow-up with primary care provider, dermatology and rheumatology within the next 7 days Remain compliant with treatment plan and medications Return to the ER if you experience any problems DISPOSITION: Home DISCHARGE CONDITION: [Stable]. TIME SPENT ON DISCHARGE: 35 minutes. Vital Signs/I&Os Vital Signs Date Time Temp Pulse Resp B/P (MAP) Pulse Ox O2 Delivery O2 Flow Rate FiO2 06/09/20 09:03 132/77 06/09/20 06:35 97.4 80 18 98 Room Air I&O- Last 24 Hours up to 6 AM 06/09/20 06:00 Intake Total 2880 ml Output Total 2925 ml Balance -45 ml Laboratory Data Labs 24H Laboratory Tests 2 06/09/20 06:56: Immature Granulocyte % (Auto) , Neutrophils (%) (Auto) , Nucleated Red Blood Cells % (auto) 0.2H, Neutrophils 83H, Band Neutrophils 2, Lymphocytes (Manual) 7L, Monocytes (Manual) 3, Metamyelocytes 1H, Myelocytes 2H, Atypical Lymphocytes 2, Anisocytosis 1+, Macrocytosis 1+, Platelet Estimate NORMAL, Anion Gap 5L, Glomerular Filtration Rate > 60.0, Calcium Level 8.7, Magnesium Level 2.1 CBC/BMP Laboratory Tests 06/09/20 06:56 Discharge Medications Scheduled Clobetasol Propionate (Clobetasol Emollient 0.05% Crm) 60 Gm Cream..g., 0 DOSE TOP BID Cyclosporine (Cyclosporine) 25 Mg Capsule, 2 CAP PO ASDIRECTED to be used for 1 day only (Until 50mg capsules are availabe) Cyclosporine, Modified (Cyclosporine Modified) 100 Mg Capsule, 1 CAP PO BID Cyclosporine, Modified (Cyclosporine Modified) 50 Mg Capsule, 1 CAP PO BID Doxycycline Hyclate (Doxycycline Hyclate) 100 Mg Tablet, 100 MG PO BID@0600,1800 Losartan Potassium (Cozaar) 50 Mg Tablet, 100 MG PO DAILY Magnesium Oxide (Magnesium Oxide) 400 Mg Tablet, 400 MG PO BID Multivitamins (Thera M Plus Tablet) 1 Each Tablet, 1 TAB PO DAILY, (Reported) Mycophenolate Mofetil (Mycophenolate Mofetil) 500 Mg Tablet, 1 TAB PO ASDIRECTED 1 tab in AM; 2 tab in PM Pantoprazole Sodium (Pantoprazole Sodium) 40 Mg Tablet.dr, 40 MG PO DAILY Prednisone (Prednisone) 10 Mg Tablet, 10 MG PO TAPER Take 4 tabs daily x 3 days, then 3 tabs daily x 3 days, then 2 tabs daily x 3 days, then 1 tab daily x 3 days and stop Sennosides/Docusate Sodium (Senna Plus Tablet) 1 Each Tablet, 2 TAB PO BID Scheduled PRN Diphenhydramine HCl (Itch Relief Cream) 28 Gm Cream..g., 1 APPLIC TOP BID PRN for ITCHING, (Reported) APPLY TO AFFECTED AREAS Hydroxyzine HCl (Hydroxyzine HCl) 10 Mg Tablet, 10 MG PO QID PRN for Itching Sildenafil Citrate (Sildenafil Citrate) 50 Mg Tablet, 50 MG PO ASDIRECTED PRN for ERECTILE DYSFUNCTION, (Reported) Allergies Coded Allergies: No Known Allergies (Unverified , 05/28/20) GUILLERMO BRIGGS MD Jun 09, 2020 13:15
== END 2020-06-09 13:00 | disposition home or self-care (01) | DRG 381 ==
LOC: M ED 13:39 → M ED INP 16:37 → ENRESERV 17:05 → M MS5PR 17:45
PROVIDERS: ADMIT Internal Medicine Nephrology; ATTEND Internal Medicine
DX: L12.0 Bullous pemphigoid (principal); I10 Essential (primary) hypertension; N49.8 Inflammatory disorders of other specified male genital organs; E66.9 Obesity, unspecified; G47.33 Obstructive sleep apnea (adult) (pediatric); M06.9 Rheumatoid arthritis, unspecified; Z79.899 Other long term (current) drug therapy; B95.61 Methicillin susceptible Staphylococcus aureus infection as the cause of diseases classified elsewhere

== ENCOUNTER 2020-06-10 08:56 | Outpatient (CLI) | payer BC ==
[2020-06-10] VITALS (9 sets, daily range): BP systolic 141–173; BP diastolic 72–95
[~2020-06-10] VITALS: Ht 170.2 cm; Wt 101.8 kg
[~2020-06-10 08:56] MED LIST changes: +CELL500T PO; +CLOB5CR TOP; +COZA50TA PO; +CYCL1CAP4 PO; +CYCL1CAP5 PO; +CYCL25CA5 PO; +HYDR-643 PO; +MAG400TA PO; +MYCO500T PO; +PANT40TA29 PO; +PRED10TA2 PO; +SENN-52 PO
[2020-06-10] MEDS ORDERED: EPINEPHrine INJ 1 MG/ML 1ML AMP IM PRN (09:00)
[2020-06-10] MEDS ORDERED: methylPREDNISolone 125MG 2ML VIAL IV PRN (09:00)
[2020-06-10] MEDS ORDERED: methylPREDNISolone 125MG 2ML VIAL IV ONE (09:00)
[2020-06-10] MEDS ORDERED: riTUXimab 1,000 MG in NS 900 ML IV ONE (09:00)
[2020-06-10] MEDS ORDERED: ACETAMINOPHEN TAB 650MG DOSE (2X325MG) PO ONE (09:00)
[2020-06-10] MEDS ORDERED: ONDANSETRON 4MG/2ML VIAL IV ONE (09:00)
[2020-06-10] MEDS ORDERED: diphenhydrAMINE 50MG/ML VIAL (J1200) IV ONE (09:00)
[2020-06-10] MEDS ORDERED: diphenhydrAMINE 50MG/ML VIAL (J1200) IV PRN (09:00)
[2020-06-10] MEDS ORDERED: ALBUTEROL SULFATE 2.5 MG/0.5 ML INH NEB SOLN INH PRN (09:00)
== END 2020-06-10 14:50 | disposition home or self-care (01) ==
LOC: M INFU 08:56
PROVIDERS: ATTEND Internal Medicine
DX: M05.79 Rheumatoid arthritis with rheumatoid factor of multiple sites without organ or systems involvement (principal); L12.0 Bullous pemphigoid
CPT/HCPCS: 96375; 96413; 96415; J1200; J2405; J2930; J9312

== ENCOUNTER → 2020-07-05 | Outpatient (CLI) | payer BC ==
[~2020-07-05] MED LIST changes: +CLIN150C14 PO; +DOXY100C PO; +MAGN400T2 PO
--- NOTE | 2020-07-07 06:34 | REP ---
INDICATION: PAIN IN RIGHT KNEE COMPARISON: None. TECHNIQUE: AP, lateral, bilateral oblique and sunrise views. FINDINGS: The osseous structures and joint spaces are intact and age-appropriate. There is no evidence for acute fracture or dislocation. No joint effusion is appreciated. Surrounding soft tissues are unremarkable. No subcutaneous emphysema or radiodense foreign body. IMPRESSION: Normal age-appropriate right knee radiograph series. <Electronically signed by Adam Tejada > 07/07/20 0631
== END ==
LOC: M RAD 11:49
PROVIDERS: ATTEND Internal Medicine
DX: M25.561 Pain in right knee (principal)

== ENCOUNTER → 2020-07-05 | Outpatient (REF) | payer BC ==
[~2020-07-05] MED LIST changes: +SULF1TAB93 PO
[2020-07-05 12:49] LABS: HEMATOCRIT 39.5 % (42.0-52.0); HEMOGLOBIN 12.6 g/dl (13.5-17.5); MEAN CORPUSCULAR HEMOGLOBIN 32.1 pg (27.0-33.0); MEAN CORPUSCULAR HGB CONC 31.9 g/dl (32.0-36.5); MEAN CORPUSCULAR VOLUME 100.8 fl (80.0-96.0); PLATELET COUNT, AUTOMATED 439 10^3/uL (150-450); RED BLOOD COUNT 3.92 10^6/uL (4.30-6.10); WHITE BLOOD COUNT 19.4 10^3/uL (4.0-10.0)
[2020-07-05 13:09] LABS: EOSINOPHILS 1 % (0-3); LYMPHOCYTES 9 % (16-44); MONOCYTES 3 % (0-5); NEUTROPHILS 83 % (28-66); PLATELET ESTIMATE NORMAL (NORMAL)
[2020-07-05 13:11] LABS: ERYTHROCYTE SEDIMENTATION RATE 61 mm/hr (0-20)
[2020-07-05 13:22] LABS: ALBUMIN 2.5 GM/DL (3.2-5.2); ALT/SGPT 58 U/L (12-78); BILIRUBIN,TOTAL 0.7 MG/DL (0.2-1.0); BLOOD UREA NITROGEN 25 MG/DL (7-18); CALCIUM LEVEL 9.2 MG/DL (8.5-10.1); CARBON DIOXIDE LEVEL 25 MEQ/L (21-32); CHLORIDE LEVEL 105 MEQ/L (98-107); CREATININE FOR GFR 1.25 MG/DL (0.70-1.30); GLOMERULAR FILTRATION RATE > 60.0 (>56); GLUCOSE, FASTING 114 MG/DL (70-100); POTASSIUM SERUM 4.6 MEQ/L (3.5-5.1); SODIUM LEVEL 137 MEQ/L (136-145); TOTAL PROTEIN 5.6 GM/DL (6.4-8.2)
== END ==
LOC: M SFHCRHEU 10:57
PROVIDERS: ATTEND Internal Medicine
DX: M05.79 Rheumatoid arthritis with rheumatoid factor of multiple sites without organ or systems involvement (principal); L02.31 Cutaneous abscess of buttock

== ENCOUNTER 2020-07-08 14:04 | Inpatient (IN) | payer BC ==
[~2020-07-08] VITALS: Ht 170.2 cm; Wt 95.4 kg
[~2020-07-08 14:04] MED LIST changes: -CLIN150C14 PO; -DOXY100C PO; -MAGN400T2 PO; -SULF1TAB93 PO
[2020-07-08] MEDS ORDERED: CLINDAMYCIN 600 MG in IV 1 EA IV ONE (15:15)
[2020-07-08] MEDS ORDERED: ACETAMINOPHEN 325 MG TAB PO ONE (15:30)
[2020-07-08] MEDS ORDERED: MYCO500T PO ×2 (15:43)
[2020-07-08] MEDS ORDERED: LOSA50TA88 PO (15:43)
[2020-07-08] MEDS ORDERED: PANT40TA29 PO (15:43)
[2020-07-08] MEDS ORDERED: CYCL1CAP4 PO (15:43)
[2020-07-08] MEDS ORDERED: CLIN150C14 PO (15:43)
[2020-07-08] MEDS ORDERED: DOXY100C PO (15:43)
[2020-07-08] MEDS ORDERED: CYCL1CAP5 PO (15:43)
[2020-07-08 15:58] LABS: BASO # 0.1 10^3/uL (0.0-0.2); BASO % 0.7 % (0.0-1.0); EOS # 0.3 10^3/uL (0.0-0.5); EOS % 1.5 % (0.0-3.0); HEMOGLOBIN 13.3 g/dl (13.5-17.5); LYMPH # 1.2 10^3/uL (1.5-5.0); LYMPH % 6.7 % (24.0-44.0); MEAN CORPUSCULAR HGB CONC 32.4 g/dl (32.0-36.5); MEAN CORPUSCULAR VOLUME 98.8 fl (80.0-96.0); MONO # 2.5 10^3/uL (0.0-0.8); MONO % 13.6 % (0.0-5.0); NEUTROPHILS # 13.3 10^3/uL (1.5-8.5); NEUTROPHILS % 73.2 % (36.0-66.0); PLATELET COUNT, AUTOMATED 488 10^3/uL (150-450); RED BLOOD COUNT 4.15 10^6/uL (4.30-6.10); WHITE BLOOD COUNT 18.2 10^3/uL (4.0-10.0)
[2020-07-08 16:18] LABS: ALBUMIN 2.7 GM/DL (3.2-5.2); ALT/SGPT 122 U/L (12-78); BILIRUBIN,DIRECT 0.3 MG/DL (0.0-0.2); BILIRUBIN,TOTAL 0.7 MG/DL (0.2-1.0); BLOOD UREA NITROGEN 27 MG/DL (7-18); C REACTIVE PROTEIN QUANTITATIV 9.49 MG/DL (0.00-0.30); CALCIUM LEVEL 9.3 MG/DL (8.5-10.1); CARBON DIOXIDE LEVEL 27 MEQ/L (21-32); CHLORIDE LEVEL 102 MEQ/L (98-107); CREATININE FOR GFR 1.22 MG/DL (0.70-1.30); GLOMERULAR FILTRATION RATE > 60.0 (>56); GLUCOSE, FASTING 92 MG/DL (70-100); POTASSIUM SERUM 4.3 MEQ/L (3.5-5.1); SODIUM LEVEL 135 MEQ/L (136-145)
[2020-07-08] MEDS ORDERED: MAGN400T2 PO (16:37)
[2020-07-08] MEDS ORDERED: HYDR-643 PO (16:37)
[2020-07-08] MEDS ORDERED: TRIA1CR80 TOP (16:38)
[2020-07-08 16:45] LABS: ERYTHROCYTE SEDIMENTATION RATE 60 mm/hr (0-20)
[2020-07-08] MEDS ORDERED: diphenhydrAMINE CREAM 30GM TOP PRN (18:45)
--- NOTE | 2020-07-08 19:43 | HPEPDOC ---
General Date of Admission Jul 08, 2020 at 18:26 Date of Service: Jul 08, 2020 Chief Complaint The patient is a 59-year-old male admitted with a reason for visit of Acute Skin Eruption Of Discoloration,Elevations. Source: Patient History of Present Illness Mr. Nava is a 59-year-old male with rheumatoid arthritis, bolus pemphigoid, obesity, and hypertension who is here for skin abscess on his left buttocks which have been continuously draining. He tells me that about 2 Sundays ago (June 26), he first felt skin induration. He saw his rn new grad on that Saturday (June 29) who started him on doxycycline more for his bullous pemphigoid. The induration continued and when he saw his regional education manager on July 05, the regional education manager found an abscess of the left buttocks. The regional education manager was able to incise and drain the abscess and sent it for culture. Culture was positive for MSSA and the patient was started on clindamycin. Despite being on clindamycin for 3 days, he continued to have drainage decided to come to the ED. While in the ED was having chills and a temperature of 100.4. Denies any abdominal pain or diarrhea. Also denies any lightheadedness or dizziness, chest pain, dyspnea, cough, or dysuria. His entire left glut is erythematous. There is a small elevation that is expressing fluid. I was not able to feel for a pocket of pus, but was still able to express serous erythematous fluid. He still has maculopapular rashes diffusely. Patient will be admitted for left gluteal abscess. Home Medications Scheduled Clindamycin Hcl (Clindamycin HCl) 150 Mg Capsule, 450 MG PO TID, (Reported) Cyclosporine, Modified (Cyclosporine Modified) 100 Mg Capsule, 100 MG PO BID, (Reported) WITH 50MG CAPS Cyclosporine, Modified (Cyclosporine Modified) 50 Mg Capsule, 50 MG PO BID, (Reported) WITH 100MG CAPS Doxycycline Hyclate (Doxycycline Hyclate) 100 Mg Capsule, 100 MG PO BID, (Reported) Losartan Potassium (Losartan Potassium) 50 Mg Tablet, 100 MG PO DAILY, (Re ported) Magnesium Oxide (Magnesium Oxide) 400 Mg Tablet, 400 MG PO BID, (Reported) Multivitamins (Thera M Plus Tablet) 1 Each Tablet, 1 TAB PO DAILY, (Reported) Mycophenolate Mofetil (Mycophenolate Mofetil) 500 Mg Tablet, 1,000 MG PO QHS, (Reported) Mycophenolate Mofetil (Mycophenolate Mofetil) 500 Mg Tablet, 500 MG PO DAILY, (Reported) Triamcinolone Acet (Triamcinolone Acetonide 0.1% Crm) 80 Gm Cream..g., 1 APPLIC TOP BID, (Reported) APPLY TO AFFCETED AREAS Scheduled PRN Diphenhydramine HCl (Itch Relief Cream) 28 Gm Cream..g., 1 APPLIC TOP BID PRN for ITCHING, (Reported) APPLY TO AFFECTED AREAS Hydroxyzine HCl (Hydroxyzine HCl) 10 Mg Tablet, 10 MG PO QID PRN for ITCHING, (Reported) Sildenafil Citrate (Sildenafil Citrate) 50 Mg Tablet, 50 MG PO ASDIRECTED PRN for ERECTILE DYSFUNCTION, (Reported) Allergies Coded Allergies: No Known Allergies (Unverified , 05/28/20) Past Medical History Medical History 1. Rheumatoid arthritis 2. Bullous pemphigoid 3. Obesity 4. LISA 5. Hypertension 6. Tinea pedis 7. Erectile dysfunction Surgical History 1. Denies any past surgical history Family History Both his parents have CHF. Father at the age of 85. Mother at the age of 95. Social History * Smoker: former Smoker (quit in 2018) Alcohol: rarely Drugs: denies A-FIB/CHADSVASC A-FIB History Current/History of A-Fib/PAF?: No Review of Systems Constitutional: Reports: Chills Eyes: Denies: Vision change ENT: Denies: Sore Throat Skin: Reports: Rash Pulmonary: Denies: Dyspnea, Cough Cardiovascular: Denies: Chest Pain, Lt Headedness Gastrointestinal: Denies: Abdominal Pain, Diarrhea Genitourinary: Denies: Dysuria Hematologic: Denies: Bruising Neurological: Reports: Other Symptoms (chronic tremors in his hands); Denies: Numbness Physical Examination General Exam: Positive: Alert, Cooperative Eye Exam: Positive: EOMI; Negative: Sclera icteric ENT Exam: Positive: Atraumatic Neck Exam: Positive: Supple Chest Exam: Positive: Clear to auscultation Heart Exam: Positive: Rate Normal, Regular Rhythm Abdomen Exam: Positive: Normal bowel sounds, Soft; Negative: Tenderness Extremity Exam: Positive: Edema Skin Exam: Positive: Rash (diffuse) Neuro Exam: Positive: Cranial Nerves 3-12 NL Psych Exam: Positive: Mental status NL, Mood NL Vital Signs Vital Signs Date Time Temp Pulse Resp B/P (MAP) Pulse Ox O2 Delivery O2 Flow Rate FiO2 07/08/20 19:06 97.9 114 18 197/113 (141) 97 Room Air Laboratory Data Labs 24H Laboratory Tests 2 07/08/20 15:26: Immature Granulocyte % (Auto) 4.3H, Neutrophils (%) (Auto) 73.2H, Lymphocytes (%) (Auto) 6.7L, Monocytes (%) (Auto) 13.6H, Eosinophils (%) (Auto) 1.5, Basophils (%) (Auto) 0.7, Neutrophils # (Auto) 13.3H, Lymphocytes # (Auto) 1.2L, Monocytes # (Auto) 2.5H, Eosinophils # (Auto) 0.3, Basophils # (Auto) 0.1, Nucleated Red Blood Cells % (auto) 0.0, Erythrocyte Sedimentation Rate 60H, Anion Gap 6L, Glomerular Filtration Rate > 60.0, Calcium Level 9.3, Total Bilirubin 0.7, Direct Bilirubin 0.3H, Aspartate Amino Transf (AST/SGOT) 46H, Alanine Aminotransferase (ALT/SGPT) 122H, Alkaline Phosphatase 102, C-Reactive Protein, Quantitative 9.49H, Total Protein 6.0L, Albumin 2.7L, Albumin/Globulin Ratio 0.8 07/08/20 17:09: Coronavirus (COVID-19)(PCR) NEGATIVE CBC/BMP Laboratory Tests 07/08/20 15:26 Microbiology Microbiology 07/08/20 Wound Culture, Received Pending 07/08/20 Blood Culture, Received Pending 07/08/20 Blood Culture, Received Pending Assessment/Plan Mr. Nava is a 59-year-old male with rheumatoid arthritis, bolus pemphigoid, obesity, and hypertension who is here for skin abscess on his left buttocks which have been continuously draining. We have recultured the abscess. Clindamycin should cover MSSA. We'll hold his immunosuppressives as he has an infection. Otherwise we will look for resolution of fevers and improvement of his WBC Plan / VTE VTE Prophylaxis Ordered?: Yes Plan Plan 1. Left buttocks abscess Originally seen on July 05 by regional education manager. Corporate Travel Expert was able to incise and drain. Cultures grew MSSA the patient was started on clindamycin. Abscess continued to drain, he decided to come to the ED While in the ED he had a temperature of 100.4 as well as chills We'll start IV clindamycin and hold his immunosuppressants. He will also be on probiotics twice a day Pending new wound culture 2. Bullous pemphigoid He has diffuse maculopapular rash Continue topical steroids and doxycycline Holding immunosuppressants 3. Rheumatoid arthritis Holding immunosuppressants 4. Hypertension -Continue losartan 5. DVT prophylaxis Lovenox Disposition: Pending resolution of fevers and improvement of WBC ESSENCE RAJAN DO Jul 08, 2020 19:43
[2020-07-08] MEDS: DOXYCYCLINE HYCLATE 100MG TABLET PO SCH (19:48)
[2020-07-08 20:20] VITALS: BP 162/96
[2020-07-08] MEDS ORDERED: DOXYCYCLINE HYCLATE 100MG TABLET PO SCH (21:00)
[2020-07-08] MEDS: LACTOBACILLUS ACIDOPHILUS CAP (BACID) PO SCH (22:16)
[2020-07-08] MEDS: NORCO, ANEXSIA 5/325MG TABLET (HYDROcodone/ACETAMINOPHEN) PO PRN (22:17)
[2020-07-08] MEDS ORDERED: CLINDAMYCIN 600 MG in IV 1 EA IV SCH (23:00)
[2020-07-08] MEDS: TRIAMCINOLONE ACET 0.1% CREAM 80 GM TOP SCH (23:06)
[2020-07-08] MEDS: CLINDAMYCIN 600 MG in IV 1 EA IV SCH (23:07)
[2020-07-08] MEDS: hydrOXYzine 10 MG TAB PO PRN (23:07)
[2020-07-09] MEDS: NORCO, ANEXSIA 5/325MG TABLET (HYDROcodone/ACETAMINOPHEN) PO PRN ×2 (05:09→15:47)
[2020-07-09] MEDS: DOXYCYCLINE HYCLATE 100MG TABLET PO SCH ×2 (05:09→18:29)
[2020-07-09 06:00] VITALS: BP 132/85
[2020-07-09] MEDS: CLINDAMYCIN 600 MG in IV 1 EA IV SCH (06:03)
[2020-07-09 06:51] LABS: HEMATOCRIT 37.5 % (42.0-52.0); HEMOGLOBIN 12.8 g/dl (13.5-17.5); MEAN CORPUSCULAR HEMOGLOBIN 33.2 pg (27.0-33.0); MEAN CORPUSCULAR HGB CONC 34.1 g/dl (32.0-36.5); MEAN CORPUSCULAR VOLUME 97.4 fl (80.0-96.0); PLATELET COUNT, AUTOMATED 444 10^3/uL (150-450); RED BLOOD COUNT 3.85 10^6/uL (4.30-6.10); WHITE BLOOD COUNT 17.3 10^3/uL (4.0-10.0)
[2020-07-09 07:39] LABS: BLOOD UREA NITROGEN 25 MG/DL (7-18); CALCIUM LEVEL 8.8 MG/DL (8.5-10.1); CARBON DIOXIDE LEVEL 24 MEQ/L (21-32); CHLORIDE LEVEL 103 MEQ/L (98-107); CREATININE FOR GFR 1.09 MG/DL (0.70-1.30); GLOMERULAR FILTRATION RATE > 60.0 (>56); GLUCOSE, FASTING 117 MG/DL (70-100); POTASSIUM SERUM 4.2 MEQ/L (3.5-5.1); SODIUM LEVEL 137 MEQ/L (136-145)
[2020-07-09] MEDS: ENOXAPARIN 40MG/0.4ML SYRINGE (J1650 PER 10MG) SC SCH ×2 (08:54→08:57)
[2020-07-09] MEDS: LACTOBACILLUS ACIDOPHILUS CAP (BACID) PO SCH ×2 (08:54→20:51)
[2020-07-09] MEDS: MULTIVITAMINS/MINERALS THERAP 1 TAB PO SCH (08:54)
[2020-07-09] MEDS: TRIAMCINOLONE ACET 0.1% CREAM 80 GM TOP SCH ×2 (08:54→20:52)
[2020-07-09] MEDS: LOSARTAN 50MG TABLET PO SCH (08:55)
[2020-07-09] MEDS: MAGNESIUM OXIDE 400 MG TAB (MAG-OX) PO SCH ×2 (08:55→20:51)
[2020-07-09] MEDS: VANCOMYCIN HCL 1,000 MG, VIAL MATE ADAPTER 1 EACH in D5W 250 ML IV SCH ×2 (10:16→20:56)
[2020-07-09] MEDS ORDERED: VANCOMYCIN HCL 1,000 MG, VIAL MATE ADAPTER 1 EACH in D5W 250 ML IV ONE (11:00)
[2020-07-09 14:00] VITALS: BP 116/68
--- NOTE | 2020-07-09 15:48 | IPNPDOC ---
Subjective Date Seen The patient was seen on 07/09/20. Subjective Chief Complaint/HPI Mr. Nava is a 59-year-old male with rheumatoid arthritis, bolus pemphigoid, obesity, and hypertension who is here for skin abscess on his left buttocks which have been continuously draining. This morning, he had a fever of 101.3. Otherwise still draining. Unable to feel an abscess, but is indurated. Denies chest pain, dyspnea, abdominal pain, diarrhea, or dysuria. Reached out to dermatology. Recommended switching clindamycin to vancomycin. Objective Physical Examination General Exam: Positive: Alert, Cooperative Eye Exam: Positive: EOMI; Negative: Sclera icteric ENT Exam: Positive: Atraumatic Neck Exam: Positive: Supple Chest Exam: Positive: Clear to auscultation Heart Exam: Positive: Rate Normal, Regular Rhythm Abdomen Exam: Positive: Normal bowel sounds, Soft; Negative: Tenderness Extremity Exam: Positive: Edema Skin Exam: Positive: Rash (diffuse) Neuro Exam: Positive: Cranial Nerves 3-12 NL Psych Exam: Positive: Mental status NL, Mood NL Assessment /Plan Assessment Mr. Nava is a 59-year-old male with rheumatoid arthritis, bolus pemphigoid, obesity, and hypertension who is here for skin abscess on his left buttocks which have been continuously draining. We have recultured the abscess. Spoke with Dermatology about case. He is on immunosuppressives which may be the reason the Clindamycin had not resolved infection. Recommended holding immunosuppressives and replacing Clindamycin with Vancomycin. Otherwise, d isposition pending improvement in WBC and resolution of fevers Plan/VTE VTE Prophylaxis Ordered?: Yes Plan 1. Left buttocks abscess Originally seen on July 05 by steam box operator. Solution Specialist was able to incise and drain. Cultures grew MSSA the patient was started on clindamycin. Abscess continued to drain, he decided to come to the ED While in the ED he had a temperature of 100.4 as well as chills Continue to hold his immunosuppressants. This may be the reason he failed outpatient therapy -Switch Clindamycin to Vancomycin Pending new wound culture -Could not feel for abscess despite draining, there is induration. Will order US to look for abscess in the area 2. Bullous pemphigoid He has diffuse maculopapular rash Continue topical steroids and doxycycline Holding immunosuppressants 3. Rheumatoid arthritis Holding immunosuppressants 4. Hypertension -Continue losartan 5. DVT prophylaxis Lovenox Disposition: Pending resolution of fevers and improvement of WBC VS, I&O, 24H, Fishbone Vital Signs/I&O Vital Signs Date Time Temp Pulse Resp B/P (MAP) Pulse Ox O2 Delivery O2 Flow Rate FiO2 07/09/20 08:55 132/85 07/09/20 06:17 99.3 07/09/20 06:00 113 20 94 Room Air I&O- Last 24 Hours up to 6 AM 07/09/20 06:00 Intake Total 530 ml Output Total 0 ml Balance 530 ml Laboratory Data 24H LABS Laboratory Tests 2 07/08/20 17:09: Coronavirus (COVID-19)(PCR) NEGATIVE 07/09/20 06:20: Nucleated Red Blood Cells % (auto) 0.0, Anion Gap 10, Glomerular Filtration Rate > 60.0, Calcium Level 8.8 CBC/BMP Laboratory Tests 07/09/20 06:20 Microbiology Microbiology 07/08/20 Wound Culture, Received Pending 07/08/20 Blood Culture, Received Pending 07/08/20 Blood Culture, Received Pending ESSENCE RAJAN DO Jul 09, 2020 15:48
--- NOTE | 2020-07-09 16:38 | REP ---
INDICATION: Left buttock drainage, US to look for abscess. COMPARISON: None. TECHNIQUE: Two-dimensional scanning is performed in the area of interest.. FINDINGS: In the area of active drainage in the left buttock region there is a complex fluid collection with internal hypoechoic debris within the subcutaneous fat layer measuring 9.3 x 1.5 by 1.8 cm. This is compatible with an abscess in the subcutaneous region.. . . IMPRESSION: Complex subcutaneous fluid collection consistent with abscess as above, 9.3 cm in greatest length.. <Electronically signed by Maverick Cronin > 07/09/20 [id number]
[2020-07-09 22:00] VITALS: BP 119/66
[2020-07-10] MEDS: NORCO, ANEXSIA 5/325MG TABLET (HYDROcodone/ACETAMINOPHEN) PO PRN ×2 (02:52→15:48)
[2020-07-10] MEDS: DOXYCYCLINE HYCLATE 100MG TABLET PO SCH ×2 (05:31→17:46)
[2020-07-10 06:00] VITALS: BP 134/81
[2020-07-10 07:13] LABS: HEMOGLOBIN 11.9 g/dl (13.5-17.5); MEAN CORPUSCULAR HGB CONC 33.1 g/dl (32.0-36.5); MEAN CORPUSCULAR VOLUME 99.7 fl (80.0-96.0); PLATELET COUNT, AUTOMATED 427 10^3/uL (150-450); RED BLOOD COUNT 3.61 10^6/uL (4.30-6.10); WHITE BLOOD COUNT 16.9 10^3/uL (4.0-10.0)
[2020-07-10 07:38] LABS: BLOOD UREA NITROGEN 24 MG/DL (7-18); CALCIUM LEVEL 8.9 MG/DL (8.5-10.1); CARBON DIOXIDE LEVEL 28 MEQ/L (21-32); CHLORIDE LEVEL 103 MEQ/L (98-107); CREATININE FOR GFR 1.13 MG/DL (0.70-1.30); GLOMERULAR FILTRATION RATE > 60.0 (>56); GLUCOSE, FASTING 107 MG/DL (70-100); POTASSIUM SERUM 4.2 MEQ/L (3.5-5.1); SODIUM LEVEL 137 MEQ/L (136-145)
[2020-07-10] MEDS: MULTIVITAMINS/MINERALS THERAP 1 TAB PO SCH (08:47)
[2020-07-10] MEDS: LOSARTAN 50MG TABLET PO SCH (08:48)
[2020-07-10] MEDS: LACTOBACILLUS ACIDOPHILUS CAP (BACID) PO SCH ×2 (08:48→21:00)
[2020-07-10] MEDS: MAGNESIUM OXIDE 400 MG TAB (MAG-OX) PO SCH ×2 (08:48→21:13)
[2020-07-10] MEDS: TRIAMCINOLONE ACET 0.1% CREAM 80 GM TOP SCH ×2 (08:48→21:14)
[2020-07-10] MEDS: ENOXAPARIN 40MG/0.4ML SYRINGE (J1650 PER 10MG) SC SCH (08:49)
[2020-07-10] MEDS: VANCOMYCIN HCL 1,000 MG, VIAL MATE ADAPTER 1 EACH in D5W 250 ML IV SCH ×2 (09:54→21:14)
[2020-07-10] MEDS ORDERED: LIDOCAINE W/EPINEPHRINE 1% 20ML VIAL SC ONE (12:00)
--- NOTE | 2020-07-10 12:38 | IPNPDOC ---
Subjective Date Seen The patient was seen on 07/10/20. Subjective Chief Complaint/HPI Mr. Nava is a 59-year-old male with rheumatoid arthritis, bolus pemphigoid, obesity, and hypertension who is here for skin abscess on his left buttocks which have been continuously draining. No fever overnight. Last fever more than 24 hours. Still reports occasional chills, but abscess stopped draining. US demonstrated 9.3cm x 1.5cm x 1.8 cm complex abscess. Spoke with General Surgery, plan for drainage today. Otherwise today, denies chest pain, dyspnea, abdominal pain, diarrhea, or dysuria. Objective Physical Examination General Exam: Positive: Alert, Cooperative Eye Exam: Positive: EOMI; Negative: Sclera icteric ENT Exam: Positive: Atraumatic Neck Exam: Positive: Supple Chest Exam: Positive: Clear to auscultation Heart Exam: Positive: Rate Normal, Regular Rhythm Abdomen Exam: Positive: Normal bowel sounds, Soft; Negative: Tenderness Extremity Exam: Positive: Edema Skin Exam: Positive: Rash (diffuse) Neuro Exam: Positive: Cranial Nerves 3-12 NL Psych Exam: Positive: Mental status NL, Mood NL Assessment /Plan Assessment Mr. Nava is a 59-year-old male with rheumatoid arthritis, bolus pemphigoid, obesity, and hypertension who is here for skin abscess on his left buttocks which have been continuously draining. We have recultured the abscess which grew the same organism despite effective oral therapy. Spoke with Dermatology about case. He is on immunosuppressives which may be the reason the Clindamycin had not resolved infection. Recommended holding immunosuppressives and replacing Clindamycin with Vancomycin. There is also still a large abscess which could also explain outpatient therapy failure. Plan for drainage today. Otherwise, disposition pending improvement in WBC and resolution of fevers Plan/VTE VTE Prophylaxis Ordered?: Yes Plan 1. Left buttock MSSA abscess Originally seen on July 05 by spa receptionist. Cesspool Cleaner was able to in cise and drain. Cultures grew MSSA the patient was started on clindamycin. Abscess continued to drain, he decided to come to the ED While in the ED he had a temperature of 100.4 as well as chills Continue to hold his immunosuppressants. This may be the reason he failed outpatient therapy -Switch Clindamycin to Vancomycin Wound culture grew same MSSA -US found 9.3cm x 1.5cm x 1.8 cm complex abscess -Spoke with General surgery. Plan for I&D today 2. Bullous pemphigoid He has diffuse maculopapular rash Continue topical steroids and doxycycline Holding immunosuppressants 3. Rheumatoid arthritis Holding immunosuppressants 4. Hypertension -Continue losartan 5. DVT prophylaxis Lovenox Disposition: I&D today. Pending resolution of fevers and improvement of WBC VS, I&O, 24H, Fishbone Vital Signs/I&O Vital Signs Date Time Temp Pulse Resp B/P (MAP) Pulse Ox O2 Delivery O2 Flow Rate FiO2 07/10/20 08:48 134/81 07/10/20 06:00 99.3 102 20 94 Room Air I&O- Last 24 Hours up to 6 AM 07/10/20 06:00 Intake Total 2210 ml Output Total 1175 ml Balance 1035 ml Laboratory Data 24H LABS Laboratory Tests 2 07/10/20 06:46: Nucleated Red Blood Cells % (auto) 0.0, Anion Gap 6L, Glomerular Filtration Rate > 60.0, Calcium Level 8.9 CBC/BMP Laboratory Tests 07/10/20 06:46 Microbiology Microbiology 07/08/20 Wound Culture - Final, Complete Staphylococcus Aureus 07/08/20 Blood Culture - Preliminary, Resulted No growth after 24 hours . All specim... 07/08/20 Blood Culture - Preliminary, Resulted No growth after 24 hours . All specim... ESSENCE RAJAN DO Jul 10, 2020 12:38
[2020-07-10 14:30] VITALS: BP 131/78
[2020-07-10] MEDS: hydrOXYzine 10 MG TAB PO PRN (21:13)
[2020-07-10 22:00] VITALS: BP 138/83
[2020-07-11] MEDS: NORCO, ANEXSIA 5/325MG TABLET (HYDROcodone/ACETAMINOPHEN) PO PRN ×3 (00:25→12:53)
[2020-07-11] MEDS ORDERED: SLF 3 ML SYR IV PRN (04:45)
[2020-07-11] MEDS: DOXYCYCLINE HYCLATE 100MG TABLET PO SCH ×2 (05:10→17:50)
[2020-07-11 06:00] VITALS: BP 138/73
[2020-07-11 06:49] LABS: HEMATOCRIT 35.6 % (42.0-52.0); HEMOGLOBIN 11.5 g/dl (13.5-17.5); MEAN CORPUSCULAR HEMOGLOBIN 31.9 pg (27.0-33.0); MEAN CORPUSCULAR HGB CONC 32.3 g/dl (32.0-36.5); MEAN CORPUSCULAR VOLUME 98.9 fl (80.0-96.0); PLATELET COUNT, AUTOMATED 441 10^3/uL (150-450); WHITE BLOOD COUNT 14.7 10^3/uL (4.0-10.0)
[2020-07-11 07:08] LABS: BLOOD UREA NITROGEN 20 MG/DL (7-18); CALCIUM LEVEL 8.5 MG/DL (8.5-10.1); CARBON DIOXIDE LEVEL 29 MEQ/L (21-32); CHLORIDE LEVEL 105 MEQ/L (98-107); GLOMERULAR FILTRATION RATE > 60.0 (>56); GLUCOSE, FASTING 96 MG/DL (70-100); POTASSIUM SERUM 4.3 MEQ/L (3.5-5.1); SODIUM LEVEL 139 MEQ/L (136-145)
[2020-07-11] MEDS: ENOXAPARIN 40MG/0.4ML SYRINGE (J1650 PER 10MG) SC SCH (09:00)
[2020-07-11] MEDS: MULTIVITAMINS/MINERALS THERAP 1 TAB PO SCH (09:10)
[2020-07-11] MEDS: MAGNESIUM OXIDE 400 MG TAB (MAG-OX) PO SCH ×2 (09:10→20:47)
[2020-07-11] MEDS: LOSARTAN 50MG TABLET PO SCH (09:10)
[2020-07-11] MEDS: LACTOBACILLUS ACIDOPHILUS CAP (BACID) PO SCH ×2 (09:10→20:46)
[2020-07-11 09:11] LABS: C REACTIVE PROTEIN QUANTITATIV 4.43 MG/DL (0.00-0.30)
[2020-07-11] MEDS: TRIAMCINOLONE ACET 0.1% CREAM 80 GM TOP SCH ×2 (09:11→20:47)
[2020-07-11] MEDS: VANCOMYCIN HCL 1,000 MG, VIAL MATE ADAPTER 1 EACH in D5W 250 ML IV SCH (09:17)
--- NOTE | 2020-07-11 09:20 | IPNPDOC ---
Text Note Date of Service The patient was seen on 07/11/20. NOTE SUBJECTIVE: Patient and examine his hospital room. Patient denies any acute complaints. Overnight was uneventful. Patient's white count has continued to fall, now at 14.7, down from 18.2 at the time of admission. Patient remained afebrile. He reports significantly improved buttock pain. Denies any chest pain, shortness of breath or difficulty breathing. No abdominal pain or discomfort. Difficulty moving his bowels. He is urinating well. OBJECTIVE: Vitals: See below. Gen.: Patient didn't examine his hospital room. He was awake alert and in no acute distress. He is able to answer questions regarding his medical history of any difficulty. HEENT: Normocephalic atraumatic, EOMI, sclera nonicteric conjunctival pallor or injection mucous membranes are moist. CVS: Regular rate and rhythm without any murmurs gallops or rubs. Respiratory: Clear to auscultation bilaterally, no wheezes rales or rhonchi Abdomen: Soft, nontender, nondistended without any rigidity or guarding. Overlying skin consistent with the rash as mentioned below. Extremities: No lower extremity edema or calf tenderness bilaterally. Posterior tibial pulses 2+, radial pulses 2+ bilaterally. Neuro: Annual nerves III through XII grossly intact, strength grossly intact, 5 out of 5 in 4 out of 4. Skin: Left buttock incision clean, free of surrounding erythema. Mild induration. Small amount of drainage noted. Overlying dressing otherwise clean and place. Patient presents with a diffuse rash unchanged from prior examinations. ASSESSMENT: Mr. Nava is a 59-year-old male with rheumatoid arthritis, bolus pemphigoid, obesity, and hypertension who is here for skin abscess on his left buttocks which have been continuously draining. We have recultured the abscess which grew the same organism despite effective oral therapy. Spoke with Dermatology about case. He is on immunosuppressives which may be the reason the Clindamycin had no t resolved infection. Recommended holding immunosuppressives and replacing Clindamycin with Vancomycin. There is also still a large abscess which could also explain outpatient therapy failure. Patient underwent incision and drainage via surgery yesterday, 07/10/20. This morning, we transitioned his IV antibiotics to by mouth Bactrim DS twice a day. We will defer to surgery in regards to wound packing. Anticipate discharge tomorrow morning. PLAN: #Left buttock MSSA abscess -Originally seen on July 05 by snake charmer. Rod Finisher was able to incise and drain. Cultures grew MSSA the patient was started on clindamycin. -Abscess continued to drain, while in the ED he had a temperature of 100.4 and chills -Continue to hold his immunosuppressants, as this may have contributed with patient failing outpatient therapy. -IV Vancomycin started, patient currently day #3 Wound culture grew same MSSA -US found 9.3cm x 1.5cm x 1.8 cm complex abscess. I&D via surgery on 07/10/20 -Transition to PO Bactrim, defer to surgery team in regards to packing. Plan to D/C tomorrow. #Bullous pemphigoid -Diffuse maculopapular rash, present, unchanged -Continue topical steroids and doxycycline -Holding immunosuppressants #Rheumatoid arthritis -Holding immunosuppressants #Hypertension -Continue losartan DVT: Lovenox CODE STATUS: Full Code DISPO: Anticipate D/C tomorrow VS,Gabriela, I+O VS, Gabriela, I+O Laboratory Tests 07/11/20 06:24 Vital Signs Date Time Temp Pulse Resp B/P (MAP) Pulse Ox O2 Delivery O2 Flow Rate FiO2 07/11/20 09:10 140/76 07/11/20 07:39 19 07/11/20 06:00 99.0 110 20 Room Air I&O- Last 24 Hours up to 6 AM 07/11/20 06:00 Intake Total 2040 ml Output Total 475 ml Balance 1565 ml GME ATTESTATION GME ATTESTATION My faculty preceptor for this patient encounter was physically present during the encounter and was fully available. All aspects of the patient interview, examination, medical decision making process, and medical care plan development were reviewed and approved by the faculty preceptor. The faculty preceptor is aware and concurs with the plan as stated in the body of this note and will attest to such by his/her cosignature. ATTENDING NOTE Diego, Essence Brice, saw and evaluated the patient. I agree with the finding and the plan of care as documented in the resident note. DIALLO MILLS DO Jul 11, 2020 09:19 ESSENCE BRICE DO Jul 11, 2020 19:24
[2020-07-11] MEDS: BACTRIM 160MG/800MG DS TAB PO SCH ×2 (09:52→20:47)
[2020-07-11 14:00] VITALS: BP 133/75
[2020-07-11] MEDS: SLF 3 ML SYR IV SCH ×3 (14:00→22:08)
[2020-07-11 20:00] VITALS: BP 144/81
[2020-07-12] MEDS: DOXYCYCLINE HYCLATE 100MG TABLET PO SCH ×2 (05:36→18:01)
[2020-07-12] MEDS: SLF 3 ML SYR IV SCH ×2 (05:37→12:39)
[2020-07-12 05:51] VITALS: BP 149/85
[2020-07-12 08:11] LABS: HEMATOCRIT 37.1 % (42.0-52.0); HEMOGLOBIN 12.2 g/dl (13.5-17.5); MEAN CORPUSCULAR HEMOGLOBIN 32.7 pg (27.0-33.0); MEAN CORPUSCULAR HGB CONC 32.9 g/dl (32.0-36.5); MEAN CORPUSCULAR VOLUME 99.5 fl (80.0-96.0); PLATELET COUNT, AUTOMATED 457 10^3/uL (150-450); RED BLOOD COUNT 3.73 10^6/uL (4.30-6.10); WHITE BLOOD COUNT 11.9 10^3/uL (4.0-10.0)
[2020-07-12 08:32] LABS: BLOOD UREA NITROGEN 19 MG/DL (7-18); CALCIUM LEVEL 8.6 MG/DL (8.5-10.1); CARBON DIOXIDE LEVEL 26 MEQ/L (21-32); CHLORIDE LEVEL 104 MEQ/L (98-107); GLOMERULAR FILTRATION RATE > 60.0 (>56); GLUCOSE, FASTING 105 MG/DL (70-100); POTASSIUM SERUM 4.6 MEQ/L (3.5-5.1); SODIUM LEVEL 137 MEQ/L (136-145)
[2020-07-12] MEDS: ENOXAPARIN 40MG/0.4ML SYRINGE (J1650 PER 10MG) SC SCH (09:00)
--- NOTE | 2020-07-12 09:13 | ROOPDOC ---
[facility] Report Of Operation Report of Operation DATE OF PROCEDURE: 07/10/20 PREPROCEDURE DIAGNOSES: Left buttock abscess POSTPROCEDURE DIAGNOSES: Left buttock abscess/phlegmon. PROCEDURE: incision and drainage, left buttock abscess/phlegmon. SURGEON: Obed Lizarraga MD EXECUTIVE VICE PRESIDENT AND CHIEF FINANCIAL OFFICER: Ki Smiley (MS III) ANESTHESIA: local anesthesia with 1% lidcaine with epinephrine. ESTIMATED BLOOD LOSS: Approximately 5 mL. COMPLICATIONS: none. REMARKS: 59-year-old male admitted for left buttock abscess. 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 PROCEDURE NOTE: There is an area of induration right about 4-5 cm away from the anal verge in the left buttock, minimal cellulitis. He had a previous area of drainage about 5 cm superior to this area which appears flat now. He had an ultrasound showing persistent collection at the subcutaneous space. On I&D, only edematous tissue was found even though I got into the cavity. A 1/2 inches apart and gauze packing was placed. DESCRIPTION OF PROCEDURE: After consent was obtained, he remain in the room, placed on a left lateral decubitus position. The area of the left buttock was prepped with Betadine and sterile drapes placed. The area that it was thickened and indurated was infiltrated with 1% lidocaine containing epinephrine. A cruciate skin incision was created roughly about 4 cm away from the anal verge piece of skin was removed. This was deepened through the thickened subcutaneous tissue with some edematous fluid, and out but no cross abscess found. I probed the wound cavity with a hemostat and tried to directed superiorly to where his previous area of drainage was and still could not find any. I left a one half edge of the perform gauze packing in to allow for some delayed drainage if ever. Patient tolerated the procedure well. Gauze dressings were placed likewise postop underwear used to hold the dressings. OBED LIZARRAGA MD Jul 12, 2020 09:13
[2020-07-12] MEDS: BACTRIM 160MG/800MG DS TAB PO SCH ×2 (09:47→21:13)
[2020-07-12] MEDS: MAGNESIUM OXIDE 400 MG TAB (MAG-OX) PO SCH ×2 (09:47→21:13)
[2020-07-12] MEDS: MULTIVITAMINS/MINERALS THERAP 1 TAB PO SCH (09:47)
[2020-07-12] MEDS: LACTOBACILLUS ACIDOPHILUS CAP (BACID) PO SCH ×2 (09:47→21:13)
[2020-07-12] MEDS: LOSARTAN 50MG TABLET PO SCH (09:47)
[2020-07-12] MEDS: TRIAMCINOLONE ACET 0.1% CREAM 80 GM TOP SCH ×2 (09:48→21:14)
--- NOTE | 2020-07-12 11:04 | IPNPDOC ---
Text Note Date of Service The patient was seen on 07/12/20. NOTE SUBJECTIVE: Patient and examine his hospital room. Patient denies any acute complaints. Overnight was uneventful. Patient's white count has continued to fall, now at 11.9, down from 18.2 at the time of admission. Other labs are stable. Patient remained afebrile. Continues to endorse improving L buttock pain. He has had a small bit of drainage since his packing was pulled. Reports eating only a small amount yesterday. His appetite has returned this morning. Denies any chest pain, shortness of breath or difficulty breathing. No abdominal pain or discomfort. D ifficulty moving his bowels. He is urinating well. OBJECTIVE: Vitals: See below. Gen.: Patient didn't examine his hospital room. He was awake alert and in no acute distress. He is able to answer questions regarding his medical history of any difficulty. HEENT: Normocephalic atraumatic, EOMI, sclera nonicteric conjunctival pallor or injection mucous membranes are moist. CVS: Regular rate and rhythm without any murmurs gallops or rubs. Respiratory: Clear to auscultation bilaterally, no wheezes rales or rhonchi Abdomen: Soft, nontender, nondistended without any rigidity or guarding. Overlying skin consistent with the rash as mentioned below. Extremities: No lower extremity edema or calf tenderness bilaterally. Posterior tibial pulses 2+, radial pulses 2+ bilaterally. Neuro: Annual nerves III through XII grossly intact, strength grossly intact, 5 out of 5 in 4 out of 4. Skin: Left buttock incision clean, free of surrounding erythema. Mild induration. Small amount of drainage noted. No dressing or iodoform gauze noted Patient presents with a diffuse rash unchanged from prior examinations. ASSESSMENT: Mr. Nava is a 59-year-old male with rheumatoid arthritis, bolus pemphigoid, obesity, and hypertension who is here for skin abscess on his left buttocks which have been continuously draining. We have recultured the abscess which grew the same organism despite effective oral therapy. Spoke with Dermatology about case. He is on immunosuppressives which may be the reason the Clindamycin had not resolved infection. Recommended holding immunosuppressives and replacing Clindamycin with Vancomycin. There is also still a large abscess which could also explain outpatient therapy failure. Patient underwent incision and drainage via surgery on 07/10/20. He was transitioned to PO Bactrim DS twice a day the morning of 07/11/20. We will defer to surgery in regards to wound packing. Anticipate discharge tomorrow morning. PLAN: #Left buttock MSSA abscess -Originally seen on July 05 by sawyer cork slabs. Delivery Route Driver was able to incise and drain. Cultures grew MSSA the patient was started on clindamycin. -Abscess continued to drain, while in the ED he had a temperature of 100.4 and chills -Continue to hold his immunosuppressants, as this may have contributed with patient failing outpatient therapy. -Wound culture grew same MSSA. IV Vancomycin started, transitioned to PO Bactrim based on sensitivities on 07/11/20. White count continues to fall. -US found 9.3cm x 1.5cm x 1.8 cm complex abscess. I&D via surgery on 07/10/20 -Iodoform gauze was removed yesterday, patient continues to drain clear fluid. -Anticipate discharge tomorrow morning pending surgical approval -Continue to encourage PO intake. #Bullous pemphigoid -Diffuse maculopapular rash, present, unchanged -Continue topical steroids and doxycycline -Holding immunosuppressants #Rheumatoid arthritis -Holding immunosuppressants #Hypertension -Continue losartan DVT: Lovenox CODE STATUS: Full Code DISPO: We continue to anticipate D/C tomorrow, 07/13/20 pending surgical approval. VS,Fishbone, I+O VS, Fishbone, I+O Laboratory Tests 07/12/20 07:27 07/12/20 07:28 Vital Signs Date Time Temp Pulse Resp B/P (MAP) Pulse Ox O2 Delivery O2 Flow Rate FiO2 07/12/20 09:47 136/84 07/12/20 05:51 97.9 91 18 95 Room Air I&O- Last 24 Hours up to 6 AM 07/12/20 06:00 Intake Total 1495 ml Output Total 1225 ml Balance 270 ml GME ATTESTATION GME ATTESTATION My faculty preceptor for this patient encounter was physically present during the encounter and was fully available. All aspects of the patient interview, examination, medical decision making process, and medical care plan development were reviewed and approved by the faculty preceptor. The faculty preceptor is aware and concurs with the plan as stated in the body of this note and will attest to such by his/her cosignature. ATTENDING NOTE SUBJECTIVE: Patient and examine his hospital room. Patient denies any acute complaints. Overnight was uneventful. Patient's white count has continued to fall, now at 11.9, down from 18.2 at the time of admission. Other labs are stable. Patient remained afebrile. Continues to endorse improving L buttock pain. He has had a small bit of drainage since his packing was pulled. Reports eating only a small amount yesterday. His appetite has returned this morning. Denies any chest pain, shortness of breath or difficulty breathing. No abdominal pain or discomfort. Difficulty moving his bowels. He is urinating well. OBJECTIVE: Vitals: See below. Gen.: Patient didn't examine his hospital room. He was awake alert and in no acute distress. He is able to answer questions regarding his medical history of any difficulty. HEENT: Normocephalic atraumatic, EOMI, sclera nonicteric conjunctival pallor or injection mucous membranes are moist. CVS: Regular rate and rhythm without any murmurs gallops or rubs. Respiratory: Clear to auscultation bilaterally, no wheezes rales or rhonchi Abdomen: Soft, nontender, nondistended without any rigidity or guarding. Over lying skin consistent with the rash as mentioned below. Extremities: No lower extremity edema or calf tenderness bilaterally. Posterior tibial pulses 2+, radial pulses 2+ bilaterally. Neuro: Annual nerves III through XII grossly intact, strength grossly intact, 5 out of 5 in 4 out of 4. Skin: Left buttock incision clean, free of surrounding erythema. Mild induration. Small amount of drainage noted. No dressing or iodoform gauze noted Patient presents with a diffuse rash unchanged from prior examinations. ASSESSMENT: Mr. Nava is a 59-year-old male with rheumatoid arthritis, bolus pemphigoid, obesity, and hypertension who is here for skin abscess on his left buttocks which have been continuously draining. We have recultured the abscess which grew the same organism despite effective oral therapy. Spoke with Dermatology about case. He is on immunosuppressives which may be the reason the Clindamycin had not resolved infection. Recommended holding immunosuppressives and replacing Clindamycin with Vancomycin. There is also still a large abscess which could als o explain outpatient therapy failure. Patient underwent incision and drainage via surgery on 07/10/20. He was transitioned to PO Bactrim DS twice a day the morning of 07/11/20. We will defer to surgery in regards to wound packing. Anticipate discharge tomorrow morning. PLAN: #Left buttock MSSA abscess -Originally seen on July 05 by sawyer cork slabs. Delivery Route Driver was able to incise and drain. Cultures grew MSSA the patient was started on clindamycin. -Abscess continued to drain, while in the ED he had a temperature of 100.4 and chills -Continue to hold his immunosuppressants, as this may have contributed with patient failing outpatient therapy. -Wound culture grew same MSSA. IV Vancomycin started, transitioned to PO Bactrim based on sensitivities on 07/11/20. White count continues to fall. -US found 9.3cm x 1.5cm x 1.8 cm complex abscess. I&D via surgery on 07/10/20 -Iodoform gauze was removed yesterday, patient continues to drain clear fluid. -Anticipate discharge tomorrow morning pending surgical approval -Continue to encourage PO intake. #Bullous pemphigoid -Diffuse maculopapular rash, present, unchanged -Continue topical steroids and doxycycline -Holding immunosuppressants #Rheumatoid arthritis -Holding immunosuppressants #Hypertension -Continue losartan DVT: Lovenox CODE STATUS: Full Code DISPO: We continue to anticipate D/C tomorrow, 07/13/20 pending surgical approval. Attending attestation: Patient seen and examined independently. Agree with resident's note. DIALLO MILLS DO Jul 12, 2020 11:04 KATHRYN GARNETT MD Jul 13, 2020 06:50
[2020-07-12 14:00] VITALS: BP 131/87
[2020-07-12] MEDS: NORCO, ANEXSIA 5/325MG TABLET (HYDROcodone/ACETAMINOPHEN) PO PRN (18:06)
[2020-07-12 21:11] VITALS: BP 123/88
[2020-07-13 06:00] VITALS: BP 127/86
[2020-07-13] MEDS: NORCO, ANEXSIA 5/325MG TABLET (HYDROcodone/ACETAMINOPHEN) PO PRN (06:04)
[2020-07-13] MEDS: DOXYCYCLINE HYCLATE 100MG TABLET PO SCH (06:05)
[2020-07-13 06:46] LABS: HEMATOCRIT 36.8 % (42.0-52.0); HEMOGLOBIN 11.5 g/dl (13.5-17.5); MEAN CORPUSCULAR HEMOGLOBIN 31.9 pg (27.0-33.0); MEAN CORPUSCULAR HGB CONC 31.3 g/dl (32.0-36.5); MEAN CORPUSCULAR VOLUME 101.9 fl (80.0-96.0); PLATELET COUNT, AUTOMATED 437 10^3/uL (150-450); RED BLOOD COUNT 3.61 10^6/uL (4.30-6.10); WHITE BLOOD COUNT 12.1 10^3/uL (4.0-10.0)
[2020-07-13 07:05] LABS: BLOOD UREA NITROGEN 19 MG/DL (7-18); CALCIUM LEVEL 9.1 MG/DL (8.5-10.1); CARBON DIOXIDE LEVEL 24 MEQ/L (21-32); CHLORIDE LEVEL 106 MEQ/L (98-107); CREATININE FOR GFR 1.15 MG/DL (0.70-1.30); GLOMERULAR FILTRATION RATE > 60.0 (>56); GLUCOSE, FASTING 104 MG/DL (70-100); POTASSIUM SERUM 5.2 MEQ/L (3.5-5.1); SODIUM LEVEL 138 MEQ/L (136-145)
[2020-07-13] MEDS: BACTRIM 160MG/800MG DS TAB PO SCH (08:37)
[2020-07-13 08:38] VITALS: BP 130/86
[2020-07-13] MEDS: ENOXAPARIN 40MG/0.4ML SYRINGE (J1650 PER 10MG) SC SCH (08:38)
[2020-07-13] MEDS: MAGNESIUM OXIDE 400 MG TAB (MAG-OX) PO SCH (08:38)
[2020-07-13] MEDS: LACTOBACILLUS ACIDOPHILUS CAP (BACID) PO SCH (08:38)
[2020-07-13] MEDS: LOSARTAN 50MG TABLET PO SCH (08:38)
[2020-07-13] MEDS: MULTIVITAMINS/MINERALS THERAP 1 TAB PO SCH (08:38)
[2020-07-13] MEDS: TRIAMCINOLONE ACET 0.1% CREAM 80 GM TOP SCH (08:39)
[2020-07-13] MEDS ORDERED: SULF1TAB93 PO (10:08)
--- NOTE | 2020-07-13 11:14 | DS.PDOC ---
Discharge Summary General Date of Admission Jul 08, 2020 at 18:26 Date of Discharge Jul 13, 2020 Attending Physician: KATHRYN GARNETT MD Discharge Summary PROCEDURES PERFORMED DURING STAY: L-buttock abscess incision and drainage (07/10/20) ADMITTING DIAGNOSES: Left buttocks abscess Bullous pemphigoid Rheumatoid arthritis Hypertension DISCHARGE DIAGNOSES: Left buttocks abscess, resolved Postoperative: Rheumatoid arthritis Hypertension COMPLICATIONS/CHIEF COMPLAINT: Acute Skin Eruption Of Discoloration,Elevations. HISTORY OF PRESENT ILLNESS: Mr. Nava is a 59-year-old male with rheumatoid arthritis, bolus pemphigoid, obesity, and hypertension who is here for skin abscess on his left buttocks which have been continuously draining. He tells me that about 2 Sundays ago (June 26), he first felt skin induration. He saw his building construction engineer on that Saturday (June 29) who started him on doxycycline more for his bullous pemphigoid. The induration continued and when he saw his technician automated equipment on July 05, the technician automated equipment found an abscess of the left buttocks. The technician automated equipment was able to incise and drain the abscess and sent it for culture. Culture was positive for MSSA and the patient was started on clindamycin. Despite being on clindamycin for 3 days, he continued to have drainage decided to come to the ED. While in the ED was having chills and a temperature of 100.4. Denies any abdominal pain or diarrhea. Also denies any lightheadedness or dizziness, chest pain, dyspnea, cough, or dysuria. His entire left glut is erythematous. There is a small elevation that is expressing fluid. I was not able to feel for a pocket of pus, but was still able to express serous erythematous fluid. He still has maculopapular rashes diffusely. Patient will be admitted for left gluteal abscess. HOSPITAL COURSE: Patient's immunosuppressive were held as there was some thought as to whether this may be contributing to his failed outpatient therapy. Over the course of the patient's first night in the hospital, he was noted to have a fever 101.3. The area of concern was still noted to be draining. Induration was noted. Patient was transitioned from clindamycin to vancomycin IV. On 07/10/20, on 07/10, patient was seen by surgery who performed an I&D of the area. Doesn't packing was placed. Patient investigated without any notable changes in vital signs. His white count continued to fall. Next day, patient was transitioned from IV antibiotics to PO Bactrim per culture sensitivities from 07/08/20. Patient is clinical condition continued to improve over the next 2 days without any appreciable changes. He has remained afebrile. Patient will be discharged home on 7 days of Bactrim BID PO. Is asked to follow- up with his PCP in 5-7 days for repeat evaluation of his abscess and I&D site. He continues to have issues she contact surgery for possible follow-up. He is to restart his home medications and to follow-up with both dermatology and rheumatology as previously scheduled. DISCHARGE MEDICATIONS: Please see below. ALLERGIES: Please see below. PHYSICAL EXAMINATION ON DISCHARGE: VITAL SIGNS: Please see below. GENERAL: Patient is interviewed and examined in his hospital room. Patient resting comfortably in bed in no acute distress. 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 Anticipating discharge. HEENT: Normocephalic, atraumatic, EOMI, sclera nonicteric, no nasal congestion or rhinorrhea mucous membranes are moist. CARDIOVASCULAR EXAMINATION: Regular rate and rhythm, normal S1 and S2 free of any murmurs. RESPIRATORY EXAMINATION: Clear to auscultation bilaterally without any wheezes rales or rhonchi. Good inspiratory effort. ABDOMINAL EXAMINATION: Soft, nontender, nondistended without guarding or rigidity. Bowel sounds are present throughout. EXTREMITIES: No lower extremity swelling or edema. No Tenderness. Peripheral pulses 2+ in both the radial and posterior tibial arteries bilaterally. SKIN: Area of incision and drainage the medial aspect of patient's left buttock noted, no packing appreciated. No obvious drainage. Mild induration surrounding the incision site. No erythema or new swelling. Diffuse macular rash throughout upper extremities, trunk and legs, unchanged from prior examinations. No new or changing lesions. NEUROLOGICAL EXAMINATION: PSYCHIATRIC EXAMINATION: LABORATORY DATA: Please see below. IMAGING: Pelvis ultrasound (07/09/20): Complex cutaneous fluid collection consistent with abscess as per full report, 9.3 cm in greatest length. PROGNOSIS: Good ACTIVITY: As tolerated DIET: Full DISCHARGE PLAN: Home with self-care. ITEMS TO FOLLOWUP ON ON OUTPATIENT: You were admitted for a L buttock abscess, treated with incision and drainage plus antibiotics. Please continue the antibiotics for 7 days. Please follow-up with your PCP within 5-7 days. Please keep your appointments with Dermatology and Rheumatology as scheduled. Please return to the ED should you again experience fever, chills, or extreme pain. Thank you for allowing us to participate in your care. DISCHARGE CONDITION: Stable TIME SPENT ON DISCHARGE: Greater than 35 minutes. Vital Signs/I&Os Vital Signs Date Time Temp Pulse Resp B/P (MAP) Pulse Ox O2 Delivery O2 Flow Rate FiO2 07/13/20 08:38 130/86 07/13/20 06:46 18 07/13/20 06:00 98.1 99 97 Room Air I&O- Last 24 Hours up to 6 AM 07/13/20 06:00 Intake Total 1620 ml Output Total 500 ml Balance 1120 ml Laboratory Data Labs 24H Laboratory Tests 2 07/13/20 06:01: Nucleated Red Blood Cells % (auto) 0.0, Anion Gap 8, Glomerular Filtration Rate > 60.0, Calcium Level 9.1 CBC/BMP Laboratory Tests 07/13/20 06:01 Microbiology Microbiology 07/08/20 Wound Culture - Final, Complete Staphylococcus Aureus 07/08/20 Blood Culture - Preliminary, Resulted No Growth after 72 hours. All specime... 07/08/20 Blood Culture - Preliminary, Resulted No Growth after 72 hours. All specime... Discharge Medications Scheduled Clindamycin Hcl (Clindamycin HCl) 150 Mg Capsule, 450 MG PO TID, (Reported) Cyclosporine, Modified (Cyclosporine Modified) 100 Mg Capsule, 100 MG PO BID, (Reported) WITH 50MG CAPS Cyclosporine, Modified (Cyclosporine Modified) 50 Mg Capsule, 50 MG PO BID, (Reported) WITH 100MG CAPS Doxycycline Hyclate (Doxycycline Hyclate) 100 Mg Capsule, 100 MG PO BID, (Reported) Losartan Potassium (Losartan Potassium) 50 Mg Tablet, 100 MG PO DAILY, (Reported) Magnesium Oxide (Magnesium Oxide) 400 Mg Tablet, 400 MG PO BID, (Reported) Multivitamins (Thera M Plus Tablet) 1 Each Tablet, 1 TAB PO DAILY, (Reported) Mycophenolate Mofetil (Mycophenolate Mofetil) 500 Mg Tablet, 1,000 MG PO QHS, (Reported) Mycophenolate Mofetil (Mycophenolate Mofetil) 500 Mg Tablet, 500 MG PO DAILY, (Reported) Sulfamethoxazole/Trimethoprim (Sulfamethoxazole-Tmp Ds Tablet) 1 Each Tablet, 1 TAB PO BID Triamcinolone Acet (Triamcinolone Acetonide 0.1% Crm) 80 Gm Cream..g., 1 APPLIC TOP BID, (Reported) APPLY TO AFFCETED AREAS Scheduled PRN Diphenhydramine HCl (Itch Relief Cream) 28 Gm Cream..g., 1 APPLIC TOP BID PRN for ITCHING, (Reported) APPLY TO AFFECTED AREAS Hydroxyzine HCl (Hydroxyzine HCl) 10 Mg Tablet, 10 MG PO QID PRN for ITCHING, (Reported) Sildenafil Citrate (Sildenafil Citrate) 50 Mg Tablet, 50 MG PO ASDIRECTED PRN for ERECTILE DYSFUNCTION, (Reported) Allergies Coded Allergies: No Known Allergies (Unverified , 05/28/20) DIALLO MILLS DO Jul 13, 2020 11:14
== END 2020-07-13 13:30 | disposition home or self-care (01) | DRG 364 ==
LOC: M ED 14:04 → M ED INP 18:26 → ENRESERV 18:53 → M MS5PR 20:20
PROVIDERS: ADMIT Internal Medicine; ATTEND Internal Medicine
PROC: 0J990ZZ Drainage of Buttock Subcutaneous Tissue and Fascia, Open Approach (ICD-10-PCS; principal; 2020-07-10)
DX: L02.31 Cutaneous abscess of buttock (principal); D84.9 Immunodeficiency, unspecified; M06.9 Rheumatoid arthritis, unspecified; L12.0 Bullous pemphigoid; I10 Essential (primary) hypertension; E66.9 Obesity, unspecified; B95.61 Methicillin susceptible Staphylococcus aureus infection as the cause of diseases classified elsewhere; Z79.899 Other long term (current) drug therapy; G47.33 Obstructive sleep apnea (adult) (pediatric)

== ENCOUNTER → 2020-07-22 | Outpatient (CLI) | payer BC ==
[~2020-07-22] MED LIST changes: +CLIN150C14 PO; +DOXY100C PO; +MAGN400T2 PO; +SULF1TAB93 PO
--- NOTE | 2020-07-22 08:38 | REP ---
INDICATION: ACUTE PAIN RT KNEE. NO KNOWN INJURY. COMPARISON: Comparison radiographs July 05, 2020.. TECHNIQUE: Axial, coronal, and sagittal imaging planes are utilized. T1, proton density and T2 weighted scans are included with without fat saturation. The patient had difficulty with leg cramping and back pain during the scan and there is moderate motion artifact on many of the images.. FINDINGS: Cortical and medullary bone signal intensity is felt to be normal. There is no evidence of occult fracture or bony destructive lesion. There is minimal suprapatellar joint fluid and a small Alexander's cyst is seen. There is a small subcortical cyst in the anterior and medial aspect of the tibial plateau. Patellar and quadriceps tendons have an intact appearance. There is no evidence of anterior posterior cruciate ligament disruption. Medial and lateral collateral ligaments appear intact. T2 weighted coronal images suggest severe chondromalacia in the medial compartment involving the medial femoral condyle and to a lesser extent, the medial tibial plateau. There appears to be a fairly large full-thickness articular cartilage lesion, 10 mm in medial to lateral span in the medial femoral condyle. There is an area of marrow edema in the medial femoral condyle. No medial or lateral meniscal tear is visualized. 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 Small Alexander cyst. No definite meniscal tear. Motion artifact. <Electronically signed by Maverick Cronin > 07/22/20 [id number]
== END ==
LOC: M RAD 07:07
PROVIDERS: ATTEND Internal Medicine
DX: M25.561 Pain in right knee (principal); M79.604 Pain in right leg

== ENCOUNTER → 2020-08-16 | Outpatient (CLI) | payer BC ==
[~2020-08-16] MED LIST changes: -CLIN150C14 PO; +CLIN150C15 PO
[2020-08-16 15:52] LABS: BASO % 0.3 % (0.0-1.0); EOS # 0.5 10^3/uL (0.0-0.5); EOS % 5.7 % (0.0-3.0); HEMATOCRIT 39.9 % (42.0-52.0); HEMOGLOBIN 12.7 g/dl (13.5-17.5); LYMPH # 2.3 10^3/uL (1.5-5.0); LYMPH % 25.7 % (24.0-44.0); MEAN CORPUSCULAR HEMOGLOBIN 32.5 pg (27.0-33.0); MEAN CORPUSCULAR HGB CONC 31.8 g/dl (32.0-36.5); MONO # 1.1 10^3/uL (0.0-0.8); MONO % 12.5 % (0.0-5.0); NEUTROPHILS # 4.9 10^3/uL (1.5-8.5); NEUTROPHILS % 55.5 % (36.0-66.0); PLATELET COUNT, AUTOMATED 370 10^3/uL (150-450); RED BLOOD COUNT 3.91 10^6/uL (4.30-6.10); WHITE BLOOD COUNT 8.9 10^3/uL (4.0-10.0)
[2020-08-16 16:15] LABS: ERYTHROCYTE SEDIMENTATION RATE 28 mm/hr (0-20)
[2020-08-16 16:36] LABS: BLOOD UREA NITROGEN 22 MG/DL (7-18); CARBON DIOXIDE LEVEL 31 MEQ/L (21-32); CHLORIDE LEVEL 105 MEQ/L (98-107); CREATININE FOR GFR 1.16 MG/DL (0.70-1.30); GLOMERULAR FILTRATION RATE > 60.0 (>56); GLUCOSE, FASTING 82 MG/DL (70-100); POTASSIUM SERUM 4.3 MEQ/L (3.5-5.1); SODIUM LEVEL 140 MEQ/L (136-145)
[2020-08-16 16:37] LABS: ALBUMIN 3.7 GM/DL (3.2-5.2); ALT/SGPT 29 U/L (12-78); BILIRUBIN,TOTAL 0.7 MG/DL (0.2-1.0); CALCIUM LEVEL 9.8 MG/DL (8.5-10.1); TOTAL PROTEIN 6.2 GM/DL (6.4-8.2)
== END ==
LOC: M LAB 15:04
PROVIDERS: ATTEND Internal Medicine
DX: M05.79 Rheumatoid arthritis with rheumatoid factor of multiple sites without organ or systems involvement (principal)

== ENCOUNTER → 2020-09-27 | Outpatient (CLI) | payer BC ==
[~2020-09-27] MED LIST changes: -MAG400TA PO; +MAGN400T35 PO
[2020-09-27 13:32] LABS: BASO # 0.1 10^3/uL (0.0-0.2); BASO % 0.6 % (0.0-1.0); EOS # 0.8 10^3/uL (0.0-0.5); EOS % 9.9 % (0.0-3.0); HEMATOCRIT 46.5 % (42.0-52.0); HEMOGLOBIN 14.7 g/dl (13.5-17.5); LYMPH # 1.5 10^3/uL (1.5-5.0); LYMPH % 17.1 % (24.0-44.0); MEAN CORPUSCULAR HEMOGLOBIN 30.9 pg (27.0-33.0); MEAN CORPUSCULAR HGB CONC 31.6 g/dl (32.0-36.5); MEAN CORPUSCULAR VOLUME 97.9 fl (80.0-96.0); MONO # 0.9 10^3/uL (0.0-0.8); MONO % 11.1 % (2.0-8.0); NEUTROPHILS # 5.2 10^3/uL (1.5-8.5); NEUTROPHILS % 61.1 % (36.0-66.0); PLATELET COUNT, AUTOMATED 331 10^3/uL (150-450); RED BLOOD COUNT 4.75 10^6/uL (4.30-6.10); WHITE BLOOD COUNT 8.5 10^3/uL (4.0-10.0)
[2020-09-27 13:56] LABS: ERYTHROCYTE SEDIMENTATION RATE 9 mm/hr (0-20)
[2020-09-27 13:59] LABS: ALBUMIN 3.7 GM/DL (3.2-5.2); ALT/SGPT 24 U/L (12-78); BILIRUBIN,TOTAL 0.3 MG/DL (0.2-1.0); BLOOD UREA NITROGEN 23 MG/DL (7-18); CALCIUM LEVEL 10.3 MG/DL (8.5-10.1); CARBON DIOXIDE LEVEL 31 MEQ/L (21-32); CHLORIDE LEVEL 105 MEQ/L (98-107); CREATININE FOR GFR 1.03 MG/DL (0.70-1.30); GLOMERULAR FILTRATION RATE > 60.0 (>56); GLUCOSE, FASTING 106 MG/DL (70-100); POTASSIUM SERUM 4.2 MEQ/L (3.5-5.1); SODIUM LEVEL 143 MEQ/L (136-145); TOTAL PROTEIN 6.6 GM/DL (6.4-8.2)
== END ==
LOC: M LAB 13:10
PROVIDERS: ATTEND Internal Medicine
DX: M05.79 Rheumatoid arthritis with rheumatoid factor of multiple sites without organ or systems involvement (principal)

== ENCOUNTER → 2020-12-28 | Outpatient (REF) | payer BC ==
[~2020-12-28] MED LIST changes: +BACTDSTA PO; -SULF1TAB93 PO
== END ==
LOC: M LAB REF 17:30
PROVIDERS: ATTEND Dermatology
DX: L02.91 Cutaneous abscess, unspecified (principal); B95.7 Other staphylococcus as the cause of diseases classified elsewhere

== ENCOUNTER → 2021-01-10 | Outpatient (CLI) | payer BC ==
[2021-01-10 18:13] LABS: ALBUMIN 3.5 GM/DL (3.2-5.2); ALT/SGPT 42 U/L (12-78); BILIRUBIN,TOTAL 0.3 MG/DL (0.2-1.0); BLOOD UREA NITROGEN 16 MG/DL (7-18); CALCIUM LEVEL 9.1 MG/DL (8.5-10.1); CARBON DIOXIDE LEVEL 29 MEQ/L (21-32); CHLORIDE LEVEL 106 MEQ/L (98-107); CREATININE FOR GFR 1.18 MG/DL (0.70-1.30); GLOMERULAR FILTRATION RATE > 60.0 (>56); GLUCOSE, FASTING 94 MG/DL (70-100); MAGNESIUM LEVEL 2.3 MG/DL (1.8-2.4); POTASSIUM SERUM 4.5 MEQ/L (3.5-5.1); SODIUM LEVEL 140 MEQ/L (136-145); TOTAL PROTEIN 6.8 GM/DL (6.4-8.2)
== END ==
LOC: M LAB 15:55
PROVIDERS: ATTEND Dermatology
DX: L12.0 Bullous pemphigoid (principal)

== ENCOUNTER 2021-02-10 08:19 | Outpatient (CLI) | payer BC ==
[~2021-02-10] VITALS: Ht 170.2 cm; Wt 101.0 kg
[2021-02-10] VITALS (7 sets, daily range): BP systolic 135–165; BP diastolic 65–98
[~2021-02-10 08:19] MED LIST changes: +ALBUTEROL SULFATE 2.5 MG/0.5 ML INH NEB SOLN INH PRN; +EPINEPHrine INJ 1 MG/ML 1ML AMP IM PRN; +diphenhydrAMINE 50MG/ML VIAL (J1200) IV PRN; +methylPREDNISolone 125MG 2ML VIAL IV PRN; +riTUXimab (INITIAL INFUSION) IV ONE
[2021-02-10] MEDS ORDERED: diphenhydrAMINE 50MG/ML VIAL (J1200) IV ONE (08:40)
[2021-02-10] MEDS ORDERED: ACETAMINOPHEN TAB 650MG DOSE (2X325MG) PO ONE (08:40)
[2021-02-10] MEDS ORDERED: methylPREDNISolone 125MG 2ML VIAL IV ONE (08:40)
[2021-02-10] MEDS ORDERED: ONDANSETRON 4MG/2ML VIAL IV ONE (08:40)
== END 2021-02-10 14:00 | disposition home or self-care (01) ==
LOC: M INFU 08:19
PROVIDERS: ATTEND Internal Medicine Rheumatology
DX: M05.79 Rheumatoid arthritis with rheumatoid factor of multiple sites without organ or systems involvement (principal)
CPT/HCPCS: 96375; 96413; 96415; J1200; J2405; J2930; J9312

== ENCOUNTER 2021-02-24 07:54 | Outpatient (CLI) | payer BC ==
[~2021-02-24] VITALS: Ht 170.2 cm; Wt 100.0 kg
[2021-02-24] VITALS (7 sets, daily range): BP systolic 129–144; BP diastolic 67–88
[~2021-02-24 07:54] MED LIST changes: -riTUXimab (INITIAL INFUSION) IV ONE
[2021-02-24] MEDS ORDERED: diphenhydrAMINE 50MG/ML VIAL (J1200) IV ONE (08:00)
[2021-02-24] MEDS ORDERED: riTUXimab 1,000 MG in NS 900 ML IV ONE (08:00)
[2021-02-24] MEDS ORDERED: methylPREDNISolone 125MG 2ML VIAL IV ONE (08:00)
[2021-02-24] MEDS ORDERED: ONDANSETRON 4MG/2ML VIAL IV ONE (08:00)
[2021-02-24] MEDS ORDERED: NS 1,000 ML IV SCH (08:00)
[2021-02-24] MEDS ORDERED: ACETAMINOPHEN TAB 650MG DOSE (2X325MG) PO ONE (08:00)
== END 2021-02-24 12:25 | disposition home or self-care (01) ==
LOC: M INFU 07:54
PROVIDERS: ATTEND Internal Medicine Rheumatology
DX: M05.79 Rheumatoid arthritis with rheumatoid factor of multiple sites without organ or systems involvement (principal)
CPT/HCPCS: 96375; 96413; 96415; J1200; J2405; J2930; J9312

== ENCOUNTER → 2021-04-10 | Outpatient (CLI) | payer BC ==
[~2021-04-10] MED LIST changes: -ALBUTEROL SULFATE 2.5 MG/0.5 ML INH NEB SOLN INH PRN; -CLIN150C15 PO; +CLIN150C17 PO; -DOXY100C; -DOXY100C PO; +DOXY100C3; +DOXY100C3 PO; -EPINEPHrine INJ 1 MG/ML 1ML AMP IM PRN; -diphenhydrAMINE 50MG/ML VIAL (J1200) IV PRN; -methylPREDNISolone 125MG 2ML VIAL IV PRN
[2021-04-10 15:27] LABS: BASO # 0.1 10^3/uL (0.0-0.2); BASO % 0.6 % (0.0-1.0); EOS # 1.6 10^3/uL (0.0-0.5); HEMATOCRIT 47.3 % (42.0-52.0); HEMOGLOBIN 15.6 g/dl (13.5-17.5); LYMPH % 12.3 % (24.0-44.0); MEAN CORPUSCULAR HEMOGLOBIN 31.6 pg (27.0-33.0); MEAN CORPUSCULAR VOLUME 95.7 fl (80.0-96.0); MONO # 0.8 10^3/uL (0.0-0.8); MONO % 10.4 % (2.0-8.0); NEUTROPHILS # 4.3 10^3/uL (1.5-8.5); NEUTROPHILS % 55.4 % (36.0-66.0); PLATELET COUNT, AUTOMATED 251 10^3/uL (150-450); RED BLOOD COUNT 4.94 10^6/uL (4.30-6.10); WHITE BLOOD COUNT 7.7 10^3/uL (4.0-10.0)
[2021-04-10 15:54] LABS: ALBUMIN 3.5 GM/DL (3.2-5.2); ALT/SGPT 36 U/L (12-78); BILIRUBIN,TOTAL 0.5 MG/DL (0.2-1.0); BLOOD UREA NITROGEN 18 MG/DL (7-18); C REACTIVE PROTEIN QUANTITATIV 0.55 MG/DL (0.00-0.30); CALCIUM LEVEL 8.9 MG/DL (8.5-10.1); CARBON DIOXIDE LEVEL 27 MEQ/L (21-32); CHLORIDE LEVEL 108 MEQ/L (98-107); CREATININE FOR GFR 0.98 MG/DL (0.70-1.30); GLOMERULAR FILTRATION RATE > 60.0 (>56); GLUCOSE, FASTING 97 MG/DL (70-100); POTASSIUM SERUM 4.5 MEQ/L (3.5-5.1); SODIUM LEVEL 141 MEQ/L (136-145); TOTAL PROTEIN 6.5 GM/DL (6.4-8.2)
[2021-04-10 16:16] LABS: ERYTHROCYTE SEDIMENTATION RATE 5 mm/hr (0-20)
== END ==
LOC: M LAB 14:30
PROVIDERS: ATTEND Internal Medicine Rheumatology
DX: M06.09 Rheumatoid arthritis without rheumatoid factor, multiple sites (principal)

== ENCOUNTER → 2021-06-07 | Outpatient (REF) | payer BC | LOC: M SFHCDERM 16:18 | PROVIDERS: ATTEND Dermatology | DX: L25.9 Unspecified contact dermatitis, unspecified cause (principal) ==

== ENCOUNTER → 2021-06-07 | Outpatient (CLI) | payer BC ==
[2021-06-07 17:55] LABS: BASO # 0.1 10^3/uL (0.0-0.2); BASO % 0.6 % (0.0-1.0); EOS # 2.1 10^3/uL (0.0-0.5); EOS % 19.8 % (0.0-3.0); HEMATOCRIT 46.9 % (42.0-52.0); HEMOGLOBIN 15.4 g/dl (13.5-17.5); LYMPH # 1.2 10^3/uL (1.5-5.0); LYMPH % 11.3 % (24.0-44.0); MEAN CORPUSCULAR HEMOGLOBIN 32.6 pg (27.0-33.0); MEAN CORPUSCULAR HGB CONC 32.8 g/dl (32.0-36.5); MEAN CORPUSCULAR VOLUME 99.2 fl (80.0-96.0); MONO # 1.3 10^3/uL (0.0-0.8); MONO % 12.5 % (2.0-8.0); NEUTROPHILS # 5.8 10^3/uL (1.5-8.5); NEUTROPHILS % 55.4 % (36.0-66.0); PLATELET COUNT, AUTOMATED 274 10^3/uL (150-450); RED BLOOD COUNT 4.73 10^6/uL (4.30-6.10); WHITE BLOOD COUNT 10.4 10^3/uL (4.0-10.0)
[2021-06-07 18:21] LABS: ALBUMIN 3.7 GM/DL (3.2-5.2); ALT/SGPT 35 U/L (12-78); BILIRUBIN,TOTAL 0.3 MG/DL (0.2-1.0); BLOOD UREA NITROGEN 18 MG/DL (7-18); CALCIUM LEVEL 9.8 MG/DL (8.5-10.1); CARBON DIOXIDE LEVEL 35 MEQ/L (21-32); CHLORIDE LEVEL 107 MEQ/L (98-107); CREATININE FOR GFR 1.07 MG/DL (0.70-1.30); GLOMERULAR FILTRATION RATE > 60.0 (>56); GLUCOSE, FASTING 87 MG/DL (70-100); POTASSIUM SERUM 4.7 MEQ/L (3.5-5.1); SODIUM LEVEL 142 MEQ/L (136-145); TOTAL PROTEIN 6.8 GM/DL (6.4-8.2)
[2021-06-07 18:43] LABS: HEPATITIS B SURFACE ANTIGEN NEGATIVE (NEGATIVE)
[2021-06-07 19:09] LABS: HEPATITIS C VIRUS ABY INDEX < 0.0 INDEX (<0.8)
[2021-06-07 19:10] LABS: HEPATITIS B CORE ANTIBODY IGM NEGATIVE (NEGATIVE)
[2021-06-07 19:11] LABS: HIV 1&2 SCREEN CENTAUR NEGATIVE (NEGATIVE)
== END ==
LOC: M LAB 16:32
PROVIDERS: ATTEND Dermatology
DX: L25.9 Unspecified contact dermatitis, unspecified cause (principal)

== ENCOUNTER → 2021-07-04 | Outpatient (REF) | payer BC ==
[~2021-07-04] MED LIST changes: +LOSA50TA28; +LOSA50TA28 PO; -LOSA50TA88; -LOSA50TA88 PO
[2021-07-04 16:41] LABS: BASO % 0.6 % (0.0-1.0); EOS # 1.1 10^3/uL (0.0-0.5); EOS % 15.2 % (0.0-3.0); HEMATOCRIT 48.3 % (42.0-52.0); LYMPH # 0.9 10^3/uL (1.5-5.0); LYMPH % 12.6 % (24.0-44.0); MEAN CORPUSCULAR HEMOGLOBIN 32.4 pg (27.0-33.0); MEAN CORPUSCULAR HGB CONC 33.1 g/dl (32.0-36.5); MEAN CORPUSCULAR VOLUME 97.8 fl (80.0-96.0); MONO # 0.8 10^3/uL (0.0-0.8); MONO % 11.3 % (2.0-8.0); NEUTROPHILS # 4.2 10^3/uL (1.5-8.5); NEUTROPHILS % 59.9 % (36.0-66.0); PLATELET COUNT, AUTOMATED 253 10^3/uL (150-450); RED BLOOD COUNT 4.94 10^6/uL (4.30-6.10); WHITE BLOOD COUNT 7.1 10^3/uL (4.0-10.0)
[2021-07-04 17:03] LABS: ERYTHROCYTE SEDIMENTATION RATE 4 mm/hr (0-20)
[2021-07-04 17:05] LABS: ALBUMIN 3.7 GM/DL (3.2-5.2); ALT/SGPT 43 U/L (12-78); BILIRUBIN,TOTAL 0.4 MG/DL (0.2-1.0); BLOOD UREA NITROGEN 15 MG/DL (7-18); CALCIUM LEVEL 9.3 MG/DL (8.5-10.1); CARBON DIOXIDE LEVEL 29 MEQ/L (21-32); CHLORIDE LEVEL 106 MEQ/L (98-107); CREATININE FOR GFR 0.88 MG/DL (0.70-1.30); GLOMERULAR FILTRATION RATE > 60.0 (>56); GLUCOSE, FASTING 90 MG/DL (70-100); POTASSIUM SERUM 4.8 MEQ/L (3.5-5.1); SODIUM LEVEL 140 MEQ/L (136-145); TOTAL PROTEIN 6.6 GM/DL (6.4-8.2)
== END ==
LOC: M SFHCRHEU 12:27
PROVIDERS: ATTEND Internal Medicine Rheumatology
DX: M05.79 Rheumatoid arthritis with rheumatoid factor of multiple sites without organ or systems involvement (principal)

== ENCOUNTER → 2021-08-09 | Outpatient (CLI) | payer BC ==
[~2021-08-09] MED LIST changes: -LOSA50TA28; -LOSA50TA28 PO; +LOSA50TA88; +LOSA50TA88 PO
[2021-08-09 16:56] LABS: HEMOGLOBIN 13.6 g/dl (13.5-17.5); MEAN CORPUSCULAR HEMOGLOBIN 32.1 pg (27.0-33.0); MEAN CORPUSCULAR HGB CONC 33.2 g/dl (32.0-36.5); MEAN CORPUSCULAR VOLUME 96.7 fl (80.0-96.0); PLATELET COUNT, AUTOMATED 217 10^3/uL (150-450); RED BLOOD COUNT 4.24 10^6/uL (4.30-6.10); WHITE BLOOD COUNT 7.2 10^3/uL (4.0-10.0)
[2021-08-09 17:26] LABS: ALBUMIN 3.4 GM/DL (3.2-5.2); ALT/SGPT 86 U/L (12-78); BILIRUBIN,TOTAL 0.3 MG/DL (0.2-1.0); BLOOD UREA NITROGEN 19 MG/DL (7-18); CALCIUM LEVEL 9.1 MG/DL (8.5-10.1); CARBON DIOXIDE LEVEL 26 MEQ/L (21-32); CHLORIDE LEVEL 107 MEQ/L (98-107); CREATININE FOR GFR 0.83 MG/DL (0.70-1.30); GLOMERULAR FILTRATION RATE > 60.0 (>56); GLUCOSE, FASTING 85 MG/DL (70-100); POTASSIUM SERUM 4.7 MEQ/L (3.5-5.1); SODIUM LEVEL 141 MEQ/L (136-145); TOTAL PROTEIN 6.7 GM/DL (6.4-8.2)
== END ==
LOC: M LAB 16:24
PROVIDERS: ATTEND Dermatology
DX: L25.9 Unspecified contact dermatitis, unspecified cause (principal)

== ENCOUNTER 2021-10-17 08:01 | Outpatient (CLI) | payer BC ==
[~2021-10-17] VITALS: Ht 170.2 cm; Wt 97.8 kg
[~2021-10-17 08:01] MED LIST changes: +ALBUTEROL SULFATE 2.5 MG/0.5 ML INH NEB SOLN INH PRN; +EPINEPHrine INJ 1 MG/ML 1ML AMP IM PRN; +diphenhydrAMINE 50MG/ML VIAL (J1200) IV PRN; +methylPREDNISolone 125MG 2ML VIAL IV PRN
[2021-10-17 08:20] VITALS: BP 168/91
[2021-10-17] MEDS ORDERED: ONDANSETRON 4MG/2ML VIAL IV ONE (08:30)
[2021-10-17] MEDS ORDERED: riTUXimab (INITIAL INFUSION) IV ONE ×2 (08:30)
[2021-10-17] MEDS ORDERED: ACETAMINOPHEN 650 MG PO PO ONE (08:30)
[2021-10-17] MEDS ORDERED: diphenhydrAMINE 25 MG PO PO ONE (08:30)
[2021-10-17 09:45] VITALS: BP 139/90
[2021-10-17 10:15] VITALS: BP 137/88
[2021-10-17 12:24] VITALS: BP 136/75
== END 2021-10-17 12:30 | disposition home or self-care (01) ==
LOC: M INFU 08:01
PROVIDERS: ATTEND Internal Medicine Rheumatology
DX: M05.79 Rheumatoid arthritis with rheumatoid factor of multiple sites without organ or systems involvement (principal); L12.0 Bullous pemphigoid
CPT/HCPCS: 96413; 96415; J9312

== ENCOUNTER → 2021-10-17 | Outpatient (CLI) | payer BC ==
[~2021-10-17] MED LIST changes: +LOSA50TA28; +LOSA50TA28 PO; -LOSA50TA88; -LOSA50TA88 PO
== END ==
LOC: M RAD 12:45
PROVIDERS: ATTEND Internal Medicine Pulmonary Disease
DX: R91.8 Other nonspecific abnormal finding of lung field (principal)

== ENCOUNTER 2021-10-31 08:19 | Outpatient (CLI) | payer BC ==
[2021-10-31] VITALS (7 sets, daily range): BP systolic 127–162; BP diastolic 62–92
[~2021-10-31] VITALS: Ht 170.2 cm; Wt 97.8 kg
[~2021-10-31 08:19] MED LIST changes: +ACETAMINOPHEN TAB 650MG DOSE (2X325MG) PO ONE; +ONDANSETRON 4MG/2ML VIAL IV ONE; +diphenhydrAMINE 25MG CAP PO ONE; +riTUXimab (SUBSEQUENT INFUSIONS) IV ONE
== END 2021-10-31 13:05 | disposition home or self-care (01) ==
LOC: M INFU 08:19
PROVIDERS: ATTEND Internal Medicine Rheumatology
DX: M05.79 Rheumatoid arthritis with rheumatoid factor of multiple sites without organ or systems involvement (principal); L12.0 Bullous pemphigoid
CPT/HCPCS: 96413; 96415; J2405; J9312

== ENCOUNTER → 2021-11-07 | Outpatient (CLI) | payer BC ==
[~2021-11-07] MED LIST changes: -ACETAMINOPHEN TAB 650MG DOSE (2X325MG) PO ONE; -ALBUTEROL SULFATE 2.5 MG/0.5 ML INH NEB SOLN INH PRN; -EPINEPHrine INJ 1 MG/ML 1ML AMP IM PRN; -ONDANSETRON 4MG/2ML VIAL IV ONE; -diphenhydrAMINE 25MG CAP PO ONE; -diphenhydrAMINE 50MG/ML VIAL (J1200) IV PRN; -methylPREDNISolone 125MG 2ML VIAL IV PRN; -riTUXimab (SUBSEQUENT INFUSIONS) IV ONE
[2021-11-07 13:00] LABS: BASO % 0.4 % (0.0-1.0); EOS # 0.8 10^3/uL (0.0-0.5); EOS % 11.8 % (0.0-3.0); HEMATOCRIT 43.5 % (42.0-52.0); HEMOGLOBIN 14.8 g/dl (13.5-17.5); LYMPH # 0.9 10^3/uL (1.5-5.0); LYMPH % 13.7 % (24.0-44.0); MEAN CORPUSCULAR HEMOGLOBIN 32.8 pg (27.0-33.0); MEAN CORPUSCULAR VOLUME 96.5 fl (80.0-96.0); MONO # 0.8 10^3/uL (0.0-0.8); MONO % 11.2 % (2.0-8.0); NEUTROPHILS # 4.2 10^3/uL (1.5-8.5); NEUTROPHILS % 62.5 % (36.0-66.0); PLATELET COUNT, AUTOMATED 264 10^3/uL (150-450); RED BLOOD COUNT 4.51 10^6/uL (4.30-6.10); WHITE BLOOD COUNT 6.7 10^3/uL (4.0-10.0)
[2021-11-07 14:02] LABS: ALBUMIN 3.7 GM/DL (3.2-5.2); ALT/SGPT 50 U/L (12-78); BILIRUBIN,TOTAL 0.4 MG/DL (0.2-1.0); BLOOD UREA NITROGEN 15 MG/DL (7-18); CALCIUM LEVEL 9.4 MG/DL (8.5-10.1); CARBON DIOXIDE LEVEL 31 MEQ/L (21-32); CHLORIDE LEVEL 105 MEQ/L (98-107); CREATININE FOR GFR 0.95 MG/DL (0.70-1.30); GLOMERULAR FILTRATION RATE > 60.0 (>56); GLUCOSE, FASTING 79 MG/DL (70-100); POTASSIUM SERUM 4.2 MEQ/L (3.5-5.1); SODIUM LEVEL 140 MEQ/L (136-145); TOTAL PROTEIN 6.9 GM/DL (6.4-8.2)
== END ==
LOC: M LAB 12:18
PROVIDERS: ATTEND Dermatology
DX: L25.9 Unspecified contact dermatitis, unspecified cause (principal)

== ENCOUNTER → 2022-01-06 | Outpatient (CLI) | payer BC ==
[2022-01-06 16:27] LABS: BASO % 0.6 % (0.0-1.0); EOS # 0.6 10^3/uL (0.0-0.5); EOS % 8.7 % (0.0-3.0); HEMATOCRIT 50.4 % (42.0-52.0); HEMOGLOBIN 16.7 g/dl (13.5-17.5); LYMPH # 1.2 10^3/uL (1.5-5.0); LYMPH % 16.3 % (24.0-44.0); MEAN CORPUSCULAR HEMOGLOBIN 31.6 pg (27.0-33.0); MEAN CORPUSCULAR HGB CONC 33.1 g/dl (32.0-36.5); MEAN CORPUSCULAR VOLUME 95.3 fl (80.0-96.0); MONO # 0.9 10^3/uL (0.0-0.8); MONO % 12.6 % (2.0-8.0); NEUTROPHILS # 4.3 10^3/uL (1.5-8.5); NEUTROPHILS % 61.5 % (36.0-66.0); PLATELET COUNT, AUTOMATED 255 10^3/uL (150-450); RED BLOOD COUNT 5.29 10^6/uL (4.30-6.10); WHITE BLOOD COUNT 7.1 10^3/uL (4.0-10.0)
[2022-01-06 16:51] LABS: ERYTHROCYTE SEDIMENTATION RATE 2 mm/hr (0-20)
[2022-01-06 17:01] LABS: ALBUMIN 3.8 GM/DL (3.2-5.2); ALT/SGPT 31 U/L (12-78); BILIRUBIN,TOTAL 0.4 MG/DL (0.2-1.0); BLOOD UREA NITROGEN 18 MG/DL (7-18); CALCIUM LEVEL 9.8 MG/DL (8.5-10.1); CARBON DIOXIDE LEVEL 28 MEQ/L (21-32); CHLORIDE LEVEL 108 MEQ/L (98-107); CREATININE FOR GFR 0.99 MG/DL (0.70-1.30); GLOMERULAR FILTRATION RATE > 60.0 (>56); GLUCOSE, FASTING 85 MG/DL (70-100); POTASSIUM SERUM 4.6 MEQ/L (3.5-5.1); SODIUM LEVEL 142 MEQ/L (136-145); TOTAL PROTEIN 7.2 GM/DL (6.4-8.2)
== END ==
LOC: M LAB 15:59
PROVIDERS: ATTEND Internal Medicine Rheumatology
DX: M05.79 Rheumatoid arthritis with rheumatoid factor of multiple sites without organ or systems involvement (principal); L12.0 Bullous pemphigoid; M15.9 Polyosteoarthritis, unspecified; Z79.899 Other long term (current) drug therapy

== ENCOUNTER 2022-06-11 10:58 | Outpatient (CLI) | payer BC ==
[~2022-06-11] VITALS: Ht 170.2 cm; Wt 94.3 kg
[~2022-06-11 10:58] MED LIST changes: +ALBUTEROL SULFATE 2.5 MG/0.5 ML INH NEB SOLN INH PRN; +EPINEPHrine INJ 1 MG/ML 1ML AMP IM PRN; +ONDANSETRON 4MG 2ML VIAL IV ONE; +diphenhydrAMINE 50MG/ML VIAL (J1200) IV PRN; +methylPREDNISolone 125MG 2ML VIAL IV PRN
[2022-06-11 11:00] VITALS: BP 157/89
[2022-06-11] MEDS ORDERED: diphenhydrAMINE 25MG CAP PO ONE (11:00)
[2022-06-11] MEDS ORDERED: methylPREDNISolone 125MG 2ML VIAL IV ONE (11:00)
[2022-06-11] MEDS ORDERED: riTUXimab 1,000 MG in NS 900 ML IV ONE (11:00)
[2022-06-11] MEDS ORDERED: NS 1,000 ML IV SCH (11:00)
[2022-06-11] MEDS ORDERED: ACETAMINOPHEN TAB 650MG DOSE (2X325MG) PO ONE (11:00)
[2022-06-11 12:30] VITALS: BP 147/79
[2022-06-11 13:00] VITALS: BP 145/76
[2022-06-11 13:30] VITALS: BP 148/78
[2022-06-11 14:30] VITALS: BP 159/80
[2022-06-11 16:00] VITALS: BP 141/81
== END 2022-06-11 16:00 | disposition home or self-care (01) ==
LOC: M INFU 10:58
PROVIDERS: ATTEND Internal Medicine Rheumatology
DX: M05.79 Rheumatoid arthritis with rheumatoid factor of multiple sites without organ or systems involvement (principal)
CPT/HCPCS: J2930; J9312

== ENCOUNTER 2022-06-18 10:50 | Outpatient (CLI) | payer BC ==
[~2022-06-18] VITALS: Ht 170.2 cm; Wt 94.3 kg
[2022-06-18 10:30] VITALS: BP 152/91
[~2022-06-18 10:50] MED LIST changes: +ACETAMINOPHEN TAB 650MG DOSE (2X325MG) PO ONE; +NS 1,000 ML IV SCH; +diphenhydrAMINE 25MG CAP PO ONE; -diphenhydrAMINE 50MG/ML VIAL (J1200) IV PRN; +diphenhydrAMINE 50MG/ML VIAL IV PRN; +methylPREDNISolone 125MG 2ML VIAL IV ONE; +riTUXimab (SUBSEQUENT INFUSIONS) IV ONE
[2022-06-18 12:00] VITALS: BP 138/77
[2022-06-18 12:30] VITALS: BP 128/81
[2022-06-18 14:00] VITALS: BP 128/81
[2022-06-18 14:59] VITALS: BP 155/83
== END 2022-06-18 15:00 | disposition home or self-care (01) ==
LOC: M INFU 10:50
PROVIDERS: ATTEND Internal Medicine Rheumatology
DX: M05.79 Rheumatoid arthritis with rheumatoid factor of multiple sites without organ or systems involvement (principal)
CPT/HCPCS: 96365; 96366; J9312

== ENCOUNTER → 2022-10-03 | Outpatient (CLI) | payer BC ==
[~2022-10-03] MED LIST changes: -ACETAMINOPHEN TAB 650MG DOSE (2X325MG) PO ONE; -ALBUTEROL SULFATE 2.5 MG/0.5 ML INH NEB SOLN INH PRN; -EPINEPHrine INJ 1 MG/ML 1ML AMP IM PRN; -NS 1,000 ML IV SCH; -ONDANSETRON 4MG 2ML VIAL IV ONE; -diphenhydrAMINE 25MG CAP PO ONE; -diphenhydrAMINE 50MG/ML VIAL IV PRN; -methylPREDNISolone 125MG 2ML VIAL IV ONE; -methylPREDNISolone 125MG 2ML VIAL IV PRN; -riTUXimab (SUBSEQUENT INFUSIONS) IV ONE
== END ==
LOC: M LAB 15:27
PROVIDERS: ATTEND Internal Medicine Pulmonary Disease
DX: R91.8 Other nonspecific abnormal finding of lung field (principal)

== ENCOUNTER → 2022-11-02 | Outpatient (CLI) | payer BC | LOC: M LAB 16:25 | PROVIDERS: ATTEND Dermatology | DX: D84.9 Immunodeficiency, unspecified (principal) ==

== ENCOUNTER → 2022-12-12 | Outpatient (REF) | payer BC ==
[~2022-12-12] MED LIST changes: -COZA50TA PO; +LOSA-528 PO
== END ==
LOC: M SFHCDERM 13:12
PROVIDERS: ATTEND Dermatology
DX: Z53.21 Procedure and treatment not carried out due to patient leaving prior to being seen by health care provider (principal)

== ENCOUNTER → 2023-02-12 | Outpatient (CLI) | payer BC ==
[2023-02-12 17:56] LABS: HEMATOCRIT 43.9 % (42.0-52.0); HEMOGLOBIN 14.5 g/dl (13.5-17.5); MEAN CORPUSCULAR HEMOGLOBIN 32.2 pg (27.0-33.0); MEAN CORPUSCULAR VOLUME 97.6 fl (80.0-96.0); PLATELET COUNT, AUTOMATED 328 10^3/uL (150-450); WHITE BLOOD COUNT 11.4 10^3/uL (4.0-10.0)
[2023-02-12 18:09] LABS: ALBUMIN 4.2 G/DL (3.2-5.2); ALKALINE PHOSPHATASE 53 U/L (46-116); ALT/SGPT 18 U/L (7.0-40); AST/SGOT < 8 U/L (<34); BILIRUBIN,DIRECT 0.1 MG/DL (<0.4); BILIRUBIN,TOTAL 0.3 MG/DL (0.3-1.2); CHOLESTEROL LEVEL 169 MG/DL (<200); CHOLESTEROL RISK RATIO 2.25 (<5); HDL CHOLESTEROL 74.9 MG/DL (>40); LDL CHOLESTEROL 76.3 MG/DL (<100); NON-HDL-C 94.1 MG/DL; TOTAL PROTEIN 6.4 G/DL (5.7-8.2); TRIGLYCERIDES LEVEL 89 MG/DL (<150)
== END ==
LOC: M LAB 17:14
PROVIDERS: ATTEND Dermatology
DX: L25.9 Unspecified contact dermatitis, unspecified cause (principal)

== ENCOUNTER → 2023-03-28 | Outpatient (REF) | payer BC | LOC: M SFHCDERM 14:37 | PROVIDERS: ATTEND Dermatology | DX: L08.9 Local infection of the skin and subcutaneous tissue, unspecified (principal) ==

== ENCOUNTER → 2023-05-17 | Outpatient (CLI) | payer BC | LOC: M LAB 14:13 | PROVIDERS: ATTEND Dermatology | DX: R21 Rash and other nonspecific skin eruption (principal) ==

== ENCOUNTER → 2023-10-29 | Outpatient (REF) | payer BC | LOC: M SFHCDERM 17:22 | PROVIDERS: ATTEND Physician Assistant | DX: B35.1 Tinea unguium (principal) ==

== ENCOUNTER → 2023-12-17 | Outpatient (REF) | payer BC | LOC: M SFHCDERM 16:14 | PROVIDERS: ATTEND Nurse Practitioner Family | DX: R21 Rash and other nonspecific skin eruption (principal) ==

== ENCOUNTER → 2023-12-17 | Outpatient (CLI) | payer BC ==
[2023-12-17 17:07] LABS: BASO % 0.4 % (0.0-1.0); EOS # 0.5 10^3/uL (0.0-0.5); EOS % 7.2 % (0.0-3.0); HEMATOCRIT 44.9 % (42.0-52.0); HEMOGLOBIN 15.2 g/dl (13.5-17.5); LYMPH # 1.2 10^3/uL (1.5-5.0); LYMPH % 17.3 % (24.0-44.0); MEAN CORPUSCULAR HEMOGLOBIN 32.2 pg (27.0-33.0); MEAN CORPUSCULAR HGB CONC 33.9 g/dl (32.0-36.5); MEAN CORPUSCULAR VOLUME 95.1 fl (80.0-96.0); MONO # 0.9 10^3/uL (0.0-0.8); MONO % 13.2 % (2.0-8.0); NEUTROPHILS # 4.3 10^3/uL (1.5-8.5); NEUTROPHILS % 61.6 % (36.0-66.0); PLATELET COUNT, AUTOMATED 252 10^3/uL (150-450); RED BLOOD COUNT 4.72 10^6/uL (4.30-6.10)
[2023-12-17 17:10] LABS: APPEARANCE, URINE CLEAR (CLEAR); BACTERIA, URINE AUTO NEGATIVE (NEGATIVE); BILIRUBIN, URINE AUTO NEGATIVE (NEGATIVE); BLOOD, URINE BLOOD NEGATIVE (NEGATIVE); COLOR, URINE YELLOW (YELLOW); GLUCOSE, URINE (UA) AUTO NEGATIVE (NEGATIVE); KETONE, URINE AUTO NEGATIVE (NEGATIVE); LEUKOCYTE ESTERASE, URINE AUTO NEGATIVE (NEGATIVE); MUCUS, URINE SMALL (NEGATIVE); NITRITE, URINE AUTO NEGATIVE (NEGATIVE); PROTEIN, URINE AUTO NEGATIVE (NEGATIVE); RBC, URINE AUTO 0 /HPF (0-3); SPECIFIC GRAVITY URINE AUTO 1.019 (1.002-1.035); SQUAMOUS EPITHELIAL CELL UR AU 0 /HPF (0-6); UROBILINOGEN, URINE AUTO 0.2 mg/dL (0.0-2.0); WBC, URINE AUTO 1 /HPF (0-3)
[2023-12-17 17:15] LABS: ERYTHROCYTE SEDIMENTATION RATE 24 mm/hr (0-20)
[2023-12-17 17:33] LABS: ALBUMIN 3.5 G/DL (3.2-5.2); ALKALINE PHOSPHATASE 62 U/L (46-116); ALT/SGPT 22 U/L (7.0-40); AST/SGOT 13 U/L (<34); BILIRUBIN,TOTAL 0.5 MG/DL (0.3-1.2); BLOOD UREA NITROGEN 17 MG/DL (9-23); CALCIUM LEVEL 8.9 MG/DL (8.3-10.6); CARBON DIOXIDE LEVEL 30 MMOL/L (20-31); CHLORIDE LEVEL 104 MMOL/L (98-107); CREATININE FOR GFR 0.97 MG/DL (0.70-1.30); GLOMERULAR FILTRATION RATE > 60.0 (>49); GLUCOSE, FASTING 86 MG/DL (74-106); IMMUNOGLOBULIN A 284.4 MG/DL (40-350); POTASSIUM SERUM 4.4 MMOL/L (3.5-5.1); SODIUM LEVEL 139 MMOL/L (136-145); TOTAL PROTEIN 6.4 G/DL (5.7-8.2)
[2023-12-17 17:53] LABS: HEPATITIS B SURFACE ANTIGEN NEGATIVE (NEGATIVE)
[2023-12-17 18:06] LABS: HIV 1&2 SCREEN NEGATIVE (NEGATIVE)
[2023-12-17 18:14] LABS: HEPATITIS C VIRUS ABY INDEX < 0.02 INDEX (<0.8)
[2023-12-17 18:15] LABS: HEPATITIS B CORE ANTIBODY IGM NEGATIVE (NEGATIVE)
== END ==
LOC: M LAB 16:04
PROVIDERS: ATTEND Nurse Practitioner Family
DX: R21 Rash and other nonspecific skin eruption (principal)

== ENCOUNTER → 2024-01-21 | Outpatient (CLI) | payer BC ==
[2024-01-21 15:33] LABS: BASO % 0.5 % (0.0-1.0); EOS # 0.2 10^3/uL (0.0-0.5); EOS % 2.4 % (0.0-3.0); HEMATOCRIT 44.6 % (42.0-52.0); HEMOGLOBIN 15.4 g/dl (13.5-17.5); LYMPH # 1.3 10^3/uL (1.5-5.0); LYMPH % 20.8 % (24.0-44.0); MEAN CORPUSCULAR HGB CONC 34.5 g/dl (32.0-36.5); MEAN CORPUSCULAR VOLUME 95.5 fl (80.0-96.0); MONO # 0.6 10^3/uL (0.0-0.8); NEUTROPHILS # 4.1 10^3/uL (1.5-8.5); NEUTROPHILS % 65.7 % (36.0-66.0); PLATELET COUNT, AUTOMATED 222 10^3/uL (150-450); RED BLOOD COUNT 4.67 10^6/uL (4.30-6.10); WHITE BLOOD COUNT 6.3 10^3/uL (4.0-10.0)
[2024-01-21 15:41] LABS: ERYTHROCYTE SEDIMENTATION RATE 20 mm/hr (0-20)
[2024-01-21 16:00] LABS: ALBUMIN 3.3 G/DL (3.2-5.2); ALKALINE PHOSPHATASE 46 U/L (46-116); ALT/SGPT 30 U/L (7.0-40); AST/SGOT 11 U/L (<34); BILIRUBIN,TOTAL 0.4 MG/DL (0.3-1.2); BLOOD UREA NITROGEN 22 MG/DL (9-23); CALCIUM LEVEL 9.9 MG/DL (8.3-10.6); CARBON DIOXIDE LEVEL 28 MMOL/L (20-31); CHLORIDE LEVEL 107 MMOL/L (98-107); COMPLEMENT C3 139.5 MG/DL (90.0-170.0); COMPLEMENT C4 27.6 MG/DL (12-36); CREATININE FOR GFR 0.95 MG/DL (0.70-1.30); GLOMERULAR FILTRATION RATE > 60.0 (>49); GLUCOSE, FASTING 116 MG/DL (74-106); IMMUNOGLOBULIN A 275.5 MG/DL (40-350); IMMUNOGLOBULIN G 681 MG/DL (650-1600); POTASSIUM SERUM 4.4 MMOL/L (3.5-5.1); SODIUM LEVEL 139 MMOL/L (136-145); TOTAL PROTEIN 6.2 G/DL (5.7-8.2)
[2024-01-22 16:20] LABS: CRYOGLOBULINS NEGATIVE (NEGATIVE)
== END ==
LOC: M LAB 14:48
PROVIDERS: ATTEND Internal Medicine Rheumatology
DX: M05.79 Rheumatoid arthritis with rheumatoid factor of multiple sites without organ or systems involvement (principal)

== ENCOUNTER → 2024-01-21 | Outpatient (REF) | payer BC | LOC: M SFHCDERM 14:25 | PROVIDERS: ATTEND Nurse Practitioner Family | DX: R21 Rash and other nonspecific skin eruption (principal); T14.90XD Injury, unspecified, subsequent encounter ==

== ENCOUNTER → 2024-01-21 | Outpatient (CLI) | payer BC | LOC: M LAB 14:44 | PROVIDERS: ATTEND Nurse Practitioner Family | DX: R21 Rash and other nonspecific skin eruption (principal); T14.90XD Injury, unspecified, subsequent encounter ==

== ENCOUNTER → 2024-02-12 | Outpatient (CLI) | payer BC | LOC: M PLAIMG 08:47 | PROVIDERS: ATTEND Dermatology | DX: M05.20 Rheumatoid vasculitis with rheumatoid arthritis of unspecified site (principal) ==

== ENCOUNTER → 2024-02-13 | Outpatient (CLI) | payer BC ==
[2024-02-13 12:38] LABS: BASO % 0.4 % (0.0-1.0); EOS # 0.2 10^3/uL (0.0-0.5); EOS % 2.3 % (0.0-3.0); HEMATOCRIT 40.8 % (42.0-52.0); HEMOGLOBIN 13.8 g/dl (13.5-17.5); LYMPH # 1.3 10^3/uL (1.5-5.0); LYMPH % 16.1 % (24.0-44.0); MEAN CORPUSCULAR HEMOGLOBIN 32.9 pg (27.0-33.0); MEAN CORPUSCULAR HGB CONC 33.8 g/dl (32.0-36.5); MEAN CORPUSCULAR VOLUME 97.1 fl (80.0-96.0); MONO % 13.1 % (2.0-8.0); NEUTROPHILS # 5.3 10^3/uL (1.5-8.5); NEUTROPHILS % 67.6 % (36.0-66.0); PLATELET COUNT, AUTOMATED 202 10^3/uL (150-450); WHITE BLOOD COUNT 7.8 10^3/uL (4.0-10.0)
[2024-02-13 13:01] LABS: ALBUMIN 3.6 G/DL (3.2-5.2); ALKALINE PHOSPHATASE 52 U/L (46-116); ALT/SGPT 35 U/L (7.0-40); AST/SGOT 18 U/L (<34); BILIRUBIN,TOTAL 0.8 MG/DL (0.3-1.2); BLOOD UREA NITROGEN 21 MG/DL (9-23); CALCIUM LEVEL 9.5 MG/DL (8.3-10.6); CARBON DIOXIDE LEVEL 29 MMOL/L (20-31); CHLORIDE LEVEL 105 MMOL/L (98-107); CREATININE FOR GFR 1.08 MG/DL (0.70-1.30); GLOMERULAR FILTRATION RATE > 60.0 (>49); GLUCOSE, FASTING 95 MG/DL (74-106); POTASSIUM SERUM 4.5 MMOL/L (3.5-5.1); SODIUM LEVEL 141 MMOL/L (136-145); TOTAL PROTEIN 6.4 G/DL (5.7-8.2)
== END ==
LOC: M LAB 11:56
PROVIDERS: ATTEND Dermatology
DX: R21 Rash and other nonspecific skin eruption (principal)

== ENCOUNTER → 2024-03-03 | Outpatient (CLI) | payer BC ==
[2024-03-03 13:23] LABS: ABG BASE EXCESS -3.3 (-2.0-2.0); ABG HCO3 19.5 MMOL/L (22.0-26.0); ABG O2 SATURATION 96.6 % (95.0-99.0); ABG PARTIAL PRESSURE CO2 29.4 mmHg (35.0-45.0); ABG PARTIAL PRESSURE O2 84.9 mmHg (75.0-100.0); ABG STANDARD HCO3 21.7 MMOL/L. (22.0-26.0); ABG TOTAL CO2 20.4 MMOL/L (23.0-31.0); ABG pH (ARTERIAL) 7.439 UNITS (7.350-7.450)
== END ==
LOC: M CARPUL 13:03
PROVIDERS: ATTEND Internal Medicine Critical Care Medicine
DX: J84.9 Interstitial pulmonary disease, unspecified (principal)

== ENCOUNTER → 2024-03-12 | Outpatient (REF) | payer BC | LOC: M SFHCRHEU 15:23 | PROVIDERS: ATTEND Internal Medicine Rheumatology | DX: Z53.9 Procedure and treatment not carried out, unspecified reason (principal) ==

== ENCOUNTER → 2024-03-17 | Outpatient (REF) | payer BC | LOC: M SFHCRHEU 11:26 | PROVIDERS: ATTEND Internal Medicine Rheumatology | DX: Z53.9 Procedure and treatment not carried out, unspecified reason (principal) ==

== ENCOUNTER → 2025-06-10 | Outpatient (REF) | payer OTHER ==
[~2025-06-10] MED LIST changes: +BISO5TAB14 PO; +FLUT1BLS8 INH; +FOLI1TAB11 PO; +METH2.5T48 PO; +OMEP-173 PO; +THERTAB52 PO
[2025-06-10 15:06] LABS: BASO # 0.0 10^3/uL (0.0-0.2); BASO % 0.6 % (0.0-1.0); EOS # 0.4 10^3/uL (0.0-0.5); EOS % 6.6 % (0.0-3.0); LYMPH # 1.1 10^3/uL (1.5-5.0); LYMPH % 16.0 % (24.0-44.0); MONO # 0.6 10^3/uL (0.0-0.8); MONO % 9.1 % (2.0-8.0); NEUTROPHILS # 4.5 10^3/uL (1.5-8.5); NEUTROPHILS % 67.3 % (36.0-66.0); PLATELET COUNT, AUTOMATED 259 10^3/uL (150-450)
[2025-06-10 15:12] LABS: C REACTIVE PROTEIN QUANTITATIV 0.57 MG/DL (<1.0)
[2025-06-10 15:14] LABS: ALT/SGPT 22.0 U/L (7.0-40); AST/SGOT 19.0 U/L (<34); CALCIUM LEVEL 9.5 MG/DL (8.3-10.6); CARBON DIOXIDE LEVEL 24.0 MMOL/L (20-31); CHLORIDE LEVEL 104.0 MMOL/L (98-107); CREATININE FOR GFR 1.52 MG/DL (0.70-1.30); GLOMERULAR FILTRATION RATE 51.5 (>49); POTASSIUM SERUM 4.4 MMOL/L (3.5-5.1); SODIUM LEVEL 136.0 MMOL/L (136-145)
== END ==
LOC: M SFHCRHEU 09:26
PROVIDERS: ATTEND Internal Medicine Rheumatology
DX: M06.9 Rheumatoid arthritis, unspecified (principal)